=== PATIENT | female | born 1955 | race Caucasian/White ===

== ENCOUNTER → 2017-11-05 12:55 | Outpatient (CLI) | payer OTHER, SELFPAY ==
--- NOTE | 2017-11-05 | DI.MRI.S_ITS ---
PROCEDURE: MR LUMBAR SPINE WO CON INDICATIONS: LUMBAR SPINE PAIN TECHNIQUE: Noncontrast sagittal T1 spin echo and T2 fast echo, sagittal STIR, axial T1 and T2 fast spin echo through the lumbar spine. In cases with scoliosis, additional coronal T2 fast spin echo may be performed. COMPARISON: CT from 07/16/2014. FINDINGS: Image quality: Excellent. Alignment and Curvature: There is normal bony alignment. Bone Marrow: Marrow is of normal overall signal with foci of increased T1 signal in the partially visualized pelvis. No acute vertebral body compression fractures. Spinal Cord: Conus medullaris terminates at the T12 level. Visualized cord demonstrates normal signal and size. Paraspinous Soft Tissues: No paravertebral masses. L1-L2: Normal appearance. L2-L3: Normal appearance. L3-L4: Mild broad-based posterior disc bulge. Facet joint and ligamentum flavum hypertrophy. The central spinal canal and neural foramina are patent. . L4-L5: Mild broad-based posterior disc bulge. Facet joint and ligamentum flavum hypertrophy. Findings cause moderate left neural foraminal narrowing. The central spinal canal and right neural foramen are patent.. L5-S1: Normal appearance. IMPRESSION: Mild lower lumbar spine degenerative change causes moderate left L4-5 neural foraminal narrowing. Remaining neural foramina and the lumbar spinal canal are patent. Dictated by: Moe Thakkar M.D. on 11/05/2017 at 14:05 Approved by: Moe Thakkar M.D. on 11/05/2017 at 14:10
== END ==
PROVIDERS: PCP Internal Medicine; Visit Provider Orthopaedic Surgery Orthopaedic Surgery of the Spine
DX: M48.061 Spinal stenosis, lumbar region without neurogenic claudication (principal); M54.5 Low back pain
CPT/HCPCS: 72148

== ENCOUNTER → 2018-10-08 13:50 | Outpatient (CLI) | payer OTHER, SELFPAY ==
--- NOTE | 2018-10-08 | DI.MRI.S_ITS ---
PROCEDURE: MR LUMBAR SPINE WO CON INDICATIONS: Spinal stenosis, lumbar region TECHNIQUE: Noncontrast sagittal T1 spin echo and T2 fast echo, sagittal STIR, axial T1 and T2 fast spin echo through the lumbar spine. In cases with scoliosis, additional coronal T2 fast spin echo may be performed. COMPARISON: [facility], MR, MR LUMBAR SPINE WO CON, 11/05/2017, 14:00. FINDINGS: Image quality: Diagnostic, with note made of motion artifact. Alignment and Curvature: There is normal bony alignment. Bone Marrow: Marrow is of normal overall signal. No acute vertebral body compression fractures. Scattered foci are seen, which are hyperintense on T1-weighted and T2-weighted imaging, which are most consistent with benign vertebral body hemangiomas. Fatty metaplasia of the sacrum is noted. Spinal Cord: Conus medullaris terminates at the T12 level. Visualized cord demonstrates normal signal and size. Paraspinous Soft Tissues: No paravertebral masses. T12-L1: Normal appearance. L1-L2: Normal appearance. L2-L3: Normal appearance. L3-L4: The disc height is well-preserved. Loss of disc signal is seen at this level. Moderate generalized disc bulge is seen. Moderate facet joint hypertrophy is seen. Moderate bilateral neural foraminal narrowing is seen. The degree of neural foraminal narrowing appears mildly progressed compared to the prior MRI. L4-L5: The disc height is well-preserved. Loss of disc signal is seen at this level. Moderate generalized disc bulge is seen. At least moderate facet hypertrophy is seen. Moderate to severe bilateral neural foraminal narrowing is seen, left worse than right. Moderate central canal narrowing is seen. These degenerative changes appear slightly progressed compared to the prior MRI. L5-S1: The disc height and disk signal are well-preserved. Moderate generalized disc bulge is seen. Moderate facet joint hypertrophy is seen. No significant neural foraminal or central canal narrowing can be seen. Stable from the prior study. IMPRESSION: Lower lumbar spine degenerative changes are seen, which have mildly progressed compared to the prior MRI at L3-L4 and L4-L5. Dictated by: Dutch Sherman M.D. on 10/08/2018 at 14:59 Approved by: Dutch Sherman M.D. on 10/08/2018 at 15:04
== END ==
PROVIDERS: PCP Internal Medicine; Visit Provider Orthopaedic Surgery Orthopaedic Surgery of the Spine
DX: M47.816 Spondylosis without myelopathy or radiculopathy, lumbar region (principal); M48.061 Spinal stenosis, lumbar region without neurogenic claudication
CPT/HCPCS: 72148

== ENCOUNTER 2018-11-11 10:02 | Day surgery (SDC) | payer OTHER, SELFPAY ==
[2018-10-30 14:51] VITALS: BMI 47.2
[2018-11-11] VITALS (11 sets, daily range): BP systolic 115–166; BP diastolic 48–99; PULSE 51–88; RESP 12–19; TEMP 36.1–37; O2SAT 94–100; BMI 47.2
--- NOTE | 2018-11-11 | DI.RAD.S_ITS ---
PROCEDURE: XR LUMBAR SPINE 2-3V INDICATIONS: L3-4, L4-5 MICRODISCECTOMY TECHNIQUE: 3 views of the lumbar spine were acquired. COMPARISON: None. FINDINGS: Spot fluoroscopic intraoperative images demonstrate a surgical instrument with the tip projecting at the L4-L5 level in the posterior paraspinal soft tissues. Dictated by: Rush Centeno M.D. on 11/16/2018 at 11:28 Approved by: Rush Centeno M.D. on 11/16/2018 at 11:29
--- NOTE | 2018-11-11 11:39 | PM.PREOP ---
Pre-operative Note Interval Note History & Physical reviewed/Exam performed by Physician: Yes Changes to H&P: No
[2018-11-11] MEDS: LACTATED RINGERS 1,000 ML 42 ML IV (12:34)
[2018-11-11] MEDS: CEFAZOLIN 2 GM/100 ML FROZ.PIGGY IV (12:36)
--- NOTE | 2018-11-11 13:02 | SUR.OPER ---
Prone on spine table, head in foam head support, padded chest and pelvic supports, gel pad at knees, lower legs supported by pillows; nipples, genitalia and toes free of pressure, arms secured on foam padded arm boards at <90 degrees abduction. Tape over blanket at thigh secured to table.
[2018-11-11] MEDS: BUPIVACAINE 0.25% W/ EPI 30 ML VIAL INJ (13:13)
--- NOTE | 2018-11-11 13:38 | P.OP_ITS ---
Operative Date/Time/Diagnoses Date of procedure: 11/11/18 Time of procedure: 12:33 Pre-op diagnosis: 1. L3-4, L4-5 spinal stenosis 2. L3-4, L4-5 spondylosis with radculopathy Post-op diagnosis: same Procedure & Clinicians Procedure: 1. L4-5 laminectomy with partial facetecomies 2. L3-4 hemilaminectomy 3. Utilization of microsurgical technique and operating microscope Same procedure as scheduled: Yes Indications: Patient has been having chronic back pain and worsening lumbar radiculopathy. Patient failed multiple conservative management with worsening pain weakness and numbness in her lower extremity. Patient has been having difficulty performing activity of daily living. After discussing risks benefits of treatment options, patient elected proceed with surgery. Surgeon: Quoc Bautista [employer] Plant Operator: Ethel Flores Click Yes if Unassisted: No Anesthesia Type: General Operative Notes Closure Type: primary Specimen(s): none sent Estimated Blood Loss (mL): 5 Blood products transfused: none Procedure in detail: Patient was seen in the preoperative area. Risks and benefits of the surgery was discussed with the patient. Informed consent was obtained from the patient and placed in the chart. Surgical site was marked. Patient was taken to the operative room. General anesthesia was administered. Prophylactic antibiotic was given to the patient less than 30 min before the incision was made. Patient was placed into a prone position on the Juan Ramon table. Patient's back was then prepped and draped in the sterile fashion. Time- out was performed at this time. Using AP and lateral C-arm imaging the interval between L3-4 L4-5 was identified and marked on patient's back. A 1 inch incision 1 in from midline was made on the left side just lateral to the midline. The fascia was incised in line with skin incision. Globus MARS retractors was placed inside the incision and docked onto the L4 lamina. Using microsurgical technique and operating microscope, a L4 laminectomy was performed using a Kerrison rongeur. Liagamentum flavum was resected at the site of the laminotomy. Either side of the dura was exposed. Bilateral partial facetcomies was performed to further decompress the lateral recess. After the laminectomy was completed, the area medial lateral superior and inferior to the area of the laminectomy was inspected and explored using a micro curette. No other impinging structure was identified. The MARS retractor was redirected under C-arm guidance to over the L3 lamina and docked onto the L3 lamina. Again using microsurgical technique and operative microscope a L3 hemilaminectomy was performed by removing the left side of the L3 lamina along with ligamentum flavum for decompression purposes. The thecal sac and lateral recess was visualized and the lateral recess was further decompressed using a Kerrison rongeur. After decompression was completed, the epidural space was inspected. The L3-4 level was fully decompressed with a hemilaminectomy. The wound was then irrigated with sterile normal saline. 40 mg Depo-Medrol was placed into the epidural space. The deep fascia was closed with 1-0 Vicryl. The subcutaneous tissue was closed with 2-0 Vicryl. The skin was closed with 4-0 Monocryl. Patient tolerated the procedure well. There were no complications. Patient was transferred recovery room in stable condition. Complications: none Condition: stable Disposition: PACU Plan for aftercare: Discharge to home
--- NOTE | 2018-11-11 13:49 | SUR.OPER ---
Extra gel pads at left hip and breast, right hip
[2018-11-11] MEDS: HYDROMORPHONE 2 MG INJ 0.5 MG IV ×2 (14:01→14:17)
[2018-11-11] MEDS: hydrOXYzine 50 MG/ML INJ 25 MG IM ×2 (14:02→14:04)
[2018-11-11] MEDS: HYDROCODONE/ACET 5/325 TABLET 1 TAB PO (14:33)
--- NOTE | 2018-11-11 17:50 | SUR.PHASEII ---
1443 received pt from DISTRICT REPRESENTATIVE. Pt immediately c/o needing to go to the BR. Assisted to B[facility], voided large amount of urine. brought in, d/c instructions discussed, all voiced an understanding. Dressing to back C/D/I. No numbness or tingling and pt steady when up. Dressed when ready and left when ready and in stable condition.
--- NOTE | 2018-11-11 17:56 | SUR.PHASEII ---
addendum: Coumadin dose discussed with Dr Bautista, his instructions given to pt.
== END 2018-11-11 15:15 | disposition home or self-care (01) ==
PROVIDERS: PCP Internal Medicine; Visit Provider Orthopaedic Surgery Orthopaedic Surgery of the Spine
PROC: (CPT 63047; principal; 2018-11-11 12:15)
DX: M48.061 Spinal stenosis, lumbar region without neurogenic claudication (principal); M47.26 Other spondylosis with radiculopathy, lumbar region; E66.9 Obesity, unspecified; I10 Essential (primary) hypertension; M79.7 Fibromyalgia; Z86.718 Personal history of other venous thrombosis and embolism
CPT/HCPCS: 63047; 63030; 72100; 76000; J0330; J0690; J1100; J1170; J2250; J2405; J2704; J3010; J3410

== ENCOUNTER 2018-11-11 23:23 | Emergency (ER) | payer OTHER, SELFPAY ==
[2018-11-11 23:34] VITALS: BP 167/95; PULSE 68; RESP 18; TEMP 36.6; O2SAT 96; BMI 44.8
--- NOTE | 2018-11-11 23:44 | ED_ITS ---
HPI - Back Pain/Injury General Chief Complaint: Back Pain/Injury Stated Complaint: post surgery symptoms Time Seen by Provider: 11/11/18 23:34 Source: patient Mode of arrival: wheelchair Limitations: no limitations History of Present Illness HPI Narrative: Patient is a 63-year-old female who underwent a lumbar laminectomy and micro diskectomy today by Orthopedics. Was discharged home with instructions to continue the pain medication that she already had. She reported no prescription for nausea medication. She states that when she went home she had some coffee and tea. After that she tried to take some of her pain medication. She states that it felt like it got stuck in her throat and she vomited a couple times. She states she has not taken any pain medications she was discharged from the hospital because of the vomiting. No problems breathing. She does have lower back pain but she thinks that it is what would be expected after her surgery. Related Data Home Medications Medication Instructions Recorded Confirmed warfarin [Coumadin] 2 mg PO SEE INSTRUCTIONS #0 02/06/17 biotin 1 mg PO QDAY #0 07/28/17 11/11/18 cholecalciferol (vitamin D3) PO QDAY #0 07/28/17 [Vitamin D3] gabapentin [Neurontin] 300 mg PO TID #0 07/28/17 multivitamin [Multiple Vitamins] 1 tab PO QDAY #0 07/28/17 oxybutynin chloride 5 mg PO PRN PRN #0 07/28/17 trazodone 100 mg PO HS #0 07/28/17 Previous Rx's Medication Instructions Recorded warfarin [Jantoven] 5 mg PO QPM #30 01/28/16 hydrocodone-acetaminophen [Suring] 1 tab PO Q4HP PRN #15 tab 07/28/17 ondansetron HCl [Zofran] 4 mg PO Q6-8H PRN #10 tab 11/12/18 Allergies Allergy/AdvReac Type Severity Reaction Status Date / Time latex [LATEX] Allergy Intermediate RASH, Unverified 09/24/17 12:31 ITCHY, BLISTERS iodine [IODINE] Allergy Mild RASH Unverified 09/24/17 12:31 morphine [MORPHINE] Allergy Mild N&V Unverified 09/24/17 12:31 mussels [MUSSELS] Allergy Unknown N&V Unverified 09/24/17 12:31 TAPE Allergy Mild BLISTERS, Uncoded 09/24/17 12:31 SKIN PEELS Review of Systems Constitutional Denies fever(s) and Reports headache(s) ENT Ears, Nose, Mouth, and Throat: Reports headache(s) Cardiovascular Denies chest pain and Denies dyspnea Respiratory Denies dyspnea Gastrointestinal Gastrointestinal: Denies abdominal pain, Denies change in stool character, Reports nausea and Reports vomiting Musculoskeletal Reports back pain Neurologic Denies behavioral changes and Reports headache(s) Psychiatric Denies behavioral changes Hematologic/Lymphatic Denies easy bleeding and Denies easy bruising [facility] Medical History Anxiety (Acute) Chronic pain (Acute) Chronic sinus bradycardia (Acute) Depression (Acute) Former smoker (Acute) GERD (gastroesophageal reflux disease) (Acute) HTN (hypertension) (Acute) Hiatal hernia (Acute) History of ETOH abuse (Acute) Hypoglycemia (Acute) Hypothyroidism (Acute) Insomnia (Acute) Lactose intolerance (Acute) SHANEKA (obstructive sleep apnea) (Acute) PTSD (post-traumatic stress disorder) (Acute) Pulmonary embolism (Acute ~1993) Surgical History History of colonoscopy (Acute) History of gastric bypass (Acute) History of total left hip arthroplasty (Acute 11/08/15) Hx of appendectomy (Acute) Hx of cholecystectomy (Acute) Hx of hernia repair (Acute) Social History household members: spouse Smoking Status: Former smoker alcohol intake: former Social History household members: spouse Smoking Status: Former smoker alcohol intake: former Exam Initial Vital Signs Initial Vital Signs: Vital Signs Temperature 97.9 F 11/11/18 23:34 Pulse Rate 68 11/11/18 23:34 Respiratory Rate 18 11/11/18 23:34 Blood Pressure 167/95 H 11/11/18 23:34 Pulse Oximetry 96 11/11/18 23:34 Const General: cooperative, well developed, well groomed and No acute distress Orientation: alert and oriented x3 HENMT Head: normal to inspection and normocephalic Resp Effort & Inspection: normal respiratory effort Cardio Rate: regular rate Rhythm: regular rhythm Neuro General: alert, awake and oriented x3 Cognition: normal cognition Speech: speech normal Extrem General: normal to inspection and capillary refill normal Psych Appearance: grossly normal and well kempt Course Orders Ordered: Discontinued Medications Hydromorphone HCl (Dilaudid) 1 mg IV NOW ONE Stop: 11/11/18 23:54 Last Admin: 11/12/18 00:07 Dose: 1 mg Sodium Chloride (Normal Saline 0.9%) 1,000 mls @ 1,000 mls/hr IV BOLUS ONE Stop: 11/12/18 00:52 Last Infusion: 11/12/18 01:09 Dose: 1,000 mls/hr Admin: 11/12/18 00:07 Dose: 1,000 mls/hr Ondansetron HCl (Zofran) 4 mg IV NOW ONE Stop: 11/11/18 23:54 Last Admin: 11/12/18 00:07 Dose: 4 mg Vital Signs - 8 hr 11/11/18 23:34 Temperature 97.9 F Pulse Rate 68 Respiratory Rate 18 Blood Pressure 167/95 H Pulse Oximetry 96 MDM - Back Pain/Injury MDM Narrative Medical decision making narrative: Patient felt better after fluids and nausea and pain medication. She was able to tolerate oral intake afterwards. She does have back pain but it is what would be expected after surgery today. I suspect that her throat symptoms are the result of being intubated today. Hold on further workup for now. She has pain medication at home. Will send home with nausea medication. She was given return precautions. Instructed to continue all of her postoperative instructions given her by her surgeon. She expressed understanding and agreement plan. Discharge Plan Departure Patient Disposition: Home Clinical Impression: Postoperative nausea and vomiting Instructions: Nausea and Vomiting-Adult Activity Restrictions/Additional Instructions: Continue all of the instructions that were given to you your operative surgeon. Continue all of your medications as directed. Keep all of her scheduled medical appointments. Return to the emergency department for any new or worsening symptoms Prescriptions: New ondansetron HCl [Zofran] 4 mg tablet 4 mg PO Q6-8H PRN (Reason: nausea and vomiting) Qty: 10 RF: 0 No Action warfarin [Jantoven] 5 MG tablet 5 mg PO QPM Qty: 30 RF: 0 warfarin [Coumadin] 2 MG tablet 2 mg PO SEE INSTRUCTIONS Qty: 0 RF: 0 gabapentin [Neurontin] 300 MG capsule 300 mg PO TID Qty: 0 RF: 0 oxybutynin chloride 5 MG tablet 5 mg PO PRN PRN (Reason: Urinary Retention) Qty: 0 RF: 0 trazodone 100 MG tablet 100 mg PO HS Qty: 0 RF: 0 multivitamin [Multiple Vitamins] 1 EACH tablet 1 tab PO QDAY Qty: 0 RF: 0 cholecalciferol (vitamin D3) [Vitamin D3] 2,000 unit tablet PO QDAY Qty: 0 RF: 0 biotin 1 mg capsule 1 mg PO QDAY Qty: 0 RF: 0 hydrocodone-acetaminophen [Suring] 5 MG/325 MG tablet 1 tab PO Q4HP PRNQty: 15 RF: 0 Referrals: Chandler Covarrubias MD [Primary Care Provider] -
[2018-11-12] MEDS: SODIUM CHLORIDE 0.9% 1,000 ML 1000 ML IV (00:07)
[2018-11-12] MEDS: HYDROMORPHONE 1 MG INJ IV (00:07)
[2018-11-12] MEDS: ONDANSETRON 4 MG/2 ML INJ IV (00:07)
--- NOTE | 2018-11-12 00:17 | PC.NURSE ---
pt reports spine surg in low back to remove bone spur today, states this evening became nauseated, vomited, and has since had increasing headache and back pain at surgical site. Assmt of the surg site is deferred to MD castellanos to limited painful movement for pt. she is photophobic and tearful.
[2018-11-12] MEDS: ONDANSETRON 4 MG ODT PREPACK 1 BOTTLE MISC (01:14)
== END 2018-11-12 01:15 | disposition home or self-care (01) ==
PROVIDERS: Emergency Provider Emergency Medicine; PCP Internal Medicine
DX: R11.2 Nausea with vomiting, unspecified (principal); M54.5 Low back pain
CPT/HCPCS: 36591; 96361; 96374; 96375; 99283; 99284; J1170; J2405

== ENCOUNTER → 2019-05-25 11:05 | Outpatient (CLI) | payer OTHER, SELFPAY ==
--- NOTE | 2019-05-25 | DI.RAD.S_ITS ---
PROCEDURE: XR CHEST 2V INDICATIONS: CHEST PAIN TECHNIQUE: 2 views of the chest were acquired. COMPARISON: [facility], , CHEST 1 VIEW, 07/28/2017, 16:34. FINDINGS: Surgical changes and devices: None. Lungs and pleura: Lungs are clear. No pleural effusions or pneumothorax. Mediastinum: Mediastinal contours are normal. Heart size is normal. Bones and chest wall: No suspicious bony abnormalities. Soft tissues appear unremarkable. IMPRESSION: No acute cardiopulmonary disease. Dictated by: Daniel Nicholson M.D. on 05/25/2019 at 12:01 Approved by: Daniel Nicholson M.D. on 05/25/2019 at 12:01
== END ==
PROVIDERS: PCP Internal Medicine; Visit Provider Internal Medicine
DX: R07.89 Other chest pain (principal); K44.9 Diaphragmatic hernia without obstruction or gangrene
CPT/HCPCS: 71046

== ENCOUNTER 2019-07-25 21:23 | Emergency (ER) | payer OTHER, SELFPAY ==
[2019-07-25 21:31] VITALS: BP 189/99; PULSE 89; RESP 22; TEMP 36.8; O2SAT 100
--- NOTE | 2019-07-25 21:34 | DI.CT.S_ITS ---
PROCEDURE: CT CERVICAL SPINE WO CON INDICATIONS: fell/hit head/warfarin TECHNIQUE: Noncontrast 3 mm thick sections acquired from the skull base to the T4 level. Sagittal and coronal reformats were then constructed. For radiation dose reduction, the following was used: automated exposure control, adjustment of mA and/or kV according to patient size. COMPARISON: [facility], , C-SPINE WITHOUT CONTRAST, 09/08/2017, 10:23. FINDINGS: Image quality: Excellent. Bones: No fractures or dislocations. Visualized superior ribs are intact. Multilevel degenerative changes are present. Soft tissues: Prevertebral soft tissues are normal in thickness. No paravertebral hematomas. No apical pneumothoraces. IMPRESSION: No visualized fracture. Dictated by: Karen Hernandez M.D. on 07/25/2019 at 22:01 Approved by: Karen Hernandez M.D. on 07/25/2019 at 22:03
--- NOTE | 2019-07-25 21:34 | DI.CT.S_ITS ---
PROCEDURE: CT HEAD/BRAIN WO CON INDICATIONS: fell/hit head/warfarin TECHNIQUE: Noncontrast 4.5 mm thick angled axial sections acquired from the foramen magnum to the vertex, with coronal and sagittal reformats. For radiation dose reduction, the following was used: automated exposure control, adjustment of mA and/or kV according to patient size. COMPARISON: [facility], CT, HEAD WITHOUT CONTRAST, 07/28/2017, 16:49. FINDINGS: Image quality: Excellent. CSF spaces: Basal cisterns are patent. No extra-axial fluid collections. Ventricles are normal in size and shape. Brain: No midline shift. No intracranial masses or hemorrhage. Mistry-white matter interface is normal. Skull and face: Calvarium and visualized facial bones are intact, without suspicious lesions. Sinuses: Visualized sinuses and mastoids are clear. IMPRESSION: 1. No acute intracranial process. Dictated by: Karen Hernandez M.D. on 07/25/2019 at 22:00 Approved by: Karen Hernandez M.D. on 07/25/2019 at 22:01
--- NOTE | 2019-07-25 21:34 | DI.RAD.S_ITS ---
PROCEDURE: XR FOOT LT MIN 3V INDICATIONS: fell/hit head/warfarin TECHNIQUE: 3 views of the foot were acquired. COMPARISON: [facility], CR, XR ANKLE LT MIN 3V, 07/25/2019, 21:39. FINDINGS: Bones: Minimally displaced fracture of the distal fifth metacarpal. Soft tissues: No tibiotalar joint effusion. Achilles tendon appears normal. IMPRESSION: Distal fifth metacarpal fracture. Dictated by: Karen Hernandez M.D. on 07/25/2019 at 21:58 Approved by: Karen Hernandez M.D. on 07/25/2019 at 21:59
--- NOTE | 2019-07-25 21:34 | DI.RAD.S_ITS ---
PROCEDURE: XR ANKLE LT MIN 3V INDICATIONS: fell/hit head/warfarin TECHNIQUE: 3 views of the ankle were acquired. COMPARISON: X-ray foot 07/25/19. FINDINGS: Bones: There is a thin curvilinear calcification along the distal aspect of the fibula. In addition, there is an incompletely visualized lucency at the distal fifth metacarpal. Soft tissues: Bimalleolar edema is present, lateral greater than medial. Achilles tendon appears normal. IMPRESSION: Edema with curvilinear calcification along the distal fibula suggestive of avulsion injury. Incompletely visualized distal fifth metacarpal lucency. Please see x-ray foot for further details. Dictated by: Karen Hernandez M.D. on 07/25/2019 at 21:57 Approved by: Karen Hernandez M.D. on 07/25/2019 at 21:58
[2019-07-25 22:14] LABS: INR 2.1 (0.9-1.3); Prothrombin Time 24.1 SECONDS (10.1-12.7)
[2019-07-25 22:16] LABS: Add Manual Diff / Slide Review NO; Basophils Absolute Auto 0 /uL (0-100); Basophils Percent Auto 0.6 % (0-2); Eosinophils Absolute Auto 100 /uL (0-450); Eosinophils Percent Auto 1.4 % (2-4); Hematocrit 40.9 % (36-46); Hemoglobin 13.6 g/dL (12.0-16.0); Lymphocytes Absolute Auto 2400 /uL (1100-4500); Lymphocytes Percent Auto 33.7 % (25-40); Mean Corpuscular HGB Conc 33.3 % (30-36); Mean Corpuscular Hemoglobin 28.7 PG (26-34); Mean Corpuscular Volume 86.1 fL (80-100); Monocytes Absolute Auto 500 /uL (0-900); Neutrophils Absolute Auto 4100 /uL (1500-7000); Neutrophils Percent Auto 57.3 % (50-75); Platelet Count 228 X10^3/uL (150-400); Red Blood Cell Count 4.75 X10^6/uL (4.0-5.2); Red Cell Distribution Width 14.5 % (11.6-14.8); White Blood Cell Count 7.1 X10^3/uL (4.5-11.0)
[2019-07-25 22:18] LABS: Alanine Aminotransferase 15 IU/L (<35); Albumin Globulin Ratio 1.2 (1.0-2.8); Alkaline Phosphatase 75 U/L (38-126); Aspartate Aminotransferase 25 IU/L (14-36); BUN Creatinine Ratio 15.6 (6-22); Bilirubin Total 0.2 mg/dL (0.2-1.3); Blood Urea Nitrogen 14 mg/dL (7-17); Calcium 9.3 mg/dL (8.4-10.2); Carbon Dioxide 29 mmol/L (22-32); Chloride 105 mmol/L (98-107); Estimated Glomerular Filt Rate > 60.0 mL/min (>60); Globulin 3.3 g/dL (1.7-4.1); Glucose 112 mg/dL (80-110); HEMOLYSIS < 15 (0-50); Potassium 4.1 mmol/L (3.4-5.1); Sodium 139 mmol/L (137-145); Total Protein 7.3 g/dL (6.3-8.2)
[2019-07-25 23:18] VITALS: BP 178/88; PULSE 65; O2SAT 98
--- NOTE | 2019-07-25 23:39 | DI.RAD.S_ITS ---
PROCEDURE: XR KNEE LT 3V INDICATIONS: trip fall twisted and injured left knee TECHNIQUE: 3 views of the knee were acquired. COMPARISON: None. FINDINGS: Bones: No fractures or dislocations. No suspicious bony lesions. Tricompartmental osteoarthritis. Soft tissues: No joint effusion. No suspicious soft tissue calcifications. IMPRESSION: No fracture. No acute osseous lesion. If symptoms and/or clinical suspicion for pathology persists, further assessment with repeat radiographs (7-10 days) or advanced imaging (e.g. CT, MRI or bone scan) may be helpful. Dictated by: Lizbeth Jaime MD, PhD on 07/26/2019 at 9:04 Approved by: Lizbeth Jaime MD, PhD on 07/26/2019 at 9:05
[2019-07-25] MEDS: HYDROCODONE/ACET 5/325 TABLET 1 TAB PO (23:57)
[2019-07-26 00:24] VITALS: BP 175/77; PULSE 61; RESP 16; O2SAT 99
[2019-07-26 00:57] VITALS: BP 166/76; PULSE 88; RESP 14; O2SAT 99
--- NOTE | 2019-07-28 13:58 | ED.FALL ---
HPI - Fall General Chief Complaint: Trauma Stated Complaint: fall, neck pain, left leg pain Time Seen by Provider: 07/25/19 22:25 Source: patient Mode of arrival: Ambulatory History of Present Illness HPI Narrative: Chief complaint: Trip and fall with pain in her left knee and foot. History of present illness: The patient is a 64-year-old female who has a history of being on warfarin for pulmonary embolism that she had in 1994. 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 Today the patient was walking barefoot and caught her foot on a rug tripped and fell. She did not lose consciousness but struck her head. She denied any significant neck pain or low back pain. She primarily hurts in the muscles of her left shoulder left knee and left foot. She states that she is on able to put weight on her left foot. She states that her discomfort is 7/10 in nature. She has had a left hip replacement. She claims to be foggy in the head after she fell. She denies history of a stroke seizures but admits to a previous history of a myocardial infarction. She has had no loss of vision no diplopia but has had mild headaches and she fell. There has been no chest pain shortness of breath cough difficulty in breathing nausea vomiting diarrhea or any urinary symptoms. Related Data Home Medications Medication Instructions Recorded Confirmed warfarin [Coumadin] 2 mg PO SEE INSTRUCTIONS #0 02/06/17 biotin 1 mg PO QDAY #0 07/28/17 11/11/18 cholecalciferol (vitamin D3) PO QDAY #0 07/28/17 [Vitamin D3] gabapentin [Neurontin] 300 mg PO TID #0 07/28/17 multivitamin [Multiple Vitamins] 1 tab PO QDAY #0 07/28/17 oxybutynin chloride 5 mg PO PRN PRN #0 07/28/17 trazodone 100 mg PO HS #0 07/28/17 Previous Rx's Medication Instructions Recorded warfarin [Jantoven] 5 mg PO QPM #30 01/28/16 hydrocodone-acetaminophen [Belford] 1 tab PO Q4HP PRN #15 tab 07/28/17 ondansetron HCl [Zofran] 4 mg PO Q6-8H PRN #10 tab 11/12/18 cyclobenzaprine 10 mg PO TID PRN #14 tab 07/25/19 hydrocodone-acetaminophen [Belford] 1 tab PO Q6H PRN #10 tab 07/25/19 Allergies Allergy/AdvReac Type Severity Reaction Status Date / Time latex [LATEX] Allergy Intermediate RASH, Unverified 09/24/17 12:31 ITCHY, BLISTERS iodine [IODINE] Allergy Mild RASH Unverified 09/24/17 12:31 morphine [MORPHINE] Allergy Mild N&V Unverified 09/24/17 12:31 mussels [MUSSELS] Allergy Unknown N&V Unverified 09/24/17 12:31 TAPE Allergy Mild BLISTERS, Uncoded 09/24/17 12:31 SKIN PEELS Review of Systems Review of Systems Narrative: Her review of systems were all negative except for those mentioned in the history of present illness. Patient History Medical History Anxiety (Acute) Chronic pain (Acute) Chronic sinus bradycardia (Acute) Depression (Acute) Former smoker (Acute) GERD (gastroesophageal reflux disease) (Acute) Hiatal hernia (Acute) History of ETOH abuse (Acute) HTN (hypertension) (Acute) Hypoglycemia (Acute) Hypothyroidism (Acute) Insomnia (Acute) Lactose intolerance (Acute) SHANEKA (obstructive sleep apnea) (Acute) PTSD (post-traumatic stress disorder) (Acute) Pulmonary embolism (Acute ~1993) Surgical History History of colonoscopy (Acute) History of gastric bypass (Acute) History of total left hip arthroplasty (Acute 11/08/15) Hx of appendectomy (Acute) Hx of cholecystectomy (Acute) Hx of hernia repair (Acute) Social History household members: spouse Smoking Status: Former smoker alcohol intake: former Smoking Status: Former smoker Substance Use Type: does not use Exam Narrative Exam Narrative: PHYSICAL EXAM: CONSTITUTIONAL: Awake, Alert, Oriented, Coherent, Cooperative in mild distress HEAD: AT/NC EENT: PERRL, FROM of eyes, no discharge, Oral mucosa is moist and pink, posterior pharynx is without erythema or exudate. NECK: Supple, no obvious JVD, Trachea is midline without stridor, no palpable LN . SPINE: No gross deformity, no palpable tenderness of the cervical, thoracic, lumbar or sacral spine. No CVA tenderness. THORAX: No deformity, retractions, chest wall tenderness, subcutaneous air or crepitice. LUNGS: Clear with symmetrical breath sounds without respiratory distress HEART: Normal heart tones, regular rhythm and rate without murmur. ABDOMEN: Soft, non-tender, normal bowel sounds without guarding, rebound, rigidity or palpable mass EXTREMITIES: There is no edema cyanosis or bruising at this time. The patient's left lateral foot was tender to palpation over the metatarsals 5. 4. In 3. Patient had mild tenderness to palpation over the the lateral talofibular ligament of the left ankle. Dorsalis pedis pulse was 1+. Capillary refill was intact as well as sensation. She had mild tenderness to palpation over her posterior left trapezius and deltoid muscles without any bony deformity. She had full range of motion of her left shoulder passively. She was tender to palpation over her lateral left fibular head without deformity. She had full flexion and extension of her left knee without bruising swelling or the presence of an effusion. SKIN: No rash, bruising, petechiae or purpura. NEURO: Awake, alert, oriented, conversive, cranial nerves II-XII are symmetrical and normal, moves all 4 extremities and is ambulatory Initial Vital Signs Initial Vital Signs: Vital Signs Temperature 98.2 F 07/25/19 21:31 Pulse Rate 89 07/25/19 21:31 Respiratory Rate 22 07/25/19 21:31 Blood Pressure 189/99 H 07/25/19 21:31 Pulse Oximetry 100 07/25/19 21:31 Course Course Course Narrative: X-ray of the patient's left ankle suggest that there may be a possible avulsion fracture of the distal fibula secondary to a severe sprain. X-ray of her foot reveals that she has a nondisplaced fracture of the distal metatarsal of the little toe. X-ray of her left knee reveals no fracture or dislocation. CTs of her head and neck reveal no fractures or acute pathology. Orders Ordered: Discontinued Medications Hydrocodone Bitart/Acetaminophen (Belford 5/325) 1 tab PO NOW ONE Stop: 07/25/19 23:45 Last Admin: 07/25/19 23:57 Dose: 1 tab Documented by: HORACE MDM - Fall Medical Records Attestation: I reviewed the patient's medical records. Lab Data Attestation: I reviewed the patient's lab results. Result diagrams: 07/25/19 21:55 07/25/19 21:55 Labs: Lab Results 07/25/19 07/25/19 07/25/19 Range/Units 21:55 21:55 21:55 WBC 7.1 (4.5-11.0) X10^3/uL RBC 4.75 (4.0-5.2) X10^6/uL Hgb 13.6 (12.0-16.0) g/dL Hct 40.9 (36-46) % MCV 86.1 (80-100) fL MCH 28.7 (26-34) PG MCHC 33.3 (30-36) % RDW 14.5 (11.6-14.8) % Plt Count 228 (150-400) X10^3/uL Neut % (Auto) 57.3 (50-75) % Lymph % (Auto) 33.7 (25-40) % [place] % (Auto) 7.0 (3-14) % Eos % (Auto) 1.4 L (2-4) % Baso % (Auto) 0.6 (0-2) % Neut # (Auto) 4100 (7618-5059) /uL Lymph # (Auto) 2400 (4586-7990) /uL [place] # (Auto) 500 (0-900) /uL Eos # (Auto) 100 (0-450) /uL Baso # (Auto) 0 (0-100) /uL PT 24.1 H (10.1-12.7) SECONDS INR 2.1 H (0.9-1.3) Sodium 139 (137-145) mmol/L Potassium 4.1 (3.4-5.1) mmol/L Chloride 105 (98-107) mmol/L Carbon Dioxide 29 (22-32) mmol/L BUN 14 (7-17) mg/dL Creatinine 0.90 (0.52-1.04) mg/dL Estimated GFR > 60.0 (>60) mL/min BUN/Creatinine Ratio 15.6 (6-22) Glucose 112 H (80-110) mg/dL Calcium 9.3 (8.4-10.2) mg/dL Total Bilirubin 0.2 (0.2-1.3) mg/dL AST 25 (14-36) IU/L ALT 15 (<35) IU/L Alkaline Phosphatase 75 (38-126) U/L Total Protein 7.3 (6.3-8.2) g/dL Albumin 4.0 (3.5-5.0) g/dL Globulin 3.3 (1.7-4.1) g/dL Albumin/Globulin Ratio 1.2 (1.0-2.8) Discharge Plan Departure Patient Disposition: Home Clinical Impression: Metatarsal bone fracture Qualifiers: Encounter type: initial encounter Metatarsal bone: fifth Fracture type: closed Fracture alignment: nondisplaced Laterality: left Qualified Code(s): S92.355A - Nondisplaced fracture of fifth metatarsal bone, left foot, initial encounter for closed fracture Ankle sprain Qualifiers: Encounter type: initial encounter Involved ligament of ankle: unspecified ligament Laterality: left Qualified Code(s): S93.402A - Sprain of unspecified ligament of left ankle, initial encounter Knee sprain Qualifiers: Encounter type: initial encounter Involved ligament of knee: unspecified ligament Laterality: left Qualified Code(s): S83.92XA - Sprain of unspecified site of left knee, initial encounter Head, face & neck injury Qualifiers: Encounter type: initial encounter Qualified Code(s): S19.9XXA - Unspecified injury of neck, initial encounter Fall Qualifiers: Encounter type: initial encounter Qualified Code(s): W19.XXXA - Unspecified fall, initial encounter Discharge Date/Time: 07/26/19 00:58 Instructions: Whiplash, DI for Foot Fracture, DI for Knee Sprain, DI for Ankle Sprain, DI for Closed Head Injury Activity Restrictions/Additional Instructions: Over the next 48-72 hours you will developed increased areas of pain and discomfort and possible muscle spasm. 2. Wear the splints in braces as noted. 3. Follow-up with your primary care physician for re-evaluation. 4 for the fractured foot follow-up with orthopedic surgery. For pain and discomfort since you are on warfarin use Tylenol. You can use Belford the few tablets for severe pain. Use the Flexeril for muscle spasms pain and discomfort. 5 if you developed confusion worsening headache you need to return to the emergency department and be re-evaluated since being on warfarin. 6. Your laboratory chemistries are within normal limits including your INR. Prescriptions: New hydrocodone-acetaminophen [Belford] 5-325 mg tablet 1 tab PO Q6H PRN (Reason: pain) Qty: 10 RF: 0 cyclobenzaprine 10 mg tablet 10 mg PO TID PRN (Reason: muscle spasm) Qty: 14 RF: 0 No Action warfarin [Jantoven] 5 MG tablet 5 mg PO QPM Qty: 30 RF: 0 warfarin [Coumadin] 2 MG tablet 2 mg PO SEE INSTRUCTIONS Qty: 0 RF: 0 gabapentin [Neurontin] 300 MG capsule 300 mg PO TID Qty: 0 RF: 0 oxybutynin chloride 5 MG tablet 5 mg PO PRN PRN (Reason: Urinary Retention) Qty: 0 RF: 0 trazodone 100 MG tablet 100 mg PO HS Qty: 0 RF: 0 multivitamin [Multiple Vitamins] 1 EACH tablet 1 tab PO QDAY Qty: 0 RF: 0 cholecalciferol (vitamin D3) [Vitamin D3] 2,000 unit tablet PO QDAY Qty: 0 RF: 0 biotin 1 mg capsule 1 mg PO QDAY Qty: 0 RF: 0 hydrocodone-acetaminophen [Belford] 5 MG/325 MG tablet 1 tab PO Q4HP PRNQty: 15 RF: 0 ondansetron HCl [Zofran] 4 mg tablet 4 mg PO Q6-8H PRN (Reason: nausea and vomiting) Qty: 10 RF: 0 Referrals: Chandler Covarrubias MD [Primary Care Provider] - Elgin Landin MD [Emergency Provider] - Pradeep Murillo MD [Physician] -
== END 2019-07-26 00:58 | disposition home or self-care (01) ==
PROVIDERS: Emergency Provider Emergency Medicine; PCP Internal Medicine
DX: S92.355A Nondisplaced fracture of fifth metatarsal bone, left foot, initial encounter for closed fracture (principal); S93.402A Sprain of unspecified ligament of left ankle, initial encounter; S83.92XA Sprain of unspecified site of left knee, initial encounter; S19.9XXA Unspecified injury of neck, initial encounter; S09.8XXA Other specified injuries of head, initial encounter; W19.XXXA Unspecified fall, initial encounter
CPT/HCPCS: 29515; 36415; 70450; 72125; 73562; 73610; 73630; 80053; 85025; 85610; 99284

== ENCOUNTER 2019-08-11 13:02 | Emergency (ER) | payer OTHER, SELFPAY ==
[2019-08-11 13:06] VITALS: BP 165/74; PULSE 80; RESP 18; TEMP 36.2; O2SAT 97
--- NOTE | 2019-08-11 13:20 | DI.US.S_ITS ---
PROCEDURE: US PERIPH VENOUS LOW EXTREM LT INDICATIONS: concern for dvt, leg swelling. TECHNIQUE: Real-time imaging, as well as color and pulse Doppler interrogation, were performed of the lower extremity deep veins from the inguinal ligament to the popliteal fossa. COMPARISON: None. FINDINGS: The common femoral, femoral and popliteal veins are normally compressible, and free of intraluminal thrombus were visualized. The distal superficial femoral vein was not well-seen due to body habitus. Color and pulse Doppler demonstrate normal phasic intraluminal flow. There is normal augmentation response to distal compression maneuver. IMPRESSION: 1. No definite evidence of deep venous thrombosis in the left lower extremity. Dictated by: Raman Mendoza M.D. on 08/11/2019 at 14:01 Approved by: Raman Mendoza M.D. on 08/11/2019 at 14:03
--- NOTE | 2019-08-11 15:24 | ED.EXTPRO ---
HPI - Extremity Problem <AMY Ballard - Last Filed: 08/11/19 23:15> General Chief complaint: Extremity Problem,Nontraumatic Stated complaint: Swelling in L leg, hx of blood clots Time Seen by Provider: 08/11/19 14:51 Source: patient Mode of arrival: Wheelchair Limitations: no limitations History of Present Illness HPI Narrative: This is a 64-year-old female, former smoker, who presents to ED with left leg swelling and discomfort in posterior calf, knee, mid thigh. Patient reports she fell 2 weeks ago and had fractured mid food and has been using walking bruise and a walker for mobilization. She reports she accidentally fell on left hip again several days ago and has been using heat on affected site for comfort. Patient states she has been elevating her left leg as much as she can during rest. Patient has a history of DVT and pulmonary embolism and is currently taking Coumadin daily. Daily dose today. Last INR check was on 07/25/19 and it was 2.1 and she had increased her Coumadin dose to 7.5 mg from 5 mg. patient denies chest pain, breathing difficulty at this time. Patient has an appointment with Dr. Rivera on 08/24/[address] Cornejo (orthopedist) on 08/16/2019 for swelling to left leg. Related Data Home Medications Medication Instructions Recorded Confirmed warfarin [Coumadin] 2 mg PO SEE INSTRUCTIONS #0 02/06/17 biotin 1 mg PO QDAY #0 07/28/17 11/11/18 cholecalciferol (vitamin D3) PO QDAY #0 07/28/17 [Vitamin D3] gabapentin [Neurontin] 300 mg PO TID #0 07/28/17 multivitamin [Multiple Vitamins] 1 tab PO QDAY #0 07/28/17 oxybutynin chloride 5 mg PO PRN PRN #0 07/28/17 trazodone 100 mg PO HS #0 07/28/17 Previous Rx's Medication Instructions Recorded warfarin [Jantoven] 5 mg PO QPM #30 01/28/16 hydrocodone-acetaminophen [Happy] 1 tab PO Q4HP PRN #15 tab 07/28/17 ondansetron HCl [Zofran] 4 mg PO Q6-8H PRN #10 tab 11/12/18 cyclobenzaprine 10 mg PO TID PRN #14 tab 07/25/19 hydrocodone-acetaminophen [Happy] 1 tab PO Q6H PRN #10 tab 07/25/19 Allergies Allergy/AdvReac Type Severity Reaction Status Date / Time latex [LATEX] Allergy Intermediate RASH, Unverified 09/24/17 12:31 ITCHY, BLISTERS iodine [IODINE] Allergy Mild RASH Unverified 09/24/17 12:31 morphine [MORPHINE] Allergy Mild N&V Unverified 09/24/17 12:31 mussels [MUSSELS] Allergy Unknown N&V Unverified 09/24/17 12:31 TAPE Allergy Mild BLISTERS, Uncoded 09/24/17 12:31 SKIN PEELS Review of Systems <AMY Ballard - Last Filed: 08/11/19 23:15> Review of Systems Narrative: General: Denies fever, chills, fatigue, malaise, sweats. HEENT: Denies sinus pain, ear pain, sore throat, difficulty swallowing, dizziness. Respiratory: Denies dyspnea, cough, wheezing, hemoptysis, sputum. Cardiovascular: Denies chest pain, palpitations, orthopnea, edema. Gastrointestinal: Denies nausea, vomiting, abdominal pain, diarrhea, constipation, melena. : Denies dysuria, frequency, incontinence, hematuria, urinary retention. Musculoskeletal: See HPI Skin: Denies rash, skin lesions, or other. Neurologic: Denies weakness, headache, numbness, change in speech, confusion, seizures, incoordination. Psychiatric: No concerning psychosocial issues. 12-point review of systems is negative except for those stated above. Patient History <AMY Ballard - Last Filed: 08/11/19 23:15> Medical History Anxiety (Acute) Chronic pain (Acute) Chronic sinus bradycardia (Acute) Depression (Acute) Former smoker (Acute) GERD (gastroesophageal reflux disease) (Acute) Hiatal hernia (Acute) History of ETOH abuse (Acute) HTN (hypertension) (Acute) Hypoglycemia (Acute) Hypothyroidism (Acute) Insomnia (Acute) Lactose intolerance (Acute) SHANEKA (obstructive sleep apnea) (Acute) PTSD (post-traumatic stress disorder) (Acute) Pulmonary embolism (Acute ~1993) Surgical History History of colonoscopy (Acute) History of gastric bypass (Acute) History of total left hip arthroplasty (Acute 11/08/15) Hx of appendectomy (Acute) Hx of cholecystectomy (Acute) Hx of hernia repair (Acute) Social History household members: spouse Smoking Status: Former smoker alcohol intake: former Smoking Status: Former smoker Substance Use Type: does not use Exam <AMY Ballard - Last Filed: 08/11/19 23:15> Narrative Exam Narrative: General appearance: well developed, obese female, in no acute distress. Head: normocephalic, atraumatic, no scalp lesions, non-tender. ENT: Hearing grossly intact. Nose without bleeding, purulent discharge or deviation. Mucous membrane moist, no mucosal lesion. Throat without erythema, tonsillar hypertrophy or exudate. Uvula in midline, airway patent. Neck/Thyroid: neck supple, full range of motion, no visible masses or meningeal signs. No JVD, non-tender without lymphadenopathy. Skin: no suspicious rashes, lesions over visible areas. Warm and dry and appropriate color for ethnicity. Heart: no clubbing, no cyanosis, no edema. S1 and S2 normal. RRR w/o murmurs, clicks, or bruits. Lungs: Breathing even and unlabored. No stridor. No accessory muscles used. Able to speak in full sentences. Chest: normal shape and expansion. Abdomen: obese, non-distended. Neurologic: alert and oriented. Cognitive exam, [employer] and PNS grossly intact on informal exam. Psych: good eye contact, normal affect. Initial Vital Signs Initial Vital Signs: Vital Signs Temperature 97.1 F L 08/11/19 13:06 Pulse Rate 80 08/11/19 13:06 Respiratory Rate 18 08/11/19 13:06 Blood Pressure 165/74 H 08/11/19 13:06 Pulse Oximetry 97 08/11/19 13:06 Extrem Left lower extremity: hip/thigh Details: swelling Location: of the mid upper leg and normal ROM; no abrasions, no lacerations, no ecchymosis, no deformity and no unusual warmth, knee Details: normal ROM; no tenderness, lower leg Details: normal to inspection, localized swelling (Calf and compressible) and non-pitting edema; no erythema, no ecchymosis, no deformity and no unusual warmth and foot Details: normal capillary refill, normal to inspection, tenderness Location: of the mid foot, toes with normal ROM, vascular exam Details: dorsalis pedis pulse present and motor-sensory exam Details: light-touch normal; no unusual warmth, edema noted, no abrasions, no lacerations and no crepitus <Tracy Avery DO - Last Filed: 08/13/19 20:26> Initial Vital Signs Initial Vital Signs: Vital Signs Temperature 97.1 F L 08/11/19 13:06 Pulse Rate 80 08/11/19 13:06 Respiratory Rate 18 08/11/19 13:06 Blood Pressure 165/74 H 08/11/19 13:06 Pulse Oximetry 97 08/11/19 13:06 Scores <UGO BallardP - Last Filed: 08/11/19 23:15> GCS Nabeel coma scale eye opening: Spontaneous Nabeel coma scale verbal response: Orientated [place] coma scale motor response: Obey commands [place] coma scale total score: 15 Wells' Criteria for DVT Active Cancer (Treatment within 6 months): No Bedridden recently >3 days or major surgery within 4 weeks: No Calf Swelling >3cm compared to other leg: Yes Collateral (nonvericose) superficial veins present: Yes Entire leg swollen: Yes Localized tenderness along the deep vein system: Yes Pitting edema, confined to symtomatic leg: No Paralysis, paresis, or recent plaster immobilization of ext: Yes Previously documented DVT: Yes Alternative dx to DVT as likely or more likely: Yes Wells' criteria for DVT: 4 Course <UGO BallardP - Last Filed: 08/11/19 23:15> Orders Ordered: ED Orders 08/11/19 13:20 US periph venous low extrem lt Stat Vital Signs Vital signs: Vital Signs - 8 hr 08/11/19 15:54 Pulse Rate 60 Blood Pressure 188/86 H Pulse Oximetry 97 <Tracy Avery DO - Last Filed: 08/13/19 20:26> Orders Ordered: ED Orders 08/11/19 13:20 US periph venous low extrem lt Stat Vital Signs Vital signs: Vital Signs - 8 hr 08/11/19 15:54 Pulse Rate 60 Blood Pressure 188/[address] [facility] - Extremity (Nontraumatic) <AMY Ballard - Last Filed: 08/11/19 23:15> Differential Diagnosis Differential diagnosis: Likely cellulitis, lower extremity edema and deep vein thrombosis of lower extremity Medical Records Attestation: I reviewed the patient's medical records. Imaging Data US-Left Duplex: Radiologist's Impression: [address] [address] Ultrasound Report Signed Patient: Kelsi Chase [facility]#: [id number] : 6Acct:[id number] Age/Sex: 64 / FDate of Service: 08/11/19 Loc: ED Accession Number: [id number] Procedure: US periph venous low extrem lt Ordering Provider: Mukul Cosme PROCEDURE: US PERIPH VENOUS LOW EXTREM LT INDICATIONS: concern for dvt, leg swelling. TECHNIQUE: Real-time imaging, as well as color and pulse Doppler interrogation, were performed of the lower extremity deep veins from the inguinal ligament to the popliteal fossa. COMPARISON: None. FINDINGS: The common femoral, femoral and popliteal veins are normally compressible, and free of intraluminal thrombus were visualized. The distal superficial femoral vein was not well-seen due to body habitus. Color and pulse Doppler demonstrate normal phasic intraluminal flow. There is normal augmentation response to distal compression maneuver. IMPRESSION: 1. No definite evidence of deep venous thrombosis in the left lower extremity. Dictated by: Raman Mendoza M.D. on 08/11/2019 at 14:01 Approved by: Raman Mendoza M.D. on 08/11/2019 at 14:03 [facility] Narrative Medical decision making narrative: This is a 64-year-old female currently anticoagulated with Coumadin for history of DVT and PE presents to ED with left lower extremity swelling. Patient had fractured left midfoot 2 weeks ago and has been using walking boot with Carl wrap. Patient reports she has been elevating the affected leg as much as possible during rest however she has been using warm pack on left upper leg for comfort after she sustained another fall and landed on her hip. She has been using a walker for ambulation. Wells DVT score was 4. Last INR check was on 07/25/19 of 2.1 with PT of 24.1. Patient increased her Coumadin dose to 7.5 mg today once. Patient declined another INR check today in ER. Duplex ultrasound test on left lower extremity does not show definite evidence of DVT. Patient does not endorses chest pain, dyspnea or short of breath. Patient shows normal heart rate in 60s with mildly elevated BP. Patient had intact dorsal pedal pulse along popliteal pulses with sensation and is able to move her toes. Physical exam was not consistent with cellulitis without significant erythema or warmth to palpate and patient is afebrile. Patient has an appointment with Dr. Cornejo this coming Friday for an evaluation with left leg swelling. Patient advise with continue with leg elevation but not to use warm pack this could vasodilate and worsen the swelling. Discussed return precautions and verbalized understanding and in agreement with treatment plan. Discharge Plan Departure Patient Disposition: Home Clinical Impression: Left leg swelling, History of foot fracture Discharge Date/Time: 08/11/19 15:55 Activity Restrictions/Additional Instructions: You have been diagnosed with [left leg swelling. You have known fracture on left foot and has been using Carl wrap and walking boot with for this. Ultrasound test on left evidence of DVT at this time.]. What to do: *Take your medications as directed. Please continue with your medications as prescribed. Please follow-up with Dr. Rivera for INR check. Please follow-up with Dr. Cornejo on Friday for an evaluation of your fracture and leg swelling. *Follow up with your primary care provider in 2-3 days, call for an appointment. Let them know you were seen in the ED and that we asked you to be seen in follow up. *Return to ED if you have any new, worsening, or concerning symptoms, such as [chest pain, breathing difficulty, tingling/numbness/weakness to left week, pale on her foot, worsening pain on left leg or any acute concerns]. Prescriptions: No Action warfarin [Jantoven] 5 MG tablet 5 mg PO QPM Qty: 30 RF: 0 warfarin [Coumadin] 2 MG tablet 2 mg PO SEE INSTRUCTIONS Qty: 0 RF: 0 gabapentin [Neurontin] 300 MG capsule 300 mg PO TID Qty: 0 RF: 0 oxybutynin chloride 5 MG tablet 5 mg PO PRN PRN (Reason: Urinary Retention) Qty: 0 RF: 0 trazodone 100 MG tablet 100 mg PO HS Qty: 0 RF: 0 multivitamin [Multiple Vitamins] 1 EACH tablet 1 tab PO QDAY Qty: 0 RF: 0 cholecalciferol (vitamin D3) [Vitamin D3] 2,000 unit tablet PO QDAY Qty: 0 RF: 0 biotin 1 mg capsule 1 mg PO QDAY Qty: 0 RF: 0 hydrocodone-acetaminophen [Happy] 5 MG/325 MG tablet 1 tab PO Q4HP PRNQty: 15 RF: 0 hydrocodone-acetaminophen [Happy] 5-325 mg tablet 1 tab PO Q6H PRN (Reason: pain) Qty: 10 RF: 0 cyclobenzaprine 10 mg tablet 10 mg PO TID PRN (Reason: muscle spasm) Qty: 14 RF: 0 ondansetron HCl [Zofran] 4 mg tablet 4 mg PO Q6-8H PRN (Reason: nausea and vomiting) Qty: 10 RF: 0 Referrals: Chandler Covarrubias MD [Primary Care Provider] - Margo Cornejo MD [Physician] -
[2019-08-11 15:54] VITALS: BP 188/86; PULSE 60; O2SAT 97
== END 2019-08-11 15:55 | disposition home or self-care (01) ==
PROVIDERS: Emergency Provider Nurse Practitioner Family; PCP Internal Medicine
DX: R22.42 Localized swelling, mass and lump, left lower limb (principal)
CPT/HCPCS: 93971; 99281; 99284

== ENCOUNTER 2019-10-23 11:38 | Emergency (ER) | payer OTHER, MEDICARE, SELFPAY ==
[2019-10-23] VITALS (10 sets, daily range): BP systolic 123–217; BP diastolic 68–99; PULSE 52–97; RESP 15–20; TEMP 36.1; O2SAT 88–99
--- NOTE | 2019-10-23 12:08 | DI.RAD.S_ITS ---
PROCEDURE: XR CHEST 1V INDICATIONS: chest pain TECHNIQUE: One view of the chest was acquired. COMPARISON: [facility], , CHEST 1 VIEW, 07/28/2017, 16:34. [facility], , XR CHEST 2V, 05/25/2019, 11:10. FINDINGS: Surgical changes and devices: None. Lungs and pleura: Lungs are clear. No pleural effusions or pneumothorax. Mediastinum: The cardiac contours are within normal limits. The aorta demonstrates calcification and tortuosity. Bones and chest wall: Age-appropriate bony degenerative changes are seen. No suspicious bony lesions. Overlying soft tissues appear unremarkable. IMPRESSION: Unremarkable portable chest study for age. Dictated by: Dutch Sherman M.D. on 10/23/2019 at 11:24 Approved by: Dutch Sherman M.D. on 10/23/2019 at 11:25
--- NOTE | 2019-10-23 12:16 | DI.CT.S_ITS ---
PROCEDURE: CT HEAD/BRAIN WO CON INDICATIONS: HTN TECHNIQUE: Noncontrast 4.5 mm thick angled axial sections acquired from the foramen magnum to the vertex, with coronal and sagittal reformats. For radiation dose reduction, the following was used: automated exposure control, adjustment of mA and/or kV according to patient size. COMPARISON: [facility], CT, HEAD WITHOUT CONTRAST, 07/28/2017, 16:49. [facility], CT, CT HEAD/BRAIN WO CON, 07/25/2019, 21:35. FINDINGS: Image quality: Excellent. CSF spaces: Basal cisterns are patent. No extra-axial fluid collections. The ventricles are symmetric in size and shape. Brain: No intracranial bleeds or masses. There is cerebral volume loss for age, with resultant ventricular and sulcal prominence. There are periventricular and deep white matter chronic small vessel ischemic changes. There is intracranial internal carotid artery atherosclerosis. Stable left basal ganglia calcification can be seen, as on series 2 image 12. Skull and face: Calvarium and visualized facial bones appear intact, without suspicious lesions. Sinuses: Visualized sinuses and mastoids are clear. IMPRESSION: Unremarkable intracranial study for age, without findings of acute intracranial hemorrhage. Dictated by: Dutch Sherman M.D. on 10/23/2019 at 11:30 Approved by: Dutch Sherman M.D. on 10/23/2019 at 11:32
[2019-10-23 12:53] LABS: INR 1.9 (0.9-1.3); Prothrombin Time 21.8 SECONDS (10.1-12.7)
[2019-10-23 12:54] LABS: Add Manual Diff / Slide Review NO; Basophils Absolute Auto 100 /uL (0-100); Basophils Percent Auto 0.7 % (0-2); Eosinophils Absolute Auto 100 /uL (0-450); Eosinophils Percent Auto 1.7 % (2-4); Hemoglobin 13.7 g/dL (12.0-16.0); Lymphocytes Absolute Auto 2100 /uL (1100-4500); Lymphocytes Percent Auto 27.5 % (25-40); Mean Corpuscular HGB Conc 33.5 % (30-36); Mean Corpuscular Hemoglobin 28.9 PG (26-34); Mean Corpuscular Volume 86.3 fL (80-100); Monocytes Absolute Auto 600 /uL (0-900); Monocytes Percent Auto 7.9 % (3-14); Neutrophils Absolute Auto 4700 /uL (1500-7000); Neutrophils Percent Auto 62.2 % (50-75); Platelet Count 282 X10^3/uL (150-400); Red Blood Cell Count 4.75 X10^6/uL (4.0-5.2); Red Cell Distribution Width 13.9 % (11.6-14.8); White Blood Cell Count 7.6 X10^3/uL (4.5-11.0)
[2019-10-23 12:56] LABS: PTT Partial Thromboplastin Tim 49 SECONDS (26.4-36.2)
[2019-10-23 12:58] LABS: Alanine Aminotransferase 18 IU/L (<35); Albumin 4.5 g/dL (3.5-5.0); Albumin Globulin Ratio 1.3 (1.0-2.8); Alkaline Phosphatase 80 U/L (38-126); Aspartate Aminotransferase 36 IU/L (14-36); BUN Creatinine Ratio 18.3 (6-22); Bilirubin Total 0.4 mg/dL (0.2-1.3); Blood Urea Nitrogen 17 mg/dL (7-17); Calcium 9.9 mg/dL (8.4-10.2); Carbon Dioxide 31 mmol/L (22-32); Chloride 101 mmol/L (98-107); Creatine Kinase 79 U/L (30-135); Estimated Glomerular Filt Rate > 60.0 mL/min (>60); Globulin 3.4 g/dL (1.7-4.1); Glucose 94 mg/dL (80-110); HEMOLYSIS 30 (0-50); Lipase 84 U/L (23-300); Potassium 4.8 mmol/L (3.4-5.1); Sodium 139 mmol/L (137-145); Total Protein 7.9 g/dL (6.3-8.2)
--- NOTE | 2019-10-23 13:01 | PC.NURSE ---
Pt states shes been chronically having headaches. HTN. takes losartan and has been compliant. BP in triage was 230's/systolic. states intense headache in the occipital part of her head. denies nausea. HR 50-54 which is why pt is reluctant to take another BP pill at home. on warfarin for PE/DVT history. currently 209/98, HR 52, RR 20, 10% RA. appears well. EKG head CT CXR IV and labs all obtained. awaiting MD assessment. pt declined offer for tylenol for pain.
[2019-10-23 13:09] LABS: Troponin I < 0.012 ng/mL (0.01-0.034)
[2019-10-23] MEDS: HYDRALAZINE 20 MG/ML VIAL IV (13:30)
--- NOTE | 2019-10-23 13:44 | ED.GENADULT ---
HPI - General Adult General Chief complaint: Hypertension Stated complaint: high blood pressure issues x7 days Time Seen by Provider: 10/23/19 13:22 Source: patient Mode of arrival: Ambulatory Limitations: no limitations History of Present Illness HPI narrative: CC: Headache HPI: The patient is a 64-year-old female who presents to the emergency department with a headache and chronic back ache. The patient states that she has a bifrontal headache and a for headache along the left side of her head. The the patient has a remote past history of migraines in the past. The patient states that her headache is 10/10 in intensity and is a dull achy throbbing discomfort. 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 The patient states that she is scared and anxious because she had a sister who from a blood clot. Patient is also upset because her grandson had a prolonged seizure yesterday and was reported to be on a ventilator and that they have classified him as being possibly brain and taking him off the ventilator. The patient has had some mild chest discomfort but denies any neck pain jaw pain shoulder or arm pain. The patient denies a history of diabetes mellitus but admits a history of hypertension, previous myocardial infarction and COPD. The patient has had an appendectomy and cholecystectomy. She is a former smoker and quit drinking alcohol 15 years ago. She does not use any drugs. The patient has chronic neck pain and back pain for which she has taken hydrocodone. Related Data Home Medications Medication Instructions Recorded Confirmed warfarin [Coumadin] 2 mg PO SEE INSTRUCTIONS #0 02/06/17 biotin 1 mg PO QDAY #0 07/28/17 11/11/18 cholecalciferol (vitamin D3) PO QDAY #0 07/28/17 [Vitamin D3] gabapentin [Neurontin] 300 mg PO TID #0 07/28/17 multivitamin [Multiple Vitamins] 1 tab PO QDAY #0 07/28/17 oxybutynin chloride 5 mg PO PRN PRN #0 07/28/17 trazodone 100 mg PO HS #0 07/28/17 losartan 50 mg PO DAILY 10/23/19 10/23/19 Previous Rx's Medication Instructions Recorded warfarin [Jantoven] 5 mg PO QPM #30 01/28/16 hydrocodone-acetaminophen [[place]] 1 tab PO Q4HP PRN #15 tab 07/28/17 ondansetron HCl [Zofran] 4 mg PO Q6-8H PRN #10 tab 11/12/18 cyclobenzaprine 10 mg PO TID PRN #14 tab 07/25/19 hydrocodone-acetaminophen [[place]] 1 tab PO Q6H PRN #10 tab 07/25/19 cephalexin [Keflex] 500 mg PO QID #28 cap 10/23/19 lorazepam [Ativan] 0.5 mg PO QID PRN #12 tab 10/23/19 Allergies Allergy/AdvReac Type Severity Reaction Status Date / Time latex [LATEX] Allergy Intermediate RASH, Verified 10/23/19 14:30 ITCHY, BLISTERS iodine [IODINE] Allergy Mild RASH Verified 10/23/19 14:30 morphine [MORPHINE] Allergy Mild N&V Verified 10/23/19 14:30 mussels [MUSSELS] Allergy Unknown N&V Verified 10/23/19 14:30 TAPE Allergy Mild BLISTERS, Uncoded 10/23/19 14:30 SKIN PEELS Review of Systems Review of Systems Narrative: REVIEW OF SYSTEMS: CONSTITUTIONAL: No fever chills sweats no fall or injury. NEUROLOGICAL: The patient has a headache by frontally radiating to her left side of her head and neck. Denies any numbness tingling paresthesias anesthesias or paresis. EENT: No change in vision sore throat but complains of nasal drainage and sinus congestion. CARDIO-PULMONARY: The patient has had some mild chest discomfort but no shortness of breath cough palpitations or dizziness. GASTROINTESTINAL: The patient has some mild epigastric discomfort but denies any indigestion or heartburn. She has had no nausea vomiting diarrhea change in bowel habits. GENITAL URINARY: No urinary symptoms MUSCULOSKELETAL/ RHEUMATOLOGICAL: No low back pain more than usual Patient History Medical History Anxiety (Acute) Chronic pain (Acute) Chronic sinus bradycardia (Acute) Depression (Acute) Former smoker (Acute) GERD (gastroesophageal reflux disease) (Acute) Hiatal hernia (Acute) History of ETOH abuse (Acute) HTN (hypertension) (Acute) Hypoglycemia (Acute) Hypothyroidism (Acute) Insomnia (Acute) Lactose intolerance (Acute) SHANEKA (obstructive sleep apnea) (Acute) PTSD (post-traumatic stress disorder) (Acute) Pulmonary embolism (Acute ~1993) Surgical History History of colonoscopy (Acute) History of gastric bypass (Acute) History of total left hip arthroplasty (Acute 11/08/15) Hx of appendectomy (Acute) Hx of cholecystectomy (Acute) Hx of hernia repair (Acute) Social History household members: spouse Smoking Status: Former smoker alcohol intake: former Smoking Status: Former smoker alcohol intake frequency: 0-2 drinks per day Substance Use Type: does not use Exam Narrative Exam Narrative: PHYSICAL EXAM: CONSTITUTIONAL: Awake, Alert, Oriented, agitated and extremely anxious. HEAD: AT/NC EENT: PERRL, FROM of eyes, no discharge, no nystagmus NOSE:No epistaxis or nasal drainage MOUTH:Oral mucosa is moist and pink, posterior pharynx is without erythema or exudate. NECK: Supple, no obvious JVD, Trachea is midline without stridor, no palpable LN. SPINE: Palpationof the cervical, Thoracic, Lumbar or Sacral spine reveals no gross deformity or tenderness. No CVA tenderness. THORAX: Mild tenderness over the left lower chest wall LUNGS: Clear, symmetrical breath sounds without respiratory distress. HEART: Normal heart tones, regular rhythm and rate without murmur. ABDOMEN: The abdomen is soft mild tenderness in the epigastrium without guarding rebound or rigidity no palpable organomegaly EXTREMITIES: No edema, deformity, tenderness or cyanosis. SKIN: No rash, bruising, petechiae or purpura. NEURO: Awake, alert, oriented, conversive, cranial nerves II-XII are symmetrical , moves all 4 extremities and is ambulatory. MENTAL HEALTH: The patient is acutely anxious and depressed. Initial Vital Signs Initial Vital Signs: Vital Signs Temperature 97 F L 10/23/19 12:00 Pulse Rate 97 H 10/23/19 12:00 Respiratory Rate 20 10/23/19 12:00 Blood Pressure 217/99 H 10/23/19 12:00 Pulse Oximetry 97 10/23/19 12:00 Course Course Course Narrative: The patient's EKG obtained at 12:4 3:53 a.m. reveals sinus bradycardia. Ventricular rate is 53 the patient has borderline first-degree AV block with a 206 millisecond NV interval QRS is 80 milliseconds duration QTC is normal at 372 milliseconds axis is left axis deviation. The patient's EKG has inverted T-waves in leads V1 and III. She has flattened T-waves in AVF. The patient has Q-waves in leads III and AVF suggesting an old inferior SD age indeterminate. There are no acute diagnostic ST segment changes at this time. 1800 the patient states that she is feeling much better she still has a little bit of a headache but it is much improved. The patient was informed that she will be discharged. The patient's 2nd troponin was unchanged and the patient was discharged home. Orders Ordered: ED Orders 10/23/19 12:08 CT head/brain w con Stat XR chest 1V Stat EKG-12 Lead Stat 10/23/19 12:16 CT head/brain wo con Stat 10/23/19 12:30 Urine Culture Stat Urine Microscopic Stat 10/23/19 12:36 Complete Blood Count AUTO DIFF Stat Comprehensive Metabolic Panel Stat Lipase Stat Magnesium Stat Partial Thromboplastin Time Stat Prothrombin Time INR Stat Troponin & CK Cardiac Panel Stat 10/23/19 15:51 D Dimer Stat Troponin & CK Cardiac Panel Stat Discontinued Medications Diphenhydramine HCl (Benadryl) 25 mg IV NOW ONE Stop: 10/23/19 15:20 Last Admin: 10/23/19 16:44 Dose: Not Given Documented by: ATILIO Hydralazine HCl (Apresoline) 20 mg IV NOW ONE Stop: 10/23/19 13:25 Last Admin: 10/23/19 13:30 Dose: 20 mg Documented by: SHOAIB Hydromorphone HCl (Dilaudid) 0.5 mg IV NOW ONE Stop: 10/23/19 14:26 Last Admin: 10/23/19 14:42 Dose: 0.5 mg Documented by: SHOAIB Sodium Chloride (Normal Saline 0.9%) 500 mls @ 1,000 mls/hr IV BOLUS ONE Stop: 10/23/19 17:38 Last Admin: 10/23/19 17:14 Dose: 1,000 mls/hr Documented by: SHOAIB Lorazepam (Ativan) 0.5 mg IV NOW ONE Stop: 10/23/19 14:46 Last Admin: 10/23/19 14:52 Dose: 0.5 mg Documented by: SHOAIB Lorazepam (Ativan) 0.5 mg IV NOW ONE Stop: 10/23/19 15:20 Last Admin: 10/23/19 16:44 Dose: Not Given Documented by: ATILIO Methylprednisolone (Solu-Medrol 125 Mg Vial) 125 mg IV NOW ONE Stop: 10/23/19 15:20 Last Admin: 10/23/19 17:13 Dose: 125 mg Documented by: SHOAIB Metoclopramide HCl (Reglan) 10 mg IV NOW ONE Stop: 10/23/19 15:20 Last Admin: 10/23/19 17:13 Dose: 10 mg Documented by: SHOAIB Ondansetron HCl (Zofran) 4 mg IV NOW ONE Stop: 10/23/19 14:38 Last Admin: 10/23/19 14:41 Dose: 4 mg Documented by: SHOAIB Vital Signs Vital signs: Vital Signs - 8 hr 10/23/19 12:00 10/23/19 12:58 10/23/19 13:30 Temperature 97 F L Pulse Rate 97 H 52 L 55 L Respiratory Rate 20 16 17 Blood Pressure 217/99 H 209/98 H Blood Pressure [Right Arm] 203/92 H 178/86 H Pulse Oximetry 97 97 98 10/23/19 13:35 10/23/19 13:40 10/23/19 13:45 Temperature Pulse Rate 59 L 56 L 62 Respiratory Rate 18 16 Blood Pressure Blood Pressure [Right Arm] 172/82 H 162/79 H 141/69 H Pulse Oximetry 98 99 10/23/19 14:52 10/23/19 15:53 10/23/19 15:56 Temperature Pulse Rate 70 78 Respiratory Rate 17 15 Blood Pressure 160/82 H Blood Pressure [Right Arm] 160/82 H 161/75 H Pulse Oximetry 99 88 L 99 10/23/19 17:00 Temperature Pulse Rate 64 Respiratory Rate 16 Blood Pressure Blood Pressure [Right Arm] 123/68 Pulse Oximetry 98 Medical Decision Making Medical Records Medical records reviewed: Yes I reviewed the patient's medical records. Lab Data Lab results reviewed: Yes I reviewed the patient's lab results. Result diagrams: 10/23/19 12:36 10/23/19 12:36 Labs: Lab Results 10/23/19 10/23/19 10/23/19 Range/Units 12:30 12:36 12:36 WBC 7.6 (4.5-11.0) X10^3/uL RBC 4.75 (4.0-5.2) X10^6/uL Hgb 13.7 (12.0-16.0) g/dL Hct 41.0 (36-46) % MCV 86.3 (80-100) fL MCH 28.9 (26-34) PG MCHC 33.5 (30-36) % RDW 13.9 (11.6-14.8) % Plt Count 282 (150-400) X10^3/uL Neut % (Auto) 62.2 (50-75) % Lymph % (Auto) 27.5 (25-40) % Rogers % (Auto) 7.9 (3-14) % Eos % (Auto) 1.7 L (2-4) % Baso % (Auto) 0.7 (0-2) % Neut # (Auto) 4700 (5996-1423) /uL Lymph # (Auto) 2100 (4850-1894) /uL Rogers # (Auto) 600 (0-900) /uL Eos # (Auto) 100 (0-450) /uL Baso # (Auto) 100 (0-100) /uL PT 21.8 H (10.1-12.7) SECONDS INR 1.9 H (0.9-1.3) APTT 49 H (26.4-36.2) SECONDS D-Dimer (<230) ng/mL Sodium (137-145) mmol/L Potassium (3.4-5.1) mmol/L Chloride (98-107) mmol/L Carbon Dioxide (22-32) mmol/L BUN (7-17) mg/dL Creatinine (0.52-1.04) mg/dL Estimated GFR (>60) mL/min BUN/Creatinine Ratio (6-22) Glucose (80-110) mg/dL Calcium (8.4-10.2) mg/dL Magnesium (1.6-2.3) mg/dL Total Bilirubin (0.2-1.3) mg/dL AST (14-36) IU/L ALT (<35) IU/L Alkaline Phosphatase (38-126) U/L Total Creatine Kinase (30-135) U/L CK-MB (CK-2) CK-MB (CK-2) Rel Index Troponin I (0.01-0.034) ng/mL Total Protein (6.3-8.2) g/dL Albumin (3.5-5.0) g/dL Globulin (1.7-4.1) g/dL Albumin/Globulin Ratio (1.0-2.8) Lipase (23-300) U/L Urine RBC 0-1/hpf (0-5/HPF) Urine WBC 5-10/hpf H (0-5/HPF) Ur Squamous Epith Cells 0-1 /hpf (0-5/HPF) Urine Bacteria Moderate (10-30) H (None) Ur Culture Indicated? Specimen cultured 10/23/19 10/23/19 10/23/19 Range/Units 12:36 15:51 15:51 WBC (4.5-11.0) X10^3/uL RBC (4.0-5.2) X10^6/uL Hgb (12.0-16.0) g/dL Hct (36-46) % MCV (80-100) fL MCH (26-34) PG MCHC (30-36) % RDW (11.6-14.8) % Plt Count (150-400) X10^3/uL Neut % (Auto) (50-75) % Lymph % (Auto) (25-40) % Rogers % (Auto) (3-14) % Eos % (Auto) (2-4) % Baso % (Auto) (0-2) % Neut # (Auto) (0027-8989) /uL Lymph # (Auto) (4801-3203) /uL Rogers # (Auto) (0-900) /uL Eos # (Auto) (0-450) /uL Baso # (Auto) (0-100) /uL PT (10.1-12.7) SECONDS INR (0.9-1.3) APTT (26.4-36.2) SECONDS D-Dimer < 200 (<230) ng/mL Sodium 139 (137-145) mmol/L Potassium 4.8 (3.4-5.1) mmol/L Chloride 101 (98-107) mmol/L Carbon Dioxide 31 (22-32) mmol/L BUN 17 (7-17) mg/dL Creatinine 0.93 (0.52-1.04) mg/dL Estimated GFR > 60.0 (>60) mL/min BUN/Creatinine Ratio 18.3 (6-22) Glucose 94 (80-110) mg/dL Calcium 9.9 (8.4-10.2) mg/dL Magnesium 2.0 (1.6-2.3) mg/dL Total Bilirubin 0.4 (0.2-1.3) mg/dL AST 36 (14-36) IU/L ALT 18 (<35) IU/L Alkaline Phosphatase 80 (38-126) U/L Total Creatine Kinase 79 71 (30-135) U/L CK-MB (CK-2) TNP TNP CK-MB (CK-2) Rel Index TNP TNP Troponin I < 0.012 0.013 (0.01-0.034) ng/mL Total Protein 7.9 (6.3-8.2) g/dL Albumin 4.5 (3.5-5.0) g/dL Globulin 3.4 (1.7-4.1) g/dL Albumin/Globulin Ratio 1.3 (1.0-2.8) Lipase 84 (23-300) U/L Urine RBC (0-5/HPF) Urine WBC (0-5/HPF) Ur Squamous Epith Cells (0-5/HPF) Urine Bacteria (None) Ur Culture Indicated? Urine Dip Bedside Urine Glucose Negative Bedside Urine Bilirubin - Negative Bedside Urine Ketone - Negative Urine Specific [place] 1.010 Bedside Urine Occult Blood +/- Bedside Urine pH 6.5 Bedside Urine Protein - Negative Bedside Urine Urobilinogen - Negative Bedside Urine Nitrite - Negative Bedside Urine Leukocytes +/- 15 Esterase Point of care testing: Urine Dip Bedside Urine Glucose Negative Bedside Urine Bilirubin - Negative Bedside Urine Ketone - Negative Urine Specific [place] 1.010 Bedside Urine Occult Blood +/- Bedside Urine pH 6.5 Bedside Urine Protein - Negative Bedside Urine Urobilinogen - Negative Bedside Urine Nitrite - Negative Bedside Urine Leukocytes +/- 15 Esterase ECG Data Attestation: I personally reviewed and interpreted this ECG as follows: Discharge Plan Departure Patient Disposition: Home Clinical Impression: Anxiety, Acute UTI, Migraine variant Hypertension Qualifiers: Hypertension type: essential hypertension Qualified Code(s): I10 - Essential (primary) hypertension Headache Qualifiers: Headache type: unspecified Headache chronicity pattern: unspecified pattern Intractability: not intractable Qualified Code(s): R51 - Headache Discharge Date/Time: 10/23/19 19:10 Instructions: DI for Migraine, DI for High Blood Pressure, DI for Urinary Tract Infection (UTI), DI for Headache Activity Restrictions/Additional Instructions: 1. Follow-up with your family doctor to reassess your blood pressure medications. Your blood pressure is variable and will go up and down depending on how anxious you are various situations in your life pain and discomfort. 2. You have a urinary tract infection in you need to take Keflex 500 mg 4 times a day for the next 7 days. 3. Ativan 0.5 mg 1 tablet every 6 hours as needed for acute anxiety number 12 4. Return to the emergency department if you have any other pain and discomfort severe headache numbness tingling paresthesias anesthesia is or paresis. Prescriptions: New cephalexin [Keflex] 500 mg capsule 500 mg PO QID Qty: 28 RF: 0 lorazepam [Ativan] 0.5 mg tablet 0.5 mg PO QID PRN (Reason: anxiety) Qty: 12 RF: 0 No Action warfarin [Jantoven] 5 MG tablet 5 mg PO QPM Qty: 30 RF: 0 warfarin [Coumadin] 2 MG tablet 2 mg PO SEE INSTRUCTIONS Qty: 0 RF: 0 gabapentin [Neurontin] 300 MG capsule 300 mg PO TID Qty: 0 RF: 0 oxybutynin chloride 5 MG tablet 5 mg PO PRN PRN (Reason: Urinary Retention) Qty: 0 RF: 0 trazodone 100 MG tablet 100 mg PO HS Qty: 0 RF: 0 multivitamin [Multiple Vitamins] 1 EACH tablet 1 tab PO QDAY Qty: 0 RF: 0 cholecalciferol (vitamin D3) [Vitamin D3] 2,000 unit tablet PO QDAY Qty: 0 RF: 0 biotin 1 mg capsule 1 mg PO QDAY Qty: 0 RF: 0 hydrocodone-acetaminophen [[place]] 5 MG/325 MG tablet 1 tab PO Q4HP PRNQty: 15 RF: 0 hydrocodone-acetaminophen [[place]] 5-325 mg tablet 1 tab PO Q6H PRN (Reason: pain) Qty: 10 RF: 0 cyclobenzaprine 10 mg tablet 10 mg PO TID PRN (Reason: muscle spasm) Qty: 14 RF: 0 ondansetron HCl [Zofran] 4 mg tablet 4 mg PO Q6-8H PRN (Reason: nausea and vomiting) Qty: 10 RF: 0 losartan 50 mg tablet 50 mg PO DAILY RF: 0 Referrals: Chandler Covarrubias MD [Primary Care Provider] -
[2019-10-23 14:02] LABS: RBC Urine 0-1/HPF (0-5/HPF); Squamous Epithelial Cell Urine 0-1 /HPF (0-5/HPF); WBC Urine 5-10/HPF (0-5/HPF)
[2019-10-23 14:03] LABS: Bacteria Urine Moderate (10-30); Culture Indicated Urine Specimen Cultured
[2019-10-23] MEDS: ONDANSETRON 4 MG/2 ML INJ IV (14:41)
[2019-10-23] MEDS: HYDROMORPHONE 0.5 MG INJ IV (14:42)
--- NOTE | 2019-10-23 14:46 | PC.NURSE ---
Patient reports family member is being taken off of life support today and that she is having severe anxiety surrounding this. She is tearful and states can you sit me up, I feel like I can't breathe. I sat her up, O2 saturation i 99% on room air. She reports some relief from head and neck ache after dilaudid. I spoke with Dr. rosenthal and received a verbal order for 0.5mg ativan IV at this time.
[2019-10-23] MEDS: LORazepam 2 MG/ML INJ 0.5 MG IV (14:52)
--- NOTE | 2019-10-23 15:54 | PC.NURSE ---
Patient falling asleep after medications (ativan/dilaudid) and O2 saturation is 85-88% on Room air. She awakens when I speak with ehr and her O2 saturation rises back again to 99% on RA. Patient placed on 2LNC O2 while sleeping.
--- NOTE | 2019-10-23 15:57 | PC.NURSE ---
Patient given an ice pack and water to help with neck pain.
[2019-10-23 16:21] LABS: Creatine Kinase 71 U/L (30-135)
[2019-10-23 16:22] LABS: D Dimer < 200 ng/mL (<230)
[2019-10-23 16:34] LABS: Troponin I 0.013 ng/mL (0.01-0.034)
[2019-10-23] MEDS: methylPREDNISolone 125 MG/2 ML VIAL IV (17:13)
[2019-10-23] MEDS: METOCLOPRAMIDE 10 MG/2 ML INJ IV (17:13)
[2019-10-23] MEDS: SODIUM CHLORIDE 0.9% 500 ML 1000 ML IV (17:14)
== END 2019-10-23 19:10 | disposition home or self-care (01) ==
PROVIDERS: Emergency Provider Emergency Medicine; PCP Internal Medicine
DX: F41.9 Anxiety disorder, unspecified (principal); N39.0 Urinary tract infection, site not specified; I10 Essential (primary) hypertension; G43.809 Other migraine, not intractable, without status migrainosus; Z79.01 Long term (current) use of anticoagulants; J44.9 Chronic obstructive pulmonary disease, unspecified
CPT/HCPCS: 36415; 70450; 70460; 71045; 80053; 81003; 81015; 82550; 83690; 83735; 84484; 85025; 85379; 85610; 85730; 87077; 87086; 87186; 93005; 96361; 96374; 96375; 99285; J0360; J1170; J2060; J2405; J2765; J2930

== ENCOUNTER 2019-12-14 18:16 | Inpatient (IN) | payer OTHER, MEDICARE, SELFPAY ==
[2019-12-14 18:18] VITALS: BP 195/105; PULSE 78; RESP 16; TEMP 36.7; O2SAT 98
--- NOTE | 2019-12-14 18:52 | ED.GIBLEED ---
HPI - GI Bleed General Chief complaint: GI Bleed Stated complaint: BLEEDING Time Seen by Provider: 12/14/19 18:37 Source: patient Mode of arrival: Ambulatory History of Present Illness HPI Narrative: Patient here for 2 episodes of dark blood and clots with 2 bowel movements today. First 1 at 2:00 p.m., denies any nausea vomiting abdominal pain. No chest pain no dyspnea no syncope no diaphoresis. Last colonoscopy more than 5 years ago. Denies a history of diverticulosis or polyps or colon cancer. Patient is on warfarin for history of pulmonary embolism diagnosed decades ago. No syncope Related Data Home Medications Medication Instructions Recorded Confirmed warfarin [Coumadin] 2 mg PO SEE INSTRUCTIONS #0 02/06/17 12/14/19 biotin 1 mg PO QDAY #0 07/28/17 12/14/19 cholecalciferol (vitamin D3) 2,000 unit PO QDAY #0 07/28/17 12/14/19 [Vitamin D3] gabapentin [Neurontin] 300 mg PO TID #0 07/28/17 12/14/19 multivitamin [Multiple Vitamins] 1 tab PO QDAY #0 07/28/17 12/14/19 oxybutynin chloride 5 mg PO PRN PRN #0 07/28/17 12/14/19 trazodone 100 mg PO HS #0 07/28/17 12/14/19 losartan 50 mg PO DAILY 10/23/19 12/14/19 Previous Rx's Medication Instructions Recorded warfarin [Jantoven] 5 mg PO QPM #30 01/28/16 ondansetron HCl [Zofran] 4 mg PO Q6-8H PRN #10 tab 11/12/18 cyclobenzaprine 10 mg PO TID PRN #14 tab 07/25/19 lorazepam [Ativan] 0.5 mg PO QID PRN #12 tab 10/23/19 Allergies Allergy/AdvReac Type Severity Reaction Status Date / Time latex [LATEX] Allergy Intermediate RASH, Verified 12/14/19 18:21 ITCHY, BLISTERS adhesive tape Allergy Mild Blister Verified 12/14/19 18:58 iodine [IODINE] Allergy Mild RASH Verified 12/14/19 18:21 morphine [MORPHINE] Allergy Mild N&V Verified 12/14/19 18:21 mussels [MUSSELS] Allergy Unknown N&V Verified 12/14/19 18:21 Review of Systems Review of Systems Narrative: GENERAL: Denies chills, fatigue, malaise, fever, sweats. HEENT: Denies sinus pain, ear pain, sore throat, difficulty swallowing, dizziness. RESPIRATORY: Denies dyspnea, cough, wheezing, hemoptysis, sputum. CARDIOVASCULAR: Denies chest pain, palpitations, orthopnea, edema, GASTROINTESTINAL: Denies abdominal pain nausea vomiting, complains of melena : Denies dysuria, frequency, incontinence, hematuria, urinary retention. MUSCULOSKELETAL: denies weakness, joint pain, or bony pain SKIN: Denies rash, skin lesions, or other NEUROLOGIC: Denies weakness, headache, numbness, change in speech, confusion, seizures, incoordination. PSYCHIATRIC: No concerning psychosocial issues. ROS Unobtainable: All systems reviewed & are unremarkable except as noted in HPI and below Patient History Medical History Anxiety (Acute) Chronic pain (Acute) Chronic sinus bradycardia (Acute) Depression (Acute) Former smoker (Acute) GERD (gastroesophageal reflux disease) (Acute) Hiatal hernia (Acute) History of ETOH abuse (Acute) HTN (hypertension) (Acute) Hypoglycemia (Acute) Hypothyroidism (Acute) Insomnia (Acute) Lactose intolerance (Acute) SHANEKA (obstructive sleep apnea) (Acute) PTSD (post-traumatic stress disorder) (Acute) Pulmonary embolism (Acute ~1993) Surgical History History of colonoscopy (Acute) History of gastric bypass (Acute) History of total left hip arthroplasty (Acute 11/08/15) Hx of appendectomy (Acute) Hx of cholecystectomy (Acute) Hx of hernia repair (Acute) Social History household members: spouse Smoking Status: Former smoker alcohol intake: former Smoking Status: Former smoker alcohol intake frequency: holidays/special occasions only Substance Use Type: does not use Exam Narrative Exam Narrative: GENERAL: patient appears stated age. Well-nourished, well-developed patient, in no distress, not toxic HEAD: Atraumatic. Normocephalic. EYES: Pupils equal round and reactive. Extraocular motions intact. No scleral icterus. No injection or drainage. ENT: Nose without bleeding, purulent drainage. Throat without erythema, tonsillar hypertrophy or exudate. Airway patent. NECK: Trachea midline. Non tender CARDIOVASCULAR: Regular rate and rhythm without murmurs, gallops, or rubs. RESPIRATORY: Clear to auscultation. Breath sounds equal bilaterally. No wheezes, rales, or rhonchi. GASTROINTESTINAL: Abdomen soft, non-tender, nondistended. 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 Black stool on glove. No hematochezia. Hemoccult-positive bedside test EXTREMITIES: No edema or joint tenderness. BACK: Nontender without deformity or crepitance. No flank tenderness. NEURO: AOx3. SKIN: No rash or erythema of visible areas Initial Vital Signs Initial Vital Signs: Vital Signs Temperature 98.0 F 12/14/19 18:18 Pulse Rate 78 12/14/19 18:18 Respiratory Rate 16 12/14/19 18:18 Blood Pressure 195/105 H 12/14/19 18:18 Pulse Oximetry 98 12/14/19 18:18 Course Course Course Narrative: No hematochezia or another episode bloody stools Decision to Admit Date: 12/14/19 Decision to Admit time: 21:03 Orders Ordered: ED Orders 12/14/19 18:50 EKG-12 Lead Stat 12/14/19 18:51 CT abdomen pelvis wo con Stat 12/14/19 19:50 Urine Microscopic Stat 12/14/19 19:57 Complete Blood Count AUTO DIFF Stat Comprehensive Metabolic Panel Stat Prothrombin Time INR Stat Troponin I Stat Type and Screen Stat Acetaminophen (Tylenol) 650 mg PO Q6HR PRN PRN Reason: Fever/Mild Pain (1-3) Sodium Chloride (Normal Saline 0.9%) 1,000 mls @ 1,000 mls/hr IV BOLUS PRN PRN Reason: Fluid replacement Last Infusion: 12/14/19 21:02 Dose: 0 mls/hr Documented by: Admin: 12/14/19 19:11 Dose: 1,000 mls/hr Documented by: RENATO Sodium Chloride (Normal Saline 0.9%) 1,000 mls @ 100 mls/hr IV CONT LYDIA Last Admin: 12/15/19 00:53 Dose: 100 mls/hr Documented by: NERIS Ondansetron HCl (Zofran) 4 mg IV Q6HR PRN PRN Reason: Nausea And Vomiting Pantoprazole Sodium (Protonix) 40 mg IV BID LYDIA Discontinued Medications Pantoprazole Sodium (Protonix) 40 mg IV NOW ONE Stop: 12/14/19 18:51 Last Admin: 12/14/19 19:11 Dose: 40 mg Documented by: RENATO Reevaluation(s) Reevaluation #1: No new complaints Time: 21:04 Consultations Consultation #1: Spoke with general surgeon dr mcfarlane.. Patient can be admitted hospitalist here. He will see patient in the morning. Evaluate for endoscopy Time: 21:04 Consultation #2: Spoke with hospitalist klever ramsey...will admit Time: 21:04 Vital Signs Vital signs: Vital Signs - 8 hr 12/14/19 18:18 Temperature 98.0 F Pulse Rate 78 Respiratory Rate 16 Blood Pressure 195/105 H Pulse Oximetry 98 MDM - GI Bleed Differential Diagnosis Differential diagnosis: Likely Upper gastrointestinal hemorrhage, Lower gastrointestinal hemorrhage, hematochezia and melena Lab Data Attestation: I reviewed the patient's lab results. Result diagrams: 12/14/19 19:57 12/14/19 19:57 Labs: Lab Results 12/14/19 12/14/19 12/14/19 Range/Units 19:50 19:57 19:57 WBC 7.9 (4.5-11.0) X10^3/uL RBC 4.22 (4.0-5.2) X10^6/uL Hgb 12.1 (12.0-16.0) g/dL Hct 36.1 (36-46) % MCV 85.5 (80-100) fL MCH 28.8 (26-34) PG MCHC 33.6 (30-36) % RDW 13.5 (11.6-14.8) % Plt Count 256 (150-400) X10^3/uL Neut % (Auto) 58.4 (50-75) % Lymph % (Auto) 33.2 (25-40) % [place] % (Auto) 6.6 (3-14) % Eos % (Auto) 1.4 L (2-4) % Baso % (Auto) 0.4 (0-2) % Neut # (Auto) 4600 (5545-2988) /uL Lymph # (Auto) 2600 (7997-8179) /uL [place] # (Auto) 500 (0-900) /uL Eos # (Auto) 100 (0-450) /uL Baso # (Auto) 0 (0-100) /uL PT 29.8 H (10.1-12.7) SECONDS INR 2.6 H (0.9-1.3) Sodium (137-145) mmol/L Potassium (3.4-5.1) mmol/L Chloride (98-107) mmol/L Carbon Dioxide (22-32) mmol/L BUN (7-17) mg/dL Creatinine (0.52-1.04) mg/dL Estimated GFR (>60) mL/min BUN/Creatinine Ratio (6-22) Glucose (80-110) mg/dL Calcium (8.4-10.2) mg/dL Total Bilirubin (0.2-1.3) mg/dL AST (14-36) IU/L ALT (<35) IU/L Alkaline Phosphatase (38-126) U/L Troponin I (0.01-0.034) ng/mL Total Protein (6.3-8.2) g/dL Albumin (3.5-5.0) g/dL Globulin (1.7-4.1) g/dL Albumin/Globulin Ratio (1.0-2.8) Urine RBC 0-1/hpf (0-5/HPF) Urine WBC 1-5/hpf (0-5/HPF) Ur Squamous Epith Cells 1-5 /hpf (0-5/HPF) Ur Transition Epith Cell 0-1/hpf (0-5/HPF) Urine Bacteria None seen (None) Ur Culture Indicated? Cult not indicated Blood Type Antibody Screen 12/14/19 12/14/19 12/14/19 Range/Units 19:57 19:57 19:57 WBC (4.5-11.0) X10^3/uL RBC (4.0-5.2) X10^6/uL Hgb (12.0-16.0) g/dL Hct (36-46) % MCV (80-100) fL MCH (26-34) PG MCHC (30-36) % RDW (11.6-14.8) % Plt Count (150-400) X10^3/uL Neut % (Auto) (50-75) % Lymph % (Auto) (25-40) % [place] % (Auto) (3-14) % Eos % (Auto) (2-4) % Baso % (Auto) (0-2) % Neut # (Auto) (3716-6227) /uL Lymph # (Auto) (9373-4781) /uL [place] # (Auto) (0-900) /uL Eos # (Auto) (0-450) /uL Baso # (Auto) (0-100) /uL PT (10.1-12.7) SECONDS INR (0.9-1.3) Sodium 137 (137-145) mmol/L Potassium 4.1 (3.4-5.1) mmol/L Chloride 104 (98-107) mmol/L Carbon Dioxide 29 (22-32) mmol/L BUN 26 H (7-17) mg/dL Creatinine 0.84 (0.52-1.04) mg/dL Estimated GFR > 60.0 (>60) mL/min BUN/Creatinine Ratio 31.0 H (6-22) Glucose 101 (80-110) mg/dL Calcium 8.9 (8.4-10.2) mg/dL Total Bilirubin 0.3 (0.2-1.3) mg/dL AST 23 (14-36) IU/L ALT 14 (<35) IU/L Alkaline Phosphatase 68 (38-126) U/L Troponin I < 0.012 (0.01-0.034) ng/mL Total Protein 6.4 (6.3-8.2) g/dL Albumin 3.6 (3.5-5.0) g/dL Globulin 2.8 (1.7-4.1) g/dL Albumin/Globulin Ratio 1.3 (1.0-2.8) Urine RBC (0-5/HPF) Urine WBC (0-5/HPF) Ur Squamous Epith Cells (0-5/HPF) Ur Transition Epith Cell (0-5/HPF) Urine Bacteria (None) Ur Culture Indicated? Blood Type O Positive Antibody Screen Negative Urine Dip Bedside Urine Glucose Negative Bedside Urine Bilirubin + 1 Bedside Urine Ketone - Negative Urine Specific [place] 1.015 Bedside Urine Occult Blood ++ Bedside Urine pH 5.5 Bedside Urine Protein - Negative Bedside Urine Urobilinogen - Negative Bedside Urine Nitrite - Negative Bedside Urine Leukocytes + [address] scan - abdomen/pelvis: Radiologist's Impression: [address] [address] [address] Scan Report Signed Patient: Kelsi Chase#: [id number] : 6Acct:[id number] Age/Sex: 64 / FDate of Service: 12/14/19 Loc: ED Accession Number: [id number] Procedure: CT abdomen pelvis wo con Ordering Provider: Ken Alonso MD PROCEDURE: CT ABDOMEN PELVIS WO CON INDICATIONS: IV contrast only/rectal bleeding TECHNIQUE: Noncontrast 5 mm thick sections acquired from the diaphragms to the symphysis. 5 mm thick coronal and sagittal reformats were then performed. For radiation dose reduction, the following was used: automated exposure control, adjustment of mA and/or kV according to patient size. No IV contrast administered. COMPARISON: [facility], CT, ABDOMEN/PELVIS WITH CONTRAST, 07/16/2014, 18:07. FINDINGS: Image quality: Excellent. Lung bases: Lung bases are clear. Heart size is normal. Small hiatal hernia, evidence of prior gastric bypass and possible fundoplication. Urinary system: Both kidneys are normal in size. No kidney stones. No hydronephrosis or perinephric fat stranding. Both ureters appear non-dilated throughout their expected courses. Bladder is not well evaluated due to be marking artifact. Other solid organs: Liver is normal in size. Gallbladder is absent. Pancreas is normal in contours. Spleen is normal in size. No adrenal nodules. Peritoneum and bowel: Post Jossie-en-Y gastric bypass. High density material within the small bowel anastomosis, (2/32). There is a postsurgical patulous appearance. No small bowel obstruction. The appendix is surgically absent. No free fluid or air. Nodes and vessels: No retroperitoneal or mesenteric adenopathy by size criteria. Aorta and inferior vena cava are normal in caliber. Abdominal wall: Ventral abdominal wall postsurgical change. Lumbar edema. Pelvis: No free pelvic fluid. No inguinal hernias or adenopathy. Bones: No suspicious bony lesions. No vertebral body compression fractures. Left hip total arthroplasty. IMPRESSION: 1. High density material within the jejuno-jejunostomy in the left upper abdomen. This most likely represents ingested food/medication residue. No bowel obstruction. No free fluid. 2. No kidney stones. No hydronephrosis. 3. Urinary bladder is not well evaluated due to beam hardening artifact. Dictated by: Young Laurent M.D. on 12/14/2019 at 20:29 Approved by: Young Laurent M.D. on 12/14/2019 at 20:39 ECG Data Attestation: I personally reviewed and interpreted this ECG as follows: Interpretation: Normal sinus rhythm ventricular rate [address] elevation or depression. EKG unchanged from October 23, 2019 at 12:43 p.m. [facility] Narrative Medical decision making narrative: Patient does not need to be transferred from here. Appropriate for admission here. Not hypotensive or tachycardic. No hematochezia. Hemoglobin stable. Protonix given. Possible upper GI bleed. BUN slightly elevated Discharge Plan Departure Patient Disposition: Admitted as Observation Clinical Impression: Acute GI bleeding Discharge Date/Time: 12/14/19 21:05 Referrals: Chandler Covarrubias MD [Primary Care Provider] - Admit Date/Time: 12/14/19 21:04 Admit Provider: Gayathri Ramsey
[2019-12-14] MEDS: SODIUM CHLORIDE 0.9% 1,000 ML 1000 ML IV (19:11)
[2019-12-14] MEDS: PANTOPRAZOLE 40 MG VIAL IV (19:11)
[2019-12-14 20:01] LABS: Bacteria Urine None Seen
[2019-12-14 20:07] LABS: RBC Urine 0-1/HPF (0-5/HPF)
[2019-12-14 20:08] LABS: Add Manual Diff / Slide Review NO; Basophils Absolute Auto 0 /uL (0-100); Basophils Percent Auto 0.4 % (0-2); Eosinophils Absolute Auto 100 /uL (0-450); Eosinophils Percent Auto 1.4 % (2-4); Hematocrit 36.1 % (36-46); Hemoglobin 12.1 g/dL (12.0-16.0); Lymphocytes Absolute Auto 2600 /uL (1100-4500); Lymphocytes Percent Auto 33.2 % (25-40); Mean Corpuscular HGB Conc 33.6 % (30-36); Mean Corpuscular Hemoglobin 28.8 PG (26-34); Mean Corpuscular Volume 85.5 fL (80-100); Monocytes Absolute Auto 500 /uL (0-900); Monocytes Percent Auto 6.6 % (3-14); Neutrophils Absolute Auto 4600 /uL (1500-7000); Neutrophils Percent Auto 58.4 % (50-75); Platelet Count 256 X10^3/uL (150-400); Red Blood Cell Count 4.22 X10^6/uL (4.0-5.2); Red Cell Distribution Width 13.5 % (11.6-14.8); White Blood Cell Count 7.9 X10^3/uL (4.5-11.0)
[2019-12-14 20:08] LABS: Culture Indicated Urine Cult Not Indicated; Squamous Epithelial Cell Urine 1-5 /HPF (0-5/HPF); Transitional Epi Cells Urine 0-1/HPF (0-5/HPF); WBC Urine 1-5/HPF (0-5/HPF)
[2019-12-14 20:15] LABS: INR 2.6 (0.9-1.3); Prothrombin Time 29.8 SECONDS (10.1-12.7)
[2019-12-14 20:18] LABS: Alanine Aminotransferase 14 IU/L (<35); Albumin 3.6 g/dL (3.5-5.0); Albumin Globulin Ratio 1.3 (1.0-2.8); Alkaline Phosphatase 68 U/L (38-126); Aspartate Aminotransferase 23 IU/L (14-36); Bilirubin Total 0.3 mg/dL (0.2-1.3); Blood Urea Nitrogen 26 mg/dL (7-17); Calcium 8.9 mg/dL (8.4-10.2); Carbon Dioxide 29 mmol/L (22-32); Chloride 104 mmol/L (98-107); Estimated Glomerular Filt Rate > 60.0 mL/min (>60); Globulin 2.8 g/dL (1.7-4.1); Glucose 101 mg/dL (80-110); HEMOLYSIS < 15 (0-50); Potassium 4.1 mmol/L (3.4-5.1); Sodium 137 mmol/L (137-145); Total Protein 6.4 g/dL (6.3-8.2)
[2019-12-14 20:30] LABS: Troponin I < 0.012 ng/mL (0.01-0.034)
[2019-12-14 21:31] VITALS: BP 133/89; PULSE 66; RESP 24; O2SAT 96
[2019-12-14 22:00] VITALS: BP 119/74; PULSE 65; RESP 17; O2SAT 96
[2019-12-14 22:32] VITALS: BP 153/67; PULSE 70; RESP 22; O2SAT 97
[2019-12-14 23:00] VITALS: PULSE 71; RESP 33; O2SAT 97
[2019-12-14 23:40] VITALS: BP 147/66; PULSE 61; RESP 23; O2SAT 98
[2019-12-15] VITALS (19 sets, daily range): BP systolic 87–154; BP diastolic 51–102; PULSE 48–72; RESP 12–20; TEMP 36.1–36.8; O2SAT 92–98; BMI 44.9
[2019-12-15] MEDS: SODIUM CHLORIDE 0.9% 1,000 ML 100 ML IV ×2 (00:53→13:04)
[2019-12-15] MEDS: TRAZODONE 100 MG TABLET PO ×2 (01:32→21:21)
--- NOTE | 2019-12-15 02:04 | PC.ADMIT ---
Addendum entered by Arti Cuadra R.N. 12/15/19 02:41: Complains of 5/10 right lower back pain; medicated with Tylenol Addendum entered by Arti Cuadra R.N. 12/15/19 02:37: Up to bathroom and passed what appears to be 2 large blood clots. Original Note: 0045 patient admitted to room 205 per stretcher from ER; ambulated into room/bathroom with SBA. Is alert and oriented. Breath sounds CTA with RA sat of 98%. HRR but bradycardic with rate in 50's; telemetry placed and tele reading was SB. Denies nausea. Did go to bathroom and had pudding consistence bright red stool. Reports she has urinary urgency with dribbling/incontinence if she doesn't get to bathroom in time. Is able to turn herself in bed. Does admit to 2/10 headache but declines offer of pain medication. Bilateral calf SCD's applied. Patient is NPO until surgery sees and determines plan of care. Denies weakness, dizziness or lightheadedness. Does report chronic tingling of toes in both feet. Fall risk score is moderate; bed alarm is activated. Instructed in use of call light and bed controls. Reports she is Jehovah Witness and will not accept blood transfusion if needed. [facility] Admission Note: The patient,Kelsi Chase,64 y/o, was given written information regarding hospital policies, unit procedures and contact persons. Patient's smoking status: Former smoker. Vital Signs - 8 hr 12/14/19 18:18 12/14/19 21:31 12/14/19 22:00 Temperature 98.0 F Pulse Rate 78 66 65 Respiratory Rate 16 24 17 Blood Pressure 195/105 H 133/89 119/74 Pulse Oximetry 98 96 96 12/14/19 22:32 12/14/19 23:00 12/14/19 23:40 Temperature Pulse Rate 70 71 61 Respiratory Rate 22 33 H 23 Blood Pressure 153/67 H 147/66 H Pulse Oximetry 97 97 98 12/15/19 00:43 Temperature 97.9 F Pulse Rate 58 L Respiratory Rate 20 Blood Pressure 134/102 H Pulse Oximetry 98
[2019-12-15] MEDS: ACETAMINOPHEN 325 MG TABLET 650 MG PO ×3 (02:39→21:40)
--- NOTE | 2019-12-15 05:40 | P.HP_ITS ---
History of Present Illness History of Present Illness Date Patient Seen: 12/15/19 Time Patient Seen: 00:15 Chief complaint: BLEEDING Narrative: Kelsi Chase is a 64-year-old female with a history of a gastric bypass, hypothyroidism, bladder incontinence, and history of osteomyelitis and dual PEs anticoagulated on warfarin presented today after having had a bowel movement and seeing very dark stool. She states that she is still passing clots. She feels like she has to go the bathroom constantly because she feels like she keeps producing blood per rectum. States the blood and clots are very dark. She eats very small quantities of mid food at a time with multiple meals due to the gastric bypass and finds meat and potatoes hard to swallow. She has chronic urinary incontinence, back and neck pain secondary to ?bone spurs?, she has anxiety and is on chronic warfarin therapy. She denies any cramping, fever sweats or chills, difficulty swallowing other than mentioned prior, shortness of breath, chest pain, abdominal pain, dysuria, diarrhea or constipation. She did have a approximately 400 lb weight loss since she underwent the gastric bypass. In the ED she underwent a CT of the abdomen which did not reveal any unusual process. Labs are unremarkable, u/a was negative. Dr. Gamino was requested to evaluate the patient and the CT and plans to perform an EGD today. Patient History Medical History Anxiety (Acute) Chronic pain (Acute) Chronic sinus bradycardia (Acute) Depression (Acute) Former smoker (Acute) GERD (gastroesophageal reflux disease) (Acute) Hiatal hernia (Acute) History of ETOH abuse (Acute) HTN (hypertension) (Acute) Hypoglycemia (Acute) Hypothyroidism (Acute) Insomnia (Acute) Lactose intolerance (Acute) SHANEKA (obstructive sleep apnea) (Acute) PTSD (post-traumatic stress disorder) (Acute) Pulmonary embolism (Acute ~1993) Surgical History History of colonoscopy (Acute) History of gastric bypass (Acute) History of total left hip arthroplasty (Acute 11/08/15) Hx of appendectomy (Acute) Hx of cholecystectomy (Acute) Hx of hernia repair (Acute) Family & Social History Social History: household members spouse Prior Living Arrangements House Safety & Behavioral: Feels Safe in Current Yes Environment Been Physically Hurt or No Threatened By a Person Suicidal Ideation Description None Suicide Plan Description No Plan Tobacco & Substance use: Tobacco type cigarettes Smoking Status Former smoker alcohol intake former alcohol intake frequency a few times a week Substance Use Type does not use Meds Home Medications and Allergies Home Medications Medication Instructions Recorded Confirmed Type warfarin [Jantoven] 5 mg PO QPM #30 01/27/12/14/19 Rx warfarin [Coumadin] 2 mg PO SEE INSTRUCTIONS #0 02/06/17 12/14/19 History biotin 1 mg PO QDAY #0 07/28/17 12/14/19 History cholecalciferol (vitamin D3) 2,000 unit PO QDAY #0 07/28/17 12/14/19 History [Vitamin D3] gabapentin [Neurontin] 300 mg PO TID #0 07/28/17 12/14/19 History multivitamin [Multiple Vitamins] 1 tab PO QDAY #0 07/28/17 12/14/19 History oxybutynin chloride 5 mg PO PRN PRN #0 07/28/17 12/14/19 History trazodone 100 mg PO HS #0 07/28/17 12/14/19 History ondansetron HCl [Zofran] 4 mg PO Q6-8H PRN #10 tab 11/12/18 12/14/19 Rx cyclobenzaprine 10 mg PO TID PRN #14 tab 07/25/19 12/14/19 Rx lorazepam [Ativan] 0.5 mg PO QID PRN #12 tab 10/23/19 12/14/19 Rx losartan 50 mg PO DAILY 10/23/19 12/14/19 History Allergies Allergy/AdvReac Type Severity Reaction Status Date / Time latex [LATEX] Allergy Intermediate RASH, Verified 12/14/19 18:21 ITCHY, BLISTERS adhesive tape Allergy Mild Blister Verified 12/14/19 18:58 iodine [IODINE] Allergy Mild RASH Verified 12/14/19 18:21 morphine [MORPHINE] Allergy Mild N&V Verified 12/14/19 18:21 mussels [MUSSELS] Allergy Unknown N&V Verified 12/14/19 18:21 Review of Systems Review of Systems ROS: Yes All systems reviewed with the patient and are negative except as otherwise documented Exam Vital Signs (past 8 hours): - 12/14/19 22:00 12/14/19 22:32 12/14/19 23:00 Temperature Pulse Rate 65 70 71 Respiratory Rate 17 22 33 H Blood Pressure 119/74 153/67 H Pulse Oximetry 96 97 97 12/14/19 23:40 12/15/19 00:43 12/15/19 04:33 Temperature 97.9 F 97.6 F Pulse Rate 61 58 L 56 L Respiratory Rate 23 20 18 Blood Pressure 147/66 H 134/102 H 115/69 Pulse Oximetry 98 98 97 Oxygen Delivery Method Room Air Oxygen Flow Rate 0 Narrative Exam Narrative: Vitals: Temp 97.6, blood pressure 115/69, heart rate 56, respiratory rate 18, oxygen saturation 97% on room air, weight 108.7 kilos, BMI 44.9. Gen: Alert, oriented, morbidly obese 64 y.o. female, NAD HEENT: normocephalic, atraumatic, conjunctiva clear, sclera non-icteric, oral mucosa pink and moist Neck: supple, full ROM, no JVD, trachea is midline Resp: Lungs CTA, non-labored breathing CV: RRR, no murmur or rubs Abd: obese, soft, non-tender, normoactive BTs Skin: no lesions or rashes, dry and intact Neuro: Alert and oriented X 4 w/no focal deficits. Speech clear and coherent. Extremities: moves all 4 extremities, is ambulatory, negative Tomasz?s sign Psyche: normal mood and affect. Objective Labs Result Diagrams: 12/14/19 19:57 12/14/19 19:57 Labs: Laboratory Results - last 24 hr 12/14/19 12/14/19 12/14/19 19:50 19:57 19:57 WBC 7.9 RBC 4.22 Hgb 12.1 Hct 36.1 MCV 85.5 MCH 28.8 MCHC 33.6 RDW 13.5 Plt Count 256 Neut % (Auto) 58.4 Lymph % (Auto) 33.2 [place] % (Auto) 6.6 Eos % (Auto) 1.4 L Baso % (Auto) 0.4 Neut # (Auto) 4600 Lymph # (Auto) 2600 [place] # (Auto) 500 Eos # (Auto) 100 Baso # (Auto) 0 PT 29.8 H INR 2.6 H Sodium Potassium Chloride Carbon Dioxide BUN Creatinine Estimated GFR BUN/Creatinine Ratio Glucose Calcium Total Bilirubin AST ALT Alkaline Phosphatase Troponin I Total Protein Albumin Globulin Albumin/Globulin Ratio Urine RBC 0-1/hpf Urine WBC 1-5/hpf Ur Squamous Epith Cells 1-5 /hpf Ur Transition Epith Cell 0-1/hpf Urine Bacteria None seen Ur Culture Indicated? Cult not indicated Blood Type Antibody Screen 12/14/19 12/14/19 12/14/19 19:57 19:57 19:57 WBC RBC Hgb Hct MCV MCH MCHC RDW Plt Count Neut % (Auto) Lymph % (Auto) [place] % (Auto) Eos % (Auto) Baso % (Auto) Neut # (Auto) Lymph # (Auto) [place] # (Auto) Eos # (Auto) Baso # (Auto) PT INR Sodium 137 Potassium 4.1 Chloride 104 Carbon Dioxide 29 BUN 26 H Creatinine 0.84 Estimated GFR > 60.0 BUN/Creatinine Ratio 31.0 H Glucose 101 Calcium 8.9 Total Bilirubin 0.3 AST 23 ALT 14 Alkaline Phosphatase 68 Troponin I < 0.012 Total Protein 6.4 Albumin 3.6 Globulin 2.8 Albumin/Globulin Ratio 1.3 Urine RBC Urine WBC Ur Squamous Epith Cells Ur Transition Epith Cell Urine Bacteria Ur Culture Indicated? Blood Type O Positive Antibody Screen Negative Assessment & Plan Assessment & Plan narrative: Kelsi Chase will be obvserved and undergo an EGD on 12/14 for a suspected upper GI bleed. Suspected upper GI bleed, acute, present on admission -NPO past midnight -Dr. Gamino to scope on 12/14 -NS at 100 ml/hour History of bilateral PEs, chronic and stable -INR was 2.6 -Warfarin to be held until after the scope Essential hypertension, active, stable -continue home dose of losartan 50 mg p.o. daily Hypothyroidism, active, stable -she does not appear to be taking levothyroxine will have to confirm her dose Urinary incontinence, active, stable -continue oxybutynin 5 mg p.o. as needed Consults: Dr. Gamino, General Surgery consult and involvement is appreciated. Patient is observation status as her stay is not likely to exceed 2 midnights. FEN: IV NS at 100 ml/hour, NPO, BMP in the am. VTE prophylaxis: Bilateral SCDs Dispo: unknown at this time. Code Status: Full Code as discussed with patient Quality VTE Deep Vein Thrombosis/Pulmonary Embolism Present on Admission: No
[2019-12-15 07:01] LABS: Add Manual Diff / Slide Review NO; Basophils Absolute Auto 0 /uL (0-100); Basophils Percent Auto 0.7 % (0-2); Eosinophils Absolute Auto 100 /uL (0-450); Hemoglobin 10.5 g/dL (12.0-16.0); Lymphocytes Absolute Auto 2100 /uL (1100-4500); Mean Corpuscular HGB Conc 33.9 % (30-36); Mean Corpuscular Hemoglobin 29.2 PG (26-34); Mean Corpuscular Volume 86.1 fL (80-100); Monocytes Absolute Auto 400 /uL (0-900); Monocytes Percent Auto 7.3 % (3-14); Neutrophils Absolute Auto 2900 /uL (1500-7000); Platelet Count 196 X10^3/uL (150-400); Red Cell Distribution Width 13.5 % (11.6-14.8); White Blood Cell Count 5.5 X10^3/uL (4.5-11.0)
[2019-12-15 07:13] LABS: BUN Creatinine Ratio 29.5 (6-22); Blood Urea Nitrogen 23 mg/dL (7-17); Calcium 8.3 mg/dL (8.4-10.2); Carbon Dioxide 28 mmol/L (22-32); Chloride 108 mmol/L (98-107); Estimated Glomerular Filt Rate > 60.0 mL/min (>60); Glucose 97 mg/dL (80-110); HEMOLYSIS < 15 (0-50); Potassium 3.9 mmol/L (3.4-5.1); Sodium 138 mmol/L (137-145)
--- NOTE | 2019-12-15 08:11 | PC.NURSE ---
Patient sleeping comfortably in bed at this time. Call from Dr. Gamino to confirm patient is NPO (she has been). Call light within reach, bed alarm active for safety. Continue to monitor.
[2019-12-15] MEDS: PANTOPRAZOLE 40 MG VIAL IV ×2 (09:20→21:21)
[2019-12-15 10:18] LABS: INR 2.2 (0.9-1.3); Prothrombin Time 25.3 SECONDS (10.1-12.7)
--- NOTE | 2019-12-15 10:28 | PM.CN ---
History of Present Illness Consult details Date Patient Seen: 12/15/19 Time Patient Seen: 08:29 Chief complaint: BLEEDING Reason for consult: bleeding Narrative: The patient is a woman who has had several days of black bowel movements. However when she wipes she said it looked bloody. She has never had this before. She has been having epigastric pain for a month or 2. She denies any pain at this time however. 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 She has been on it since and has the plan is for her to be on lifelong anticoagulation. ER physician reported black stool on glove finger. Last colonoscopy was about 13 years ago. She has had a vertical banded gastroplasty. Per her history no Jossie-en-Y was performed. She also used to drink heavily but stopped 5 years ago. She is unaware that she ever had a problem with her liver. Of note her black bowel movements have continued since hospitalization. Meds Home Medications and Allergies Home Medications Medication Instructions Recorded Confirmed Type warfarin [Jantoven] 5 mg PO QPM #30 01/28/16 12/14/19 Rx warfarin [Coumadin] 2 mg PO SEE INSTRUCTIONS #0 02/06/17 12/14/19 History biotin 1 mg PO QDAY #0 07/28/17 12/14/19 History cholecalciferol (vitamin D3) 2,000 unit PO QDAY #0 07/28/17 12/14/19 History [Vitamin D3] gabapentin [Neurontin] 300 mg PO TID #0 07/28/17 12/14/19 History multivitamin [Multiple Vitamins] 1 tab PO QDAY #0 07/28/17 12/14/19 History oxybutynin chloride 5 mg PO PRN PRN #0 07/28/17 12/14/19 History trazodone 100 mg PO HS #0 07/28/17 12/14/19 History ondansetron HCl [Zofran] 4 mg PO Q6-8H PRN #10 tab 11/12/18 12/14/19 Rx cyclobenzaprine 10 mg PO TID PRN #14 tab 07/25/19 12/14/19 Rx lorazepam [Ativan] 0.5 mg PO QID PRN #12 tab 10/23/19 12/14/19 Rx losartan 50 mg PO DAILY 10/23/19 12/14/19 History Allergies Allergy/AdvReac Type Severity Reaction Status Date / Time latex [LATEX] Allergy Intermediate RASH, Verified 12/14/19 18:21 ITCHY, BLISTERS adhesive tape Allergy Mild Blister Verified 12/14/19 18:58 iodine [IODINE] Allergy Mild RASH Verified 12/14/19 18:21 morphine [MORPHINE] Allergy Mild N&V Verified 12/14/19 18:21 mussels [MUSSELS] Allergy Unknown N&V Verified 12/14/19 18:21 Review of Systems Review of Systems Narrative: Patient has no chest pain. Never had a heart attack. Has hypertension. No breathing issues. No cough cold or asthma. No seizures or blackouts. Has some chronic back pain. Exam Vital Signs (past 8 hours): - 12/15/19 04:33 12/15/19 08:15 Temperature 97.6 F 97.7 F Pulse Rate 56 L 48 L Respiratory Rate 18 15 Blood Pressure 115/69 142/68 H Pulse Oximetry 97 95 Oxygen Delivery Method Room Air Oxygen Flow Rate 0 Narrative Exam Narrative: Cooperative patient in no apparent distress. Eyes are nonicteric. Conjunctivae are slightly pale. Pupils equal round reactive to light. Ears without lesion. Nasal septum midline. Oral mucosa is pink moist without open lesion. Neck is supple. There are no nodes in the neck or supraclavicular areas. Trachea is midline mobile. Thyroid is not enlarged. No masses in the neck or thyroid. Lungs are clear to auscultation without rales or rhonchi. Equal percussion. Heart regular rate and rhythm without murmur gallop. Distant heart tones. No bruit in the neck. Abdomen is morbidly protuberant soft. She has a vertical midline scar in the upper abdomen with a diastasis recti. No palpable masses. Patient is alert and oriented x3. Speech rate and content are appropriate. Objective Imaging CT scan - abdomen: My impression: Dilated small bowel in the area of anastomosis. Appears patient has had a Jossie-en-Y procedure despite her history to the contrary. Radiologist's impression: Same as above Labs Result Diagrams: 12/15/19 06:46 12/15/19 06:46 Labs: Laboratory Results - last 24 hr 12/14/19 12/14/19 12/14/19 19:50 19:57 19:57 WBC 7.9 RBC 4.22 Hgb 12.1 Hct 36.1 MCV 85.5 MCH 28.8 MCHC 33.6 RDW 13.5 Plt Count 256 Neut % (Auto) 58.4 Lymph % (Auto) 33.2 [place] % (Auto) 6.6 Eos % (Auto) 1.4 L Baso % (Auto) 0.4 Neut # (Auto) 4600 Lymph # (Auto) 2600 [place] # (Auto) 500 Eos # (Auto) 100 Baso # (Auto) 0 PT 29.8 H INR 2.6 H Sodium Potassium Chloride Carbon Dioxide BUN Creatinine Estimated GFR BUN/Creatinine Ratio Glucose Calcium Total Bilirubin AST ALT Alkaline Phosphatase Troponin I Total Protein Albumin Globulin Albumin/Globulin Ratio Urine RBC 0-1/hpf Urine WBC 1-5/hpf Ur Squamous Epith Cells 1-5 /hpf Ur Transition Epith Cell 0-1/hpf Urine Bacteria None seen Ur Culture Indicated? Cult not indicated Blood Type Antibody Screen 12/14/19 12/14/19 12/14/19 19:57 19:57 19:57 WBC RBC Hgb Hct MCV MCH MCHC RDW Plt Count Neut % (Auto) Lymph % (Auto) [place] % (Auto) Eos % (Auto) Baso % (Auto) Neut # (Auto) Lymph # (Auto) [place] # (Auto) Eos # (Auto) Baso # (Auto) PT INR Sodium 137 Potassium 4.1 Chloride 104 Carbon Dioxide 29 BUN 26 H Creatinine 0.84 Estimated GFR > 60.0 BUN/Creatinine Ratio 31.0 H Glucose 101 Calcium 8.9 Total Bilirubin 0.3 AST 23 ALT 14 Alkaline Phosphatase 68 Troponin I < 0.012 Total Protein 6.4 Albumin 3.6 Globulin 2.8 Albumin/Globulin Ratio 1.3 Urine RBC Urine WBC Ur Squamous Epith Cells Ur Transition Epith Cell Urine Bacteria Ur Culture Indicated? Blood Type O Positive Antibody Screen Negative 12/15/19 12/15/19 12/15/19 06:46 06:46 10:06 WBC 5.5 RBC 3.60 L Hgb 10.5 L Hct 31.0 L MCV 86.1 MCH 29.2 MCHC 33.9 RDW 13.5 Plt Count 196 Neut % (Auto) 52.0 Lymph % (Auto) 38.0 [place] % (Auto) 7.3 Eos % (Auto) 2.0 Baso % (Auto) 0.7 Neut # (Auto) 2900 Lymph # (Auto) 2100 [place] # (Auto) 400 Eos # (Auto) 100 Baso # (Auto) 0 PT 25.3 H INR 2.2 H Sodium 138 Potassium 3.9 Chloride 108 H Carbon Dioxide 28 BUN 23 H Creatinine 0.78 Estimated GFR > 60.0 BUN/Creatinine Ratio 29.5 H Glucose 97 Calcium 8.3 L Total Bilirubin AST ALT Alkaline Phosphatase Troponin I Total Protein Albumin Globulin Albumin/Globulin Ratio Urine RBC Urine WBC Ur Squamous Epith Cells Ur Transition Epith Cell Urine Bacteria Ur Culture Indicated? Blood Type Antibody Screen Assessment & Plan Assessment & Plan narrative: Patient with a GI bleed. It is not clear to me if this is an upper or lower bleed. Will evaluate today with a EGD. I should be able to define her anatomy accurately based on the EGD as to whether she had just a VBG or if it was combined with a Jossie-en-Y. If she had a Jossie-en-Y and her distal stomach is disconnected from the proximal she could still have ulcer disease in her gastric remnant or duodenum which I would not be able to evaluate it. Possible colonoscopy tomorrow after bowel prep. Will correct her coagulopathy from warfarin with fresh frozen plasma today. Co fit testing has been ordered as a preop evaluation.
--- NOTE | 2019-12-15 10:31 | PC.NURSE ---
Confirmed by phone with Bridgette in lab that COVID 19 is being processed (rapid process) for preop at this time.
[2019-12-15 10:49] LABS: COVID19 -Nasal RAPID Negative (Negative)
--- NOTE | 2019-12-15 11:12 | CM.DANOTE ---
D/C assessment: Reviewed chart. Patient is a 64yr old female admitted to [facility] with bleeding from rectum. PCP is Dr. abebe. Primary payor is 1)[employer] 2)[employer]. Met with patient this AM in rounds. Patient alert and oriented during visit. Patient reports that she underwent gastric bypass surgery in 1994. Patient resides with her spouse/Raman in [place] Patient does not anticipate any d/c planning needs. Patient reports that she is I with ADL's. Dr. Gamino consulted and EGD planned for today. Per notes, because of advent beliefs patient does not accept blood products. CM team following closely for any d/c planning needs that may arise. P: Anticipate home when stable. KEN Ellington Discharge Planning/Care Management Discharge Assessment Start: 12/15/19 11:07 Freq: Status: Active Protocol: Document 12/15/19 11:07 KJS (Rec: 12/15/19 11:12 S [id number]) Discharge Planning Assessment Assigned Flash Welder KEN Ellington Contact Information Raman Chase (spouse) [phone] Advance Directives? Yes History Provided By Patient,Medical Record Has Patient been admitted in last 30 No days? Prior Living Arrangements House Household Members spouse Type of transporation used prior to Drives own vehicle admit Independent with ADL's Yes Is patient alert and oriented? Yes Caregiver for Another No Barriers to Discharge No Discharge Plan Home Transportation Arrangement Family to provide transport. Whiteboard Updated in Patient Room with Yes name and ext. # of Flash Welder Review Status In Process Next Review Type Continued Stay Review
--- NOTE | 2019-12-15 11:41 | PC.NURSE ---
Patient declines FFP (Jehovah witness). DR. Gamino notified, and vitamin K ordered.
[2019-12-15] MEDS: PHYTONADIONE (VIT K1) 10 MG/ML AMP 5 MG SUBCUT (12:04)
[2019-12-15] MEDS: diphenhydrAMINE 50 MG/ML VIAL 25 MG IV ×2 (13:03→22:25)
--- NOTE | 2019-12-15 13:06 | PM.PREOP ---
Pre-operative Note COVID-19 COVID-19 status: Negative Result date/Date tested (Pos, Neg/Pending): 12/15/19 Interval Note History & Physical reviewed/Exam performed by Physician: Yes Changes to H&P: No ASA Class (for procedural sedation): III
--- NOTE | 2019-12-15 14:29 | PC.NURSE ---
Patient picked up by Jessi JOHNSON for her procedure. Consent to be signed with MD prior.
--- NOTE | 2019-12-15 15:38 | PM.OP.ENDO ---
Operative Date/Time/Diagnoses Date of procedure: 12/15/19 Time of procedure: 15:38 Pre-op diagnosis: Gastrointestinal bleeding Post-op diagnosis: same (No cause in the upper tract found) Procedure & Clinicians Study performed: EGD Same procedure as scheduled: Yes Indications: Diagnostic Surgeon: Orlando Gamino Procedure Notes SCOAP/Timeout: Performed Procedure in detail: Patient was placed supine on the stretcher and underwent general endotracheal anesthesia to protect her airway. The patient had ongoing gastrointestinal bleeding and there was concern that she could aspirate and thus needed airway protection. A bite block was inserted adjacent to the T-tube in scope was advanced through it into the esophagus the esophagus was normal. There was a turn at the distal end and I entered into the gastric remnant. It seemed rather large for gastric remnant after a vertical banded gastroplasty. I was able to see the Jossie loop easily. Was somewhat unusual in that it appeared to have 2 limbs that were both long and yet the CT suggested an actual Jossie limb in any event there was blood in knee there. I advanced through 1 for distance of 70 cm until I could go no further. The mucosa was all normal and there was no blood in the lumen I pulled the scope back and advanced through the other limb for distance of about 30 cm. Again I could see no blood and could not advanced further through that limb. There was some irritation at the anastomosis but I believe that was caused by the scope and not primary. I examined the gastric pouch and could not see any lesions within it. The scope was then slowly removed. The GE junction was noted at 34 cm from the incisors. No varices were present. No inflammation at the GE junction. The scope was removed and the patient tolerated the procedure well. Scope withdrawal time: Not applicable Sedation minutes: 0 (General anesthesia due to the risk of aspiration an actively bleeding patient) Findings: other findings (Postoperative changes of a gastrojejunostomy) Specimen(s): none sent Complications: none Post-procedure Recommendations: Other recommendation (Will prep for colonoscopy) Plan for aftercare: Back to the floor Disposition: PACU
--- NOTE | 2019-12-15 16:16 | SUR.PHASEI ---
Patient tolerating po. Denies pain.
[2019-12-15] MEDS: PEG3350/SOD SULF,BICARB,CL/KCL 4,000 ML SOLUTION 2000 ML PO (17:13)
[2019-12-15] MEDS: PHYTONADIONE (VIT K1) 10 MG/ML AMP SUBCUT (17:23)
[2019-12-15 19:40] LABS: Hematocrit 33.7 % (36-46)
[2019-12-15] MEDS: MAGNESIUM CITRATE 300 ML SOLUTION 150 ML PO (21:21)
--- NOTE | 2019-12-15 22:47 | PC.NURSE ---
Pt denied any abd pain today. pt drinking golyetly and Mag Citrate. pt had some dark red colored stool. pt mixing golyetly with bella dg. SBA to the BSC. bed alarm on. denied any dizziness or light headedness.
[2019-12-16] VITALS (17 sets, daily range): BP systolic 104–183; BP diastolic 42–79; PULSE 56–90; RESP 10–20; TEMP 36.1–36.8; O2SAT 93–99; BMI 44.8
--- NOTE | 2019-12-16 02:08 | PC.NURSE ---
Addendum entered by Arti Cuadra R.N. 12/16/19 03:02: Complains of feeling itchy; medicated with Benadryl. Original Note: Patient is alert and oriented. Breath sounds CTA; RA sat is 98%. HRR. Denies nausea. BT present and abdomen is soft. Continuing to drink mag citrate/go-lytely prep. Having liquid dark red stools; no clots. Denies dysuria or frequency but has chronic urgency; wearing pad. Able to turn self in bed and transferring to C with SBA. Bilateral calf SCD's applied. Denies pain. Fall risk score is moderate; bed alarm is activated.
[2019-12-16] MEDS: diphenhydrAMINE 50 MG/ML VIAL 25 MG IV ×4 (02:57→23:14)
[2019-12-16] MEDS: SODIUM CHLORIDE 0.9% FLUSH 10 ML IV ×4 (02:57→23:15)
[2019-12-16 07:07] LABS: Add Manual Diff / Slide Review NO; Basophils Absolute Auto 0 /uL (0-100); Basophils Percent Auto 0.7 % (0-2); Eosinophils Absolute Auto 200 /uL (0-450); Eosinophils Percent Auto 3.7 % (2-4); Hematocrit 32.6 % (36-46); Hemoglobin 10.9 g/dL (12.0-16.0); Lymphocytes Absolute Auto 2100 /uL (1100-4500); Lymphocytes Percent Auto 43.7 % (25-40); Mean Corpuscular HGB Conc 33.4 % (30-36); Mean Corpuscular Hemoglobin 28.7 PG (26-34); Mean Corpuscular Volume 85.9 fL (80-100); Monocytes Absolute Auto 300 /uL (0-900); Monocytes Percent Auto 6.3 % (3-14); Neutrophils Absolute Auto 2200 /uL (1500-7000); Neutrophils Percent Auto 45.6 % (50-75); Platelet Count 211 X10^3/uL (150-400); Red Cell Distribution Width 13.8 % (11.6-14.8); White Blood Cell Count 4.8 X10^3/uL (4.5-11.0)
[2019-12-16] MEDS: LACTATED RINGERS 1,000 ML 200 ML IV (07:35)
[2019-12-16] MEDS: ONDANSETRON 4 MG/2 ML INJ IV (08:01)
[2019-12-16] MEDS: MIDAZOLAM 5 MG/5 ML VIAL IV (08:33)
[2019-12-16] MEDS: fentaNYL 250 MCG/5 ML INJ IV (08:33)
--- NOTE | 2019-12-16 08:34 | PM.OP.ENDO ---
Operative Date/Time/Diagnoses Date of procedure: 12/16/19 Time of procedure: 08:34 Pre-op diagnosis: Intestinal bleeding Post-op diagnosis: same (Sigmoid diverticulosis) Procedure & Clinicians Study performed: Colonoscopy Same procedure as scheduled: Yes Indications: Patient with intestinal bleeding. Negative endoscopy. Brought for colonoscopy. Surgeon: Orlando Gamino Procedure Notes SCOAP/Timeout: Performed Procedure in detail: The patient was placed in the left lateral decubitus position and underwent IV sedation directed by the surgeon consisting of fentanyl and Versed. Digital exam was unremarkable. The scope was inserted and advanced through the rectum into the sigmoid, descending, transverse, and ascending colon. I noted extensive sigmoid diverticulosis. Otherwise there were no lesions seen on the way in.. The cecum was reached identified by the ileocecal valve and the appendiceal opening. The ileocecal valve was successfully cannulated. The terminal ileum was normal in appearance. The scope was gradually brought out. No Polyps were found. The scope ultimately was retroflexed in the rectum. The appearance was remarkable for scarring on all hemorrhoids no active disease.. The scope was removed and the patient tolerated the procedure well. Prep was adequate Scope withdrawal time: 6 minutes Sedation minutes: 27 Findings: diverticulosis Specimen(s): none sent Complications: none Post-procedure Recommendations: Colonscopy in 10 years Follow up: as needed Disposition: PACU
--- NOTE | 2019-12-16 08:47 | SUR.PHASEI ---
Pt awake, talking, denies dizzinezz, light-headedness. Juice given, tolerating well. Pt repositions self for comfort
--- NOTE | 2019-12-16 09:14 | SUR.PHASEI ---
0858 to room 204, pt stood to transfer to bed. MANAGER TELEMETRY present, pt put on her own PJs. Tolerated PO well, denied abdominal pain prior to transfer.
[2019-12-16] MEDS: LOSARTAN 50 MG TABLET PO (09:21)
[2019-12-16] MEDS: PANTOPRAZOLE 40 MG VIAL IV (09:21)
[2019-12-16] MEDS: LEVOTHYROXINE 100 MCG TABLET 200 MCG PO (11:05)
--- NOTE | 2019-12-16 12:02 | P.PN_ITS ---
Subjective Subjective Date Patient Seen: 12/16/19 Interval history: Patient is 64-year-old female with history of vertical banded gastroplasty, on chronic anticoagulation for remote DVT and PE in the , admitted for GI bleed consisting of several days black stools. She had EGD on 12/14 and colonoscopy 12/15 which did not reveal any source of active bleeding. She has diverticulosis and nonactive hemorrhoids. Patient was continuing to pass black stools with her colonoscopy prep but the last stool since her colonoscopy was clear. Exam Vital Signs (past 8 hours): - 12/16/19 05:20 12/16/19 07:26 12/16/19 08:37 Temperature 97.7 F 97.1 F L 98.2 F Pulse Rate 60 58 L 90 Respiratory Rate 20 16 14 Blood Pressure 117/68 183/73 H 111/57 L Pulse Oximetry 96 98 99 12/16/19 08:42 12/16/19 08:51 12/16/19 08:53 Temperature Pulse Rate 72 65 71 Respiratory Rate 10 L 14 14 Blood Pressure 104/49 L 122/42 L 119/65 Pulse Oximetry 96 97 99 12/16/19 09:05 12/16/19 09:21 12/16/19 09:35 Temperature 96.9 F L 97.0 F L Pulse Rate 70 71 58 L Respiratory Rate 18 18 Blood Pressure 125/75 125/75 128/60 Pulse Oximetry 97 96 12/16/19 10:05 Temperature 97.4 F L Pulse Rate 57 L Respiratory Rate 16 Blood Pressure 119/74 Pulse Oximetry 93 Oxygen Delivery Method Room Air Oxygen Flow Rate 0 Narrative Exam Narrative: General: Alert very pleasant and conversant female in no distress Objective Labs Result Diagrams: 12/16/19 06:58 12/15/19 06:46 Labs: Laboratory Results - last 24 hr 12/15/19 12/16/19 19:30 06:58 WBC 4.8 RBC 3.80 L Hgb 10.9 L Hct 33.7 L 32.6 L MCV 85.9 MCH 28.7 MCHC 33.4 RDW 13.8 Plt Count 211 Neut % (Auto) 45.6 L Lymph % (Auto) 43.7 H [place] % (Auto) 6.3 Eos % (Auto) 3.7 Baso % (Auto) 0.7 Neut # (Auto) 2200 Lymph # (Auto) 2100 [place] # (Auto) 300 Eos # (Auto) 200 Baso # (Auto) 0 Assessment & Plan Assessment & Plan narrative: Patient is 64-year-old female with history of vertical banded gastroplasty, on chronic anticoagulation for remote DVT and PE in the , admitted for GI bleed consisting of several days black stools. She had EGD on 12/14 and colonoscopy 12/15 which did not reveal any source of active bleeding. She has diverticulosis and nonactive hemorrhoids. Acute GI bleed, present on admission, active -hemoglobin 12.1 on admission, last hemoglobin 10.9 -EGD and colonoscopy have not identified source of bleed -clear liquid diet -await further recommendations by Dr. Gamino -recheck H/H tomorrow and likely discharge home if stable -patient has been on warfarin for remote single episode of PE and DVT and questionable whether she really needs to continue chronic anticoagulation History of bilateral PEs -as noted this was single episode in the 1989 -INR was 2.6 on admission -consider permanent discontinuation of warfarin Essential hypertension, active, stable -continue home dose of losartan 50 mg p.o. daily Hypothyroidism, active, stable -she does not appear to be taking levothyroxine will have to confirm her dose Urinary incontinence, active, stable -continue oxybutynin 5 mg p.o. as needed Consults: Dr. Gamino, General Surgery consult and involvement is appreciated. Patient is observation status. VTE prophylaxis: Bilateral SCDs Code Status: Full Code as discussed with patient Quality VTE Deep Vein Thrombosis/Pulmonary Embolism Present on Admission: No
[2019-12-16] MEDS: TRAZODONE 100 MG TABLET PO (20:17)
[2019-12-16] MEDS: hydrOXYzine pamoate 25 MG CAPSULE PO (20:17)
--- NOTE | 2019-12-16 21:21 | PC.NURSE ---
mild abdominal cramping. pt tolerating pain. no GI bleed since colonoscopy. pt tolerated general diet. no n/v. itching controlled by benadryl and vistaril. SBA. pt took a shower this afternoon. call light in reach.
--- NOTE | 2019-12-17 00:31 | PC.NURSE ---
Patient seen and assessed at 2326. Is alert and oriented. Breath sounds CTA with RA sat of 97%; denies SOB. HRR; denies dizziness or lightheadedness. Denies nausea. BT present and abdomen is soft although patient feels upper abdomen is distended; difficult to assess due to obesity. Has not had any recent bloody stools. Is voiding without dysuria, frequency or urgency. Able to move self in bed and provided SBA out of bed at night for safety. Complaining of itchiness and noted to have been scratching self with multiple areas of pink skin; medicated with Benadryl. Denies pain. Bilateral calf SCD's applied. Fall risk score is moderate and bed alarm is activated.
[2019-12-17 05:35] VITALS: BP 139/74; PULSE 52; RESP 16; TEMP 36.1; O2SAT 97
[2019-12-17] MEDS: LEVOTHYROXINE 100 MCG TABLET 200 MCG PO (05:38)
[2019-12-17 05:41] LABS: Add Manual Diff / Slide Review NO; Basophils Absolute Auto 0 /uL (0-100); Basophils Percent Auto 0.7 % (0-2); Eosinophils Absolute Auto 200 /uL (0-450); Eosinophils Percent Auto 3.4 % (2-4); Hematocrit 28.9 % (36-46); Hemoglobin 9.7 g/dL (12.0-16.0); Lymphocytes Absolute Auto 2100 /uL (1100-4500); Lymphocytes Percent Auto 35.7 % (25-40); Mean Corpuscular HGB Conc 33.5 % (30-36); Mean Corpuscular Hemoglobin 28.9 PG (26-34); Mean Corpuscular Volume 86.1 fL (80-100); Monocytes Absolute Auto 400 /uL (0-900); Monocytes Percent Auto 7.3 % (3-14); Neutrophils Absolute Auto 3100 /uL (1500-7000); Neutrophils Percent Auto 52.9 % (50-75); Platelet Count 198 X10^3/uL (150-400); Red Blood Cell Count 3.36 X10^6/uL (4.0-5.2); Red Cell Distribution Width 13.5 % (11.6-14.8); White Blood Cell Count 5.8 X10^3/uL (4.5-11.0)
[2019-12-17 07:00] VITALS: O2SAT 95
[2019-12-17] MEDS: diphenhydrAMINE 50 MG/ML VIAL 25 MG IV (08:57)
[2019-12-17 08:58] VITALS: BP 121/61; PULSE 75
[2019-12-17] MEDS: SODIUM CHLORIDE 0.9% FLUSH 10 ML IV (08:58)
[2019-12-17] MEDS: LOSARTAN 50 MG TABLET PO (08:58)
[2019-12-17 09:57] VITALS: BP 119/69; PULSE 66; RESP 18; TEMP 36.4; O2SAT 95
[2019-12-17 11:12] VITALS: BP 120/73; PULSE 62; RESP 18; TEMP 36.6; O2SAT 96
--- NOTE | 2019-12-17 11:34 | P.DS_ITS ---
History of Present Illness History of Present Illness Date Patient Seen: 12/17/19 Time Patient Seen: 11:34 Chief complaint: BLEEDING Narrative: Kelsi Chase is a 64-year-old female with a history of a gastric bypass, hypothyroidism, bladder incontinence, and history of osteomyelitis and dual PEs anticoagulated on warfarin presented today after having had a bowel movement and seeing very dark stool. She states that she is still passing clots. She feels like she has to go the bathroom constantly because she feels like she keeps producing blood per rectum. States the blood and clots are very dark. She eats very small quantities of mid food at a time with multiple meals due to the gastric bypass and finds meat and potatoes hard to swallow. She has chronic urinary incontinence, back and neck pain secondary to ?bone spurs?, she has anxiety and is on chronic warfarin therapy. She denies any cramping, fever sweats or chills, difficulty swallowing other than mentioned prior, shortness of breath, chest pain, abdominal pain, dysuria, diarrhea or constipation. She did have a approximately 400 lb weight loss since she underwent the gastric bypass. In the ED she underwent a CT of the abdomen which did not reveal any unusual process. Labs are unremarkable, u/a was negative. Dr. Gamino was requested to evaluate the patient and the CT and plans to perform an EGD today. Discharge Providers Provider Date of admission: 12/14/19 21:04 Discharge Date: 12/17/19 Primary care physician: Chandler Covarrubias MD Discharge provider: Aquilino Lopez MD Summary Hospital Course Discharge Diagnosis: Acute GI bleed, present on admission, active History of bilateral PEs Essential hypertension Hypothyroidism Urinary incontinence Hospital Course: Acute GI bleed, present on admission, active -hemoglobin 12.1 on admission, last hemoglobin yesterday 10.9, now down to 9.7 without any signs of ongoing bleeding. She says that her bowel movements have been yellow color. -EGD and colonoscopy have not identified source of bleed, except for extensive Diverticulosis, so that would appear to be the most likely type of GI bleed. -Will discharge home today and resume normal diet -Will need repeat CBC within a few days with Dr. Vu and will also need to return to the ED if she sees more bleeding when back on the Coumadin. 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 Understandably she is quite reluctant to abandon anticoagulation, but she understands the contrasting risk of exsanguination from recurrent GI bleeding. History of bilateral PEs -as noted this was single episode in the 1989 -INR was 2.6 on admission -considered permanent discontinuation of warfarin, but she assures me today that she has actually had several DVTs including recurring DVTs when she has run out of her warfarin. She is not willing to stop the Coumadin. She would seem to be an ideal hematology consult patient, possibly needing an IVC filter. She tells me that her daughter has been tested for one of the genetic causes of DVT and tested positive. -resume her home Coumadin dose, which appears to be 7 mg daily, with routine INR checks and return to the ED if bleeding returns. Essential hypertension, active, stable -continue home dose of losartan 50 mg p.o. daily Hypothyroidism, active, stable -Continue 200 mcg of Levothyroxine daily Urinary incontinence, active, stable -continue oxybutynin 5 mg p.o. as needed Consults: Dr. Gamino, General Surgery consult Code Status: Full Code as discussed with patient Exam Vital Signs (past 8 hours): - 12/17/19 05:35 12/17/19 07:00 12/17/19 08:58 Temperature 96.9 F L Pulse Rate 52 L 75 Respiratory Rate 16 Blood Pressure 139/74 121/61 Pulse Oximetry 97 95 12/17/19 09:57 Temperature 97.6 F Pulse Rate 66 Respiratory Rate 18 Blood Pressure 119/69 Pulse Oximetry 95 Oxygen Delivery Method Room Air Oxygen Flow Rate 0 Narrative Exam Narrative: She is alert and oriented, in no apparent distress, quite talkative and somewhat anxious today. Hemoglobin is dropped from 10.9-9.7 without any evidence of ongoing bleeding. Her bowel movement this morning was yellow. Heart is regular rate and rhythm without murmur Lungs are clear to auscultation bilaterally Abdomen is soft, obese, bowel sounds positive, nontender, no organomegaly. Extremities have no ankle edema Objective Labs Result Diagrams: 12/17/19 05:21 12/15/19 06:46 Labs: Laboratory Results - last 24 hr 12/17/19 05:21 WBC 5.8 RBC 3.36 L Hgb 9.7 L Hct 28.9 L MCV 86.1 MCH 28.9 MCHC 33.5 RDW 13.5 Plt Count 198 Neut % (Auto) 52.9 Lymph % (Auto) 35.7 Schuyler % (Auto) 7.3 Eos % (Auto) 3.4 Baso % (Auto) 0.7 Neut # (Auto) 3100 Lymph # (Auto) 2100 Schuyler # (Auto) 400 Eos # (Auto) 200 Baso # (Auto) 0 Discharge Plan Discharge Plan Patient Disposition: Home Discharge comment: Follow up with Dr. Chandler Covarrubias as soon as possible this week for repeat CBC and possible hematology referral. Discharge orders & Medications Prescriptions: Continued warfarin [Jantoven] 5 MG tablet 5 mg PO QPM Qty: 30 RF: 0 warfarin [Coumadin] 2 MG tablet 2 mg PO SEE INSTRUCTIONS Qty: 0 RF: 0 gabapentin [Neurontin] 300 MG capsule 300 mg PO TID Qty: 0 RF: 0 oxybutynin chloride 5 MG tablet 5 mg PO PRN PRN (Reason: Urinary Retention) Qty: 0 RF: 0 trazodone 100 MG tablet 100 mg PO HS Qty: 0 RF: 0 multivitamin [Multiple Vitamins] 1 EACH tablet 1 tab PO QDAY Qty: 0 RF: 0 cholecalciferol (vitamin D3) [Vitamin D3] 2,000 unit tablet 2,000 unit PO QDAY Qty: 0 RF: 0 biotin 1 mg capsule 1 mg PO QDAY Qty: 0 RF: 0 cyclobenzaprine 10 mg tablet 10 mg PO TID PRN (Reason: muscle spasm) Qty: 14 RF: 0 levothyroxine 200 mcg tablet 200 mcg DAILY RF: 0 ondansetron HCl [Zofran] 4 mg tablet 4 mg PO Q6-8H PRN (Reason: nausea and vomiting) Qty: 10 RF: 0 losartan 50 mg tablet 50 mg PO DAILY RF: 0 lorazepam [Ativan] 0.5 mg tablet 0.5 mg PO QID PRN (Reason: anxiety) Qty: 12 RF: 0 Follow up/Referrals: Chandler Covarrubias MD [Primary Care Provider] - Diet/Activity/Treatments Diet: Regular Visit Report/Discharge Packet Instructions: DI for Diverticulosis Visit Report Forms: Patient Portal/API, Stroke Signs & Symptoms Discharge Data Primary Care Provider: Chandler Covarrubias Quality VTE Deep Vein Thrombosis/Pulmonary Embolism Present on Admission: No
[2019-12-17] MEDS: WARFARIN 5 MG TABLET PO (12:39)
[2019-12-17] MEDS: WARFARIN 2 MG TABLET PO (12:39)
--- NOTE | 2019-12-17 14:21 | CM.DPNOTE ---
DC Note: Met w/patient this afternoon, she has been DC home and plans to drive herself home w/her car (currently parked at ). Had a lengthy conversation w/patient that started by discussing the referrals Dr Lopez was suggesting. Patient familiar w/the referral process from a prior job, and felt confident about calling her PCP office Friday as well as [facility] to make an appt w/ a finished hardware erector (as recommended by Dr Lopez). Patient expressed, many times, how worried she was about leaving the hospital in case she were to have recurrence of her GI bleed. She explained she is very in tune w/her body and felt not having a diagnosis/etiology for the bleed was bothering her. Patient inevitably identified her worry/concern as anxiety to this FELT HAT POUNCING OPERATOR HAND, stated she lives w/daily anxiety which has been exacerbated now by her medical condition and the unknown caused by the COVID-19 pandemic. This FELT HAT POUNCING OPERATOR HAND spent time reflecting back to patient and supported her ideas to discuss her h/o anxiety/depression and exacerbation of symptoms w/her PCP. Patient states my doctor recently took me off of sertraline because he thought I didn't need it. Again encouraged patient to discuss medication management w/ PCP for anxiety/depression. Discussed the benefit of 1:1 counseling to strengthen coping mechanisms and patient agreed. Suggested [facility] in [place] and patient appreciative. Patient in some obvious distress by the end of this conversation so encouraged patient to reconsider driving herself home this afternoon. Patient explained she was set to drive herself home and did not want to burden her spouse with this. Gently suggested, for patient's safety, that once she is wheeled to her car w/all her belongings, she stop and call her spouse, update that she was leaving the hospital parking lot, and request her stay near the phone in case she needed to get a hold of him. Patient agreed. then suggested that patient focus puller at any sign of dizziness or feeling light headed, or any uneasy feelings and call her spouse right away, patient agreeable to this and reiterated that she would be okay driving home. Relayed summary of above to ELIZABETH Kat. She agreed it seemed safer if patient were to be picked up but patient has the right to drive home, she is on no narcotics. RN will discuss once again w/patient as she is assisted to her vehicle. P: DC home via private auto today, w/ spouse and close outpt f/u KEN Watson
--- NOTE | 2019-12-17 14:22 | PC.NURSE ---
Day shift note: 1400: Patient awake, alert, and pleasant. Had x 2 BMs this shift, no gross blood, or black stool noted. Loose brown stool. No c/o pain, dizziness or SOB. Excellent PO intake, voiding. VSS and afebrile. Discharged home as ordered, discussed importance of F/U with PMD, referral for hematology, and s/sx of infections. Patient received dose of COumadin. Discharged home via private vehicle, patient drove self, refused to pickle cutter. Family out of state. No narcotics admin. Drive 10-15 mins from hospital, awaiting arrival.
== END 2019-12-17 14:20 | disposition home or self-care (01) | DRG 378 ==
LOC: ED 18:37 → AC 21:05
PROVIDERS: Internal Medicine; Specialist; Admitting Provider Nurse Practitioner Family; Emergency Provider Emergency Medicine; PCP Internal Medicine; Visit Provider Nurse Practitioner Family
PROC: 0DJ08ZZ Inspection of Upper Intestinal Tract, Via Natural or Artificial Opening Endoscopic (ICD-10-PCS; CPT 43235; principal; 2019-12-15 16:00)
PROC: 0DJD8ZZ Inspection of Lower Intestinal Tract, Via Natural or Artificial Opening Endoscopic (ICD-10-PCS; CPT 45378; principal; 2019-12-16 07:45)
DX: K57.31 Diverticulosis of large intestine without perforation or abscess with bleeding (principal); Z68.41 Body mass index [BMI] 40.0-44.9, adult; E03.9 Hypothyroidism, unspecified; F41.9 Anxiety disorder, unspecified; R32 Unspecified urinary incontinence; I10 Essential (primary) hypertension; Z87.891 Personal history of nicotine dependence; Z98.84 Bariatric surgery status; Z86.711 Personal history of pulmonary embolism; Z79.01 Long term (current) use of anticoagulants; E66.01 Morbid (severe) obesity due to excess calories
CPT/HCPCS: 36415; 74176; 80048; 80053; 81003; 81015; 82962; 84484; 85014; 85025; 85610; 86850; 86900; 86901; 87635; 93005; 96361; 96374; 99284; C9113; J0330; J1200; J2250; J2405; J2704; J3010; J3430

== ENCOUNTER 2020-03-08 17:30 | Emergency (ER) | payer OTHER, MEDICARE, SELFPAY ==
[2019-12-15 01:08] VITALS: BMI 44.9
[2020-03-08 17:47] VITALS: BP 171/79; PULSE 79; RESP 23; TEMP 36.6; O2SAT 96; BMI 44.1
[2020-03-08] MEDS: TET,DIPH,PERTUSS(ACELL),VAC/PF 0.5 ML SYRINGE IM (18:36)
[2020-03-08] MEDS: LIDO 1%/SOD BICARB 8.4% (10ML) 10 ML SYRINGE INJ (18:51)
[2020-03-08] MEDS: BACITRACIN OINT 0.9 GM PCKT 1 APPLIC TOP (18:52)
[2020-03-08 19:11] VITALS: BP 180/84; PULSE 48; RESP 16; O2SAT 98
--- NOTE | 2020-03-08 19:12 | PC.NURSE ---
Low HR is normal per pt
--- NOTE | 2020-03-08 19:21 | ED.WOUNDLAC ---
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 Patient reports difficulty with controlling the bleeding. Last tetanus immunization was updated about 8 years ago. Patient is able to flex and extend affected finger without difficulty. She reports intact sensation. Related Data Home Medications Medication Instructions Recorded Confirmed warfarin [Coumadin] 2 mg PO SEE INSTRUCTIONS #0 02/06/17 12/14/19 biotin 1 mg PO QDAY #0 07/28/17 12/14/19 cholecalciferol (vitamin D3) 2,000 unit PO QDAY #0 07/28/17 12/14/19 [Vitamin D3] gabapentin [Neurontin] 300 mg PO TID #0 07/28/17 12/14/19 multivitamin [Multiple Vitamins] 1 tab PO QDAY #0 07/28/17 12/14/19 oxybutynin chloride 5 mg PO PRN PRN #0 07/28/17 12/14/19 trazodone 100 mg PO HS #0 07/28/17 12/14/19 losartan 50 mg PO DAILY 10/23/19 12/14/19 levothyroxine 200 mcg DAILY 12/16/19 12/16/19 Previous Rx's Medication Instructions Recorded warfarin [Jantoven] 5 mg PO QPM #30 01/28/16 ondansetron HCl [Zofran] 4 mg PO Q6-8H PRN #10 tab 11/12/18 cyclobenzaprine 10 mg PO TID PRN #14 tab 07/25/19 lorazepam [Ativan] 0.5 mg PO QID PRN #12 tab 10/23/19 Allergies Allergy/AdvReac Type Severity Reaction Status Date / Time latex [LATEX] Allergy Intermediate RASH, Verified 03/08/20 17:43 ITCHY, BLISTERS adhesive tape Allergy Mild Blister Verified 03/08/20 17:43 iodine [IODINE] Allergy Mild RASH Verified 03/08/20 17:43 morphine [MORPHINE] Allergy Mild N&V Verified 03/08/20 17:43 mussels [MUSSELS] Allergy Unknown N&V Verified 03/08/20 17:43 Review of Systems <AMY Ballard - Last Filed: 03/08/20 22:59> Review of Systems Narrative: General: Denies fever, chills, fatigue, malaise, sweats. Respiratory: Denies dyspnea, cough, wheezing, hemoptysis, sputum. Cardiovascular: Denies chest pain, palpitations, orthopnea, edema. Gastrointestinal: Denies nausea, vomiting, abdominal pain, diarrhea, constipation, melena. Musculoskeletal: Denies weakness, joint pain or bony pain. Skin: See HPI Patient History <AMY Ballard - Last Filed: 03/08/20 22:59> Medical History Anxiety (Acute) Chronic pain (Acute) Chronic sinus bradycardia (Acute) Depression (Acute) Former smoker (Acute) GERD (gastroesophageal reflux disease) (Acute) Hiatal hernia (Acute) History of ETOH abuse (Acute) HTN (hypertension) (Acute) Hypoglycemia (Acute) Hypothyroidism (Acute) Insomnia (Acute) Lactose intolerance (Acute) SHANEKA (obstructive sleep apnea) (Acute) PTSD (post-traumatic stress disorder) (Acute) Pulmonary embolism (Acute ~1993) Surgical History History of colonoscopy (Acute) History of total left hip arthroplasty (Acute 11/08/15) Hx of appendectomy (Acute) Hx of cholecystectomy (Acute) Hx of hernia repair (Acute) S/P gastroplasty (Acute) Family History Father CAD (coronary artery disease) Mother CAD (coronary artery disease) Social History household members: spouse Smoking Status: Former smoker alcohol intake: former Smoking Status: Former smoker alcohol intake frequency: holidays/special occasions only Substance Use Type: does not use Exam <AMY Ballard - Last Filed: 03/08/20 22:59> Narrative Exam Narrative: General appearance: well developed, well nourished, in no acute distress. Head: normocephalic, atraumatic, no scalp lesions, non-tender. ENT: Bilateral auditory canals and tympanic membranes clear. Hearing grossly intact. Nose without bleeding, purulent discharge, septal hematoma or deviation. Turbinate without erythema or swelling. Facial sinuses nontender to palpate. Mucous membrane moist, no mucosal lesion. Throat without erythema, tonsillar hypertrophy or exudate. Uvula in midline, airway patent. Neck/Thyroid: neck supple, full range of motion, no visible masses or meningeal signs. No JVD, non-tender without lymphadenopathy. Skin: About 1.5 cm transverse lack on right long finger pad with slow bleeding. No suspicious rashes, lesions over visible areas. Warm and dry and appropriate color for ethnicity. Heart: no clubbing, no cyanosis, no edema. Lungs: Breathing even and unlabored. No stridor. No accessory muscles used. Able to speak in full sentences. Chest: normal shape and expansion. Abdomen: non-obese, non-distended. Neurologic: alert and oriented. Cognitive exam, PROGRESSIVE ASSEMBLER AND FITTER and PNS grossly intact on informal exam. Psych: good eye contact, normal affect. Initial Vital Signs Initial Vital Signs: Vital Signs Temperature 97.9 F 03/08/20 17:47 Pulse Rate 79 03/08/20 17:47 Respiratory Rate 23 03/08/20 17:47 Blood Pressure 171/79 H 03/08/20 17:47 Pulse Oximetry 96 03/08/20 17:47 Extrem Right upper extremity: hand Details: abnormal to inspection, normal capillary refill, neuromotor exam normal, neurosensory exam normal, tendon exam normal, normal ROM of fingers, no swelling and laceration (1 cm transverse laceration to long finger pad); no foreign bodies <Ken Alonso MD - Last Filed: 03/09/20 00:42> Initial Vital Signs Initial Vital Signs: Vital Signs Temperature 97.9 F 03/08/20 17:47 Pulse Rate 79 03/08/20 17:47 Respiratory Rate 23 03/08/20 17:47 Blood Pressure 171/79 H 03/08/20 17:47 Pulse Oximetry 96 03/08/20 17:47 Procedures <AMY Ballard - Last Filed: 03/08/20 22:59> Laceration Repair Laceration 1: Site: hand (Third finger pad) Side (If applicable): right Size (cm): 1.5 Description: linear Depth: simple, single layer Local Anesthetic: lidocaine 1% and with bicarb Amount of anesthesia used (mL): 1.5 Pre-repair: wound explored and irrigated extensively Skin layer closed with: nylon Size (cm): 5-0 Number of sutures: 2 Technique: simple, interrupted Scores <Mukul AMY Cosme - Last Filed: 03/08/20 22:59> GCS Nabeel coma scale eye opening: Spontaneous [place] coma scale verbal response: Orientated [place] coma scale motor response: Obey commands Nabeel coma scale total score: 15 Course <Mukul AMY Cosme - Last Filed: 03/08/20 22:59> Orders Ordered: Discontinued Medications Bacitracin (Bacitracin) 1 applic TOP NOW ONE Stop: 03/08/20 18:26 Last Admin: 03/08/20 18:52 Dose: 1 applic Documented by: IRLANDAR Diphtheria/Tetanus/Acell Pertussis (Adacel) 0.5 ml IM .ONCE ONE Stop: 03/08/20 18:26 Last Admin: 03/08/20 18:36 Dose: 0.5 ml Documented by: DAMON Lidocaine/Sodium Bicarbonate (Buffered Lidocaine 10 Ml Syr) 10 ml INJ NOW ONE Stop: 03/08/20 18:26 Last Admin: 03/08/20 18:51 Dose: 10 ml Documented by: MMJENNIFER Vital Signs Vital signs: Vital Signs - 8 hr 03/08/20 17:47 03/08/20 19:11 Temperature 97.9 F Pulse Rate 79 48 L Respiratory Rate 23 16 Blood Pressure 171/79 H 180/84 H Pulse Oximetry 96 98 <Ken Alonso MD - Last Filed: 03/09/20 00:42> Orders Ordered: Discontinued Medications Bacitracin (Bacitracin) 1 applic TOP NOW ONE Stop: 03/08/20 18:26 Last Admin: 03/08/20 18:52 Dose: 1 applic Documented by: IRLANDAR Diphtheria/Tetanus/Acell Pertussis (Adacel) 0.5 ml IM .ONCE ONE Stop: 03/08/20 18:26 Last Admin: 03/08/20 18:36 Dose: 0.5 ml Documented by: DAMON Lidocaine/Sodium Bicarbonate (Buffered Lidocaine 10 Ml Syr) 10 ml INJ NOW ONE Stop: 03/08/20 18:26 Last Admin: 03/08/20 18:51 Dose: 10 ml Documented by: DAMON Vital Signs Vital signs: Vital Signs - 8 hr 03/08/20 17:47 03/08/20 19:11 Temperature 97.9 F Pulse Rate 79 48 L Respiratory Rate 23 16 Blood Pressure 171/79 H 180/84 H Pulse Oximetry 96 98 MDM - Wound/Laceration <Mukul AMY Cosme - Last Filed: 03/08/20 22:59> Differential Diagnosis Differential diagnosis: Likely laceration Medical Records Attestation: I reviewed the patient's medical records. MDM Narrative Medical decision making narrative: Sensation intact distally. Cap refill and radial pulse intact in right hand. Patient is able to flex and extend affected finger without difficulty. Laceration has been repaired with 2 sutures. Please see procedure note. Bleeding controlled after the suture in placed. Return precautions discussed including wound care at home, wound recheck, suture removal, monitoring signs and symptoms for infection and patient verbalized understanding and agreement with the treatment plan. Tdap was updated today. Discharge Plan Departure Patient Disposition: Home Clinical Impression: Finger laceration Qualifiers: Encounter type: initial encounter Finger: ring finger Damage to nail status: without damage Foreign body presence: without foreign body Laterality: right Qualified Code(s): S61.214A - Laceration without foreign body of right ring finger without damage to nail, initial encounter Discharge Date/Time: 03/08/20 19:27 Instructions: DI for Laceration Repair Activity Restrictions/Additional Instructions: You have been diagnosed with [dominant hand right long finger laceration approximately 1.5 cm in finger pad that was repaired by 2 sutures.]. What to do: *Take your medications as directed. You can take [id number] Tylenol as needed for discomfort. Tdap immunization was updated today. This is good for 5-10 years before next up-to-date requirement. Please do not get your wound soaked in the water until suture removal. Keep your dressing intact for next 24 hrs. After then, you could remove your dressing, wash with soap and water. Pat dry with clean paper towel and dress it with antibiotic ointment. You can change dressing as needed and daily. Please monitor for signs and symptoms for infection such as increasing redness, swelling, warmth, pain, fever, purulent discharge. If this occurs, please return to ED or follow up with your primary care physician since your wound may be gotten infected. Please follow up with your primary care provider in 2-3 days for recheck wound. Your suture should be removed [ 7-10 ] days. This can be done by your primary provider, walk-in clinic or here in ED. Please keep your wound clean, dry and intact all times. *Return to ED if you have any new, worsening, or concerning symptoms, such as [chest pain, breathing difficulty, unable to tolerate fluids, fever, signs and symptoms for infection as above]. Prescriptions: No Action warfarin [Jantoven] 5 MG tablet 5 mg PO QPM Qty: 30 RF: 0 warfarin [Coumadin] 2 MG tablet 2 mg PO SEE INSTRUCTIONS Qty: 0 RF: 0 gabapentin [Neurontin] 300 MG capsule 300 mg PO TID Qty: 0 RF: 0 oxybutynin chloride 5 MG tablet 5 mg PO PRN PRN (Reason: Urinary Retention) Qty: 0 RF: 0 trazodone 100 MG tablet 100 mg PO HS Qty: 0 RF: 0 multivitamin [Multiple Vitamins] 1 EACH tablet 1 tab PO QDAY Qty: 0 RF: 0 cholecalciferol (vitamin D3) [Vitamin D3] 2,000 unit tablet 2,000 unit PO QDAY Qty: 0 RF: 0 biotin 1 mg capsule 1 mg PO QDAY Qty: 0 RF: 0 cyclobenzaprine 10 mg tablet 10 mg PO TID PRN (Reason: muscle spasm) Qty: 14 RF: 0 levothyroxine 200 mcg tablet 200 mcg DAILY RF: 0 ondansetron HCl [Zofran] 4 mg tablet 4 mg PO Q6-8H PRN (Reason: nausea and vomiting) Qty: 10 RF: 0 losartan 50 mg tablet 50 mg PO DAILY RF: 0 lorazepam [Ativan] 0.5 mg tablet 0.5 mg PO QID PRN (Reason: anxiety) Qty: 12 RF: 0 Referrals: Chandler Covarrubias MD [Primary Care Provider] - <Ken Alonso MD - Last Filed: 03/09/20 00:42> Cosign ED Attending Cosignature Attestation: I was immediately available in the department for consultation. This documentation has been reviewed and I agree with assessment and plan. Supervised by Ken Alonso MD
== END 2020-03-08 19:27 | disposition home or self-care (01) ==
PROVIDERS: Emergency Provider Nurse Practitioner Family; PCP Internal Medicine
DX: S61.214A Laceration without foreign body of right ring finger without damage to nail, initial encounter (principal); W26.8XXA Contact with other sharp object(s), not elsewhere classified, initial encounter; Z23 Encounter for immunization
CPT/HCPCS: 12001; 90471; 99283; 90715

== ENCOUNTER → 2020-03-17 09:53 | Outpatient (CLI) | payer OTHER, MEDICARE, SELFPAY ==
[2019-12-15 01:08] VITALS: BMI 44.9
[2020-03-19 09:27] LABS: COVID19 Sendout Not Detected (Not Detect)
== END ==
PROVIDERS: PCP Internal Medicine; Visit Provider Physician Assistant
DX: Z11.59 Encounter for screening for other viral diseases (principal)
CPT/HCPCS: 87635

== ENCOUNTER 2020-03-20 08:06 | Inpatient (IN) | payer OTHER, MEDICARE, SELFPAY ==
[2019-12-15 01:08] VITALS: BMI 44.9
[2020-03-13 09:46] VITALS: BMI 44.4
[2020-03-20] VITALS (15 sets, daily range): BP systolic 96–153; BP diastolic 47–78; PULSE 58–80; RESP 14–19; TEMP 35.9–37.4; O2SAT 94–99; BMI 43.7
--- NOTE | 2020-03-20 06:00 | DI.RAD.S_ITS ---
PROCEDURE: XR KNEE LT 1TO2V INDICATIONS: post op total knee TECHNIQUE: 2 view(s) of the knee acquired. COMPARISON: [facility], CR, XR KNEE LT 3V, 07/25/2019, 23:56. FINDINGS: Bones: Patient is status post knee joint arthroplasty. Hardware components are in expected positions. Visualized bony structures are intact. Soft tissues: Overlying postoperative changes are noted. IMPRESSION: Post left total knee arthroplasty changes with anatomic left knee alignment. Dictated by: Nitish Baig M.D. on 03/20/2020 at 14:01 Approved by: Nitish Baig M.D. on 03/20/2020 at 14:02
[2020-03-20] MEDS: CELECOXIB 200 MG CAPSULE PO (08:55)
[2020-03-20] MEDS: ACETAMINOPHEN 325 MG TABLET 975 MG PO (08:55)
[2020-03-20] MEDS: LACTATED RINGERS 1,000 ML 42 ML IV (08:55)
[2020-03-20] MEDS: PREGABALIN 75 MG CAPSULE PO (08:55)
--- NOTE | 2020-03-20 09:33 | P.OP_ITS ---
Operative Date/Time/Diagnoses Date of procedure: 03/20/20 Time of procedure: 11:49 Pre-op diagnosis: Left knee osteoarthritis Post-op diagnosis: same Procedure & Clinicians Procedure: Left total knee replacement Same procedure as scheduled: Yes Indications: The patient has had progressively worsening left knee pain with radiographic changes consistent with arthritis. Non-operative management has failed and the patient has requested total knee replacement. The risks, benefits and alternatives to surgery were discussed with the patient prior to proceeding. Risks discussed included, but were not limited to, failure to relieve pain, stiffness, infection, nerve damage, deep venous thrombosis, pulmonary embolism, stroke, coma, heart attack, permanent paralysis and , as well as the potential need for eventual revision of the prosthetic. Surgeon: Shamar De Souza Manager Semiconductor: Leon Shaver Click Yes if Unassisted: No Anesthesia Type: General and Local Operative Notes Findings: Moderately severe tricompartmental osteoarthritis Closure Type: primary Specimen(s): none sent Prosthetic devices, grafts, tissues, transplants, or devices: Implants used in this procedure were manufactured by the [employer] and included the BCS II Journey total knee replacement with a size 5 left cobalt chromium femur, 4 left non porous tibial tray with a 10 mm cross-linked polyethylene insert and a 32 mm oval Kanwal II patellar component. Applied: implant(s) Estimated Blood Loss (mL): 300 Blood products transfused: none Tourniquet time (min): 45 Procedure in detail: The patient was seen in the pre-operative area, where the left knee was identified as the operative site and this was marked with my initials. The patient received pre-operative antibiotics, and was taken to the operating room and placed on the operative table in the supine position. After satisfactory anesthesia, a time recorder out? was performed. The left leg was encircled with a tourniquet about the proximal thigh, and the leg was prepared from the toes to the tourniquet with ChloroPrep in the usual fashion and draped through sterile drapes. The leg was elevated and exsanguinated with Eschmark bandage and the tourniquet inflated to 250 mmHg pressure. The knee was approached through an approximately 18 cm incision centered over the patella and carried into the knee through a medial parapatellar arthrotomy. It quickly became evident that due to the patient's obesity, the tourniquet was acting as a venous tourniquet so it was deflated. Despite the administration of tranexamic acid, the patient's bleeding was moderately significant and therefore the tourniquet was reinflated to a a pressure of 300 mm of mercury. The anterior osteophytes and soft tissues were removed. The rotational landmarks of [place]'s line and the transepicondylar axis were marked on the femur with electrocautery, and intramedullary guide holes for the femur and tibia were created. The distal femoral cut was made in 6 degrees of valgus using the intramedullary guide at the primary cut setting. The proximal tibial cut was then made using the intramedullary guide, taking 9 mm of bone off the less involved side. The extension gap was checked and the rotation of the femoral component confirmed with the gap balancing blocks. The anterior, posterior and chamfer cuts were then made. The posterior osteophytes and soft tissues were then removed. The posterior capsule was injected with part of a mixture of 60 ml 0.25% Marcaine mixed with 20 ml Exparel for post-operative pain control. The remainder of this mixture was injected into the capsule and subcutaneous tissues during cement curing. The tibia was prepared with the rotation set by an extra medullary guide. Trial tibial and femoral components were then placed and the intercondylar notch cut through the femoral trial. Range of motion was 0-135 degrees, with good stability throughout the range. The patella was then cut to accommodate the patellar prosthetic. There was no need for a lateral release. The trials were then removed, and the femoral hole plugged with a bone plug. The bone was prepared with pulsatile lavage, and dried with a sponge. Cement was applied and the final prosthetics placed. Excess cement was removed during and after cement curing. After confirming there was no extruded cement posteriorly, the final tibial insert was placed. The knee was copiously irrigated and the tourniquet deflated. Hemostasis was obtained. The capsule was closed with interrupted # 2 polyester sutures. The subcutaneous layer was closed with 3-0 Vicryl, and the skin with a running 3-0 V-Lock suture and Dermabond. An [place] dressing was applied and the patient was taken to recovery having tolerated the procedure well. Complications: none Post-operative Condition: stable Disposition: PACU Plan for aftercare: The patient will be maintained on a standard total knee replacement protocol with weight bearing as tolerated. The patient will receive her standard dose of Coumadin and will be bridged with Lovenox until it is therapeutic along with sequential compression devices for DVT prophylaxis. The patient will be discharged home when safe for the home environment.
--- NOTE | 2020-03-20 09:33 | PM.PREOP ---
Pre-operative Note COVID-19 COVID-19 status: Negative Result date/Date tested (Pos, Neg/Pending): 03/17/20 Interval Note History & Physical reviewed/Exam performed by Physician: Yes Changes to H&P: No
[2020-03-20] MEDS: MIDAZOLAM 2 MG/2 ML VIAL IV (09:59)
[2020-03-20] MEDS: CEFAZOLIN 2 GM/100 ML FROZ.PIGGY IV (10:03)
--- NOTE | 2020-03-20 10:36 | SUR.OPER ---
Supine on padded OR bed. Pillow under head, arms secured on padded armboards <90 degree abduction. Safety belt across torso. Non-operative leg secured with tape over blanket over lower leg. Operative leg secured in [place] positioner. Foam padded brace at thigh of operative leg.
[2020-03-20] MEDS: BUPIVACAINE 0.25% W/ EPI 30 ML VIAL 60 ML INJ (10:41)
[2020-03-20] MEDS: BUPIVACAINE LIPOSOME 266 MG/20 ML VIAL INJ (10:41)
[2020-03-20] MEDS: TRANEXAMIC ACID 1,000 MG VIAL 1000 MG INJ ×2 (10:41→11:24)
[2020-03-20] MEDS: HYDROMORPHONE 2 MG INJ IV ×4 (11:56→12:26)
[2020-03-20] MEDS: OXYCODONE IR 5 MG TABLET PO ×2 (12:00→12:29)
--- NOTE | 2020-03-20 12:56 | PC.NURSE ---
Day shift: Pt on unit from PACU at aprox 1250. VS WNL. Pt is A&Ox3. RA 97%. Reports pain in knee 8/10. Oriented to room and call light. PPP and CMS is ok. MEL wrap over knee is CDI. Call light in reach.
[2020-03-20] MEDS: LACTATED RINGERS 1,000 ML 100 ML IV ×2 (13:09→22:32)
[2020-03-20] MEDS: hydrOXYzine pamoate 25 MG CAPSULE PO ×2 (13:15→23:34)
[2020-03-20] MEDS: ACETAMINOPHEN 325 MG TABLET 650 MG PO ×2 (13:15→20:44)
[2020-03-20] MEDS: GABAPENTIN 300 MG CAPSULE PO (13:15)
[2020-03-20] MEDS: OXYCODONE IR 10 MG TABLET PO ×4 (13:15→23:33)
[2020-03-20] MEDS: HYDROMORPHONE 0.5 MG INJ 0.2 MG IV ×5 (14:20→23:11)
--- NOTE | 2020-03-20 14:32 | PC.NURSE ---
Day shift: Talked with DR De Souza about Pt's post-op pain. He said she can hace 3 doses only of 0.2mg IV Dilaudid every 30 minutes for pain control at this time. Will give Pt another 0.2mg IV D.ilaudid at this time
[2020-03-20 15:29] LABS: INR 1.1 (0.9-1.3); Prothrombin Time 12.7 SECONDS (10.1-12.7)
--- NOTE | 2020-03-20 16:50 | PT.IIE ---
Current Diagnoses Unilateral primary osteoarthritis, left knee (03/20/20) Surgery Performed Operation Date: 03/20/20 10:15 Actual Procedures p Total Knee Arthroplasty(Left) - Shamar De Souza MD Surgical History (Last Updated 03/13/20 @ 10:21 by Marcella Harris RN) History of arthroscopy of left shoulder (Acute) History of arthroscopy of right shoulder (Acute) History of carpal tunnel release of both wrists (Acute) History of colonoscopy (Acute) History of lumpectomy of left breast (Acute) History of lumpectomy of right breast (Acute) History of total left hip arthroplasty (Acute 11/08/15) Hx of appendectomy (Acute) Hx of cholecystectomy (Acute) Hx of hernia repair (Acute) Hx of laminectomy (Acute 11/11/18) Hx of tubal ligation (Acute) S/P gastroplasty (Acute) Medical History (Last Updated 03/13/20 @ 09:56 by Marcella Harris RN) Anxiety (Acute) Chronic pain (Acute) Chronic sinus bradycardia (Acute) Depression (Acute) DVT (deep venous thrombosis) (Acute) Former smoker (Acute) GERD (gastroesophageal reflux disease) (Acute) Hiatal hernia (Acute) History of ETOH abuse (Acute) Hospitalization or health care facility admission within last 6 months (Acute 12/14/19) HTN (hypertension) (Acute) Hypoglycemia (Acute) Hypothyroidism (Acute) Insomnia (Acute) Lactose intolerance (Acute) SHANEKA (obstructive sleep apnea) (Acute) Osteomyelitis (Acute) PTSD (post-traumatic stress disorder) (Acute) Pulmonary embolism (Acute ~1993) Physical Therapy Inpatient Evaluation/Re-Eval M1 PT/OT-IP Prior Functional Status Start: 03/20/20 13:50 Freq: NEEDED Status: Active Protocol: Document 03/20/20 16:20 AW (Rec: 03/20/20 16:50 AW [id number]) Medical Review Prior Functional Status Medical History Reviewed Yes Communication WNL. No known deficits. Mobility and Gait Pt is modified independent with use of FWW for household mobility and 4WW for community mobility. She has history of L LESLI ~3 years ago. Activities of Daily Living and IADL's Pt is independent with I/ADL's Prior Functional Level (Other details) H&P refers to chronic [place] [employer] use and history of PE. Social History Household Members spouse Living Arrangements House Number of Floors (Floors) One Floor Number of Stairs To Enter/Railing? 3 JAY without railing. Pt states she usually has assist from her to manage stairs. Home Environment High Toilet,Tub/Shower Home Equipment Front Wheel Walker,Four Wheel Walker,Raised Toilet Seat Without Armrests,Shower Seat with Backrest,Leg Semiconductor Equipment Technician, Laboratory Equipment Installer,Grab Bars In Shower Additional Social History Comment Pt states she sleeps sitting up on a firm couch with legs elevated. She lives with her , Raman, who works long hours Friday through and has not been able to take time off to assist pt at discharge. Pt identifies no other social support network on which to call for help. M2 PT-IP Current Condition Start: 03/20/20 13:50 Freq: NEEDED Status: Active Protocol: Document 03/20/20 16:20 AW (Rec: 03/20/20 16:50 AW [id number]) Physical Therapy Current Condition Current Condition Evaluation Date 03/20/20 Treatment Diagnosis L TKA, difficulty in walking Weight Bearing Status Weight Bearing Status Weight Bear as Tolerated M3 PT-IP Subjective Start: 03/20/20 13:50 Freq: NEEDED Status: Active Protocol: Document 03/20/20 16:20 AW (Rec: 03/20/20 16:50 AW [id number]) Subjective Physical Therapy Visit Type Type Initial Evaluation Visit Start Time 14:30 Visit Stop Time 15:10 Total Visit Minutes 40 Physical Therapy Visit Comments Patient Comments Pt is willing to participate with PT Therapy Pain Assessment Pain When Pain Assessed At Rest Pain Present Pain Present Pain Reported Location Left Knee Intensity 8 Pain Management Techniques Apply Cold,Modification of Treatment,Timing of Activity with Medications M4 PT-IP Mobility and Gait Start: 03/20/20 13:50 Freq: NEEDED Status: Active Protocol: Document 03/20/20 16:20 AW (Rec: 03/20/20 16:50 AW [id number]) PT-Bed Mobility Assessment Supine to Sit Supine to Sit Moderate Assistance,1 Person Assistance,Head of Bed Elevated,Bedrails Scooting Scooting to Edge of Bed Minimal Assistance PT-Transfer Assessment Sit to and From Stand Sit to and from Stand Moderate Assistance,1 Person Assistance,Use of Upper Extremities Equipment Transfer Assistive Device Gait Belt,Front Wheeled Walker Transfers Transfer Destination Chair Transfer Technique pt ambulated with FWW Transfer Ability Level of Assist Minimal Assistance,1 Person Assistance,Use of Upper Extremities Comments Mobility Comments Pt was sitting up in the bed as PT and SPT arrived. RN arrived to administer IV dilaudid which pt found effective and so she agreed to mobilize. She required mod A x 1 to complete supine to sit with HOB elevated. She sat EOB without complaint of lightheadedness. BP was 125/72 HR 71 SpO2 98% in sitting. She stood from the bed in lowest position using wide FWW mod A x 1. She was able to shift weight and take small marching steps in place using FWW before advancing the walker and ambulating ~10 feet in the room. She agreed to sit on the chair, transferring min A x 1 with cues for sequencing. She was positioned on the chair with call light and all needs in reach. Gait Assessment Gait Gait Assistance Required: Minimum Assistance,1 Person Assist Distance (Feet) 10 Able to Maintain Weight Bearing Status Yes During Gait Assistive Devices Assistive Device Gait Belt,Front Wheeled Walker Gait Deviations General Gait Pattern Antalgic,Decreased Stride Length,Decreased Feet Clearance,Flexed Trunk,Lateral Trunk Lean,Step-to Gait Factors Limiting Gait Function Factors Limiting Gait Function Decreased Activity Tolerance, Decreased Strength,Limited Range of Motion,Pain,Poor Balance,Poor Safety Awareness Comments Gait Comments See mobility comments for details. Stair Climbing Assessment Comments Stair Climbing Comments Not assessed due to low activity tolerance. PT-Balance Assessment Sitting Balance and Reactions Static Sitting Balance Ability Good Dynamic Sitting Balance Ability Good Standing Balance and Reactions Static Standing Balance Ability Fair Dynamic Standing Balance Ability Fair Device Used FWW M5 PT-IP Objective Assessments Start: 03/20/20 13:50 Freq: NEEDED Status: Active Protocol: Document 03/20/20 16:20 AW (Rec: 03/20/20 16:50 AW [id number]) Orientation Orientation/Cognition Level of Alertness Alert Orientation Name,Day of Week,Place, Situation Language Function Ability No Deficits Noted Safety Awareness Decreased Safety Awareness Memory Description No Deficits Noted Gross Range of Motion Lower Extremity ROM Assessment Left Impaired Strength Lower Extremity Strength Assessment Bilaterally Impaired Comments Strength Comments RLE grossly 4-/5 Sensation Assessment Sensation Gross Sensation Right LE Impaired,Left LE Impaired Comments Sensation Comments Pt reports slightly dull sensation in bilateral feet Muscle Tone Muscle Tone WNL Yes M6 PT-IP Treatment Start: 03/20/20 13:50 Freq: NEEDED Status: Active Protocol: Document 03/20/20 16:20 AW (Rec: 03/20/20 16:50 AW [id number]) Physical Therapy Treatment Exercises Exercises Ankle Pumps,Gluteal Sets,Heel Slides,Passive Knee Extension Hang Education Education Provided Precautions,Weight Bearing Status,Post-Op Packet,Safety Other Treatments Other Treatment Performed Provided education on role of PT, plan of care, weightbearing status, and safe use of FWW. M7 PT-IP Assessment and Plan Start: 03/20/20 13:50 Freq: NEEDED Status: Active Protocol: Document 03/20/20 16:20 AW (Rec: 03/20/20 16:50 AW [id number]) PT Summary Assessment and Plan Potential Rehabilitation Potential Good Status of Condition at Evaluation Evolving Summary Impairments Pain,ROM,Strength,Balance, Sensation,Bed Mobility, Transfers,Gait,Activity Tolerance Assessment Summary Kelsi is a 65 yo woman seen for PT evaluation on POD0 following L TKA. She is modified independent with FWW/ 4WW. On evaluation, she required mod assist for bed mobility, transfer, and short bout ambulation with FWW. She lives with her spouse who works long hours Friday - and is not taking time off following surgery. Pt denies social support to call on for help. Pt will be unable to leave her house for outpatient PT so will require PT when medically stable for discharge. Goals Bed Mobility Goal Standby Assistance Transfer Goal Standby Assistance,Front Wheeled Walker Gait Goal Standby Assistance,Front Wheel Walker Gait Distance 75 Other Goals - up/down 2 steps without railing min A Days to Meet Goals 5 Frequency of Treatment Frequency Of Treatment Twice a Day Treatment Plan Physical Therapy Treatment Plan Bed Mobility Training,Transfer Training,Gait Training, Therapeutic Exercise,Balance Retraining,Post Op Education, Discharge Planning,Hot or Cold Pack Other Recommendations and Next Treatment review ther ex; transfers; Focus gait with FWW; stairs when able Recommendations To Nursing Amount of Assist Needed 1 Person Assist Discharge Recommendations PT Discharge Recommendations Home with Assistance,Home Health Equipment Needed for Home Before BSC Discharge Transportation Needs at Discharge Private Vehicle
[2020-03-20] MEDS: WARFARIN 5 MG TABLET PO (17:06)
[2020-03-20] MEDS: DOCUSATE 100 MG CAPSULE PO (20:45)
[2020-03-20] MEDS: hydrOXYzine Syrup 10 MG/5 ML SOLUTION PO (20:45)
[2020-03-20] MEDS: OXYBUTYNIN 5 MG TABLET PO (20:46)
[2020-03-20] MEDS: PANTOPRAZOLE 20 MG TABLET PO (20:47)
--- NOTE | 2020-03-20 22:36 | PC.NURSE ---
Evening note: Kelsi has had a good evening. Remains Ox3 & situation. Reports increased pain to LLE after ambulating to BR, reported that she could not wait until oxycodone due again, IV Dilaudid 0.2 mg given for breakthru pain. Drsg CDI. CMS intact, strong pedal pulses. Has been up ambulating to room with fww/1 person SBA several times. Tolerated general diet, asking for additional salad with meal. Later c/o my GERD, Protonox given along with other scheduled 2100 meds. Just now said I threw them up-they got stuck and I knew they would come back up. VS stable. RA oxygen 98% Denies other needs/concerns. Fall precautions in place, alarm active for safety.
[2020-03-21] VITALS (8 sets, daily range): BP systolic 100–145; BP diastolic 48–89; PULSE 63–87; RESP 16–18; TEMP 36.4–37.6; O2SAT 92–97
[2020-03-21] MEDS: HYDROMORPHONE 0.5 MG INJ 0.2 MG IV ×8 (01:08→22:50)
[2020-03-21] MEDS: OXYCODONE IR 10 MG TABLET PO ×3 (02:32→23:36)
[2020-03-21] MEDS: TRAZODONE 100 MG TABLET PO ×2 (03:22→23:36)
--- NOTE | 2020-03-21 03:32 | PC.NURSE ---
Pt. reports at home if I can't sleep because of pain I take Trazodone. Did not sleep all night requested her Trazodone administered per order. Will continue POC & monitor.
[2020-03-21] MEDS: hydrOXYzine pamoate 25 MG CAPSULE PO ×2 (05:32→12:55)
[2020-03-21 05:51] LABS: Hematocrit 34.6 % (36-46); Hemoglobin 11.3 g/dL (12.0-16.0)
[2020-03-21] MEDS: LEVOTHYROXINE 100 MCG TABLET 200 MCG PO (06:19)
--- NOTE | 2020-03-21 07:32 | PM.DS.1 ---
History of Present Illness History of Present Illness Date Patient Seen: 03/21/20 Time Patient Seen: 07:32 Chief complaint: Left Total Knee Arthroplasty Narrative: The history and physical is contained in the chart previously completed note. Please refer to that note for this information. Discharge Providers Provider Date of admission: 03/20/20 08:06 Discharge Date: 03/22/20 Primary care physician: Chandler Covarrubias MD Consults: 03/13/20 10:40 Consult to Respiratory Therapy Evaluate & Treat Comment: INPT 03/20-SHANEKA, no CPAP Physician Instructions: Evaluate and treat 03/20/20 06:00 Consult to Anesthesiology Routine Comment: Consulting Provider: Anesthesiologist Reason for consultation: Regional block for post operative pain control 03/20/20 12:56 Consult to Discharge Planning Routine Comment: Consult to Physical Therapy Evaluate & Treat Comment: Physician Instructions: postop TKA protocol Discharge provider: Shamar De Souza MD Exam Vital Signs (past 8 hours): - 03/21/20 00:00 03/21/20 05:31 Temperature 98.7 F 98.9 F Pulse Rate 73 71 Respiratory Rate 18 18 Blood Pressure 119/53 L 124/58 L Pulse Oximetry 94 96 Oxygen Delivery Method Room Air Oxygen Flow Rate 0 Objective Labs Result Diagrams: 03/21/20 05:30 Labs: Laboratory Results - last 24 hr 03/20/20 03/21/20 14:15 05:30 Hgb 11.3 L Hct 34.6 L PT 12.7 INR 1.1 Discharge Assessment & Plan Assessment and Plan Assessment: The patient is stable postoperative day 1 status post left total knee replacement. She does have some ongoing pain control issues which seemed to be addressed with Dilaudid. She has a mild post hemorrhagic anemia. Plan of Treatment: Physical therapy today. She likely will go home after therapy. Prescriptions have been written for Dilaudid, Vistaril and a bridging supply of Lovenox. She will be restarting her Coumadin. Follow-up will be at my office in 10-14 days. Discharge Plan Discharge Plan Patient Disposition: Home Discharge orders & Medications Prescriptions: New acetaminophen 325 mg Tablet 650 mg PO TID 30 Days Qty: 180 RF: 0 hydromorphone 2 mg Tablet 2 mg PO Q4HR PRN (Reason: Pain, Severe (7-10)) Qty: 40 RF: 0 hydroxyzine pamoate 25 mg Capsule 25 mg PO Q6HR PRN (Reason: Nausea) Qty: 30 RF: 0 enoxaparin [Lovenox] 40 mg/0.4 mL Syringe 40 mg SUBCUT DAILY Qty: 3 RF: 0 Continued warfarin [Jantoven] 5 MG tablet 5 mg PO QPM Qty: 30 RF: 0 gabapentin [Neurontin] 300 MG capsule 300 mg PO QD-BID PRN (Reason: Nerve pain) Qty: 0 RF: 0 oxybutynin chloride 5 MG tablet 5 mg PO QD-BID Qty: 0 RF: 0 trazodone 100 MG tablet 100 mg PO HS PRN (Reason: Sleep) Qty: 0 RF: 0 biotin 1 mg capsule 1,000 mcg/kg PO QDAY Qty: 0 RF: 0 levothyroxine 200 mcg tablet 200 mcg PO DAILY RF: 0 losartan 50 mg tablet 50 mg PO DAILY RF: 0 sertraline 100 mg Tablet 100 mg PO DAILY RF: 0 ferrous sulfate 325 mg (65 mg iron) Tablet 325 mg PO Q OTHER DAY RF: 0 hydroxyzine HCl 10 mg Tablet 10 mg PO BEDTIME RF: 0 folic acid 800 mcg Tablet 0.8 mg PO DAILY RF: 0 omeprazole 20 mg Tablet,Delayed Release (Dr/Ec) 20 mg PO BID RF: 0 Discontinued hydrocodone-acetaminophen 5-325 mg Tablet 1 - 2 tab PO Q4-6H PRN (Reason: Pain) RF: 0 Follow up/Referrals: Chandler Covarrubias MD [Primary Care Provider] - Shamar De Souza MD [Physician] - 2 Weeks Discharge Health Status Multidrug resistant organism: No MDRO Diet/Activity/Treatments Diet: Diet as Tolerated and Regular Activity: You may bear weight as tolerated on your left leg. Cold/Heat Therapy: Apply ice for 15 minutes of every hour as needed for pain to the left knee. Skin/Wound/Dressing Care Report to your healthcare provider any signs of infection, such as:: chills, fever, night sweats, increased pain, unusual drainage and unusual redness Dressing: You may shower with the deeper dressing in place after removing the battery pack. Remove the Carl wrap in 3 days and shower normally. Visit Report/Discharge Packet Instructions: DI for Heart Failure, DI for Knee Replacement, DI for Prescription Opioid Use Stand Alone Forms: Surgery Discharge Visit Report Forms: Congestive Heart Failure, Patient Portal/API, Stroke Signs & Symptoms Discharge Data Primary Care Provider: Chandler Covarrubias
--- NOTE | 2020-03-21 07:33 | PM.DS.1 ---
History of Present Illness History of Present Illness Chief complaint: Left Total Knee Arthroplasty Narrative: The history and physical is contained in the chart previously completed note. Please refer to that note for this information. Discharge Providers Provider Date of admission: 03/20/20 08:06 Discharge Date: 03/21/20 Primary care physician: Chandler Covarrubias MD Consults: 03/13/20 10:40 Consult to Respiratory Therapy Evaluate & Treat Comment: INPT 03/20-SHANEKA, no CPAP Physician Instructions: Evaluate and treat 03/20/20 06:00 Consult to Anesthesiology Routine Comment: Consulting Provider: Anesthesiologist Reason for consultation: Regional block for post operative pain control 03/20/20 12:56 Consult to Discharge Planning Routine Comment: Consult to Physical Therapy Evaluate & Treat Comment: Physician Instructions: postop TKA protocol Discharge provider: Shamar De Souza MD Summary Hospital Course Discharge Diagnosis: 1. Left knee osteoarthritis 2. Post hemorrhagic anemia Hospital Course: The patient was admitted to the hospital and taken directly to the operating room on March 20, 2020. She underwent a left total knee replacement without difficulty. She did have pain control issues postoperatively eventually requiring oral Dilaudid. She had a mild anticipated post hemorrhagic anemia. At the time of this dictation it is felt it is likely she will be able to go home later today. Status at Discharge Cognitive/behavioral status at discharge: oriented Functional status at discharge: uses cane/walker Overall status at discharge: patient is progressing back to baseline Time Spent with Patient Time spent: Less than 30 minutes Exam Vital Signs (past 8 hours): - 03/21/20 00:00 03/21/20 05:31 Temperature 98.7 F 98.9 F Pulse Rate 73 71 Respiratory Rate 18 18 Blood Pressure 119/53 L 124/58 L Pulse Oximetry 94 96 Oxygen Delivery Method Room Air Oxygen Flow Rate 0 Narrative Exam Narrative: Left knee wound is dressed with no drainage on the bandage. Calf is soft. Light touch and motion are intact in the left lower extremity. Objective Labs Result Diagrams: 03/21/20 05:30 Labs: Laboratory Results - last 24 hr 03/20/20 03/21/20 14:15 05:30 Hgb 11.3 L Hct 34.6 L PT 12.7 INR 1.1 Discharge Assessment & Plan Assessment and Plan Assessment: The patient is stable postoperative day 1 status post left total knee replacement. She does have some ongoing pain control issues which seemed to be addressed with Dilaudid. She has a mild post hemorrhagic anemia. Plan of Treatment: Physical therapy today. She likely will go home after therapy. Prescriptions have been written for Dilaudid, Vistaril and a bridging supply of Lovenox. She will be restarting her Coumadin. Follow-up will be at my office in 10-14 days. Discharge Plan Discharge Plan Patient Disposition: Home Discharge orders & Medications Prescriptions: New acetaminophen 325 mg Tablet 650 mg PO TID 30 Days Qty: 180 RF: 0 hydromorphone 2 mg Tablet 2 mg PO Q4HR PRN (Reason: Pain, Severe (7-10)) Qty: 40 RF: 0 hydroxyzine pamoate 25 mg Capsule 25 mg PO Q6HR PRN (Reason: Nausea) Qty: 30 RF: 0 enoxaparin [Lovenox] 40 mg/0.4 mL Syringe 40 mg SUBCUT DAILY Qty: 3 RF: 0 Continued warfarin [Jantoven] 5 MG tablet 5 mg PO QPM Qty: 30 RF: 0 gabapentin [Neurontin] 300 MG capsule 300 mg PO QD-BID PRN (Reason: Nerve pain) Qty: 0 RF: 0 oxybutynin chloride 5 MG tablet 5 mg PO QD-BID Qty: 0 RF: 0 trazodone 100 MG tablet 100 mg PO HS PRN (Reason: Sleep) Qty: 0 RF: 0 biotin 1 mg capsule 1,000 mcg/kg PO QDAY Qty: 0 RF: 0 levothyroxine 200 mcg tablet 200 mcg PO DAILY RF: 0 losartan 50 mg tablet 50 mg PO DAILY RF: 0 sertraline 100 mg Tablet 100 mg PO DAILY RF: 0 ferrous sulfate 325 mg (65 mg iron) Tablet 325 mg PO Q OTHER DAY RF: 0 hydroxyzine HCl 10 mg Tablet 10 mg PO BEDTIME RF: 0 folic acid 800 mcg Tablet 0.8 mg PO DAILY RF: 0 omeprazole 20 mg Tablet,Delayed Release (Dr/Ec) 20 mg PO BID RF: 0 Discontinued hydrocodone-acetaminophen 5-325 mg Tablet 1 - 2 tab PO Q4-6H PRN (Reason: Pain) RF: 0 Follow up/Referrals: Chandler Covarrubias MD [Primary Care Provider] - Shamar De Souza MD [Physician] - 2 Weeks Discharge Health Status Multidrug resistant organism: No MDRO Diet/Activity/Treatments Diet: Diet as Tolerated and Regular Activity: You may bear weight as tolerated on your left leg. Cold/Heat Therapy: Apply ice for 15 minutes of every hour as needed for pain to the left knee. Skin/Wound/Dressing Care Report to your healthcare provider any signs of infection, such as:: chills, fever, night sweats, increased pain, unusual drainage and unusual redness Dressing: You may shower with the deeper dressing in place after removing the battery pack. Remove the Carl wrap in 3 days and shower normally. Visit Report/Discharge Packet Instructions: DI for Knee Replacement, DI for Prescription Opioid Use Stand Alone Forms: Surgery Discharge Discharge Data Primary Care Provider: Chandler Covarrubias
[2020-03-21] MEDS: HYDROMORPHONE 2 MG TABLET PO ×4 (08:18→20:31)
[2020-03-21] MEDS: DOCUSATE 100 MG CAPSULE PO ×2 (08:18→20:31)
[2020-03-21] MEDS: LOSARTAN 50 MG TABLET PO (08:18)
[2020-03-21] MEDS: GABAPENTIN 300 MG CAPSULE PO ×2 (08:18→16:03)
[2020-03-21] MEDS: SERTRALINE 50 MG TABLET 100 MG PO (08:19)
[2020-03-21] MEDS: ACETAMINOPHEN 325 MG TABLET 650 MG PO ×3 (08:19→20:32)
[2020-03-21] MEDS: OXYBUTYNIN 5 MG TABLET PO ×2 (08:19→20:31)
[2020-03-21] MEDS: ENOXAPARIN 40 MG/0.4 ML SYRINGE SUBCUT (08:19)
[2020-03-21] MEDS: FOLIC ACID 0.4 MG TABLET 0.8 MG PO (08:19)
[2020-03-21] MEDS: PANTOPRAZOLE 20 MG TABLET PO ×2 (08:19→20:31)
--- NOTE | 2020-03-21 11:05 | PT.IPTN ---
Current Diagnoses Unilateral primary osteoarthritis, left knee (03/20/20) Surgery Performed Operation Date: 03/20/20 10:15 Actual Procedures p Total Knee Arthroplasty(Left) - Shamar De Souza MD Physical Therapy Treatment Note M2 PT-IP Current Condition Start: 03/20/20 13:50 Freq: NEEDED Status: Active Protocol: Document 03/20/20 16:20 AW (Rec: 03/20/20 16:50 AW [id number]) Physical Therapy Current Condition Current Condition Evaluation Date 03/20/20 Treatment Diagnosis L TKA, difficulty in walking Weight Bearing Status Weight Bearing Status Weight Bear as Tolerated M3 PT-IP Subjective Start: 03/20/20 13:50 Freq: NEEDED Status: Active Protocol: Document 03/21/20 10:34 CLB (Rec: 03/21/20 11:30 CLB [email or web address]) Subjective Physical Therapy Visit Type Type Treatment Note Visit Start Time 10:34 Visit Stop Time 11:05 Total Visit Minutes 31 Number of SUPERVISOR ELECTRONIC TESTING Visits 1 Physical Therapy Visit Comments Patient Comments Pt is willing to participate with PT Therapy Pain Assessment Pain When Pain Assessed During Mobility Pain Present Pain Present Pain Reported Location Left Knee Intensity 8 Pain Management Techniques Apply Cold,Modification of Treatment,Timing of Activity with Medications M4 PT-IP Mobility and Gait Start: 03/20/20 13:50 Freq: NEEDED Status: Active Protocol: Document 03/21/20 10:34 CLB (Rec: 03/21/20 11:30 CLB [email or web address]) PT-Bed Mobility Assessment Supine to Sit Supine to Sit Standby Assistance,1 Person Assistance Scooting Scooting to Edge of Bed Standby Assistance PT-Transfer Assessment Sit to and From Stand Sit to and from Stand Standby Assistance,Contact Guard Assistance,Use of Upper Extremities Equipment Transfer Assistive Device Gait Belt,Front Wheeled Walker Transfers Transfer Destination Chair Transfer Technique pt ambulated with FWW Transfer Ability Level of Assist Standby Assistance Comments Mobility Comments Pt in bed upon arrival and performed exercies, pt required AA with SLR. Pt required SBA to get to EOB and then required Min A of LLE to floor. Pt then stood CGA from bed and ambulated ~125ft w/ FWW/SBA with cues for shorter steps. Pt sat in chair SBA to rest before stair training. Pt stood from chair SBA and ambulated ~6ft to platform step, after demonstration pt was able to climb platform step with FWW x2. Pt then returned to chair sitting in chair SBA. Pt left in reclined chair with call light and all needs within reach, RN present. Gait Assessment Gait Gait Assistance Required: Standby Assistance,1 Person Assist Distance (Feet) 125 Able to Maintain Weight Bearing Status Yes During Gait Assistive Devices Assistive Device Gait Belt,Front Wheeled Walker Gait Deviations General Gait Pattern Antalgic,Decreased Stride Length,Decreased Feet Clearance,Flexed Trunk,Lateral Trunk Lean,Step-to Gait Factors Limiting Gait Function Factors Limiting Gait Function Decreased Activity Tolerance, Decreased Strength,Limited Range of Motion,Pain,Poor Balance Comments Gait Comments See mobility comments for details. Stair Climbing Assessment Evaluation Level of Assist On Stairs Standby Assistance,1 Person Assistance Devices Stair Climbing Assistive Devices Front Wheel Walker Technique/Endurance Stair Climbing Direction Ascend and Descend Stair Climbing Technique Step to Step Number of Steps Climbed 1 Stair Climbing Set # Repetitions (reps) 2 Comments Stair Climbing Comments Pt able to climb platform step with FWW SBA. M5 PT-IP Objective Assessments Start: 03/20/20 13:50 Freq: NEEDED Status: Active Protocol: Document 03/20/20 16:20 AW (Rec: 03/20/20 16:50 AW [id number]) Orientation Orientation/Cognition Level of Alertness Alert Orientation Name,Day of Week,Place, Situation Language Function Ability No Deficits Noted Safety Awareness Decreased Safety Awareness Memory Description No Deficits Noted Gross Range of Motion Lower Extremity ROM Assessment Left Impaired Strength Lower Extremity Strength Assessment Bilaterally Impaired Comments Strength Comments RLE grossly 4-/5 Sensation Assessment Sensation Gross Sensation Right LE Impaired,Left LE Impaired Comments Sensation Comments Pt reports slightly dull sensation in bilateral feet Muscle Tone Muscle Tone WNL Yes M6 PT-IP Treatment Start: 03/20/20 13:50 Freq: NEEDED Status: Active Protocol: Document 03/21/20 10:34 CLB (Rec: 03/21/20 11:30 CLB [email or web address]) Physical Therapy Treatment Exercises Exercises Ankle Pumps,Quad Sets,Heel Slides,Straight Leg Raises, Short Arc Quads Education Education Provided Precautions,Weight Bearing Status,Post-Op Packet,Safety M7 PT-IP Assessment and Plan Start: 03/20/20 13:50 Freq: NEEDED Status: Active Protocol: Document 03/21/20 10:34 CLB (Rec: 03/21/20 11:30 CLB [email or web address]) PT Summary Assessment and Plan Summary Impairments Pain,ROM,Strength,Balance, Sensation,Bed Mobility, Transfers,Gait,Activity Tolerance Progress Towards Goals Safe For Discharge Assessment Summary Pt doing well today with all mobility. Pt requiring SBA for all mobility with Min A of LLE off bed. Pt able to ambulate in graves ~125ft with cues for shorter steps and staying inside walker. Pt able to climb platform step SBA. Pt able to d/c home with assist and HH when medically stable. Goals Bed Mobility Goal Standby Assistance Transfer Goal Standby Assistance,Front Wheeled Walker Gait Goal Standby Assistance,Front Wheel Walker Gait Distance 75 Other Goals - up/down 2 steps without railing min A Days to Meet Goals 5 Frequency of Treatment Frequency Of Treatment Twice a Day Treatment Plan Physical Therapy Treatment Plan Bed Mobility Training,Transfer Training,Gait Training, Therapeutic Exercise,Balance Retraining,Post Op Education, Discharge Planning,Hot or Cold Pack Recommendations To Nursing Amount of Assist Needed 1 Person Assist Discharge Recommendations PT Discharge Recommendations Home with Assistance,Home Health Transportation Needs at Discharge Private Vehicle
--- NOTE | 2020-03-21 11:22 | CM.DANOTE ---
Addendum entered by Tish Alcala R.N. 03/21/20 11:42: Did speak to patient about Medicare Choice List, letting her know that according to Medicare guidelines, she can review and make a choice on home health agencies. She stated, she had no preference, and she is ok with using [facility] She indicated, the only agency that I wouldn't use is [facility]. Original Note: DCP: Case received, EMR reviewed and met with patient. Introduced self and role. Was able to obtain information from patient regarding her baseline activity status prior to her surgery, as well as living situation and discharge plan. DCP assessment completed with information currently available. Patient is a 65 year old female who admitted yesterday morning to the care of the orthopedic team. PCP: Dr. Covarrubias. Payer: confirmed: [employer]/Medicare. Patient came to the hospital via private vehicle for a surgical procedure. She had a left total knee arthroplasty. Patient has history of osteoarthritis. It was noted that patient had some concerns, since works long hours and she is alone during the day. Met with patient in her room. She is pleasant, alert and oriented. She has FWW and 4WW for home use. She can drive for short periods of time at her baseline. She did mention that she also has a friend named Deep, who is a neighbor, that can also give her assistance. Discussed home health, for it was noted in plan from orthopedist note. She stated, she should already be set up with home health, for the physical therapist called and left a message for her. She did not remember the name of the agency that was ordered, and then, called the number from her phone and found out that it was [facility] Abril at [facility] answered and stated that physical therapist is to come to her home tomorrow, time is pending. Patient is also inquiring if she can have a bath aide as well. Went ahead and added to the order. Called Abril at [facility] and confirmed that P.T. is to be seeing her tomorrow. She indicated that face to face is not needed, for this was ordered through orthopedic office. Went ahead and faxed face sheet, order for home health P.T/bath aide, H&P, and discharge summary to [facility]. P: Patient is to be discharged home today with [facility] starting tomorrow. She will need to be cleared by P.T as well. Tish Alcala RN/Dry Kiln Worker
--- NOTE | 2020-03-21 11:27 | PC.NURSE ---
Day shift: Talked w/ Dr De Souza over telephone about Pt still having pain control issues and wanting to stay in the hospital until tomorrow. Pt wants to stay and Dr De Souza gave telephone order to cancel the d/c order. Will continue to monitor Pt and her pain. Sitting in chair. Call light in reach. Pt agrees to not get OOB w/o help from staff.
--- NOTE | 2020-03-21 12:34 | CM.DPC ---
DCP Cont: Patient was supposed to discharge home today, but she has had increased pain issues. Called Abril at [facility] and updated her. Spoke to patient to ensure that primary plan is still home, and asked her about an alternative plan, in case she needs any type of rehab. Patient indicated if I do need to go to skilled rehab, [facility] the [facility], for I have been there before. She did indicate her first priority is home. Called Abril at [facility] and gave her update that patient will be staying another day due to pain. Nurse, Valeria updated orthopedic doctor. Left Marie at [facility] a message with patient's information so she can review. In the message let Marie know that first plan is [facility], but back up plan is [facility]. P: Patient should discharge tomorrow with [facility]. Update [facility], has already received DC summary, and orders. They already have face to face. Other option is [facility]. Tish Alcala RN/Cnc Maintenance Technician
--- NOTE | 2020-03-21 15:16 | PT.IPTN ---
Current Diagnoses Unilateral primary osteoarthritis, left knee (03/20/20) Surgery Performed Operation Date: 03/20/20 10:15 Actual Procedures p Total Knee Arthroplasty(Left) - Shamar De Souza MD Physical Therapy Treatment Note M2 PT-IP Current Condition Start: 03/20/20 13:50 Freq: NEEDED Status: Active Protocol: Document 03/20/20 16:20 AW (Rec: 03/20/20 16:50 AW [id number]) Physical Therapy Current Condition Current Condition Evaluation Date 03/20/20 Treatment Diagnosis L TKA, difficulty in walking Weight Bearing Status Weight Bearing Status Weight Bear as Tolerated M3 PT-IP Subjective Start: 03/20/20 13:50 Freq: NEEDED Status: Active Protocol: Document 03/21/20 14:47 CLB (Rec: 03/21/20 15:30 CLB [email or web address]) Subjective Physical Therapy Visit Type Type Treatment Note Visit Start Time 14:47 Visit Stop Time 15:16 Total Visit Minutes 29 Number of COMMERCIAL REAL ESTATE ATTORNEY Visits 2 Physical Therapy Visit Comments Patient Comments Pt is willing to participate with PT and wanted IV dilaudid . Therapy Pain Assessment Pain When Pain Assessed During Mobility Pain Present Pain Present Pain Reported Location Left Knee Intensity 8 Pain Management Techniques Apply Cold,Modification of Treatment,Timing of Activity with Medications M4 PT-IP Mobility and Gait Start: 03/20/20 13:50 Freq: NEEDED Status: Active Protocol: Document 03/21/20 14:47 CLB (Rec: 03/21/20 15:30 CLB [email or web address]) PT-Bed Mobility Assessment Supine to Sit Supine to Sit Standby Assistance,1 Person Assistance Sit to Supine Sit to Supine Minimal Assistance Scooting Scooting to Edge of Bed Standby Assistance PT-Transfer Assessment Sit to and From Stand Sit to and from Stand Standby Assistance,1 Person Assistance,Use of Upper Extremities Equipment Transfer Assistive Device Gait Belt,Front Wheeled Walker Transfers Transfer Destination Bed,Toilet Transfer Technique pt ambulated with FWW Transfer Ability Level of Assist Standby Assistance Comments Mobility Comments Pt in bed upon arrival, pt required SBA to sit with Min A for lowering LLE to floor. Pt then stood SBA and ambulated with FWW/SBA to BR, pt sat on toilet using wall rail SBA and was able to manage donning/ doffing clothes and own pericare. Pt then walked to sink and washed hands SBA. Pt ambulate in graves ~125ft w/FWW/ SBA with step to gait pattern. Pt returned to room requiring Min A of LLE onto bed and was able to scoot to center of bed and up to head of bed SBA. Pt performed therapeutic exercises. Left pt in bed with SCD's and alarm on, RN present to give pain meds. Gait Assessment Gait Gait Assistance Required: Standby Assistance,1 Person Assist Distance (Feet) 125 Able to Maintain Weight Bearing Status Yes During Gait Assistive Devices Assistive Device Gait Belt,Front Wheeled Walker Gait Deviations General Gait Pattern Antalgic,Decreased Stride Length,Decreased Feet Clearance,Flexed Trunk,Lateral Trunk Lean,Step-to Gait Factors Limiting Gait Function Factors Limiting Gait Function Decreased Activity Tolerance, Decreased Strength,Limited Range of Motion,Pain,Poor Balance Comments Gait Comments See mobility comments for details. M5 PT-IP Objective Assessments Start: 03/20/20 13:50 Freq: NEEDED Status: Active Protocol: Document 03/20/20 16:20 AW (Rec: 03/20/20 16:50 AW [id number]) Orientation Orientation/Cognition Level of Alertness Alert Orientation Name,Day of Week,Place, Situation Language Function Ability No Deficits Noted Safety Awareness Decreased Safety Awareness Memory Description No Deficits Noted Gross Range of Motion Lower Extremity ROM Assessment Left Impaired Strength Lower Extremity Strength Assessment Bilaterally Impaired Comments Strength Comments RLE grossly 4-/5 Sensation Assessment Sensation Gross Sensation Right LE Impaired,Left LE Impaired Comments Sensation Comments Pt reports slightly dull sensation in bilateral feet Muscle Tone Muscle Tone WNL Yes M6 PT-IP Treatment Start: 03/20/20 13:50 Freq: NEEDED Status: Active Protocol: Document 03/21/20 14:47 CLB (Rec: 03/21/20 15:30 CLB [email or web address]) Physical Therapy Treatment Exercises Exercises Ankle Pumps,Gluteal Sets,Quad Sets,Heel Slides Education Education Provided Precautions,Weight Bearing Status,Post-Op Packet,Safety M7 PT-IP Assessment and Plan Start: 03/20/20 13:50 Freq: NEEDED Status: Active Protocol: Document 03/21/20 14:47 CLB (Rec: 03/21/20 15:30 CLB [email or web address]) PT Summary Assessment and Plan Summary Impairments Pain,ROM,Strength,Balance, Sensation,Bed Mobility, Transfers,Gait,Activity Tolerance Assessment Summary Pt continues to be SBA for all mobility with Min A of LLE into and out of bed. Pt reports high pain and was fixated on getting IV Dilaudid throughout tx. Goals Bed Mobility Goal Standby Assistance Transfer Goal Standby Assistance,Front Wheeled Walker Gait Goal Standby Assistance,Front Wheel Walker Gait Distance 75 Other Goals - up/down 2 steps without railing min A Days to Meet Goals 5 Frequency of Treatment Frequency Of Treatment Twice a Day Treatment Plan Physical Therapy Treatment Plan Bed Mobility Training,Transfer Training,Gait Training, Therapeutic Exercise,Balance Retraining,Post Op Education, Discharge Planning,Hot or Cold Pack Recommendations To Nursing Amount of Assist Needed 1 Person Assist Discharge Recommendations PT Discharge Recommendations Home with Assistance,Home Health Equipment Needed for Home Before BSC Discharge Transportation Needs at Discharge Private Vehicle
[2020-03-21] MEDS: WARFARIN 5 MG TABLET PO (16:04)
[2020-03-21] MEDS: hydrOXYzine Syrup 10 MG/5 ML SOLUTION PO (20:31)
[2020-03-21] MEDS: SODIUM CHLORIDE 0.9% FLUSH 10 ML IV (20:32)
[2020-03-21] MEDS: ONDANSETRON 4 MG/2 ML INJ IV (22:51)
--- NOTE | 2020-03-22 01:20 | PC.NURSE ---
Addendum entered by Jase Melgoza R.N. 03/22/20 02:59: Pt placed on 1 L O2 due to sats dropping into high 80's. Pt continued to dip into high 80's until O2 was increased to 4L. Pt resting comfortably in recliner chair. Addendum entered by Jase Melgoza R.N. 03/22/20 02:30: At approx. 0215, pt c/o of nausea. She explained that this was a common problem when she overeats due to her gastric bypass surgery. Pt was observed making herself vomit several times noting, I have to do this in order to feel better. Emesis was found to have remnants of pills previously given. After vomiting several times, pt noted she felt better. 0.2 mg IV dilaudid given. Addendum entered by Jase Melgoza R.N. 03/22/20 01:58: at approx. 0155, pt c/o of pain and was found to not have swallowed her pain medication from earlier in the shift. She was given the meds noted below along w/vistaril for nausea - an edit was completed on AUG to show correct time of dosages of Oxycodone and trazodone. Original Note: Pt found to be nauseous and in pain upon assuming care. Pt had just been medicated 30 minutes prior w/zofran and dilaudid but reported pain 9/10 and was actively vomiting. Pt was aided up to toilet by [employer] because she felt she could vomit more effectively sitting upright. Pt returned to bed feeling much better. She was given a bella dg to sip and a dose of 10mg Oxycodone along with Trazodone and is now sleeping peacefully.
[2020-03-22] MEDS: hydrOXYzine pamoate 25 MG CAPSULE PO (01:52)
[2020-03-22] MEDS: TRAZODONE 100 MG TABLET PO (01:57)
[2020-03-22] MEDS: HYDROMORPHONE 0.5 MG INJ 0.2 MG IV (02:40)
[2020-03-22 05:25] VITALS: BP 121/67; PULSE 66; RESP 18; TEMP 36.3; O2SAT 98
[2020-03-22] MEDS: LEVOTHYROXINE 100 MCG TABLET 200 MCG PO (05:38)
--- NOTE | 2020-03-22 06:44 | PM.DS.1 ---
History of Present Illness History of Present Illness Date Patient Seen: 03/22/20 Time Patient Seen: 06:45 Chief complaint: Left Total Knee Arthroplasty Narrative: The history and physical is contained in the chart previously completed note. Please refer to that note for this information. Discharge Providers Provider Date of admission: 03/20/20 08:06 Discharge Date: 03/22/20 Primary care physician: Chandler Covarrubias MD Consults: 03/13/20 10:40 Consult to Respiratory Therapy Evaluate & Treat Comment: INPT 03/20-SHANEKA, no CPAP Physician Instructions: Evaluate and treat 03/20/20 06:00 Consult to Anesthesiology Routine Comment: Consulting Provider: Anesthesiologist Reason for consultation: Regional block for post operative pain control 03/20/20 12:56 Consult to Discharge Planning Routine Comment: Consult to Physical Therapy Evaluate & Treat Comment: Physician Instructions: postop TKA protocol 03/21/20 11:02 Consult to Home Health Routine Comment: Reason For Exam: Home Health P.T, [employer] Aide. Discharge provider: Shamar De Souza MD Summary Hospital Course Discharge Diagnosis: 1. Left knee osteoarthritis 2. Post hemorrhagic anemia 3. Morbid obesity complicating mobilization after surgery Hospital Course: The patient was admitted to the hospital and taken directly to the operating room on March 20, 2020. She underwent a left total knee replacement. On postoperative day 1 initially she looked as if she was making good progress towards discharge but later in the day it became evident that additional time would be necessary. She appeared to be ready on postoperative day 2 after additional physical therapy. Status at Discharge Cognitive/behavioral status at discharge: oriented Functional status at discharge: uses cane/walker Overall status at discharge: patient is progressing back to baseline Time Spent with Patient Time spent: Less than 30 minutes Exam Vital Signs (past 8 hours): - 03/21/20 23:25 03/22/20 05:25 Temperature 99.6 F 97.4 F L Pulse Rate 87 66 Respiratory Rate 18 18 Blood Pressure 145/89 H 121/67 Pulse Oximetry 96 98 Oxygen Delivery Method Nasal Cannula Oxygen Flow Rate 4 Narrative Exam Narrative: Left knee wound is dressed with no drainage on the bandage. Calf is soft. Light touch and motion are intact in the left lower extremity. Objective Labs Result Diagrams: 03/21/20 05:30 Discharge Assessment & Plan Assessment and Plan Assessment: The patient is stable postoperative day 2 status post left total knee replacement. She has a mild post hemorrhagic anemia. Progress with physical therapy was slower than anticipated yesterday and she was maintained overnight for an additional day. She now appears to be ready for discharge. Plan of Treatment: Physical therapy today. She likely will go home after therapy. Prescriptions have been written for Dilaudid, Vistaril and a bridging supply of Lovenox. She will be restarting her Coumadin. Follow-up will be at my office in 10-14 days. Discharge Plan Discharge Plan Patient Disposition: Home Discharge orders & Medications Prescriptions: New acetaminophen 325 mg Tablet 650 mg PO TID 30 Days Qty: 180 RF: 0 hydromorphone 2 mg Tablet 2 mg PO Q4HR PRN (Reason: Pain, Severe (7-10)) Qty: 40 RF: 0 hydroxyzine pamoate 25 mg Capsule 25 mg PO Q6HR PRN (Reason: Nausea) Qty: 30 RF: 0 enoxaparin [Lovenox] 40 mg/0.4 mL Syringe 40 mg SUBCUT DAILY Qty: 3 RF: 0 Continued warfarin [Jantoven] 5 MG tablet 5 mg PO QPM Qty: 30 RF: 0 gabapentin [Neurontin] 300 MG capsule 300 mg PO QD-BID PRN (Reason: Nerve pain) Qty: 0 RF: 0 oxybutynin chloride 5 MG tablet 5 mg PO QD-BID Qty: 0 RF: 0 trazodone 100 MG tablet 100 mg PO HS PRN (Reason: Sleep) Qty: 0 RF: 0 biotin 1 mg capsule 1,000 mcg/kg PO QDAY Qty: 0 RF: 0 levothyroxine 200 mcg tablet 200 mcg PO DAILY RF: 0 losartan 50 mg tablet 50 mg PO DAILY RF: 0 sertraline 100 mg Tablet 100 mg PO DAILY RF: 0 ferrous sulfate 325 mg (65 mg iron) Tablet 325 mg PO Q OTHER DAY RF: 0 hydroxyzine HCl 10 mg Tablet 10 mg PO BEDTIME RF: 0 folic acid 800 mcg Tablet 0.8 mg PO DAILY RF: 0 omeprazole 20 mg Tablet,Delayed Release (Dr/Ec) 20 mg PO BID RF: 0 Discontinued hydrocodone-acetaminophen 5-325 mg Tablet 1 - 2 tab PO Q4-6H PRN (Reason: Pain) RF: 0 Follow up/Referrals: Chandler Covarrubias MD [Primary Care Provider] - Shamar De Souza MD [Physician] - 2 Weeks Discharge Health Status Multidrug resistant organism: No MDRO Diet/Activity/Treatments Diet: Diet as Tolerated and Regular Activity: You may bear weight as tolerated on your left leg. Cold/Heat Therapy: Apply ice for 15 minutes of every hour as needed for pain to the left knee. Skin/Wound/Dressing Care Report to your healthcare provider any signs of infection, such as:: chills, fever, night sweats, increased pain, unusual drainage and unusual redness Dressing: You may shower with the deeper dressing in place after removing the battery pack. Remove the Acrl wrap in 3 days and shower normally. Visit Report/Discharge Packet Instructions: DI for Heart Failure, DI for Knee Replacement, DI for Prescription Opioid Use Stand Alone Forms: Surgery Discharge Visit Report Forms: Congestive Heart Failure, Patient Portal/API, Stroke Signs & Symptoms Discharge Data Primary Care Provider: Chandler Covarrubias
[2020-03-22 07:50] VITALS: BP 120/68; PULSE 68; RESP 18; TEMP 36.3; O2SAT 90
[2020-03-22] MEDS: FERROUS SULFATE 325 MG TABLET PO (08:06)
[2020-03-22] MEDS: OXYCODONE IR 10 MG TABLET PO ×3 (08:06→16:48)
[2020-03-22] MEDS: LOSARTAN 50 MG TABLET PO (08:06)
[2020-03-22] MEDS: FOLIC ACID 0.4 MG TABLET 0.8 MG PO (08:06)
[2020-03-22] MEDS: ACETAMINOPHEN 325 MG TABLET 650 MG PO ×2 (08:06→14:38)
[2020-03-22] MEDS: SERTRALINE 50 MG TABLET 100 MG PO (08:06)
[2020-03-22] MEDS: PANTOPRAZOLE 20 MG TABLET PO (08:06)
[2020-03-22] MEDS: DOCUSATE 100 MG CAPSULE PO (08:06)
[2020-03-22] MEDS: SODIUM CHLORIDE 0.9% FLUSH 10 ML IV (08:07)
[2020-03-22] MEDS: OXYBUTYNIN 5 MG TABLET PO (08:07)
[2020-03-22] MEDS: ENOXAPARIN 40 MG/0.4 ML SYRINGE SUBCUT (08:07)
--- NOTE | 2020-03-22 10:43 | PT.IPTN ---
Current Diagnoses Unilateral primary osteoarthritis, left knee (03/20/20) Surgery Performed Operation Date: 03/20/20 10:15 Actual Procedures p Total Knee Arthroplasty(Left) - Shamar De Souza MD Physical Therapy Treatment Note M2 PT-IP Current Condition Start: 03/20/20 13:50 Freq: NEEDED Status: Active Protocol: Document 03/20/20 16:20 AW (Rec: 03/20/20 16:50 AW [id number]) Physical Therapy Current Condition Current Condition Evaluation Date 03/20/20 Treatment Diagnosis L TKA, difficulty in walking Weight Bearing Status Weight Bearing Status Weight Bear as Tolerated M3 PT-IP Subjective Start: 03/20/20 13:50 Freq: NEEDED Status: Active Protocol: Document 03/22/20 10:07 MA (Rec: 03/22/20 13:25 MA [id number]) Subjective Physical Therapy Visit Type Type Treatment Note Visit Start Time 10:07 Visit Stop Time 10:43 Total Visit Minutes 36 Number of ABSTRACT SEARCHER Visits 3 Physical Therapy Visit Comments Patient Comments Pt willing to participate with PT Therapy Pain Assessment Pain When Pain Assessed During Mobility Pain Present Pain Present Pain Reported Location Left Knee Intensity 8 Scale Used 8/10 reported but pt showed no signs of pain during treatment Pain Management Techniques Apply Cold,Modification of Treatment,Timing of Activity with Medications M4 PT-IP Mobility and Gait Start: 03/20/20 13:50 Freq: NEEDED Status: Active Protocol: Document 03/22/20 10:07 MA (Rec: 03/22/20 13:25 MA [id number]) PT-Bed Mobility Assessment Sit to Supine Sit to Supine Standby Assistance Scooting Scooting to Edge of Bed Standby Assistance Scooting Up and Down in Bed Independent PT-Transfer Assessment Sit to and From Stand Sit to and from Stand Standby Assistance Equipment Transfer Assistive Device Gait Belt,Front Wheeled Walker Transfers Transfer Destination Bed,Chair,Wheelchair Transfer Technique pt ambulated with FWW Transfer Ability Level of Assist Standby Assistance Comments Mobility Comments pt in chair upon arrival: pt required assistance pushing down foot rest but SBA for sit <>stand; pt used gait belt for self assisting LLE while getting ready to stand Gait Assessment Gait Gait Assistance Required: Standby Assistance Distance (Feet) 105 Able to Maintain Weight Bearing Status Yes During Gait Assistive Devices Assistive Device Gait Belt,Front Wheeled Walker ,4 Wheeled Walker Gait Deviations General Gait Pattern Antalgic,Decreased Stride Length,Decreased Feet Clearance,Flexed Trunk Factors Limiting Gait Function Factors Limiting Gait Function Decreased Activity Tolerance, Decreased Strength,Limited Range of Motion,Pain Comments Gait Comments pt able to ambultae 105 ft further distance into hallway w/c follow because full distance to stairs possible decrease tolerance to complete stairs; initially tried to ambulate with 4WW but upon inspection, brakes did not work and pt admitted she feels safer with FWW because she feels out of control with 4WW after surgery Stair Climbing Assessment Evaluation Level of Assist On Stairs Standby Assistance Devices Stair Climbing Assistive Devices Front Wheel Walker Technique/Endurance Stair Climbing Direction Ascend and Descend Stair Climbing Technique Step to Step Number of Steps Climbed 1 Stair Climbing Set # Repetitions (reps) 4 Comments Stair Climbing Comments pt able to climb platform step with FWW SBA PT-Balance Assessment Sitting Balance and Reactions Static Sitting Balance Ability Good Dynamic Sitting Balance Ability Good Standing Balance and Reactions Static Standing Balance Ability Good Dynamic Standing Balance Ability Fair Device Used FWW M5 PT-IP Objective Assessments Start: 03/20/20 13:50 Freq: NEEDED Status: Active Protocol: Document 03/20/20 16:20 AW (Rec: 03/20/20 16:50 AW [id number]) Orientation Orientation/Cognition Level of Alertness Alert Orientation Name,Day of Week,Place, Situation Language Function Ability No Deficits Noted Safety Awareness Decreased Safety Awareness Memory Description No Deficits Noted Gross Range of Motion Lower Extremity ROM Assessment Left Impaired Strength Lower Extremity Strength Assessment Bilaterally Impaired Comments Strength Comments RLE grossly 4-/5 Sensation Assessment Sensation Gross Sensation Right LE Impaired,Left LE Impaired Comments Sensation Comments Pt reports slightly dull sensation in bilateral feet Muscle Tone Muscle Tone WNL Yes M6 PT-IP Treatment Start: 03/20/20 13:50 Freq: NEEDED Status: Active Protocol: Document 03/22/20 10:07 MA (Rec: 03/22/20 13:25 MA [id number]) Physical Therapy Treatment Exercises Exercises Ankle Pumps,Gluteal Sets,Quad Sets,Heel Slides Education Education Provided Precautions,Weight Bearing Status,Post-Op Packet,Safety M7 PT-IP Assessment and Plan Start: 03/20/20 13:50 Freq: NEEDED Status: Active Protocol: Document 03/22/20 10:07 MA (Rec: 03/22/20 13:25 MA [id number]) PT Summary Assessment and Plan Potential Rehabilitation Potential Good Status of Condition at Evaluation Stable Summary Impairments Pain,ROM,Strength,Balance, Sensation,Bed Mobility, Transfers,Gait,Activity Tolerance Progress Towards Goals Safe For Discharge Assessment Summary pt is motivated to go back home, c/o 8/10 pain but shows no sign of pain when ambulating or completing stair training; pt able to control LLE using gait belt during bed mobility and sit<>stand. Pt is ok to return home with spouse to assist her when medically stable. Pt is set up with therapy services. Goals Bed Mobility Goal Standby Assistance Transfer Goal Standby Assistance,Front Wheeled Walker Gait Goal Standby Assistance,Front Wheel Walker Gait Distance 75 Other Goals - up/down 2 steps without railing min A Days to Meet Goals 5 Frequency of Treatment Frequency Of Treatment Twice a Day Treatment Plan Physical Therapy Treatment Plan Bed Mobility Training,Transfer Training,Gait Training, Therapeutic Exercise,Balance Retraining,Post Op Education, Discharge Planning,Hot or Cold Pack Other Recommendations and Next Treatment Ther ex & ROM, gait progress Focus LRAD. Recommendations To Nursing Amount of Assist Needed Standby Assistance Discharge Recommendations PT Discharge Recommendations Home with Assistance,Home Health,Outpatient PT Equipment Needed for Home Before BSC Discharge Transportation Needs at Discharge Private Vehicle
[2020-03-22] MEDS: GABAPENTIN 300 MG CAPSULE PO (10:45)
[2020-03-22 12:00] VITALS: BP 104/59; PULSE 69; RESP 16; TEMP 35.7; O2SAT 93
--- NOTE | 2020-03-22 13:14 | PC.NURSE ---
Assess- Patient just given another 10mg of po oxycodone. Patient is moving well with her walker and using the gaitbelt to help lift her leg and reposition it. She gave herself a shower and her siva dressing is working well. O drainage noted. Patient will be discharged at 1730 today, her will pick her up after work.
--- NOTE | 2020-03-22 13:49 | CM.DPC ---
DCP Discharge Home with HH Per Ortho MD, pt medically stable to d/c home today with planned HH. Per PT, recommending safe d/c home with spouse assist and HH. SW confirmed that [facility] had received the previously faxed clinicals, d/c summ, orders for discharge home. Per RN, pt ready for d/c home and spouse to provide transport around 1730 after spouse is off work for the day. No concerns at this time. Plan: Patient to d/c home via spouse POV after work today and [facility] to open pt to service after discharge. KEN Ashton
[2020-03-22 16:38] VITALS: BP 100/66; PULSE 62; RESP 20; TEMP 37.1; O2SAT 92
[2020-03-22] MEDS: WARFARIN 5 MG TABLET PO (16:47)
--- NOTE | 2020-03-22 18:25 | PC.NURSE ---
Discharge/Evening Shift Note- Patient discharged home. Discharge paperwork and instructions reviewed with patient and signed. IV line removed and bandaid applied. Patient sent to pharm acy with Rx's. Patient packed up all personal items. Patient taken via wheelchair to private car with all personal items at 1740.
== END 2020-03-22 17:40 | disposition home health service (06) | DRG 470 ==
PROVIDERS: Admitting Provider Orthopaedic Surgery; PCP Internal Medicine; Referring Provider Internal Medicine; Visit Provider Orthopaedic Surgery
PROC: 0SRD0JZ Replacement of Left Knee Joint with Synthetic Substitute, Open Approach (ICD-10-PCS; CPT 27447; principal; 2020-03-20 10:15)
DX: M17.12 Unilateral primary osteoarthritis, left knee (principal); Z68.41 Body mass index [BMI] 40.0-44.9, adult; Z86.711 Personal history of pulmonary embolism; Z79.01 Long term (current) use of anticoagulants; E66.9 Obesity, unspecified; I10 Essential (primary) hypertension; M79.7 Fibromyalgia; F32.9 Major depressive disorder, single episode, unspecified; Z87.891 Personal history of nicotine dependence; Z11.59 Encounter for screening for other viral diseases
CPT/HCPCS: 36415; 73560; 85014; 85018; 85610; 87635; 94760; 97110; 97116; 97161; 97530; C1776; C9290; J0360; J0690; J1100; J1170; J1650; J2250; J2405; J2704; J3010

== ENCOUNTER → 2020-07-25 12:58 | Outpatient (CLI) | payer OTHER, MEDICARE, SELFPAY ==
[2020-03-20 13:20] VITALS: BMI 43.7
== END ==
PROVIDERS: PCP Internal Medicine; Referring Provider Orthopaedic Surgery Orthopaedic Surgery of the Spine; Visit Provider Orthopaedic Surgery Orthopaedic Surgery of the Spine
DX: M48.061 Spinal stenosis, lumbar region without neurogenic claudication (principal); Z53.8 Procedure and treatment not carried out for other reasons

== ENCOUNTER → 2020-07-26 07:02 | Outpatient (CLI) | payer OTHER, MEDICARE, SELFPAY ==
[2020-03-20 13:20] VITALS: BMI 43.7
--- NOTE | 2020-07-26 | DI.MRI.S_ITS ---
PROCEDURE: MR LUMBAR SPINE WO CON INDICATIONS: pain TECHNIQUE: Noncontrast sagittal T1 spin echo and T2 fast echo, sagittal STIR, axial T1 and T2 fast spin echo through the lumbar spine. In cases with scoliosis, additional coronal T2 fast spin echo may be performed. COMPARISON: [facility] [place], CR, XR LUMBAR SPINE 2 OR 3 VIEWS, 07/08/2019, 9:13. [facility], , MR LUMBAR SPINE WO CON, 10/08/2018, 13:58. [facility] [place], CR, XR LUMBAR SPINE 2 OR 3 VIEWS, 07/18/2020, 9:53. FINDINGS: Image quality: Excellent. Alignment and Curvature: There is normal bony alignment. Bones: Postsurgical changes compatible with prior L4-L5 left laminotomy. Marrow is of normal overall signal. No acute vertebral body compression fractures. Spinal Cord: Conus medullaris terminates at the T12 level. Visualized cord demonstrates normal signal and size. Paraspinous Soft Tissues: No paravertebral masses. T12-L1: Normal appearance. L1-L2: Slight loss of disc signal. Minimal, diffuse disc bulge. Mild bilateral facet hypertrophy. No central stenosis. No neural foraminal narrowing. No neural compression. L2-L3: Loss of disc signal. Minimal, diffuse disc bulge. [id number]-[id number] bilateral facet hypertrophy. Mild narrowing of the central canal. Mild bilateral neural foraminal narrowing. No neural compression. L3-L4: Loss of disc signal. Mild, diffuse disc bulge. Moderate bilateral facet hypertrophy. Mild narrowing of the central canal. Mild bilateral neural foraminal narrowing. No neural compression. L4-L5: Loss of disc signal. Mild to moderate diffuse disc bulge. Moderate bilateral facet hypertrophy. Mild to moderate narrowing of the central canal. Moderate bilateral neural foraminal narrowing. No neural compression. L5-S1: Disc has a normal appearance. Moderate to severe bilateral facet hypertrophy. No central stenosis. No neural foraminal narrowing. No neural compression. IMPRESSION: 1. Multilevel degenerative disc disease. 2. Multilevel facet arthropathy. 3. No severe central canal narrowing. 4. No severe neural foraminal narrowing. 5. No neural compression. Dictated by: Lizbeth Jaime MD, PhD on 07/26/2020 at 9:28 Approved by: Lizbeth Jaime MD, PhD on 07/26/2020 at 9:34
== END ==
PROVIDERS: PCP Internal Medicine; Referring Provider Internal Medicine; Visit Provider Orthopaedic Surgery Orthopaedic Surgery of the Spine
DX: M48.061 Spinal stenosis, lumbar region without neurogenic claudication (principal); M51.36 Other intervertebral disc degeneration, lumbar region; M47.816 Spondylosis without myelopathy or radiculopathy, lumbar region
CPT/HCPCS: 72148

== ENCOUNTER 2020-11-19 11:17 | Emergency (ER) | payer OTHER, MEDICARE, SELFPAY ==
[2020-03-20 13:20] VITALS: BMI 43.7
[2020-11-19 11:37] VITALS: BP 142/84; PULSE 86; RESP 15; TEMP 36.4; O2SAT 96; BMI 36.9
--- NOTE | 2020-11-19 11:46 | PC.NURSE ---
complains of itching on arms and torso. states she has not idea what is causing it. reports hx of same usually remedied by prescription medications. attempted medications with no resolution
--- NOTE | 2020-11-19 12:11 | ED.SKABFB ---
HPI - Skin/Abscess/Foreign Bdy General Chief complaint: Skin/Abscess/Foreign Body Stated complaint: itching, meds not working Time Seen by Provider: 11/19/20 12:11 Source: patient Mode of arrival: Family Vehicle Limitations: no limitations History of Present Illness HPI narrative: Patient is a 65-year-old female with history of itching. She has history of hives in multiple allergies including to her dog. She says it occasionally flares and she needs prednisone. She feels like it has been in a flare for the last 5 days. Usually prednisone helps. No fever or chills no difficulty breathing she literally is just scratching all over. MD complaint: rash Onset (ago): day(s) (5) Location: generalized Severity: similar to previous episodes Quality: pruritic Related Data Home Medications Medication Instructions Recorded Confirmed biotin 1,000 mcg/kg PO QDAY #0 07/28/17 03/20/20 gabapentin [Neurontin] 300 mg PO QD-BID PRN #0 07/28/17 03/20/20 oxybutynin chloride 5 mg PO QD-BID #0 07/28/17 03/20/20 trazodone 100 mg PO HS PRN #0 07/28/17 03/20/20 losartan 50 mg PO DAILY 10/23/19 03/20/20 levothyroxine 200 mcg PO DAILY 12/16/19 03/20/20 ferrous sulfate 325 mg PO Q OTHER DAY 03/13/20 03/20/20 folic acid 0.8 mg PO DAILY 03/13/20 03/20/20 hydroxyzine HCl 10 mg PO BEDTIME 03/13/20 03/20/20 omeprazole 20 mg PO BID 03/13/20 03/20/20 sertraline 100 mg PO DAILY 03/13/20 03/20/20 Previous Rx's Medication Instructions Recorded warfarin [Jantoven] 5 mg PO QPM #30 01/28/16 enoxaparin [Lovenox] 40 mg SUBCUT DAILY #3 ml 03/21/20 hydromorphone 2 mg PO Q4HR PRN #40 tab 03/21/20 hydroxyzine pamoate 25 mg PO Q6HR PRN #30 cap 03/21/20 prednisone 40 mg PO DAILY #10 tab 11/19/20 Allergies Allergy/AdvReac Type Severity Reaction Status Date / Time morphine [MORPHINE] Allergy Severe Rash, N&V Verified 03/17/20 10:09 mussels [MUSSELS] Allergy Severe N&V Verified 03/17/20 10:09 latex [LATEX] Allergy Intermediate RASH, Verified 03/17/20 10:09 ITCHY, BLISTERS adhesive tape Allergy Mild Blister Verified 03/17/20 10:09 iodine [IODINE] Allergy Mild RASH Verified 03/17/20 10:09 Review of Systems Review of Systems Narrative: GENERAL: Denies chills, fatigue, malaise, fever, sweats, travel HEENT: Denies sinus pain, ear pain, sore throat, difficulty swallowing, neck pain RESPIRATORY: Denies dyspnea, cough, wheezing, hemoptysis, sputum. CARDIOVASCULAR: Denies chest pain, palpitations, orthopnea, edema GASTROINTESTINAL: Denies nausea, vomiting, abdominal pain, diarrhea, constipation, melena. : Denies dysuria, frequency, incontinence, hematuria, urinary retention, flank pain. MUSCULOSKELETAL: Denies weakness, joint pain, or bony pain SKIN: See HPI NEUROLOGIC: Denies weakness, dizziness, headache, numbness, change in speech, confusion PSYCHIATRIC: No concerning psychosocial issues. 12 point review of systems is negative except for those stated above and HPI Patient History Medical History Anxiety Chronic pain Chronic sinus bradycardia Depression DVT (deep venous thrombosis) Former smoker GERD (gastroesophageal reflux disease) Hiatal hernia History of ETOH abuse Hospitalization or health care facility admission within last 6 months (12/14/19) HTN (hypertension) Hypoglycemia Hypothyroidism Insomnia Lactose intolerance SHANEKA (obstructive sleep apnea) Osteomyelitis PTSD (post-traumatic stress disorder) Pulmonary embolism (~1993) Surgical History History of arthroscopy of left shoulder History of arthroscopy of right shoulder History of carpal tunnel release of both wrists History of colonoscopy History of lumpectomy of left breast History of lumpectomy of right breast History of total left hip arthroplasty (11/08/15) Hx of appendectomy Hx of cholecystectomy Hx of hernia repair Hx of laminectomy (11/11/18) Hx of tubal ligation S/P gastroplasty Family History Father CAD (coronary artery disease) Mother CAD (coronary artery disease) Social History household members: spouse Smoking Status: Former smoker alcohol intake: former Smoking Status: Former smoker alcohol intake frequency: holidays/special occasions only Substance Use Type: does not use Exam Initial Vital Signs Initial Vital Signs: Vital Signs Temperature 97.6 F 11/19/20 11:37 Pulse Rate 86 11/19/20 11:37 Respiratory Rate 15 11/19/20 11:37 Blood Pressure 142/84 H 11/19/20 11:37 Pulse Oximetry 96 11/19/20 11:37 GENERAL: Patient has a 65-year-old female who appears uncomfortable itching a while we speak HEENT: Head atraumatic,EOMI, pupils reactive, face symmetric, [moist] mucous membranes CARDIOVASCULAR: Regular rate and rhythm without murmurs, rubs or gallops. RESPIRATORY: Breath sounds equal bilaterally, no wheezes rales or rhonchi. : No CVA tenderness EXTREMITIES: Normal range of motion, no clubbing or edema. Neurovascularly intact NEUROLOGICAL: Alert and oriented x4. SKIN: Warm, dry, no laceration, no petechiae, no rashes or lesions. Course Vital Signs Vital signs: Vital Signs - 8 hr 11/19/20 11:37 11/19/20 12:23 Temperature 97.6 F Pulse Rate 86 86 Respiratory Rate 15 15 Blood Pressure 142/84 H 138/77 Pulse Oximetry 96 99 Discharge Plan Departure Patient Disposition: Home Clinical Impression: Urticaria Instructions: DI for Hives Activity Restrictions/Additional Instructions: *You have been diagnosed with urticaria, allergies *What to do: At this time recommend following up with your science center display builder. Be sure to have your INR checked while taking medications prednisone can cause changes. *Continue to take medications as directed Prednisone 40 mg once a day for 5 days--> SENT TO [facility] *Follow up with your primary care provider in 2-3 days *Return to ER if you should have fever chills worsening rash or any new, worsening or concerning symptoms Prescriptions: New prednisone 20 mg tablet 40 mg PO DAILY Qty: 10 RF: 0 No Action warfarin [Jantoven] 5 MG tablet 5 mg PO QPM Qty: 30 RF: 0 gabapentin [Neurontin] 300 MG capsule 300 mg PO QD-BID PRN (Reason: Nerve pain) Qty: 0 RF: 0 oxybutynin chloride 5 MG tablet 5 mg PO QD-BID Qty: 0 RF: 0 trazodone 100 MG tablet 100 mg PO HS PRN (Reason: Sleep) Qty: 0 RF: 0 biotin 1 mg capsule 1,000 mcg/kg PO QDAY Qty: 0 RF: 0 levothyroxine 200 mcg tablet 200 mcg PO DAILY RF: 0 losartan 50 mg tablet 50 mg PO DAILY RF: 0 sertraline 100 mg Tablet 100 mg PO DAILY RF: 0 ferrous sulfate 325 mg (65 mg iron) Tablet 325 mg PO Q OTHER DAY RF: 0 hydroxyzine HCl 10 mg Tablet 10 mg PO BEDTIME RF: 0 folic acid 800 mcg Tablet 0.8 mg PO DAILY RF: 0 omeprazole 20 mg Tablet,Delayed Release (Dr/Ec) 20 mg PO BID RF: 0 hydromorphone 2 mg Tablet 2 mg PO Q4HR PRN (Reason: Pain, Severe (7-10)) Qty: 40 RF: 0 hydroxyzine pamoate 25 mg Capsule 25 mg PO Q6HR PRN (Reason: Nausea) Qty: 30 RF: 0 enoxaparin [Lovenox] 40 mg/0.4 mL Syringe 40 mg SUBCUT DAILY Qty: 3 RF: 0 Referrals: Chandler Covarrubias MD [Primary Care Provider] -
[2020-11-19 12:23] VITALS: BP 138/77; PULSE 86; RESP 15; O2SAT 99
== END 2020-11-19 12:24 | disposition home or self-care (01) ==
PROVIDERS: Emergency Provider Emergency Medicine; PCP Internal Medicine
DX: L50.9 Urticaria, unspecified (principal)
CPT/HCPCS: 99281

== ENCOUNTER 2020-12-17 09:50 | Emergency (ER) | payer OTHER, MEDICARE, SELFPAY ==
[2020-03-20 13:20] VITALS: BMI 43.7
[2020-12-17 10:04] VITALS: BP 190/104; PULSE 74; RESP 14; TEMP 36.2; O2SAT 99
[2020-12-17] MEDS: HYDROCODONE/ACET 10/325 TABLET 2 TAB PO (10:22)
--- NOTE | 2020-12-17 12:38 | ED.RECABL ---
HPI - Recheck/Abnormal Lab/Rx General Chief Complaint: Recheck/Abnormal Lab/Rx Stated Complaint: out of meds, in pain Time Seen by Provider: 12/17/20 12:28 Source: patient Mode of arrival: Wheelchair History of Present Illness HPI narrative: Patient is a 65-year-old female with history of pulmonary embolisms and chronic back pain. She has a back stimulator that was recently placed. She has been seeing Dr. Rivera for number of years for her a back pain and issues. She called last week stating that she knew she would be out of her pain medications over the holiday weekend she left a message with his nurse. She called again the following day and still he did not have a refill of her pain medications. She presents today with increasing back pain. She was given 2 hydrocodones and pain has significantly improved. She denies any change in bowel or bladder habits. No fever or chills. Related Data Home Medications Medication Instructions Recorded Confirmed biotin 1 mg capsule 1,000 mcg/kg PO QDAY #0 07/28/17 03/20/20 gabapentin 300 mg capsule 300 mg PO QD-BID PRN #0 07/28/17 03/20/20 (Neurontin) oxybutynin chloride 5 mg tablet 5 mg PO QD-BID #0 07/28/17 03/20/20 trazodone 100 mg tablet 100 mg PO HS PRN #0 07/28/17 03/20/20 losartan 50 mg tablet 50 mg PO DAILY 10/23/19 03/20/20 levothyroxine 200 mcg tablet 200 mcg PO DAILY 12/16/19 03/20/20 ferrous sulfate 325 mg (65 mg 325 mg PO Q OTHER DAY 03/13/20 03/20/20 iron) tablet folic acid 800 mcg tablet 0.8 mg PO DAILY 03/13/20 03/20/20 hydroxyzine HCl 10 mg tablet 10 mg PO BEDTIME 03/13/20 03/20/20 omeprazole 20 mg tablet,delayed 20 mg PO BID 03/13/20 03/20/20 release sertraline 100 mg tablet 100 mg PO DAILY 03/13/20 03/20/20 Previous Rx's Medication Instructions Recorded warfarin 5 mg tablet (Jantoven) 5 mg PO QPM #30 01/28/16 enoxaparin 40 mg/0.4 mL 40 mg SUBCUT DAILY #3 ml 03/21/20 subcutaneous syringe (Lovenox) hydromorphone 2 mg tablet 2 mg PO Q4HR PRN #40 tab 03/21/20 hydroxyzine pamoate 25 mg capsule 25 mg PO Q6HR PRN #30 cap 03/21/20 prednisone 20 mg tablet 40 mg PO DAILY #10 tab 11/19/20 hydrocodone 5 mg-acetaminophen 325 1 tab PO Q6H PRN #10 tab 12/17/20 mg tablet Allergies Allergy/AdvReac Type Severity Reaction Status Date / Time morphine [MORPHINE] Allergy Severe Rash, N&V Verified 03/17/20 10:09 mussels [MUSSELS] Allergy Severe N&V Verified 03/17/20 10:09 latex [LATEX] Allergy Intermediate RASH, Verified 03/17/20 10:09 ITCHY, BLISTERS adhesive tape Allergy Mild Blister Verified 03/17/20 10:09 iodine [IODINE] Allergy Mild RASH Verified 03/17/20 10:09 Review of Systems Review of Systems Narrative: GENERAL: Denies chills,fever HEENT: Denies throat pain RESPIRATORY: Denies dyspnea, cough, wheezing CARDIOVASCULAR: Denies chest pain, palpitations GASTROINTESTINAL: Denies nausea, vomiting MUSCULOSKELETAL: Back pain SKIN: No rash, no laceration, no pruritus NEUROLOGIC: Denies weakness, dizziness, headache, numbness 8 point review of systems is negative except for those stated above and HPI Patient History Medical History Anxiety Chronic pain Chronic sinus bradycardia Depression DVT (deep venous thrombosis) Former smoker GERD (gastroesophageal reflux disease) Hiatal hernia History of ETOH abuse Hospitalization or health care facility admission within last 6 months (12/14/19) HTN (hypertension) Hypoglycemia Hypothyroidism Insomnia Lactose intolerance SHANEKA (obstructive sleep apnea) Osteomyelitis PTSD (post-traumatic stress disorder) Pulmonary embolism (~1993) Surgical History History of arthroscopy of left shoulder History of arthroscopy of right shoulder History of carpal tunnel release of both wrists History of colonoscopy History of lumpectomy of left breast History of lumpectomy of right breast History of total left hip arthroplasty (11/08/15) Hx of appendectomy Hx of cholecystectomy Hx of hernia repair Hx of laminectomy (05/29/19) Hx of tubal ligation S/P gastroplasty Family History Father CAD (coronary artery disease) Mother CAD (coronary artery disease) Social History household members: spouse Smoking Status: Former smoker alcohol intake: former Smoking Status: Former smoker alcohol intake frequency: holidays/special occasions only Substance Use Type: does not use Exam Initial Vital Signs Initial Vital Signs: Vital Signs Temperature 97.1 F L 12/17/20 10:04 Pulse Rate 74 12/17/20 10:04 Respiratory Rate 14 12/17/20 10:04 Blood Pressure 190/104 H 12/17/20 10:04 Pulse Oximetry 99 12/17/20 10:04 GENERAL: Alert 65-year-old female currently sitting in wheelchair and in no acute distress. HEENT: Head atraumatic,EOMI, pupils reactive, face symmetric, moist mucous membranes CARDIOVASCULAR: Regular rate and rhythm without murmurs, rubs or gallops. RESPIRATORY: Breath sounds equal bilaterally, no wheezes rales or rhonchi. ABDOMEN: Soft, nontender. Normoactive bowel sounds all 4 quadrants. No guarding or rebound. BACK: No vertebral tenderness no step-offs incision sites from stimulator are clean and dry no erythema EXTREMITIES: Normal range of motion, no clubbing or edema. Neurovascularly intact NEUROLOGICAL: Alert and oriented x4. Sensation in lower extremities intact SKIN: Warm, dry, no laceration, no petechiae, no rashes or lesions. Course Orders Ordered: Discontinued Medications Hydrocodone Bitart/Acetaminophen (Hydrocodone/Acet 10/325 Tablet) 2 tab PO NOW ONE Stop: 12/17/20 10:11 Last Admin: 12/17/20 10:22 Dose: 2 tab Documented by: ATILIO Vital Signs Vital signs: Vital Signs - 8 hr 12/17/20 10:04 Temperature 97.1 F L Pulse Rate 74 Respiratory Rate 14 Blood Pressure 190/104 H Pulse Oximetry 99 MDM - Recheck/Abnormal Lab/Rx MDM Narrative Medical decision making narrative: Patient has tried calling her primary care doctor multiple times to refill her pain medications. It does sound as though she knows pain contract is. She is given a small amount of narcotics to get her through the holiday weekend she understands and knows that she is to call her primary care provider for her chronic ongoing pain medications. She has no red flag symptoms. Her pain is controlled with [place]. Discharge Plan Departure Patient Disposition: Home Clinical Impression: Acute exacerbation of chronic low back pain Instructions: Managing Chronic Low Back Pain Activity Restrictions/Additional Instructions: *You have been diagnosed with acute on chronic low back pain *What to do: Unfortunately because you are under a pain contract with Dr. Rivera I cannot write you for a prescription for pain medication. Please contact his office tomorrow. *Continue to take medications as directed *Follow up with your primary care provider in 2-3 days *Return to ER if you should have worsening back pain, inability to walk, loss of urine, numbness tingling or weakness or any new, worsening or concerning symptoms Prescriptions: New hydrocodone-acetaminophen 5-325 mg tablet 1 tab PO Q6H PRN (Reason: pain) Qty: 10 RF: 0 No Action warfarin [Jantoven] 5 MG tablet 5 mg PO QPM Qty: 30 RF: 0 gabapentin [Neurontin] 300 MG capsule 300 mg PO QD-BID PRN (Reason: Nerve pain) Qty: 0 RF: 0 oxybutynin chloride 5 MG tablet 5 mg PO QD-BID Qty: 0 RF: 0 trazodone 100 MG tablet 100 mg PO HS PRN (Reason: Sleep) Qty: 0 RF: 0 biotin 1 mg capsule 1,000 mcg/kg PO QDAY Qty: 0 RF: 0 levothyroxine 200 mcg tablet 200 mcg PO DAILY RF: 0 prednisone 20 mg tablet 40 mg PO DAILY Qty: 10 RF: 0 losartan 50 mg tablet 50 mg PO DAILY RF: 0 sertraline 100 mg Tablet 100 mg PO DAILY RF: 0 ferrous sulfate 325 mg (65 mg iron) Tablet 325 mg PO Q OTHER DAY RF: 0 hydroxyzine HCl 10 mg Tablet 10 mg PO BEDTIME RF: 0 folic acid 800 mcg Tablet 0.8 mg PO DAILY RF: 0 omeprazole 20 mg Tablet,Delayed Release (Dr/Ec) 20 mg PO BID RF: 0 hydromorphone 2 mg Tablet 2 mg PO Q4HR PRN (Reason: Pain, Severe (7-10)) Qty: 40 RF: 0 hydroxyzine pamoate 25 mg Capsule 25 mg PO Q6HR PRN (Reason: Nausea) Qty: 30 RF: 0 enoxaparin [Lovenox] 40 mg/0.4 mL Syringe 40 mg SUBCUT DAILY Qty: 3 RF: 0 Referrals: Chandler Covarrubias MD [Primary Care Provider] -
== END 2020-12-17 12:48 | disposition home or self-care (01) ==
PROVIDERS: Emergency Provider Emergency Medicine; PCP Internal Medicine
DX: M54.5 Low back pain (principal)
CPT/HCPCS: 99283

== ENCOUNTER 2021-02-12 09:36 | Inpatient (IN) | payer OTHER, MEDICARE, SELFPAY ==
[2020-03-20 13:20] VITALS: BMI 43.7
[2021-02-12] VITALS (59 sets, daily range): BP systolic 66–199; BP diastolic 37–104; PULSE 51–92; RESP 13–36; TEMP 36.2–37.3; O2SAT 89–100; BMI 37.5
--- NOTE | 2021-02-12 09:53 | ED_ITS ---
HPI - GI Bleed General Chief complaint: GI Bleed Stated complaint: Puking blood Time Seen by Provider: 02/12/21 09:47 Source: patient Mode of arrival: Wheelchair Limitations: no limitations History of Present Illness HPI Narrative: Patient is a 65-year-old female with history of pulmonary embolisms on Coumadin, vertical banded gastroplasty, presenting today with vomiting bright red blood. Because she said she was feeling well last night this morning she had an [place] muffin then suddenly did not feel well and started vomiting bright red blood. She denies any violent vomiting. She is having some epigastric pain and discomfort. She has little dizzy and lightheaded. No bloody stools. She actually had GI bleeding last year where she had dark tarry stools she was admitted here where she had an EGD and a colonoscopy and no site of bleeding was found. Jehovah Witness she is hesitant about blood transfusion but does not want to . Related Data Home Medications Medication Instructions Recorded Confirmed biotin 1 mg capsule 1,000 mcg/kg PO QDAY #0 07/28/17 03/20/20 gabapentin 300 mg capsule 300 mg PO QD-BID PRN #0 07/28/17 03/20/20 (Neurontin) oxybutynin chloride 5 mg tablet 5 mg PO QD-BID #0 07/28/17 03/20/20 trazodone 100 mg tablet 100 mg PO HS PRN #0 07/28/17 03/20/20 losartan 50 mg tablet 50 mg PO DAILY 10/23/19 03/20/20 levothyroxine 200 mcg tablet 200 mcg PO DAILY 12/16/19 03/20/20 ferrous sulfate 325 mg (65 mg 325 mg PO Q OTHER DAY 03/13/20 03/20/20 iron) tablet folic acid 800 mcg tablet 0.8 mg PO DAILY 03/13/20 03/20/20 hydroxyzine HCl 10 mg tablet 10 mg PO BEDTIME 03/13/20 03/20/20 omeprazole 20 mg tablet,delayed 20 mg PO BID 03/13/20 03/20/20 release sertraline 100 mg tablet 100 mg PO DAILY 03/13/20 03/20/20 Previous Rx's Medication Instructions Recorded warfarin 5 mg tablet (Jantoven) 5 mg PO QPM #30 01/28/16 enoxaparin 40 mg/0.4 mL 40 mg SUBCUT DAILY #3 ml 03/21/20 subcutaneous syringe (Lovenox) hydroxyzine pamoate 25 mg capsule 25 mg PO Q6HR PRN #30 cap 03/21/20 prednisone 20 mg tablet 40 mg PO DAILY #10 tab 11/19/20 Allergies Allergy/AdvReac Type Severity Reaction Status Date / Time morphine [MORPHINE] Allergy Severe Rash, N&V Verified 02/12/21 09:51 mussels [MUSSELS] Allergy Severe N&V Verified 02/12/21 09:51 latex [LATEX] Allergy Intermediate RASH, Verified 02/12/21 09:51 ITCHY, BLISTERS adhesive tape Allergy Mild Blister Verified 02/12/21 09:51 iodine [IODINE] Allergy Mild RASH Verified 02/12/21 09:51 Review of Systems Review of Systems Narrative: GENERAL: Denies chills, fatigue, malaise, fever, sweats, travel HEENT: Denies sinus pain, ear pain, sore throat, difficulty swallowing, neck pain RESPIRATORY: Denies dyspnea, cough, wheezing, hemoptysis, sputum. CARDIOVASCULAR: Denies chest pain, palpitations, orthopnea, edema GASTROINTESTINAL: See HPI : Denies dysuria, frequency, incontinence, hematuria, urinary retention, flank pain. MUSCULOSKELETAL: Denies weakness, joint pain, or bony pain SKIN: No rash, no erythema, no pruritus NEUROLOGIC: Denies weakness, dizziness, headache, numbness, change in speech, confusion PSYCHIATRIC: No concerning psychosocial issues. 12 point review of systems is negative except for those stated above and HPI Patient History Medical History Anxiety Chronic pain Chronic sinus bradycardia Depression DVT (deep venous thrombosis) Former smoker GERD (gastroesophageal reflux disease) Hiatal hernia History of ETOH abuse Hospitalization or health care facility admission within last 6 months (0 12/14/19) HTN (hypertension) Hypoglycemia Hypothyroidism Insomnia Lactose intolerance SHANEKA (obstructive sleep apnea) Osteomyelitis PTSD (post-traumatic stress disorder) Pulmonary embolism (~1993) Surgical History History of arthroscopy of left shoulder History of arthroscopy of right shoulder History of carpal tunnel release of both wrists History of colonoscopy History of lumpectomy of left breast History of lumpectomy of right breast History of total left hip arthroplasty (11/08/15) Hx of appendectomy Hx of cholecystectomy Hx of hernia repair Hx of laminectomy (11/11/18) Hx of tubal ligation S/P gastroplasty Family History Father CAD (coronary artery disease) Mother CAD (coronary artery disease) Social History household members: spouse Smoking Status: Former smoker alcohol intake: former Smoking Status: Former smoker alcohol intake frequency: holidays/special occasions only Substance Use Type: does not use Exam Initial Vital Signs Initial Vital Signs: Vital Signs Pulse Rate 90 02/12/21 09:47 Respiratory Rate 19 02/12/21 09:47 Pulse Oximetry 99 02/12/21 09:47 GENERAL: Alert 65-year-old female actively vomiting bright red blood and in no acute distress. HEENT: Head atraumatic,EOMI, pupils reactive, face symmetric, moist mucous membr anes CARDIOVASCULAR: Regular rate and rhythm without murmurs, rubs or gallops. RESPIRATORY: Breath sounds equal bilaterally, no wheezes rales or rhonchi. ABDOMEN: Soft, nontender. Normoactive bowel sounds all 4 quadrants. No guarding or rebound. EXTREMITIES: Normal range of motion, no clubbing or edema. Neurovascularly intact NEUROLOGICAL: Alert and oriented x4.Normal gait and speech. SKIN: Warm, dry, no laceration, no petechiae, no rashes or lesions. 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 DEVELOPER swab/PCR) Stat Complete Blood Count AUTO DIFF Stat Comprehensive Metabolic Panel Stat Lactate (Lactic Acid) Stat Lipase Stat Packed Cells Stat Type and Screen Stat 02/12/21 10:29 Partial Thromboplastin Time Stat Prothrombin Time INR Stat 02/12/21 12:30 Hemoglobin and Hematocrit Stat Prothrombin Time INR Stat Octreotide Acetate 500 mcg/ (Sodium Chloride) 101 mls @ 5.05 mls/hr IV CONT LYDIA Last Admin: 02/12/21 11:09 Dose: Not Given Documented by: ATILIO Discontinued Medications Fentanyl (Fentanyl 100 Mcg/2 Ml Inj) 100 mcg IV NOW ONE Stop: 02/12/21 11:05 Last Admin: 02/12/21 11:14 Dose: 100 mcg Documented by: CTRHAYLEEER Fentanyl (Fentanyl 100 Mcg/2 Ml Inj) 100 mcg IV NOW ONE Stop: 02/12/21 13:02 Last Admin: 02/12/21 13:07 Dose: 100 mcg Documented by: CTRPATRICIA Hydromorphone HCl (Hydromorphone 0.5 Mg Inj) 0.5 mg IV NOW ONE Stop: 02/12/21 11:42 Last Admin: 02/12/21 11:48 Dose: 0.5 mg Documented by: CTRPATRICIA Prothrombin Complex Concent ( Human) 3,500 unit/Miscellaneous 140 mls @ 692.69 mls/hr IV NOW ONE; Protocol Stop: 02/12/21 10:55 Last Infusion: 02/12/21 11:44 Dose: 0 unit/kg/min, 0 mls/hr Documented by: Admin: 02/12/21 11:15 Dose: 3 unit/kg/min, 692.69 mls/hr Documented by: MICHAEL Lorazepam (Lorazepam 2 Mg/Ml Inj) 0.5 mg IV NOW ONE Stop: 02/12/21 11:24 Last Admin: 02/12/21 11:33 Dose: 0.5 mg Documented by: MICHAEL Octreotide Acetate (Octreotide 100 Mcg/Ml Vial) 50 mcg IV NOW ONE Stop: 02/12/21 09:48 Last Admin: 02/12/21 10:00 Dose: 50 mcg Documented by: MICHAEL Ondansetron HCl (Ondansetron 4 Mg/2 Ml Inj) 4 mg IV NOW ONE Stop: 02/12/21 09:48 Last Admin: 02/12/21 09:59 Dose: 4 mg Documented by: MICHAEL Pantoprazole Sodium (Pantoprazole 40 Mg Vial) 80 mg IV NOW ONE Stop: 02/12/21 09:48 Last Admin: 02/12/21 09:58 Dose: 80 mg Documented by: MICHAEL Vital Signs Vital signs: Vital Signs - 8 hr 02/12/21 09:47 02/12/21 09:48 02/12/21 10:00 Temperature 98.1 F Pulse Rate 90 92 H 88 Respiratory Rate 19 18 24 Blood Pressure 199/90 H Pulse Oximetry 99 99 97 02/12/21 10:15 02/12/21 10:30 02/12/21 10:45 Temperature Pulse Rate 86 80 84 Respiratory Rate 23 31 H 24 Blood Pressure 137/61 Pulse Oximetry 89 L 96 94 02/12/21 10:46 02/12/21 10:53 02/12/21 11:00 Temperature Pulse Rate 83 85 83 Respiratory Rate 22 36 H 18 Blood Pressure 95/55 L 144/72 H Pulse Oximetry 98 98 93 02/12/21 11:15 02/12/21 11:30 02/12/21 11:45 Temperature Pulse Rate 82 76 78 Respiratory Rate 22 22 24 Blood Pressure Pulse Oximetry 97 99 94 02/12/21 12:00 02/12/21 12:08 02/12/21 12:15 Temperature Pulse Rate 78 77 76 Respiratory Rate 21 18 20 Blood Pressure 137/79 145/81 H Pulse Oximetry 91 94 94 MDM - GI Bleed Lab Data Result diagrams: 02/12/21 12:30 02/12/21 09:50 Labs: Lab Results 02/12/21 02/12/21 02/12/21 Range/Units 09:50 09:50 09:50 WBC 13.5 H (4.5-11.0) X10^3/uL RBC 4.63 (4.0-5.2) X10^6/uL Hgb 13.1 (12.0-16.0) g/dL Hct 40.0 (36-46) % MCV 86.4 (80-100) fL MCH 28.2 (26-34) PG MCHC 32.6 (30-36) % RDW 13.3 (11.6-14.8) % Plt Count 283 (150-400) X10^3/uL Neut % (Auto) 83.0 H (50-75) % Lymph % (Auto) 11.4 L (25-40) % [place] % (Auto) 4.7 (3-14) % Eos % (Auto) 0.5 L (2-4) % Baso % (Auto) 0.4 (0-2) % Neut # (Auto) 86427 H (9537-4344) /uL Lymph # (Auto) 1500 (1313-1910) /uL [place] # (Auto) 600 (0-900) /uL Eos # (Auto) 100 (0-450) /uL Baso # (Auto) 100 (0-100) /uL PT (10.1-12.7) SECONDS INR (0.9-1.3) APTT (26.4-36.2) SECONDS Sodium 137 (137-145) mmol/L Potassium 4.1 (3.4-5.1) mmol/L Chloride 104 (98-107) mmol/L Carbon Dioxide 29 (22-32) mmol/L BUN 15 (7-17) mg/dL Creatinine 0.60 (0.52-1.04) mg/dL Estimated GFR > 60.0 (>60) mL/min BUN/Creatinine Ratio 25.0 H (6-22) Glucose 131 H (80-110) mg/dL Lactate (0.7-2.1) mmol/L Calcium 9.3 (8.4-10.2) mg/dL Total Bilirubin 0.7 (0.2-1.3) mg/dL AST 43 H (14-36) IU/L ALT 17 (<35) IU/L Alkaline Phosphatase 63 (38-126) U/L Total Protein 6.9 (6.3-8.2) g/dL Albumin 3.9 (3.5-5.0) g/dL Globulin 3.0 (1.7-4.1) g/dL Albumin/Globulin Ratio 1.3 (1.0-2.8) Lipase 83 (23-300) U/L SARS-CoV-2 (PCR) (Negative) Blood Type Antibody Screen Crossmatch 02/12/21 02/12/21 02/12/21 Range/Units 09:50 09:50 09:50 WBC (4.5-11.0) X10^3/uL RBC (4.0-5.2) X10^6/uL Hgb (12.0-16.0) g/dL Hct (36-46) % MCV (80-100) fL MCH (26-34) PG MCHC (30-36) % RDW (11.6-14.8) % Plt Count (150-400) X10^3/uL Neut % (Auto) (50-75) % Lymph % (Auto) (25-40) % [place] % (Auto) (3-14) % Eos % (Auto) (2-4) % Baso % (Auto) (0-2) % Neut # (Auto) (5097-0753) /uL Lymph # (Auto) (4877-4890) /uL [place] # (Auto) (0-900) /uL Eos # (Auto) (0-450) /uL Baso # (Auto) (0-100) /uL PT (10.1-12.7) SECONDS INR (0.9-1.3) APTT (26.4-36.2) SECONDS Sodium (137-145) mmol/L Potassium (3.4-5.1) mmol/L Chloride (98-107) mmol/L Carbon Dioxide (22-32) mmol/L BUN (7-17) mg/dL Creatinine (0.52-1.04) mg/dL Estimated GFR (>60) mL/min BUN/Creatinine Ratio (6-22) Glucose (80-110) mg/dL Lactate 1.6 (0.7-2.1) mmol/L Calcium (8.4-10.2) mg/dL Total Bilirubin (0.2-1.3) mg/dL AST (14-36) IU/L ALT (<35) IU/L Alkaline Phosphatase (38-126) U/L Total Protein (6.3-8.2) g/dL Albumin (3.5-5.0) g/dL Globulin (1.7-4.1) g/dL Albumin/Globulin Ratio (1.0-2.8) Lipase (23-300) U/L SARS-CoV-2 (PCR) Negative (Negative) Blood Type O Positive Antibody Screen Negative Crossmatch See Detail 02/12/21 Range/Units 10:29 WBC (4.5-11.0) X10^3/uL RBC (4.0-5.2) X10^6/uL Hgb (12.0-16.0) g/dL Hct (36-46) % MCV (80-100) fL MCH (26-34) PG MCHC (30-36) % RDW (11.6-14.8) % Plt Count (150-400) X10^3/uL Neut % (Auto) (50-75) % Lymph % (Auto) (25-40) % [place] % (Auto) (3-14) % Eos % (Auto) (2-4) % Baso % (Auto) (0-2) % Neut # (Auto) (5720-7499) /uL Lymph # (Auto) (2118-2500) /uL [place] # (Auto) (0-900) /uL Eos # (Auto) (0-450) /uL Baso # (Auto) (0-100) /uL PT 59.3 H (10.1-12.7) SECONDS INR 5.0 H* (0.9-1.3) APTT 74 H* D (26.4-36.2) SECONDS Sodium (137-145) mmol/L Potassium (3.4-5.1) mmol/L Chloride (98-107) mmol/L Carbon Dioxide (22-32) mmol/L BUN (7-17) mg/dL Creatinine (0.52-1.04) mg/dL Estimated GFR (>60) mL/min BUN/Creatinine Ratio (6-22) Glucose (80-110) mg/dL Lactate (0.7-2.1) mmol/L Calcium (8.4-10.2) mg/dL Total Bilirubin (0.2-1.3) mg/dL AST (14-36) IU/L ALT (<35) IU/L Alkaline Phosphatase (38-126) U/L Total Protein (6.3-8.2) g/dL Albumin (3.5-5.0) g/dL Globulin (1.7-4.1) g/dL Albumin/Globulin Ratio (1.0-2.8) Lipase (23-300) U/L SARS-CoV-2 (PCR) (Negative) Blood Type Antibody Screen Crossmatch [facility] Narrative Medical decision making narrative: Patient is actively vomiting bright red blood multiple times on Coumadin with an INR 5.0. Blood pressure remains stable although she has had a couple readings in the 90s however they immediately went back. She initially was given 1 bolus of octreotide foot after further chart review it does not appear that she has esophageal varices. Patient is emergently given Kcentra for concern for life-threatening bleed. She initially was against having a blood transfusion however after persistent hematemesis she is agreeable to a blood transfusion. She is having significant epigastric pain. Initially given fentanyl because of blood pressures however blood pressure is now seem a bit more stable and will give her something more. Blood pressures have stabilized. H&H did not have a significant drop. At this time can hold off transfusing blood. INR improved from 5.0-1.1 after Kcentra nausea vomiting also improved. Vomiting significantly improves. However patient was unable to lie flat due to vomiting central line was unable to be placed but patient was relatively stable,PICC person called for PICC line placement. 1049- Dr. Leary updated on patient's symptoms and test results agrees that patient can be admitted Dr. watkins updated patient's symptoms test results in surgery recommendations agrees with admission Patient is hemodynamically stable and will be going to the ICU for closer monitoring. Critical Care Time Critical Care Time Critical Care Time: Yes Total Critical Care Time: 60 Attestation: The high probability of a clinically significant, sudden or life threatening deterioration of the [cardiovascular] system(s) required my full and direct attention, intervention and personal management. The aggregate critical care time was 60 minutes. This time is in addition to time spent performing reported procedures but includes the following: [x] Data Review and interpretation [x] Patient assessment and monitoring of vital signs [x] Documentation [x] Medication orders and management Discharge Plan Departure Patient Disposition: Admitted As Inpatient Clinical Impression: Acute GI bleeding Admit Date/Time: 02/12/21 12:23 Admit Provider: Marcela Watkins
[2021-02-12] MEDS: PANTOPRAZOLE 40 MG VIAL 80 MG IV (09:58)
[2021-02-12] MEDS: ONDANSETRON 4 MG/2 ML INJ IV ×2 (09:59→20:09)
[2021-02-12] MEDS: OCTREOTIDE 100 MCG/ML VIAL 50 MCG IV (10:00)
[2021-02-12 10:02] LABS: Add Manual Diff / Slide Review NO; Basophils Absolute Auto 100 /uL (0-100); Basophils Percent Auto 0.4 % (0-2); Eosinophils Absolute Auto 100 /uL (0-450); Eosinophils Percent Auto 0.5 % (2-4); Hemoglobin 13.1 g/dL (12.0-16.0); Lymphocytes Absolute Auto 1500 /uL (1100-4500); Lymphocytes Percent Auto 11.4 % (25-40); Mean Corpuscular HGB Conc 32.6 % (30-36); Mean Corpuscular Hemoglobin 28.2 PG (26-34); Mean Corpuscular Volume 86.4 fL (80-100); Monocytes Absolute Auto 600 /uL (0-900); Monocytes Percent Auto 4.7 % (3-14); Neutrophils Absolute Auto 11200 /uL (1500-7000); Platelet Count 283 X10^3/uL (150-400); Red Blood Cell Count 4.63 X10^6/uL (4.0-5.2); Red Cell Distribution Width 13.3 % (11.6-14.8); White Blood Cell Count 13.5 X10^3/uL (4.5-11.0)
[2021-02-12 10:22] LABS: Alanine Aminotransferase 17 IU/L (<35); Albumin 3.9 g/dL (3.5-5.0); Albumin Globulin Ratio 1.3 (1.0-2.8); Alkaline Phosphatase 63 U/L (38-126); Aspartate Aminotransferase 43 IU/L (14-36); Bilirubin Total 0.7 mg/dL (0.2-1.3); Blood Urea Nitrogen 15 mg/dL (7-17); Calcium 9.3 mg/dL (8.4-10.2); Carbon Dioxide 29 mmol/L (22-32); Chloride 104 mmol/L (98-107); Estimated Glomerular Filt Rate > 60.0 mL/min (>60); Glucose 131 mg/dL (80-110); Potassium 4.1 mmol/L (3.4-5.1); Sodium 137 mmol/L (137-145); Total Protein 6.9 g/dL (6.3-8.2)
[2021-02-12 10:23] LABS: HEMOLYSIS 79 (0-50); Lactate (Lactic Acid) 1.6 mmol/L (0.7-2.1); Lipase 83 U/L (23-300)
[2021-02-12 10:38] LABS: Prothrombin Time 59.3 SECONDS (10.1-12.7)
[2021-02-12 10:42] LABS: PTT Partial Thromboplastin Tim 74 SECONDS (26.4-36.2)
[2021-02-12 10:55] LABS: COVID19 - ADMIT (NP swab/PCR) Negative (Negative)
[2021-02-12] MEDS: fentaNYL 100 MCG/2 ML INJ IV ×2 (11:14→13:07)
[2021-02-12] MEDS: PROTHROMBIN CPLX(PCC)4FACT 3,500 UNIT in ISOOSMOTIC VEHICLE 0 ML 692.69 ML IV (11:15)
[2021-02-12] MEDS: LORazepam 2 MG/ML INJ 0.5 MG IV (11:33)
--- NOTE | 2021-02-12 11:38 | PC.NURSE ---
Pt continues to have intermittent waves of nausea and hematemesis. She has lost approximately 600mls of dark red blood with clots.
[2021-02-12] MEDS: HYDROMORPHONE 0.5 MG INJ IV (11:48)
--- NOTE | 2021-02-12 12:16 | PC.NURSE ---
estimated loss till this time.
--- NOTE | 2021-02-12 12:48 | PC.NURSE ---
Rounded on this pt to assess her pain and emesis. She is deeply somnolent, sleeping peacefully and appears pain free. Wakes to verbal stimulus. She has not had emesis in some time. When asked, she does report pain, but states it is improved. PICC differential specialist at bedside to obtain further access. VS remain stable.
[2021-02-12 12:50] LABS: Hematocrit 37.4 % (36-46)
[2021-02-12 12:59] LABS: INR 1.1 (0.9-1.3); Prothrombin Time 12.5 SECONDS (10.1-12.7)
--- NOTE | 2021-02-12 13:36 | PC.NURSE ---
Report called to [facility], LIBRARY HELPER
--- NOTE | 2021-02-12 14:18 | PC.NURSE ---
Pt arrived to unit shortly before 1400, on gurney, a/o x4. C/o mid epigastric pain, 5/10 but increasing. Reports waves of nausea. Pt ambulated SBA with walker to restroom, voided. VSS on room air. Raman present at bedside. Discussed blood transfusions with patient who states she really does not want to receive one unless it is absolutely necessary. Pt has 18g IV to L AC, 20g to R AC, and double lumen PICC to right arm. Dr. Watkins notified of pt's arrival and is currently at bedside now.
--- NOTE | 2021-02-12 15:06 | PM.HP.1 ---
History of Present Illness History of Present Illness Chief complaint: Puking blood Narrative: The patient is a 65-year-old female with a history of gastric bypass, hypothyroidism, urinary incontinence, history of osteomyelitis, history of pulmonary emboli currently anticoagulated with Coumadin who was in her usual state of health until about a week ago. Patient reports she had ?the stomach flu. She described nausea vomiting diarrhea and abdominal pain. Her symptoms resolved. This morning she got up to and had breakfast with a half anguish month in in coffee. She developed immediate abdominal pain and began vomiting with significant vomiting of blood. The patient presented to the emergency room for evaluation. In the emergency room she was found to have an INR 5. Hemoglobin and Hematocrit was 13/40. The patient describes the pain as severe, middle of her abdomen, it radiates up to her chest and her back. The pain is severe. The patient denies any bright red blood per rectum. She has no dysuria hematuria or pyuria. She denies any shortness of breath or chest pain. She has no joint pains or rashes. The patient is a [employer]. She requested to be transfused only if necessary. She ultimately agreed at that she would take a blood transfusion if needed. Patient is admitted to the hospital at this time for inpatient treatment of upper GI bleed. Given the patient's elevated INR she will be given Kcentra in the emergency department and admitted to the hospital for further evaluation. She has been typed and crossed for [address] Leary from General surgery has been consulted. The patient was evaluated at [facility] in December 2019 for an upper GI bleed. Endoscopy at that time showed a no evidence of bleeding. She had no varices. And no identified source of bleeding was found. She underwent colonoscopy. The results of which showed diverticulosis but no source of bleeding. Patient History Medical History Anxiety Chronic pain Chronic sinus bradycardia Depression DVT (deep venous thrombosis) Former smoker GERD (gastroesophageal reflux disease) Hiatal hernia History of ETOH abuse Hospitalization or health care facility admission within last 6 months (12/14/19) HTN (hypertension) Hypoglycemia Hypothyroidism Insomnia Lactose intolerance SHANEKA (obstructive sleep apnea) Osteomyelitis PTSD (post-traumatic stress disorder) Pulmonary embolism (~1993) Surgical History History of arthroscopy of left shoulder History of arthroscopy of right shoulder History of carpal tunnel release of both wrists History of colonoscopy History of lumpectomy of left breast History of lumpectomy of right breast History of total left hip arthroplasty (11/08/15) Hx of appendectomy Hx of cholecystectomy Hx of hernia repair Hx of laminectomy (11/11/18) Hx of tubal ligation S/P gastroplasty Family & Social History Family History Father CAD (coronary artery disease) Mother CAD (coronary artery disease) Social History: household members spouse Prior Living Arrangements House Safety & Behavioral: Feels Safe in Current Yes Environment Been Physically Hurt or No Threatened By a Person Suicidal Ideation Description None Suicide Plan Description No Plan Tobacco & Substance use: Tobacco type cigarettes Smoking Status Former smoker alcohol intake former alcohol intake frequency holiday/special occasion Substance Use Type does not use Meds Home Medications and Allergies Home Medications Medication Instructions Recorded Confirmed Type warfarin 5 mg tablet (Jantoven) 5 mg PO QPM #30 01/28/16 02/12/21 Rx biotin 1 mg capsule 1,000 mcg/kg PO QDAY #0 07/28/17 02/12/21 History gabapentin 300 mg capsule 300 mg PO QD-BID PRN #0 07/28/17 02/12/21 History (Neurontin) oxybutynin chloride 5 mg tablet 5 mg PO QD-BID #0 07/28/17 02/12/21 History trazodone 100 mg tablet 100 mg PO HS PRN #0 07/28/17 02/12/21 History losartan 50 mg tablet 50 mg PO DAILY 10/23/19 02/12/21 History levothyroxine 200 mcg tablet 100 mcg PO DAILY 12/16/19 02/12/21 History ferrous sulfate 325 mg (65 mg 325 mg PO Q OTHER DAY 03/13/20 03/20/20 History iron) tablet folic acid 800 mcg tablet 0.8 mg PO DAILY 03/13/20 02/12/21 History hydroxyzine HCl 10 mg tablet 10 mg PO BEDTIME 03/13/20 02/12/21 History omeprazole 20 mg tablet,delayed 20 mg PO BID 03/13/20 02/12/21 History release sertraline 100 mg tablet 100 mg PO DAILY 03/13/20 02/12/21 History enoxaparin 40 mg/0.4 mL 40 mg SUBCUT DAILY #3 ml 03/21/20 Rx subcutaneous syringe (Lovenox) hydroxyzine pamoate 25 mg capsule 25 mg PO Q6HR PRN #30 cap 03/21/20 Rx prednisone 20 mg tablet 40 mg PO DAILY #10 tab 11/19/20 Rx Allergies Allergy/AdvReac Type Severity Reaction Status Date / Time morphine [MORPHINE] Allergy Severe Rash, N&V Verified 02/12/21 09:51 mussels [MUSSELS] Allergy Severe N&V Verified 02/12/21 09:51 latex [LATEX] Allergy Intermediate RASH, Verified 02/12/21 09:51 ITCHY, BLISTERS adhesive tape Allergy Mild Blister Verified 02/12/21 09:51 iodine [IODINE] Allergy Mild RASH Verified 02/12/21 09:51 Review of Systems Review of Systems Narrative: Ten point review of systems is negative Exam Vital Signs (past 8 hours): - 02/12/21 09:47 02/12/21 09:48 02/12/21 10:00 Temperature 98.1 F Pulse Rate 90 92 H 88 Respiratory Rate 19 18 24 Blood Pressure 199/90 H Pulse Oximetry 99 99 97 02/12/21 10:15 02/12/21 10:30 02/12/21 10:45 Temperature Pulse Rate 86 80 84 Respiratory Rate 23 31 H 24 Blood Pressure 137/61 Pulse Oximetry 89 L 96 94 02/12/21 10:46 02/12/21 10:53 02/12/21 11:00 Temperature Pulse Rate 83 85 83 Respiratory Rate 22 36 H 18 Blood Pressure 95/55 L 144/72 H Pulse Oximetry 98 98 93 02/12/21 11:15 02/12/21 11:30 02/12/21 11:45 Temperature Pulse Rate 82 76 78 Respiratory Rate 22 22 24 Blood Pressure Pulse Oximetry 97 99 94 02/12/21 12:00 02/12/21 12:08 02/12/21 12:15 Temperature Pulse Rate 78 77 76 Respiratory Rate 21 18 20 Blood Pressure 137/79 145/81 H Pulse Oximetry 91 94 94 02/12/21 12:30 02/12/21 12:45 02/12/21 12:46 Temperature Pulse Rate 69 75 81 Respiratory Rate 18 20 21 Blood Pressure 150/73 H 148/104 H Pulse Oximetry 95 98 98 02/12/21 13:00 02/12/21 13:15 02/12/21 13:30 Temperature Pulse Rate 78 84 67 Respiratory Rate 19 16 18 Blood Pressure 156/72 H 160/92 H 142/76 H Pulse Oximetry 98 95 96 02/12/21 13:42 02/12/21 13:45 02/12/21 14:00 Temperature 97.9 F Pulse Rate 77 75 Respiratory Rate 19 16 Blood Pressure 137/65 149/65 H Pulse Oximetry 93 100 Oxygen Delivery Method Room Air Narrative Exam Narrative: Ill-appearing female lying in bed complaining of abdominal pain HENMT Other: HEENT: Normocephalic atraumatic, extraocular muscles are intact, oropharynx is clear, neck is supple without adenopathy Resp Other: Lungs: Clear to auscultation Cardio Other: Cardiac exam: Regular rate and rhythm normal S1-S2 with a 2/6 systolic ejection murmur GI Other: Abdomen: Soft, tender in the midepigastric area, umbilical area is missing. The patient has a scab over the umbilicus. No exudates noted. She reports pain on palpation. There is no hepatosplenomegaly. No palpable masses. No board-like rigidity. Skin Other: Patient has chronic venous changes of the left lower extremity corresponding to prior history of osteomyelitis Neuro Other: Neuro exam is nonfocal Extrem Other: Extremities no edema Psych Other: No hallucinations noted Objective Labs Result Diagrams: 02/12/21 12:30 02/12/21 09:50 Labs: Laboratory Results - last 24 hr 02/12/21 02/12/21 02/12/21 09:50 09:50 09:50 WBC 13.5 H RBC 4.63 Hgb 13.1 Hct 40.0 MCV 86.4 MCH 28.2 MCHC 32.6 RDW 13.3 Plt Count 283 Neut % (Auto) 83.0 H Lymph % (Auto) 11.4 L [place] % (Auto) 4.7 Eos % (Auto) 0.5 L Baso % (Auto) 0.4 Neut # (Auto) 87387 H Lymph # (Auto) 1500 [place] # (Auto) 600 Eos # (Auto) 100 Baso # (Auto) 100 PT INR APTT Sodium 137 Potassium 4.1 Chloride 104 Carbon Dioxide 29 BUN 15 Creatinine 0.60 Estimated GFR > 60.0 BUN/Creatinine Ratio 25.0 H Glucose 131 H Lactate Calcium 9.3 Total Bilirubin 0.7 AST 43 H ALT 17 Alkaline Phosphatase 63 Total Protein 6.9 Albumin 3.9 Globulin 3.0 Albumin/Globulin Ratio 1.3 Lipase 83 SARS-CoV-2 (PCR) Blood Type Antibody Screen Crossmatch 02/12/21 02/12/21 02/12/21 09:50 09:50 09:50 WBC RBC Hgb Hct MCV MCH MCHC RDW Plt Count Neut % (Auto) Lymph % (Auto) [place] % (Auto) Eos % (Auto) Baso % (Auto) Neut # (Auto) Lymph # (Auto) [place] # (Auto) Eos # (Auto) Baso # (Auto) PT INR APTT Sodium Potassium Chloride Carbon Dioxide BUN Creatinine Estimated GFR BUN/Creatinine Ratio Glucose Lactate 1.6 Calcium Total Bilirubin AST ALT Alkaline Phosphatase Total Protein Albumin Globulin Albumin/Globulin Ratio Lipase SARS-CoV-2 (PCR) Negative Blood Type O Positive Antibody Screen Negative Crossmatch See Detail 02/12/21 02/12/21 02/12/21 10:29 12:30 12:30 WBC RBC Hgb 12.0 Hct 37.4 MCV MCH MCHC RDW Plt Count Neut % (Auto) Lymph % (Auto) [place] % (Auto) Eos % (Auto) Baso % (Auto) Neut # (Auto) Lymph # (Auto) [place] # (Auto) Eos # (Auto) Baso # (Auto) PT 59.3 H 12.5 D INR 5.0 H* 1.1 APTT 74 H* D Sodium Potassium Chloride Carbon Dioxide BUN Creatinine Estimated GFR BUN/Creatinine Ratio Glucose Lactate Calcium Total Bilirubin AST ALT Alkaline Phosphatase Total Protein Albumin Globulin Albumin/Globulin Ratio Lipase SARS-CoV-2 (PCR) Blood Type Antibody Screen Crossmatch Assessment & Plan Assessment & Plan narrative: 65-year-old female chronically and anticoagulated with Coumadin, for history of pulmonary emboli. INR markedly elevated at 5 earlier today, patient presented with hematemesis. The patient does have a prior history of upper GI bleeding although etiology is unclear. She also complains of significant abdominal pain. The patient has INR was reversed with Kcentra. Protime is 12.5 with an INR of 1.1. Her hemoglobin is 12 with a hematocrit of 37.4. -etiology of upper GI bleed unclear, question peptic ulcer disease, gastritis, AVMs -patient will be kept NPO, will start IV hydration -will check serial hemoglobin and hematocrit -will continue IV proton pump inhibitor -will transfuse for hemoglobin of less than 7 -Dr. Leary from General surgery consulted, anticipate upper endoscopy tomorrow History of Bilateral PE's -Coumadin on hold until after endoscopy, INR 1.1 Hypertension -Will hold antihypertensives for now -resume once bleeding controlled Hypothyroidsm -continue levothyroxine Weight Loss/concern for protein calorie malnutrition -dietary consult -patient has lost 50 pounds Code Status Patient wishes to be a full code, Her is her surrogate decision maker I have utilized all available methods to review, update, and confirm her current medications.
[2021-02-12] MEDS: METOCLOPRAMIDE 10 MG/2 ML INJ IV (15:31)
[2021-02-12 16:05] LABS: INR 1.3 (0.9-1.3)
[2021-02-12] MEDS: DEXTROSE 5%-0.9% NS 1,000 ML 100 ML IV ×2 (16:06→23:53)
[2021-02-12] MEDS: LACTATED RINGERS 1,000 ML 1000 ML IV (16:09)
[2021-02-12 16:26] LABS: Hematocrit 33.1 % (36-46); Hemoglobin 10.7 g/dL (12.0-16.0)
[2021-02-12 16:54] LABS: Mean Corpuscular HGB Conc 32.4 % (30-36); Mean Corpuscular Hemoglobin 28.2 PG (26-34); Platelet Count 264 X10^3/uL (150-400); Red Blood Cell Count 3.81 X10^6/uL (4.0-5.2); Red Cell Distribution Width 13.4 % (11.6-14.8)
[2021-02-12 17:07] LABS: BUN Creatinine Ratio 30.4 (6-22); Blood Urea Nitrogen 17 mg/dL (7-17); Calcium 8.8 mg/dL (8.4-10.2); Carbon Dioxide 29 mmol/L (22-32); Chloride 104 mmol/L (98-107); Estimated Glomerular Filt Rate > 60.0 mL/min (>60); Glucose 136 mg/dL (80-110); HEMOLYSIS < 15 (0-50); Potassium 4.5 mmol/L (3.4-5.1); Sodium 136 mmol/L (137-145)
--- NOTE | 2021-02-12 18:35 | PM.CN ---
History of Present Illness Consult details Date Patient Seen: 02/12/21 Time Patient Seen: 18:35 Chief complaint: Puking blood Narrative: 65-year-old female admitted to the hospital with acute GI bleed. Today she began throwing up bright red blood. No previous similar episodes. She has a history of a Jossie-en-Y gastric bypass and is anticoagulated with warfarin. Admission INR 5.0, HCT 31. She is a [employer] but agreed to receive Kcentra and 2 units of packed red blood cells. Repeat INR is 1.3. Blood pressure is been labile running systolic between 150 and high 80, no tachycardia. . Meds Home Medications and Allergies Home Medications Medication Instructions Recorded Confirmed Type warfarin 5 mg tablet (Jantoven) 5 mg PO QPM #30 01/28/16 02/12/21 Rx biotin 1 mg capsule 1,000 mcg/kg PO QDAY #0 07/28/17 02/12/21 History gabapentin 300 mg capsule 300 mg PO QD-BID PRN #0 07/28/17 02/12/21 History (Neurontin) oxybutynin chloride 5 mg tablet 5 mg PO QD-BID #0 07/28/17 02/12/21 History trazodone 100 mg tablet 100 mg PO HS PRN #0 07/28/17 02/12/21 History losartan 50 mg tablet 50 mg PO DAILY 10/23/19 02/12/21 History levothyroxine 200 mcg tablet 100 mcg PO DAILY 12/16/19 02/12/21 History ferrous sulfate 325 mg (65 mg 325 mg PO Q OTHER DAY 03/13/20 03/20/20 History iron) tablet folic acid 800 mcg tablet 0.8 mg PO DAILY 03/13/20 02/12/21 History hydroxyzine HCl 10 mg tablet 10 mg PO BEDTIME 03/13/20 02/12/21 History omeprazole 20 mg tablet,delayed 20 mg PO BID 03/13/20 02/12/21 History release sertraline 100 mg tablet 100 mg PO DAILY 03/13/20 02/12/21 History enoxaparin 40 mg/0.4 mL 40 mg SUBCUT DAILY #3 ml 03/21/20 Rx subcutaneous syringe (Lovenox) hydroxyzine pamoate 25 mg capsule 25 mg PO Q6HR PRN #30 cap 03/21/20 Rx prednisone 20 mg tablet 40 mg PO DAILY #10 tab 11/19/20 Rx Allergies Allergy/AdvReac Type Severity Reaction Status Date / Time morphine [MORPHINE] Allergy Severe Rash, N&V Verified 02/12/21 09:51 mussels [MUSSELS] Allergy Severe N&V Verified 02/12/21 09:51 latex [LATEX] Allergy Intermediate RASH, Verified 02/12/21 09:51 ITCHY, BLISTERS adhesive tape Allergy Mild Blister Verified 02/12/21 09:51 iodine [IODINE] Allergy Mild RASH Verified 02/12/21 09:51 Exam Vital Signs (past 8 hours): - 02/12/21 10:45 02/12/21 10:46 02/12/21 10:53 Temperature Pulse Rate 84 83 85 Respiratory Rate 24 22 36 H Blood Pressure 95/55 L 144/72 H Pulse Oximetry 94 98 98 02/12/21 11:00 02/12/21 11:15 02/12/21 11:30 Temperature Pulse Rate 83 82 76 Respiratory Rate 18 22 22 Blood Pressure Pulse Oximetry 93 97 99 02/12/21 11:45 02/12/21 12:00 02/12/21 12:08 Temperature Pulse Rate 78 78 77 Respiratory Rate 24 21 18 Blood Pressure 137/79 Pulse Oximetry 94 91 94 02/12/21 12:15 02/12/21 12:30 02/12/21 12:45 Temperature Pulse Rate 76 69 75 Respiratory Rate 20 18 20 Blood Pressure 145/81 H 150/73 H Pulse Oximetry 94 95 98 02/12/21 12:46 02/12/21 13:00 02/12/21 13:15 Temperature Pulse Rate 81 78 84 Respiratory Rate 21 19 16 Blood Pressure 148/104 H 156/72 H 160/92 H Pulse Oximetry 98 98 95 02/12/21 13:30 02/12/21 13:42 02/12/21 13:45 Temperature Pulse Rate 67 77 Respiratory Rate 18 19 Blood Pressure 142/76 H 137/65 Pulse Oximetry 96 93 02/12/21 14:00 02/12/21 14:07 02/12/21 14:15 Temperature 97.9 F Pulse Rate 75 68 75 Respiratory Rate 16 19 20 Blood Pressure 149/65 H Pulse Oximetry 100 98 97 02/12/21 14:30 02/12/21 14:45 02/12/21 15:00 Temperature Pulse Rate 78 69 72 Respiratory Rate 24 19 19 Blood Pressure Pulse Oximetry 96 94 95 02/12/21 15:15 02/12/21 15:18 02/12/21 15:21 Temperature Pulse Rate 73 81 73 Respiratory Rate 20 26 H 20 Blood Pressure 98/50 L 98/50 L Pulse Oximetry 93 98 93 02/12/21 15:30 02/12/21 15:45 02/12/21 16:00 Temperature Pulse Rate 90 72 64 Respiratory Rate 23 19 19 Blood Pressure 80/51 L Pulse Oximetry 97 97 98 02/12/21 16:04 02/12/21 16:15 02/12/21 16:30 Temperature Pulse Rate 75 84 65 Respiratory Rate 23 21 18 Blood Pressure 80/51 L Pulse Oximetry 96 98 97 02/12/21 16:45 02/12/21 17:00 02/12/21 17:15 Temperature Pulse Rate 62 61 87 Respiratory Rate 18 16 25 H Blood Pressure 84/48 L Pulse Oximetry 98 97 02/12/21 17:30 02/12/21 17:45 02/12/21 18:00 Temperature Pulse Rate 69 68 63 Respiratory Rate 20 17 16 Blood Pressure 87/54 L Pulse Oximetry 95 96 95 02/12/21 18:15 Temperature Pulse Rate 75 Respiratory Rate 17 Blood Pressure Pulse Oximetry 94 Oxygen Delivery Method Room Air Narrative Exam Narrative: Constitutional-She is oriented to person, place and time. No apparent distress Cardiovascular- regular rate, no peripheral edema Pulmonary-unlabored respiratory effort, no audible wheezing Abdominal-soft, non-tender, non-distended Musculoskeletal-no cyanosis or clubbing Neurological-nonfocal, normal strength throughout Skin-warm and dry Objective Labs Result Diagrams: 02/12/21 16:06 02/12/21 15:50 Labs: Laboratory Results - last 24 hr 02/12/21 02/12/21 02/12/21 09:50 09:50 09:50 WBC 13.5 H RBC 4.63 Hgb 13.1 Hct 40.0 MCV 86.4 MCH 28.2 MCHC 32.6 RDW 13.3 Plt Count 283 Neut % (Auto) 83.0 H Lymph % (Auto) 11.4 L [place] % (Auto) 4.7 Eos % (Auto) 0.5 L Baso % (Auto) 0.4 Neut # (Auto) 52974 H Lymph # (Auto) 1500 [place] # (Auto) 600 Eos # (Auto) 100 Baso # (Auto) 100 PT INR APTT Sodium 137 Potassium 4.1 Chloride 104 Carbon Dioxide 29 BUN 15 Creatinine 0.60 Estimated GFR > 60.0 BUN/Creatinine Ratio 25.0 H Glucose 131 H Lactate Calcium 9.3 Total Bilirubin 0.7 AST 43 H ALT 17 Alkaline Phosphatase 63 Total Protein 6.9 Albumin 3.9 Globulin 3.0 Albumin/Globulin Ratio 1.3 Lipase 83 Nasal Screen MRSA (PCR) SARS-CoV-2 (PCR) Blood Type Antibody Screen Crossmatch 02/12/21 02/12/21 02/12/21 09:50 09:50 09:50 WBC RBC Hgb Hct MCV MCH MCHC RDW Plt Count Neut % (Auto) Lymph % (Auto) [place] % (Auto) Eos % (Auto) Baso % (Auto) Neut # (Auto) Lymph # (Auto) [place] # (Auto) Eos # (Auto) Baso # (Auto) PT INR APTT Sodium Potassium Chloride Carbon Dioxide BUN Creatinine Estimated GFR BUN/Creatinine Ratio Glucose Lactate 1.6 Calcium Total Bilirubin AST ALT Alkaline Phosphatase Total Protein Albumin Globulin Albumin/Globulin Ratio Lipase Nasal Screen MRSA (PCR) SARS-CoV-2 (PCR) Negative Blood Type O Positive Antibody Screen Negative Crossmatch See Detail 02/12/21 02/12/21 02/12/21 10:29 12:30 12:30 WBC RBC Hgb 12.0 Hct 37.4 MCV MCH MCHC RDW Plt Count Neut % (Auto) Lymph % (Auto) [place] % (Auto) Eos % (Auto) Baso % (Auto) Neut # (Auto) Lymph # (Auto) [place] # (Auto) Eos # (Auto) Baso # (Auto) PT 59.3 H 12.5 D INR 5.0 H* 1.1 APTT 74 H* D Sodium Potassium Chloride Carbon Dioxide BUN Creatinine Estimated GFR BUN/Creatinine Ratio Glucose Lactate Calcium Total Bilirubin AST ALT Alkaline Phosphatase Total Protein Albumin Globulin Albumin/Globulin Ratio Lipase Nasal Screen MRSA (PCR) SARS-CoV-2 (PCR) Blood Type Antibody Screen Crossmatch 02/12/21 02/12/21 02/12/21 14:11 15:50 16:06 WBC RBC Hgb Hct MCV MCH MCHC RDW Plt Count Neut % (Auto) Lymph % (Auto) [place] % (Auto) Eos % (Auto) Baso % (Auto) Neut # (Auto) Lymph # (Auto) [place] # (Auto) Eos # (Auto) Baso # (Auto) PT 15.0 H INR 1.3 APTT Sodium 136 L Potassium 4.5 Chloride 104 Carbon Dioxide 29 BUN 17 Creatinine 0.56 Estimated GFR > 60.0 BUN/Creatinine Ratio 30.4 H Glucose 136 H Lactate Calcium 8.8 Total Bilirubin AST ALT Alkaline Phosphatase Total Protein Albumin Globulin Albumin/Globulin Ratio Lipase Nasal Screen MRSA (PCR) Negative for mrsa SARS-CoV-2 (PCR) Blood Type Antibody Screen Crossmatch 02/12/21 16:06 WBC 15.0 H RBC 3.81 L Hgb 10.7 L Hct 33.1 L MCV 87.0 MCH 28.2 MCHC 32.4 RDW 13.4 Plt Count 264 Neut % (Auto) Cancelled Lymph % (Auto) Cancelled [place] % (Auto) Cancelled Eos % (Auto) Cancelled Baso % (Auto) Cancelled Neut # (Auto) Cancelled Lymph # (Auto) Cancelled [place] # (Auto) Cancelled Eos # (Auto) Cancelled Baso # (Auto) Cancelled PT INR APTT Sodium Potassium Chloride Carbon Dioxide BUN Creatinine Estimated GFR BUN/Creatinine Ratio Glucose Lactate Calcium Total Bilirubin AST ALT Alkaline Phosphatase Total Protein Albumin Globulin Albumin/Globulin Ratio Lipase Nasal Screen MRSA (PCR) SARS-CoV-2 (PCR) Blood Type Antibody Screen Crossmatch Assessment & Plan Assessment & Plan narrative: 65-year-old female history of gastric bypass who is admitted to the hospital with an active upper GI bleed supratherapeutic INR now reversed. Recommended that we proceed with diagnostic and therapeutic esophagoduodenoscopy. Technical details of the procedure were discussed with the patient. Procedural risks including bleeding, infection, intestinal perforation perioperative complications were discussed. We will need to be performed with anesthesia for airway protection given her active hematemesis. Her questions have been answered and she is in agreement with this plan.
--- NOTE | 2021-02-12 19:51 | P.OP.ENDO_ITS ---
Operative Date/Time/Diagnoses Date of procedure: 02/12/21 Time of procedure: 19:51 Pre-op diagnosis: GI bleed Post-op diagnosis: same Procedure & Clinicians Study performed: Esophagoduodenoscopy Same procedure as scheduled: Yes Indications: Upper GI bleed Surgeon: King Leary Procedure Notes Procedure in detail: Patient is back to operating placed supine table. General anesthesia was induced she was with an endotracheal tube. Time-out was p erformed. The endoscope was inserted into the mouth and advanced down the esophagus. The stomach had a large blood clot within it. It is unclear to me what gastric surgery operation she had previously of did not look consistent with either vertical banded gastroplasty or Jossie en Y. At the gastro eneric anastamosis there was a marginal ulcer that was actively bleeding slowly, no visible vessel, it was controlled with a clip. The mucosa of the stomach and the small bowel was extremely friable but no further direct point of hemorrhage was identified. The upper intestinal tract was thourougly irrigated with several liters of saline carefully examining for any additional sources of hemorrhage. No significant hiatal hernia was identified. The GE junction was normal in appearance. No masses. The scope was withdrawn. Impression: upper gi bleed. Marginal ulcer Post-procedure Plan for aftercare: diet as tolerated. Continue Protonix. Wait at least 72 hrs before resuming anticoagulation Disposition: Acute Care
--- NOTE | 2021-02-12 20:16 | SUR.OPER ---
Report called to ICU nurse. Dr. Escobar in attendance for transport via stretcher with monitor to ICU. VSS during transport. Report given at bedside. Patient awake and alert. Able to transfer to bed.
--- NOTE | 2021-02-12 20:27 | PM.CN.EICU ---
History of Present Illness Consult details Chief complaint: Puking blood :: This patient was seen via real time interactive two-way audiovisual telecommunication. 65-year-old female with a history of gastric bypass, hypothyroidism, urinary incontinence, recurrent VTE/ pulmonary emboli, on Coumadin, admitted for abdominal pain and hematemesis in the sitting of coagulopathy with INR 5, received K centra, INR normalized, EGD done showed slowly bleeding marginal ulcer s/p clip. [facility] Medical History Anxiety Chronic pain Chronic sinus bradycardia Depression DVT (deep venous thrombosis) Former smoker GERD (gastroesophageal reflux disease) Hiatal hernia History of ETOH abuse Hospitalization or health care facility admission within last 6 months (12/14/19) HTN (hypertension) Hypoglycemia Hypothyroidism Insomnia Lactose intolerance SHANEKA (obstructive sleep apnea) Osteomyelitis PTSD (post-traumatic stress disorder) Pulmonary embolism (~1993) Surgical History History of arthroscopy of left shoulder History of arthroscopy of right shoulder History of carpal tunnel release of both wrists History of colonoscopy History of lumpectomy of left breast History of lumpectomy of right breast History of total left hip arthroplasty (11/08/15) Hx of appendectomy Hx of cholecystectomy Hx of hernia repair Hx of laminectomy (11/11/18) Hx of tubal ligation S/P gastroplasty Family History Father CAD (coronary artery disease) Mother CAD (coronary artery disease) Social History household members: spouse Smoking Status: Former smoker alcohol intake: former Current Medications Current Medications Medications: Home Medications warfarin 5 mg tablet (Jantoven) 5 mg PO QPM #30 01/28/16 [Rx Confirmed 02/12/21] biotin 1 mg capsule 1,000 mcg/kg PO QDAY #0 07/28/17 [History Confirmed 02/12/21] gabapentin 300 mg capsule (Neurontin) 300 mg PO QD-BID PRN #0 07/28/17 [History Confirmed 02/12/21] oxybutynin chloride 5 mg tablet 5 mg PO QD-BID #0 07/28/17 [History Confirmed 02/12/21] trazodone 100 mg tablet 100 mg PO HS PRN #0 07/28/17 [History Confirmed 02/12/21] losartan 50 mg tablet 50 mg PO DAILY 10/23/19 [History Confirmed 02/12/21] levothyroxine 200 mcg tablet 100 mcg PO DAILY 12/16/19 [History Confirmed 02/12/21] ferrous sulfate 325 mg (65 mg iron) tablet 325 mg PO Q OTHER DAY 03/13/20 [History Confirmed 03/20/20] folic acid 800 mcg tablet 0.8 mg PO DAILY 03/13/20 [History Confirmed 02/12/21] hydroxyzine HCl 10 mg tablet 10 mg PO BEDTIME 03/13/20 [History Confirmed 02/12/21] omeprazole 20 mg tablet,delayed release 20 mg PO BID 03/13/20 [History Confirmed 02/12/21] sertraline 100 mg tablet 100 mg PO DAILY 03/13/20 [History Confirmed 02/12/21] enoxaparin 40 mg/0.4 mL subcutaneous syringe (Lovenox) 40 mg SUBCUT DAILY #3 ml 03/21/20 [Rx] hydroxyzine pamoate 25 mg capsule 25 mg PO Q6HR PRN #30 cap 03/21/20 [Rx] prednisone 20 mg tablet 40 mg PO DAILY #10 tab 11/19/20 [Rx] Visit Medications (administered) Generic Name Dose Route Start Last Admin Trade Name Freq PRN Reason Stop Dose Admin Octreotide Acetate 500 mcg/ 101 mls @ 5.05 mls/hr 02/12/21 10:00 02/12/21 11:09 Sodium Chloride IV Not Given CONT LYDIA 25 MCG/HR Dextrose/Sodium Chloride 1,000 mls @ 100 mls/hr 02/12/21 15:00 02/12/21 16:06 Dextrose 5%-0.9% Ns IV 100 mls/hr CONT LYDIA Administration Metoclopramide HCl 10 mg 02/12/21 15:00 02/12/21 15:31 Metoclopramide 10 Mg/2 Ml Inj IV 10 mg Q6HR PRN Administration Nausea And Vomiting Ondansetron HCl 4 mg 02/12/21 19:15 02/12/21 20:09 Ondansetron 4 Mg/2 Ml Inj IV 4 mg NOW PRN Administration Nausea And Vomiting Exam Vital Signs (past 8 hours): - 02/12/21 12:30 02/12/21 12:45 02/12/21 12:46 Temperature Pulse Rate 69 75 81 Respiratory Rate 18 20 21 Blood Pressure 150/73 H 148/104 H Pulse Oximetry 95 98 98 02/12/21 13:00 02/12/21 13:15 02/12/21 13:30 Temperature Pulse Rate 78 84 67 Respiratory Rate 19 16 18 Blood Pressure 156/72 H 160/92 H 142/76 H Pulse Oximetry 98 95 96 02/12/21 13:42 02/12/21 13:45 02/12/21 14:00 Temperature 97.9 F Pulse Rate 77 75 Respiratory Rate 19 16 Blood Pressure 137/65 149/65 H Pulse Oximetry 93 100 02/12/21 14:07 02/12/21 14:15 02/12/21 14:30 Temperature Pulse Rate 68 75 78 Respiratory Rate 19 20 24 Blood Pressure Pulse Oximetry 98 97 96 02/12/21 14:45 02/12/21 15:00 02/12/21 15:15 Temperature Pulse Rate 69 72 73 Respiratory Rate 19 19 20 Blood Pressure Pulse Oximetry 94 95 93 02/12/21 15:18 02/12/21 15:21 02/12/21 15:30 Temperature Pulse Rate 81 73 90 Respiratory Rate 26 H 20 23 Blood Pressure 98/50 L 98/50 L Pulse Oximetry 98 93 97 02/12/21 15:45 02/12/21 16:00 02/12/21 16:04 Temperature Pulse Rate 72 64 75 Respiratory Rate 19 19 23 Blood Pressure 80/51 L 80/51 L Pulse Oximetry 97 98 96 02/12/21 16:15 02/12/21 16:30 02/12/21 16:45 Temperature Pulse Rate 84 65 62 Respiratory Rate 21 18 18 Blood Pressure Pulse Oximetry 98 97 98 02/12/21 17:00 02/12/21 17:15 02/12/21 17:30 Temperature Pulse Rate 61 87 69 Respiratory Rate 16 25 H 20 Blood Pressure 84/48 L Pulse Oximetry 97 95 02/12/21 17:45 02/12/21 18:00 02/12/21 18:15 Temperature Pulse Rate 68 63 75 Respiratory Rate 17 16 17 Blood Pressure 87/54 L Pulse Oximetry 96 95 94 02/12/21 18:30 02/12/21 18:37 02/12/21 18:45 Temperature Pulse Rate 68 69 67 Respiratory Rate 17 18 16 Blood Pressure 84/52 L Pulse Oximetry 94 93 93 02/12/21 20:06 02/12/21 20:08 Temperature Pulse Rate 51 L 78 Respiratory Rate 13 Blood Pressure 129/82 Pulse Oximetry 97 97 Oxygen Delivery Method Room Air Objective Labs Result Diagrams: 02/12/21 16:06 02/12/21 15:50 Labs: Laboratory Results - last 24 hr 02/12/21 02/12/21 02/12/21 09:50 09:50 09:50 WBC 13.5 H RBC 4.63 Hgb 13.1 Hct 40.0 MCV 86.4 MCH 28.2 MCHC 32.6 RDW 13.3 Plt Count 283 Neut % (Auto) 83.0 H Lymph % (Auto) 11.4 L [place] % (Auto) 4.7 Eos % (Auto) 0.5 L Baso % (Auto) 0.4 Neut # (Auto) 50071 H Lymph # (Auto) 1500 [place] # (Auto) 600 Eos # (Auto) 100 Baso # (Auto) 100 PT INR APTT Sodium 137 Potassium 4.1 Chloride 104 Carbon Dioxide 29 BUN 15 Creatinine 0.60 Estimated GFR > 60.0 BUN/Creatinine Ratio 25.0 H Glucose 131 H Lactate Calcium 9.3 Total Bilirubin 0.7 AST 43 H ALT 17 Alkaline Phosphatase 63 Total Protein 6.9 Albumin 3.9 Globulin 3.0 Albumin/Globulin Ratio 1.3 Lipase 83 Nasal Screen MRSA (PCR) SARS-CoV-2 (PCR) Blood Type Antibody Screen Crossmatch 02/12/21 02/12/21 02/12/21 09:50 09:50 09:50 WBC RBC Hgb Hct MCV MCH MCHC RDW Plt Count Neut % (Auto) Lymph % (Auto) [place] % (Auto) Eos % (Auto) Baso % (Auto) Neut # (Auto) Lymph # (Auto) [place] # (Auto) Eos # (Auto) Baso # (Auto) PT INR APTT Sodium Potassium Chloride Carbon Dioxide BUN Creatinine Estimated GFR BUN/Creatinine Ratio Glucose Lactate 1.6 Calcium Total Bilirubin AST ALT Alkaline Phosphatase Total Protein Albumin Globulin Albumin/Globulin Ratio Lipase Nasal Screen MRSA (PCR) SARS-CoV-2 (PCR) Negative Blood Type O Positive Antibody Screen Negative Crossmatch See Detail 02/12/21 02/12/21 02/12/21 10:29 12:30 12:30 WBC RBC Hgb 12.0 Hct 37.4 MCV MCH MCHC RDW Plt Count Neut % (Auto) Lymph % (Auto) [place] % (Auto) Eos % (Auto) Baso % (Auto) Neut # (Auto) Lymph # (Auto) [place] # (Auto) Eos # (Auto) Baso # (Auto) PT 59.3 H 12.5 D INR 5.0 H* 1.1 APTT 74 H* D Sodium Potassium Chloride Carbon Dioxide BUN Creatinine Estimated GFR BUN/Creatinine Ratio Glucose Lactate Calcium Total Bilirubin AST ALT Alkaline Phosphatase Total Protein Albumin Globulin Albumin/Globulin Ratio Lipase Nasal Screen MRSA (PCR) SARS-CoV-2 (PCR) Blood Type Antibody Screen Crossmatch 02/12/21 02/12/21 02/12/21 14:11 15:50 16:06 WBC RBC Hgb Hct MCV MCH MCHC RDW Plt Count Neut % (Auto) Lymph % (Auto) [place] % (Auto) Eos % (Auto) Baso % (Auto) Neut # (Auto) Lymph # (Auto) [place] # (Auto) Eos # (Auto) Baso # (Auto) PT 15.0 H INR 1.3 APTT Sodium 136 L Potassium 4.5 Chloride 104 Carbon Dioxide 29 BUN 17 Creatinine 0.56 Estimated GFR > 60.0 BUN/Creatinine Ratio 30.4 H Glucose 136 H Lactate Calcium 8.8 Total Bilirubin AST ALT Alkaline Phosphatase Total Protein Albumin Globulin Albumin/Globulin Ratio Lipase Nasal Screen MRSA (PCR) Negative for mrsa SARS-CoV-2 (PCR) Blood Type Antibody Screen Crossmatch 02/12/21 16:06 WBC 15.0 H RBC 3.81 L Hgb 10.7 L Hct 33.1 L MCV 87.0 MCH 28.2 MCHC 32.4 RDW 13.4 Plt Count 264 Neut % (Auto) Cancelled Lymph % (Auto) Cancelled [place] % (Auto) Cancelled Eos % (Auto) Cancelled Baso % (Auto) Cancelled Neut # (Auto) Cancelled Lymph # (Auto) Cancelled [place] # (Auto) Cancelled Eos # (Auto) Cancelled Baso # (Auto) Cancelled PT INR APTT Sodium Potassium Chloride Carbon Dioxide BUN Creatinine Estimated GFR BUN/Creatinine Ratio Glucose Lactate Calcium Total Bilirubin AST ALT Alkaline Phosphatase Total Protein Albumin Globulin Albumin/Globulin Ratio Lipase Nasal Screen MRSA (PCR) SARS-CoV-2 (PCR) Blood Type Antibody Screen Crossmatch Assessment & Plan Assessment & Plan narrative: 65-year-old female with a history of gastric bypass, hypothyroidism, urinary incontinence, recurrent VTE/ pulmonary emboli, on Coumadin, admitted for abdominal pain and hematemesis in the sitting of coagulopathy with INR 5, received K centra, INR normalized, EGD done showed slowly bleeding marginal ulcer Assessment: Acute UGI bleed/ marginal ulcer S/P clip Acute blood loss anemia Coagulopathy/ elevated INR H/o of recurrent VTE Rec: H&H repeat now IV PPI Consider IVC filter placement as she is at high risk of recurrent of VTE SCD Plan discussed with PACKAGING SUPERVISOR & RN Time Spent With Patient Critical Care time: I spent a total of [35] minutes of critical care time on this patient's care today; this time is exclusive of procedural time.
[2021-02-12] MEDS: SERTRALINE 50 MG TABLET 100 MG PO (21:08)
[2021-02-12] MEDS: PANTOPRAZOLE 40 MG VIAL IV (21:08)
[2021-02-12 21:28] LABS: Hemoglobin 10.1 g/dL (12.0-16.0)
--- NOTE | 2021-02-12 23:28 | PC.NURSE ---
At start of shift patients blood pressure soft, notified and ordered 1 L LR bolus to be given. Patient also complaining of nausea at this time, given PRN nausea medication. Patient taken for EGD at 1830, back up to unit around 1999, nauseous on arrival and given PRN nausea medication.
[2021-02-13] VITALS (10 sets, daily range): BP systolic 120–154; BP diastolic 57–71; PULSE 62–75; RESP 14–67; TEMP 36.5–36.8; O2SAT 92–98
[2021-02-13] MEDS: LEVOTHYROXINE 100 MCG TABLET PO (05:14)
[2021-02-13] MEDS: OXYBUTYNIN 5 MG TABLET PO (08:29)
[2021-02-13] MEDS: PANTOPRAZOLE 40 MG VIAL IV (08:30)
--- NOTE | 2021-02-13 11:30 | P.DS_ITS ---
History of Present Illness History of Present Illness Chief complaint: Puking blood Narrative: The patient is a 65-year-old female with a history of gastric bypass, hypothyroidism, urinary incontinence, history of osteomyelitis, history of pulmonary emboli currently anticoagulated with Coumadin who was in her usual state of health until about a week ago. Patient reports she had ?the stomach flu. She described nausea vomiting diarrhea and abdominal pain. Her symptoms resolved. This morning she got up to and had breakfast with a half anguish month in in coffee. She developed immediate abdominal pain and began vomiting with significant vomiting of blood. The patient presented to the emergency room for evaluation. In the emergency room she was found to have an INR 5. Hemoglobin and Hematocrit was 13/40. The patient describes the pain as severe, middle of her abdomen, it radiates up to her chest and her back. The pain is severe. The patient denies any bright red blood per rectum. She has no dysuria hematuria or pyuria. She denies any shortness of breath or chest pain. She has no joint pains or rashes. The patient is a [employer]. She requested to be transfused only if necessary. She ultimately agreed at that she would take a blood transfusion if needed. Patient is admitted to the hospital at this time for inpatient treatment of upper GI bleed. Given the patient's elevated INR she will be given Kcentra in the emergency department and admitted to the hospital for further evaluation. She has been typed and crossed for [address] Leary from General surgery has been consulted. The patient was evaluated at [facility] in December 2019 for an upper GI bleed. Endoscopy at that time showed a no evidence of bleeding. She had no varices. And no identified source of bleeding was found. She underwent colonoscopy. The results of which showed diverticulosis but no source of bleeding. Discharge Providers Provider Date of admission: 02/12/21 12:23 Discharge Date: 02/13/21 Primary care physician: Chandler Covarrubias MD Discharge provider: Marcela Watkins MD Summary Hospital Course Discharge Diagnosis: 1. Upper GI Bleed secondary to Marginal Ulcer/Over anticoagulation with coumadin 2. Obesity 3. History of PE previously on coumadin 4. hypertension 5. depression 6. hypothyroidism Hospital Course: Patient was admitted following an episode of hemetemsis. She was found to have an elevated INR of 5.0 and given Kcentra. Her Inr normalized to 1.1. Patient underwent upper endoscopy which revealed a marginal ulcer and had a surgical clip placed. She had her diet advanced and had no further abdominal pain or bleeding. Her H/H dropped to 10/31 but she did not require transfusion. She was markedly improved and deemed appropriate for discharge home. Patient was instructed not to resume coumadin for 3 days. She indicated she would not be resuming coumadin at all. She will follow up with her PCP, Dr. Chandler Covarrubias to discuss further this week. Patient was discharged in satisfactory condition. Status at Discharge Cognitive/behavioral status at discharge: oriented Functional status at discharge: independent ambulation Overall status at discharge: patient is back to baseline Exam Vital Signs (past 8 hours): - 02/13/21 07:57 02/13/21 08:00 Temperature 98.3 F Pulse Rate 67 Respiratory Rate 67 H Blood Pressure 135/62 Pulse Oximetry 98 95 Oxygen Delivery Method Room Air Oxygen Flow Rate 2 Narrative Exam Narrative: Pleasant female in no acute distress Resp Other: Lungs: decreased breath sounds with occassional scattered crackles Cardio Other: RRR nl Sl S2 2/6 TICO GI Other: Abd: soft/ non tender/ non distended Extrem Other: no edema Objective Labs Result Diagrams: 02/12/21 21:20 02/12/21 15:50 Labs: Laboratory Results - last 24 hr 02/12/21 02/12/21 02/12/21 12:30 12:30 14:11 WBC RBC Hgb 12.0 Hct 37.4 MCV MCH MCHC RDW Plt Count Neut % (Auto) Lymph % (Auto) [place] % (Auto) Eos % (Auto) Baso % (Auto) Neut # (Auto) Lymph # (Auto) [place] # (Auto) Eos # (Auto) Baso # (Auto) PT 12.5 D INR 1.1 Sodium Potassium Chloride Carbon Dioxide BUN Creatinine Estimated GFR BUN/Creatinine Ratio Glucose Calcium Nasal Screen MRSA (PCR) Negative for mrsa 02/12/21 02/12/21 02/12/21 15:50 16:06 16:06 WBC 15.0 H RBC 3.81 L Hgb 10.7 L Hct 33.1 L MCV 87.0 MCH 28.2 MCHC 32.4 RDW 13.4 Plt Count 264 Neut % (Auto) Cancelled Lymph % (Auto) Cancelled [place] % (Auto) Cancelled Eos % (Auto) Cancelled Baso % (Auto) Cancelled Neut # (Auto) Cancelled Lymph # (Auto) Cancelled [place] # (Auto) Cancelled Eos # (Auto) Cancelled Baso # (Auto) Cancelled PT 15.0 H INR 1.3 Sodium 136 L Potassium 4.5 Chloride 104 Carbon Dioxide 29 BUN 17 Creatinine 0.56 Estimated GFR > 60.0 BUN/Creatinine Ratio 30.4 H Glucose 136 H Calcium 8.8 Nasal Screen MRSA (PCR) 02/12/21 21:20 WBC RBC Hgb 10.1 L Hct 31.0 L MCV MCH MCHC RDW Plt Count Neut % (Auto) Lymph % (Auto) [place] % (Auto) Eos % (Auto) Baso % (Auto) Neut # (Auto) Lymph # (Auto) [place] # (Auto) Eos # (Auto) Baso # (Auto) PT INR Sodium Potassium Chloride Carbon Dioxide BUN Creatinine Estimated GFR BUN/Creatinine Ratio Glucose Calcium Nasal Screen MRSA (PCR) PFSH Medical History Anxiety Chronic pain Chronic sinus bradycardia Depression DVT (deep venous thrombosis) Former smoker GERD (gastroesophageal reflux disease) Hiatal hernia History of ETOH abuse Hospitalization or health care facility admission within last 6 months (12/14/19) HTN (hypertension) Hypoglycemia Hypothyroidism Insomnia Lactose intolerance SHANEKA (obstructive sleep apnea) Osteomyelitis PTSD (post-traumatic stress disorder) Pulmonary embolism (~1993) Surgical History History of arthroscopy of left shoulder History of arthroscopy of right shoulder History of carpal tunnel release of both wrists History of colonoscopy History of lumpectomy of left breast History of lumpectomy of right breast History of total left hip arthroplasty (11/08/15) Hx of appendectomy Hx of cholecystectomy Hx of hernia repair Hx of laminectomy (11/11/18) Hx of tubal ligation S/P gastroplasty Family History Father CAD (coronary artery disease) Mother CAD (coronary artery disease) Social History household members: spouse Smoking Status: Former smoker alcohol intake: former Discharge Assessment & Plan Assessment and Plan Assessment: 1. Upper GI Bleed secondary to marginal ulcer 2. Coumadin Toxicity, INR 5.0 on admission, reversed with KayCentra 3. Hypertension 4. Hypothryoidism 5. SHANEKA 6. History of PE/DVT previously on coumadin Plan of Treatment: Medications as prescribed F/U with Dr. Chandler Covarrubias one week do not resume anticoagulation for 3 days Discharge Plan Discharge Plan Patient Disposition: Home Discharge orders & Medications Prescriptions: New pantoprazole [Protonix] 40 mg tablet,delayed release (DR/EC) 40 mg PO BID 30 Days Qty: 60 RF: 0 Continued gabapentin [Neurontin] 300 MG capsule 300 mg PO QD-BID PRN (Reason: Nerve pain) Qty: 0 RF: 0 oxybutynin chloride 5 MG tablet 5 mg PO QD-BID Qty: 0 RF: 0 trazodone 100 MG tablet 100 mg PO HS PRN (Reason: Sleep) Qty: 0 RF: 0 biotin 1 mg capsule 1,000 mcg/kg PO QDAY Qty: 0 RF: 0 levothyroxine 200 mcg tablet 100 mcg PO DAILY RF: 0 losartan 50 mg tablet 50 mg PO DAILY RF: 0 sertraline 100 mg Tablet 100 mg PO DAILY RF: 0 hydroxyzine HCl 10 mg Tablet 10 mg PO BEDTIME RF: 0 folic acid 800 mcg Tablet 0.8 mg PO DAILY RF: 0 Discontinued warfarin [Jantoven] 5 MG tablet 5 mg PO QPM Qty: 30 RF: 0 omeprazole 20 mg Tablet,Delayed Release (Dr/Ec) 20 mg PO BID RF: 0 Follow up/Referrals: Chandler Covarrubias MD [Primary Care Provider] - Discharge Health Status Multidrug resistant organism: No MDRO Diet/Activity/Treatments Diet: Diet as Tolerated Visit Report/Discharge Packet Instructions: DI for Gastric Ulcer Discharge Data Primary Care Provider: Chandlre Covarrubias
--- NOTE | 2021-02-13 12:12 | CM.DANOTE ---
Discharge Planning/Care Management DCP: assessment: Case received, EMR reviewed, discussed in Team Rounds and met now with pt. A d/c order to home is in place. Pt is a 65 year old female who admitted yesterday to care of hospitalist team. Consulting: [facility]: Dr. Leary and ICU telehealth. Pt says she is relieved that she is doing well enough to go home today. Her is on his way to pick her up. Payer: [employer], Medicare A and B and for Life. PCP: Dr. Chandler Covarrubias Home today. CM Discharge Assessment Start: 02/13/21 12:10 Freq: Status: Active Protocol: Document 02/13/21 12:10 ITV (Rec: 02/13/21 12:12 ITV [id number]) Discharge Planning Assessment Advance Directives? No Advance Directives on File No History Provided By Patient,Medical Record Prior Living Arrangements House Household Members spouse Independent with ADL's Yes Is patient alert and oriented? Yes Discharge Plan Home Transportation Arrangement Family to provide transport. Whiteboard Updated in Patient Room with Yes name and ext. 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
== END 2021-02-13 12:56 | disposition home or self-care (01) | DRG 378 ==
LOC: ED 11:14 → ICU 12:25
PROVIDERS: Nurse Practitioner Family; Surgery; Admitting Provider Internal Medicine; Emergency Provider Emergency Medicine; PCP Internal Medicine; Referring Provider Emergency Medicine; Visit Provider Internal Medicine
PROC: 0DJ08ZZ Inspection of Upper Intestinal Tract, Via Natural or Artificial Opening Endoscopic (ICD-10-PCS; CPT 43235; principal; 2021-02-12 18:15)
DX: K28.4 Chronic or unspecified gastrojejunal ulcer with hemorrhage (principal); D62 Acute posthemorrhagic anemia; D68.32 Hemorrhagic disorder due to extrinsic circulating anticoagulants; T45.515A Adverse effect of anticoagulants, initial encounter; E03.9 Hypothyroidism, unspecified; I10 Essential (primary) hypertension; F32.9 Major depressive disorder, single episode, unspecified; Z87.891 Personal history of nicotine dependence; K21.9 Gastro-esophageal reflux disease without esophagitis; G89.29 Other chronic pain; R32 Unspecified urinary incontinence; Z20.822 Contact with and (suspected) exposure to COVID-19; Z98.84 Bariatric surgery status; Z86.711 Personal history of pulmonary embolism
CPT/HCPCS: 36415; 36569; 80048; 80053; 83605; 83690; 85014; 85018; 85025; 85027; 85610; 85730; 86850; 86900; 86901; 87635; 87797; 94762; 96365; 96375; 96376; 99284; 99291; C9803; C9113; J1170; J2060; J2354; J2405; J2765; J3010; J7168

== ENCOUNTER 2021-03-26 11:06 | Emergency (ER) | payer OTHER, MEDICARE, SELFPAY ==
[2021-02-12 14:07] VITALS: BMI 37.5
[2021-03-26] VITALS (8 sets, daily range): BP systolic 180–202; BP diastolic 86–97; PULSE 56–64; RESP 15–24; TEMP 36.6; O2SAT 94–100; BMI 37.2
--- NOTE | 2021-03-26 11:56 | DI.RAD.S_ITS ---
PROCEDURE: XR CHEST 2V INDICATIONS: Chest pain TECHNIQUE: 2 views of the chest were acquired. COMPARISON: [facility], , XR CHEST 2V, 05/25/2019, 11:10. FINDINGS: Surgical changes and devices: Partially visualized spinal stimulator leads. Lungs and pleura: Lungs are clear. No pleural effusions or pneumothorax. Mediastinum: Mediastinal contours are normal. Heart size is normal. Bones and chest wall: No suspicious bony abnormalities. Soft tissues appear unremarkable. IMPRESSION: No acute cardiopulmonary process demonstrated radiographically. Dictated by: Sam Pacheco M.D. on 03/26/2021 at 12:25 Approved by: Sam Pacheco M.D. on 03/26/2021 at 12:25
[2021-03-26 12:26] LABS: COVID19 -Nasal RAPID Negative (Negative)
[2021-03-26 12:35] LABS: Add Manual Diff / Slide Review NO; Basophils Absolute Auto 0 /uL (0-100); Basophils Percent Auto 0.7 % (0-2); Eosinophils Absolute Auto 100 /uL (0-450); Eosinophils Percent Auto 1.4 % (2-4); Hematocrit 35.9 % (36-46); Hemoglobin 11.7 g/dL (12.0-16.0); Lymphocytes Absolute Auto 2000 /uL (1100-4500); Lymphocytes Percent Auto 30.3 % (25-40); Mean Corpuscular HGB Conc 32.4 % (30-36); Mean Corpuscular Hemoglobin 26.9 PG (26-34); Monocytes Absolute Auto 500 /uL (0-900); Monocytes Percent Auto 7.1 % (3-14); Neutrophils Absolute Auto 4000 /uL (1500-7000); Neutrophils Percent Auto 60.5 % (50-75); Platelet Count 349 X10^3/uL (150-400); Red Blood Cell Count 4.33 X10^6/uL (4.0-5.2); Red Cell Distribution Width 13.9 % (11.6-14.8); White Blood Cell Count 6.7 X10^3/uL (4.5-11.0)
[2021-03-26 12:42] LABS: INR 1.2 (0.9-1.3); Prothrombin Time 13.4 SECONDS (10.1-12.7)
[2021-03-26 12:45] LABS: D Dimer 238 ng/mL (<230); PTT Partial Thromboplastin Tim 45 SECONDS (26.4-36.2)
[2021-03-26 12:47] LABS: Alanine Aminotransferase 16 IU/L (<35); Albumin 4.1 g/dL (3.5-5.0); Albumin Globulin Ratio 1.5 (1.0-2.8); Alkaline Phosphatase 91 U/L (38-126); Aspartate Aminotransferase 30 IU/L (14-36); BUN Creatinine Ratio 15.3 (6-22); Bilirubin Total 0.4 mg/dL (0.2-1.3); Blood Urea Nitrogen 11 mg/dL (7-17); Calcium 9.4 mg/dL (8.4-10.2); Carbon Dioxide 28 mmol/L (22-32); Chloride 106 mmol/L (98-107); Creatine Kinase 44 U/L (30-135); Estimated Glomerular Filt Rate > 60.0 mL/min (>60); Globulin 2.8 g/dL (1.7-4.1); Glucose 99 mg/dL (80-110); HEMOLYSIS < 15 (0-50); Lipase 106 U/L (23-300); Magnesium 1.9 mg/dL (1.6-2.3); Sodium 140 mmol/L (137-145); Total Protein 6.9 g/dL (6.3-8.2)
[2021-03-26 12:58] LABS: Troponin I < 0.012 ng/mL (0.01-0.034)
--- NOTE | 2021-03-26 13:08 | ED_ITS ---
HPI - Chest Pain <Marlin Monroy PA-C - Last Filed: 03/26/21 16:44> General Chief Complaint: Chest Pain Stated Complaint: pain from Upper left back to left arm Time Seen by Provider: 03/26/21 12:03 Source: patient Mode of arrival: Ambulatory Limitations: no limitations History of Present Illness HPI narrative: 66-year-old female with past medical history PE, hypertension, GI bleed presents to the ED with 5 days of left upper back pain that laterally wraps around to the left chest. Patient describes the pain as being sharp, exacerbated by breathing. Patient also endorses dyspnea on exertion, increased fatigue over the past couple days. Patient denies fever, chills, cough, nausea, vomiting, abdominal pain, dysuria, lightheadedness, dizziness, syncope. Patient currently takes Eliquis since the PE. Related Data Home Medications Medication Instructions Recorded Confirmed biotin 1 mg capsule 1,000 mcg/kg PO QDAY #0 07/28/17 02/12/21 gabapentin 300 mg capsule 300 mg PO QD-BID PRN #0 07/28/17 02/12/21 (Neurontin) oxybutynin chloride 5 mg tablet 5 mg PO QD-BID #0 07/28/17 02/12/21 trazodone 100 mg tablet 100 mg PO HS PRN #0 07/28/17 02/12/21 losartan 50 mg tablet 50 mg PO DAILY 10/23/19 02/12/21 levothyroxine 200 mcg tablet 100 mcg PO DAILY 12/16/19 02/12/21 folic acid 800 mcg tablet 0.8 mg PO DAILY 03/13/20 02/12/21 hydroxyzine HCl 10 mg tablet 10 mg PO BEDTIME 03/13/20 02/12/21 sertraline 100 mg tablet 100 mg PO DAILY 03/13/20 02/12/21 Allergies Allergy/AdvReac Type Severity Reaction Status Date / Time morphine [MORPHINE] Allergy Severe Rash, N&V Verified 03/26/21 11:50 mussels [MUSSELS] Allergy Severe N&V Verified 03/26/21 11:50 latex [LATEX] Allergy Intermediate RASH, Verified 03/26/21 11:50 ITCHY, BLISTERS adhesive tape Allergy Mild Blister Verified 03/26/21 11:50 iodine [IODINE] Allergy Mild RASH Verified 03/26/21 11:50 Review of Systems <Marlin Monroy PA-C - Last Filed: 03/26/21 16:44> Constitutional Constitutional: Denies chills, Denies fatigue, Denies fever(s), Denies frequent falls, Denies lethargy and Denies weakness Eyes Eyes: Denies change in vision, Denies eye discharge, Denies irritation and Denies loss of vision ENT Ears, Nose, Mouth, and Throat: Denies change in voice, Denies dizziness, Denies neck pain, Denies sore throat and Denies throat swelling Cardiovascular Cardiovascular: Denies chest pain, Denies irregular heart rhythm, Denies lightheadedness, Denies palpitations, Denies dyspnea, Denies dyspnea on exertion and Denies orthopnea Respiratory Respiratory: Denies cough, Denies dyspnea, Denies dyspnea on exertion and Denies wheezing Gastrointestinal Gastrointestinal: Denies abdominal pain, Denies change in bowel habits, Denies diarrhea, Denies nausea and Denies vomiting Musculoskeletal Musculoskeletal: Denies neck pain and Denies numbness Integumentary/Breasts Skin/Breast: Denies pruritus, Denies erythema, Denies rash and Denies wounds Neurologic Neurologic: Denies behavioral changes, Denies confusion, Denies dizziness, Denies frequent falls, Denies loss of vision, Denies numbness and Denies weakness Psychiatric Psychiatric: Denies anxiety, Denies behavioral changes, Denies confusion, Denies depression, Denies homicidal ideation and Denies suicidal ideation Endocrine Endocrine: Denies fatigue, Denies flushing and Denies palpitations Hematologic/Lymphatic Hematologic/Lymphatic: Denies easy bruising Allergic/Immunologic Allergic/Immunologic: Denies urticaria, Denies throat swelling and Denies wheezing Patient History <Marlin Monroy PA-C - Last Filed: 03/26/21 16:44> Medical History Anxiety Chronic pain Chronic sinus bradycardia Depression DVT (deep venous thrombosis) Former smoker GERD (gastroesophageal reflux disease) Hiatal hernia History of ETOH abuse Hospitalization or health care facility admission within last 6 months (12/14/19) HTN (hypertension) Hypoglycemia Hypothyroidism Insomnia Lactose intolerance SHANEKA (obstructive sleep apnea) Osteomyelitis PTSD (post-traumatic stress disorder) Pulmonary embolism (~1993) Surgical History History of arthroscopy of left shoulder History of arthroscopy of right shoulder History of carpal tunnel release of both wrists History of colonoscopy History of lumpectomy of left breast History of lumpectomy of right breast History of total left hip arthroplasty (11/08/15) Hx of appendectomy Hx of cholecystectomy Hx of hernia repair Hx of laminectomy (11/11/18) Hx of tubal ligation S/P gastroplasty Family History Father CAD (coronary artery disease) Mother CAD (coronary artery disease) Social History household members: spouse Smoking Status: Former smoker alcohol intake: former Smoking Status: Former smoker alcohol intake frequency: holidays/special occasions only Substance Use Type: does not use Exam <Marlin Monroy PA-C - Last Filed: 03/26/21 16:44> Initial Vital Signs Initial Vital Signs: Vital Signs Temperature 97.8 F 03/26/21 11:51 Pulse Rate 64 03/26/21 11:51 Respiratory Rate 18 03/26/21 11:51 Blood Pressure 202/91 H 03/26/21 11:51 Pulse Oximetry 98 03/26/21 11:51 Const General: cooperative HENMT Head: normocephalic and atraumatic Ears: external ears normal and TM's normal bilaterally Nose: external nose normal and No nasal discharge Face and sinus: sinuses nontender, face symmetric, no sinus tenderness and No dry mucous membranes Mouth: oral mucosae normal and moist mucous membranes Teeth and gingiva: dentition normal Throat: tonsils normal and uvula midline Eyes General: appearance normal, both eyes and all related structures Eyelids: eyelids normal Conjunctivae: conjunctivae normal Sclera: sclerae normal Pupils: PERRL EOM: EOM intact bilaterally Neck Neck: normal visual inspection, trachea midline, No lymphadenopathy, No midline deformity and No JVD Lymphatic: No lymphedema Chest Chest: normal inspection of the chest Resp Effort & Inspection: normal respiratory effort, able to speak in complete sen tences, no respiratory distress and no use of accessory muscles Auscultation: clear to auscultation bilaterally, no rales, no rhonchi and no wheezes Cardio Rate: regular rate Rhythm: regular rhythm Heart Sounds: no click, no gallops, no murmurs and no rubs Pulses: normal peripheral pulses GI Inspection: non-distended Palpation: soft, no hepatosplenomegaly, No guarding, No pulsatile mass and No tender Auscultation: normal bowel sounds Back/Spine/Pelvis Back: No CVA tenderness Cervical Spine: cervical ROM normal and No pain with cervical ROM Thoracic/Lumbar Spine: thoracic and lumbar spine normal to inspection Skin General: no rashes or lesions noted, No jaundice and No petechiae Neuro General: patient alert, patient oriented x3, gait normal and no focal motor deficits Speech: speech normal Extrem General: full ROM, no clubbing, cyanosis or edema, no pedal edema and no calf tenderness Psych Appearance: well kempt Mental Status: mental status grossly normal Attitude: cooperative Thought Content: normal and suicidality Judgment: judgment good <Robin Ramires DO - Last Filed: 03/26/21 16:59> Initial Vital Signs Initial Vital Signs: Vital Signs Temperature 97.8 F 03/26/21 11:51 Pulse Rate 64 03/26/21 11:51 Respiratory Rate 18 03/26/21 11:51 Blood Pressure 202/91 H 03/26/21 11:51 Pulse Oximetry 98 03/26/21 11:51 Course <Marlin Monroy PA-C - Last Filed: 03/26/21 16:44> Course Course Narrative: Labs within normal limits. Chest x-ray, EKG, CTA negative for acute findings. Patient's symptoms improved with Flexeril, Tylenol. Will discharge home with PCP follow-up and ED return precautions. Orders Ordered: ED Orders 03/26/21 11:55 EKG-12 Lead Stat 03/26/21 11:56 XR chest 2V Stat 03/26/21 12:00 COVID19 -Nasal swab/Pre-Proc Stat 03/26/21 12:28 Complete Blood Count AUTO DIFF Stat Comprehensive Metabolic Panel Stat D Dimer Stat Lipase Stat Magnesium Stat Partial Thromboplastin Time Stat Prothrombin Time INR Stat Troponin & CK Cardiac Panel Stat 03/26/21 12:37 EKG-12 Lead Routine 03/26/21 13:48 CT angio chest abdomen pelvis Stat Discontinued Medications Acetaminophen (Acetaminophen 325 Mg Tablet) 975 mg PO NOW ONE Stop: 03/26/21 13:10 Last Admin: 03/26/21 13:40 Dose: 975 mg Documented by: THEE Cyclobenzaprine HCl (Cyclobenzaprine 10 Mg Tablet) 10 mg PO NOW ONE Stop: 03/26/21 13:11 Last Admin: 03/26/21 13:40 Dose: 10 mg Documented by: THEE Diphenhydramine HCl (Diphenhydramine 50 Mg/Ml Vial) 50 mg IV NOW ONE Stop: 03/26/21 17:16 Diphenhydramine HCl (Diphenhydramine 50 Mg/Ml Vial) 50 mg IV NOW ONE Stop: 03/26/21 14:31 Last Admin: 03/26/21 14:46 Dose: 50 mg Documented by: THEE Hydrocortisone (Hydrocortisone 100 Mg/2 Ml Vial) 200 mg IV NOW ONE Stop: 03/26/21 14:13 Last Admin: 03/26/21 14:45 Dose: 200 mg Documented by: THEE Hydrocortisone (Hydrocortisone 100 Mg/2 Ml Vial) 200 mg IV NOW ONE Stop: 03/26/21 17:16 Vital Signs Vital signs: Vital Signs - 8 hr 03/26/21 11:51 03/26/21 12:20 03/26/21 12:30 Temperature 97.8 F Pulse Rate 64 59 L 59 L Respiratory Rate 18 15 24 Blood Pressure 202/91 H 195/96 H 196/95 H Pulse Oximetry 98 99 100 03/26/21 13:00 03/26/21 13:01 03/26/21 14:00 Temperature Pulse Rate 56 L 56 L 62 Respiratory Rate 22 24 20 Blood Pressure 180/86 H Pulse Oximetry 97 98 99 03/26/21 14:48 03/26/21 16:49 Temperature Pulse Rate 62 58 L Respiratory Rate 21 Blood Pressure 199/97 H 180/97 H Pulse Oximetry 99 94 <Robin Ramires DO - Last Filed: 03/26/21 16:59> Orders Ordered: ED Orders 03/26/21 11:55 EKG-12 Lead Stat 03/26/21 11:56 XR chest 2V Stat 03/26/21 12:00 COVID19 -Nasal swab/Pre-Proc Stat 03/26/21 12:28 Complete Blood Count AUTO DIFF Stat Comprehensive Metabolic Panel Stat D Dimer Stat Lipase Stat Magnesium Stat Partial Thromboplastin Time Stat Prothrombin Time INR Stat Troponin & CK Cardiac Panel Stat 03/26/21 12:37 EKG-12 Lead Routine 03/26/21 13:48 CT angio chest abdomen pelvis Stat Discontinued Medications Acetaminophen (Acetaminophen 325 Mg Tablet) 975 mg PO NOW ONE Stop: 03/26/21 13:10 Last Admin: 03/26/21 13:40 Dose: 975 mg Documented by: THEE Cyclobenzaprine HCl (Cyclobenzaprine 10 Mg Tablet) 10 mg PO NOW ONE Stop: 03/26/21 13:11 Last Admin: 03/26/21 13:40 Dose: 10 mg Documented by: THEE Diphenhydramine HCl (Diphenhydramine 50 Mg/Ml Vial) 50 mg IV NOW ONE Stop: 03/26/21 17:16 Diphenhydramine HCl (Diphenhydramine 50 Mg/Ml Vial) 50 mg IV NOW ONE Stop: 03/26/21 14:31 Last Admin: 03/26/21 14:46 Dose: 50 mg Documented by: THEE Hydrocortisone (Hydrocortisone 100 Mg/2 Ml Vial) 200 mg IV NOW ONE Stop: 03/26/21 14:13 Last Admin: 03/26/21 14:45 Dose: 200 mg Documented by: THEE Hydrocortisone (Hydrocortisone 100 Mg/2 Ml Vial) 200 mg IV NOW ONE Stop: 03/26/21 17:16 Vital Signs Vital signs: Vital Signs - 8 hr 03/26/21 11:51 03/26/21 12:20 03/26/21 12:30 Temperature 97.8 F Pulse Rate 64 59 L 59 L Respiratory Rate 18 15 24 Blood Pressure 202/91 H 195/96 H 196/95 H Pulse Oximetry 98 99 100 03/26/21 13:00 03/26/21 13:01 03/26/21 14:00 Temperature Pulse Rate 56 L 56 L 62 Respiratory Rate 22 24 20 Blood Pressure 180/86 H Pulse Oximetry 97 98 99 03/26/21 14:48 03/26/21 16:49 Temperature Pulse Rate 62 58 L Respiratory Rate 21 Blood Pressure 199/97 H 180/97 H Pulse Oximetry 99 94 MDM - Chest Pain <Marlin Monroy PA-C - Last Filed: 03/26/21 16:44> Lab Data Lab results narrative: Labs within normal limit Result diagrams: 03/26/21 12:28 03/26/21 12:28 Labs: Lab Results 03/26/21 03/26/21 03/26/21 Range/Units 12:00 12:28 12:28 WBC 6.7 (4.5-11.0) X10^3/uL RBC 4.33 (4.0-5.2) X10^6/uL Hgb 11.7 L (12.0-16.0) g/dL Hct 35.9 L (36-46) % MCV 83.0 (80-100) fL MCH 26.9 (26-34) PG MCHC 32.4 (30-36) % RDW 13.9 (11.6-14.8) % Plt Count 349 (150-400) X10^3/uL Neut % (Auto) 60.5 (50-75) % Lymph % (Auto) 30.3 (25-40) % [place] % (Auto) 7.1 (3-14) % Eos % (Auto) 1.4 L (2-4) % Baso % (Auto) 0.7 (0-2) % Neut # (Auto) 4000 (7245-7000) /uL Lymph # (Auto) 2000 (8555-5363) /uL [place] # (Auto) 500 (0-900) /uL Eos # (Auto) 100 (0-450) /uL Baso # (Auto) 0 (0-100) /uL PT (10.1-12.7) SECONDS INR (0.9-1.3) APTT (26.4-36.2) SECONDS D-Dimer (<230) ng/mL Sodium 140 (137-145) mmol/L Potassium 4.0 (3.4-5.1) mmol/L Chloride 106 (98-107) mmol/L Carbon Dioxide 28 (22-32) mmol/L BUN 11 (7-17) mg/dL Creatinine 0.72 (0.52-1.04) mg/dL Estimated GFR > 60.0 (>60) mL/min BUN/Creatinine Ratio 15.3 (6-22) Glucose 99 (80-110) mg/dL Calcium 9.4 (8.4-10.2) mg/dL Magnesium 1.9 (1.6-2.3) mg/dL Total Bilirubin 0.4 (0.2-1.3) mg/dL AST 30 (14-36) IU/L ALT 16 (<35) IU/L Alkaline Phosphatase 91 (38-126) U/L Total Creatine Kinase 44 (30-135) U/L CK-MB (CK-2) TNP CK-MB (CK-2) Rel Index TNP Troponin I < 0.012 (0.01-0.034) ng/mL Total Protein 6.9 (6.3-8.2) g/dL Albumin 4.1 (3.5-5.0) g/dL Globulin 2.8 (1.7-4.1) g/dL Albumin/Globulin Ratio 1.5 (1.0-2.8) Lipase 106 (23-300) U/L SARS-CoV-2 (PCR) Negative (Negative) 03/26/21 03/26/21 03/26/21 Range/Units 12:28 12:28 12:28 WBC (4.5-11.0) X10^3/uL RBC (4.0-5.2) X10^6/uL Hgb (12.0-16.0) g/dL Hct (36-46) % MCV (80-100) fL MCH (26-34) PG MCHC (30-36) % RDW (11.6-14.8) % Plt Count (150-400) X10^3/uL Neut % (Auto) (50-75) % Lymph % (Auto) (25-40) % [place] % (Auto) (3-14) % Eos % (Auto) (2-4) % Baso % (Auto) (0-2) % Neut # (Auto) (5569-3943) /uL Lymph # (Auto) (6106-5401) /uL [place] # (Auto) (0-900) /uL Eos # (Auto) (0-450) /uL Baso # (Auto) (0-100) /uL PT 13.4 H (10.1-12.7) SECONDS INR 1.2 (0.9-1.3) APTT 45 H D (26.4-36.2) SECONDS D-Dimer 238 H Cancelled (<230) ng/mL Sodium (137-145) mmol/L Potassium (3.4-5.1) mmol/L Chloride (98-107) mmol/L Carbon Dioxide (22-32) mmol/L BUN (7-17) mg/dL Creatinine (0.52-1.04) mg/dL Estimated GFR (>60) mL/min BUN/Creatinine Ratio (6-22) Glucose (80-110) mg/dL Calcium (8.4-10.2) mg/dL Magnesium Cancelled (1.6-2.3) mg/dL Total Bilirubin (0.2-1.3) mg/dL AST (14-36) IU/L ALT (<35) IU/L Alkaline Phosphatase (38-126) U/L Total Creatine Kinase (30-135) U/L CK-MB (CK-2) CK-MB (CK-2) Rel Index Troponin I (0.01-0.034) ng/mL Total Protein (6.3-8.2) g/dL Albumin (3.5-5.0) g/dL Globulin (1.7-4.1) g/dL Albumin/Globulin Ratio (1.0-2.8) Lipase (23-300) U/L SARS-CoV-2 (PCR) (Negative) Imaging Data Chest x-ray: Radiologist's Impression: PROCEDURE:? XR CHEST 2V ? INDICATIONS:? Chest pain ? TECHNIQUE:? 2 views of the chest were acquired.? ? COMPARISON:? Merged With [facility], , XR CHEST 2V, 05/25/2019, 11:10. ? FINDINGS:? ? Surgical changes and devices:? Partially visualized spinal stimulator leads. ? Lungs and pleura:? Lungs are clear.? No pleural effusions or pneumothorax.? ? Mediastinum:? Mediastinal contours are normal.? Heart size is normal.? ? Bones and chest wall:? No suspicious bony abnormalities.? Soft tissues appear unremarkable.? ? IMPRESSION:? No acute cardiopulmonary process demonstrated radiographically. ? ? Dictated by: Sam Pacheco M.D. on 03/26/2021 at 12:25 ? ? Approved by: Sam Pacheco M.D. on 03/26/2021 at 12:25 ? CTA: Radiologist's Impression: PROCEDURE:? CT ANGIO CHEST ABDOMEN PELVIS ? INDICATIONS:? L upper back pain, chest pain ? TECHNIQUE:? Precontrast 5 mm thick sections acquired from the lung apices to the iliac crests.? After the administration of intravenous contrast, 2.5 mm thick sections again acquired from the lung apices to the iliac crests.? Maximum intensity projection (MIP) oblique sagittal and coronal reformats were then acquired.? For radiation dose reduction, the following was used:? automated exposure control.? ? COMPARISON:? Merged With [facility], CR, XR CHEST 2V, 03/26/2021, 11:55. ? FINDINGS:? Image quality:? There is metallic streak artifact from patient's left hip prosthesis and left gluteal implanted neurostimulator device. ? AORTA:? Noncontrast images demonstrate no evidence of and intramural hematoma.? Postcontrast images demonstrate no intimal flaps to suggest aortic dissection.? The aorta is normal in caliber and contour.? There is conventional branching of the aortic arch.? The visualized great vessels are normal in caliber and appear widely patent.? There is mild scattered atherosclerotic plaque along the aorta. ? CHEST:? Lungs and pleura:? There is mild dependent atelectasis bilaterally.? No acute consolidation.? No pleural effusions or pneumothorax.? Central and peripheral airways are patent and normal in caliber.? ? Mediastinum:? Heart size is normal.? No pericardial effusion.? No mediastinal or hilar adenopathy by size criteria.? Central pulmonary arteries are mildly enlarged, with the main pulmonary artery measuring up to 3.1 cm suggestive of pulmonary arterial hypertension.? No filling defects are identified to suggest central pulmonary embolism to the level of the segmental pulmonary arteries.? Esophagus is normal in caliber.? There is a small to moderate-sized hiatal hernia.? ? Bones and chest wall:? No axillary adenopathy by size criteria.? No suspicious bony lesions.? No vertebral body compression fractures.? ? ? ABDOMEN:? Vasculature:? The celiac, superior mesenteric, and inferior mesenteric arteries appear patent.? There is a small accessory right renal artery supplying the inferior pole of the right kidney.? There is a single left renal artery.? Prominent calcified plaque is demonstrated in the proximal left renal artery at its origin with associated moderate focal narrowing.? The common, external, and internal iliac arteries appear widely patent bilaterally.? The common femoral and visualized superficial femoral arteries also appear patent bilaterally. ? Solid organs:? There is hypoattenuation of the liver suggestive of fatty infiltration.? The gallbladder is surgically absent.? Biliary system is non-dilated.? Pancreas enhances normally.? No peripancreatic fat stranding or fluid collections.? No pancreatic duct dilatation.? The spleen is normal in size.? No adrenal nodules.? Kidneys demonstrate no hydronephrosis. ? Peritoneum and bowel:? No free fluid or air.? There are postsurgical changes consistent with prior gastric bypass.? Bowel loops are normal in caliber and wall thickness.? Surgical clips are demonstrated adjacent to the cecum compatible with prior appendectomy. ?There are few colonic diverticula without acute diverticulitis.? ? Nodes and vessels:? No retroperitoneal or mesenteric adenopathy by size criteria.? Inferior vena cava is normal in morphology.? ? Miscellaneous:? No ventral hernias.? ? ? PELVIS:? Genitourinary:? Bladder wall thickness is normal.? ? Miscellaneous:? There is a left gluteal implanted neurostimulator device with in the epidural lead extending superiorly in the lumbar spinal canal up to the level of T11.? No inguinal hernias or adenopathy.? No ventral hernias.? ? Bones:? No suspicious bony lesions.? No vertebral body compression fractures.? ? ? IMPRESSION:? ? 1. No evidence of aortic dissection. ? 2. No central pulmonary embolism to the level of the segmental pulmonary arteries. ? 3. No acute consolidation in the lungs. ? 4. Moderate narrowing at the origin of the left renal artery.? ? ? Dictated by: Raman Mendoza M.D. on 03/26/2021 at 15:48 ? ? Approved by: Raman Mendoza M.D. on 03/26/2021 at 16:10 ? ECG Data Interpretation: Sinus bradycardia with sinus arrhythmia. No ST-T changes. MDM Narrative Medical decision making narrative: 66-year-old female with past medical history PE, hypertension, GI bleed presents to the ED with 5 days of left upper back pain that laterally wraps around to the left chest. Concern for PE versus ACS versus aortic dissection versus pneumonia versus musculoskeletal pain Will order labs, troponin, chest x-ray, EKG, CTA. Will give Tylenol, Flexeril for symptoms. Will reassess. <Robin Ramires, - Last Filed: 03/26/21 16:59> Lab Data Labs: Lab Results 03/26/21 03/26/21 03/26/21 Range/Units 12:00 12:28 12:28 WBC 6.7 (4.5-11.0) X10^3/uL RBC 4.33 (4.0-5.2) X10^6/uL Hgb 11.7 L (12.0-16.0) g/dL Hct 35.9 L (36-46) % MCV 83.0 (80-100) fL MCH 26.9 (26-34) PG MCHC 32.4 (30-36) % RDW 13.9 (11.6-14.8) % Plt Count 349 (150-400) X10^3/uL Neut % (Auto) 60.5 (50-75) % Lymph % (Auto) 30.3 (25-40) % [place] % (Auto) 7.1 (3-14) % Eos % (Auto) 1.4 L (2-4) % Baso % (Auto) 0.7 (0-2) % Neut # (Auto) 4000 (5605-6009) /uL Lymph # (Auto) 2000 (3941-1094) /uL [place] # (Auto) 500 (0-900) /uL Eos # (Auto) 100 (0-450) /uL Baso # (Auto) 0 (0-100) /uL PT (10.1-12.7) SECONDS INR (0.9-1.3) APTT (26.4-36.2) SECONDS D-Dimer (<230) ng/mL Sodium 140 (137-145) mmol/L Potassium 4.0 (3.4-5.1) mmol/L Chloride 106 (98-107) mmol/L Carbon Dioxide 28 (22-32) mmol/L BUN 11 (7-17) mg/dL Creatinine 0.72 (0.52-1.04) mg/dL Estimated GFR > 60.0 (>60) mL/min BUN/Creatinine Ratio 15.3 (6-22) Glucose 99 (80-110) mg/dL Calcium 9.4 (8.4-10.2) mg/dL Magnesium 1.9 (1.6-2.3) mg/dL Total Bilirubin 0.4 (0.2-1.3) mg/dL AST 30 (14-36) IU/L ALT 16 (<35) IU/L Alkaline Phosphatase 91 (38-126) U/L Total Creatine Kinase 44 (30-135) U/L CK-MB (CK-2) TNP CK-MB (CK-2) Rel Index TNP Troponin I < 0.012 (0.01-0.034) ng/mL Total Protein 6.9 (6.3-8.2) g/dL Albumin 4.1 (3.5-5.0) g/dL Globulin 2.8 (1.7-4.1) g/dL Albumin/Globulin Ratio 1.5 (1.0-2.8) Lipase 106 (23-300) U/L SARS-CoV-2 (PCR) Negative (Negative) 03/26/21 03/26/21 03/26/21 Range/Units 12:28 12:28 12:28 WBC (4.5-11.0) X10^3/uL RBC (4.0-5.2) X10^6/uL Hgb (12.0-16.0) g/dL Hct (36-46) % MCV (80-100) fL MCH (26-34) PG MCHC (30-36) % RDW (11.6-14.8) % Plt Count (150-400) X10^3/uL Neut % (Auto) (50-75) % Lymph % (Auto) (25-40) % [place] % (Auto) (3-14) % Eos % (Auto) (2-4) % Baso % (Auto) (0-2) % Neut # (Auto) (0639-8381) /uL Lymph # (Auto) (8055-9251) /uL [place] # (Auto) (0-900) /uL Eos # (Auto) (0-450) /uL Baso # (Auto) (0-100) /uL PT 13.4 H (10.1-12.7) SECONDS INR 1.2 (0.9-1.3) APTT 45 H D (26.4-36.2) SECONDS D-Dimer 238 H Cancelled (<230) ng/mL Sodium (137-145) mmol/L Potassium (3.4-5.1) mmol/L Chloride (98-107) mmol/L Carbon Dioxide (22-32) mmol/L BUN (7-17) mg/dL Creatinine (0.52-1.04) mg/dL Estimated GFR (>60) mL/min BUN/Creatinine Ratio (6-22) Glucose (80-110) mg/dL Calcium (8.4-10.2) mg/dL Magnesium Cancelled (1.6-2.3) mg/dL Total Bilirubin (0.2-1.3) mg/dL AST (14-36) IU/L ALT (<35) IU/L Alkaline Phosphatase (38-126) U/L Total Creatine Kinase (30-135) U/L CK-MB (CK-2) CK-MB (CK-2) Rel Index Troponin I (0.01-0.034) ng/mL Total Protein (6.3-8.2) g/dL Albumin (3.5-5.0) g/dL Globulin (1.7-4.1) g/dL Albumin/Globulin Ratio (1.0-2.8) Lipase (23-300) U/L SARS-CoV-2 (PCR) (Negative) Discharge Plan Departure Patient Disposition: Home Clinical Impression: Back pain Qualifiers: Back pain location: thoracic back pain Chronicity: acute Back pain laterality: left Qualified Code(s): M54.6 - Pain in thoracic spine Instructions: Thoracic Back Pain Activity Restrictions/Additional Instructions: You were evaluated in the ED today for left-sided upper back pain. Your labs, chest x-ray, EKG, CT angiogram were normal. Your symptoms are likely of musculoskeletal origin, due to a musculoskeletal sprain or strain. You can take Tylenol or ibuprofen for your symptoms. Return to the ED if you have worsening symptoms, shortness of breath, chest pain. Prescriptions: No Action gabapentin [Neurontin] 300 MG capsule 300 mg PO QD-BID PRN (Reason: Nerve pain) Qty: 0 RF: 0 oxybutynin chloride 5 MG tablet 5 mg PO QD-BID Qty: 0 RF: 0 trazodone 100 MG tablet 100 mg PO HS PRN (Reason: Sleep) Qty: 0 RF: 0 biotin 1 mg capsule 1,000 mcg/kg PO QDAY Qty: 0 RF: 0 levothyroxine 200 mcg tablet 100 mcg PO DAILY RF: 0 losartan 50 mg tablet 50 mg PO DAILY RF: 0 sertraline 100 mg Tablet 100 mg PO DAILY RF: 0 hydroxyzine HCl 10 mg Tablet 10 mg PO BEDTIME RF: 0 folic acid 800 mcg Tablet 0.8 mg PO DAILY RF: 0 Referrals: Chandler Covarrubias MD [Primary Care Provider] - <Robin Ramires DO - Last Filed: 03/26/21 16:59> Cosign ED Attending Cosignature Attestation: Dr Ramires Co-Sign Statement: I was available for consultation during this patient's emergency department visit. This chart is signed by myself for administrative purposes only. I did not have direct contact with this patient during this visit. They were seen independently by the APC.
[2021-03-26] MEDS: CYCLOBENZAPRINE 10 MG TABLET PO (13:40)
[2021-03-26] MEDS: ACETAMINOPHEN 325 MG TABLET 975 MG PO (13:40)
--- NOTE | 2021-03-26 13:48 | DI.CT.S_ITS ---
PROCEDURE: CT ANGIO CHEST ABDOMEN PELVIS INDICATIONS: L upper back pain, chest pain TECHNIQUE: Precontrast 5 mm thick sections acquired from the lung apices to the iliac crests. After the administration of intravenous contrast, 2.5 mm thick sections again acquired from the lung apices to the iliac crests. Maximum intensity projection (MIP) oblique sagittal and coronal reformats were then acquired. For radiation dose reduction, the following was used: automated exposure control. COMPARISON: [facility], CR, XR CHEST 2V, 03/26/2021, 11:55. FINDINGS: Image quality: There is metallic streak artifact from patient's left hip prosthesis and left gluteal implanted neurostimulator device. AORTA: Noncontrast images demonstrate no evidence of and intramural hematoma. Postcontrast images demonstrate no intimal flaps to suggest aortic dissection. The aorta is normal in caliber and contour. There is conventional branching of the aortic arch. The visualized great vessels are normal in caliber and appear widely patent. There is mild scattered atherosclerotic plaque along the aorta. CHEST: Lungs and pleura: There is mild dependent atelectasis bilaterally. No acute consolidation. No pleural effusions or pneumothorax. Central and peripheral airways are patent and normal in caliber. Mediastinum: Heart size is normal. No pericardial effusion. No mediastinal or hilar adenopathy by size criteria. Central pulmonary arteries are mildly enlarged, with the main pulmonary artery measuring up to 3.1 cm suggestive of pulmonary arterial hypertension. No filling defects are identified to suggest central pulmonary embolism to the level of the segmental pulmonary arteries. Esophagus is normal in caliber. There is a small to moderate-sized hiatal hernia. Bones and chest wall: No axillary adenopathy by size criteria. No suspicious bony lesions. No vertebral body compression fractures. ABDOMEN: Vasculature: The celiac, superior mesenteric, and inferior mesenteric arteries appear patent. There is a small accessory right renal artery supplying the inferior pole of the right kidney. There is a single left renal artery. Prominent calcified plaque is demonstrated in the proximal left renal artery at its origin with associated moderate focal narrowing. The common, external, and internal iliac arteries appear widely patent bilaterally. The common femoral and visualized superficial femoral arteries also appear patent bilaterally. Solid organs: There is hypoattenuation of the liver suggestive of fatty infiltration. The gallbladder is surgically absent. Biliary system is non-dilated. Pancreas enhances normally. No peripancreatic fat stranding or fluid collections. No pancreatic duct dilatation. The spleen is normal in size. No adrenal nodules. Kidneys demonstrate no hydronephrosis. Peritoneum and bowel: No free fluid or air. There are postsurgical changes consistent with prior gastric bypass. Bowel loops are normal in caliber and wall thickness. Surgical clips are demonstrated adjacent to the cecum compatible with prior appendectomy. There are few colonic diverticula without acute diverticulitis. Nodes and vessels: No retroperitoneal or mesenteric adenopathy by size criteria. Inferior vena cava is normal in morphology. Miscellaneous: No ventral hernias. PELVIS: Genitourinary: Bladder wall thickness is normal. Miscellaneous: There is a left gluteal implanted neurostimulator device with in the epidural lead extending superiorly in the lumbar spinal canal up to the level of T11. No inguinal hernias or adenopathy. No ventral hernias. Bones: No suspicious bony lesions. No vertebral body compression fractures. IMPRESSION: 1. No evidence of aortic dissection. 2. No central pulmonary embolism to the level of the segmental pulmonary arteries. 3. No acute consolidation in the lungs. 4. Moderate narrowing at the origin of the left renal artery. Dictated by: Raman Mendoza M.D. on 03/26/2021 at 15:48 Approved by: Raman Mendoza M.D. on 03/26/2021 at 16:10
[2021-03-26] MEDS: HYDROCORTISONE 100 MG/2 ML VIAL 200 MG IV (14:45)
[2021-03-26] MEDS: diphenhydrAMINE 50 MG/ML VIAL IV (14:46)
== END 2021-03-26 17:01 | disposition home or self-care (01) ==
PROVIDERS: Emergency Medicine; Emergency Provider Student in an Organized Health Care Education/Training Program; PCP Internal Medicine
DX: M54.6 Pain in thoracic spine (principal); R07.9 Chest pain, unspecified; Z20.822 Contact with and (suspected) exposure to COVID-19
CPT/HCPCS: 36415; 71046; 71275; 74174; 80053; 81003; 82550; 83690; 83735; 84484; 85025; 85379; 85610; 85730; 87635; 93005; 93010; 96374; 96375; 99284; 99285; C9803; J1200; J1720; Q9967

== ENCOUNTER 2021-09-08 13:36 | Emergency (ER) | payer OTHER, MEDICARE, SELFPAY ==
[2021-02-12 14:07] VITALS: BMI 37.5
[2021-09-08] VITALS (20 sets, daily range): BP systolic 156–187; BP diastolic 71–91; PULSE 43–63; RESP 7–56; TEMP 36.9; O2SAT 93–98; BMI 36.1
--- NOTE | 2021-09-08 14:01 | DI.RAD.S_ITS ---
PROCEDURE: XR CHEST 1V INDICATIONS: aspiration/GERD TECHNIQUE: One view of the chest was acquired. COMPARISON: [facility], CR, XR CHEST 2V, 03/26/2021, 11:55. [facility], CR, XR CHEST 1V, 10/23/2019, 12:13. FINDINGS: Surgical changes and devices: Note is made of a nerve stimulator in the upper lumbar spine. Lungs and pleura: Lungs are clear. No pleural effusions or pneumothorax. Mediastinum: Mediastinal contours appear normal. Heart size is normal. Bones and chest wall: No suspicious bony lesions. Overlying soft tissues appear unremarkable. IMPRESSION: No acute cardiopulmonary disease. Dictated by: Daniel Nicholson M.D. on 09/08/2021 at 14:23 Approved by: Daniel Nicholson M.D. on 09/08/2021 at 14:24
[2021-09-08 14:44] LABS: INR 1.2 (0.9-1.3); Prothrombin Time 13.1 SECONDS (10.1-12.7)
[2021-09-08 14:46] LABS: PTT Partial Thromboplastin Tim 49 SECONDS (26.4-36.2)
[2021-09-08 14:47] LABS: Alanine Aminotransferase 12 IU/L (<35); Albumin 4.1 g/dL (3.5-5.0); Albumin Globulin Ratio 1.5 (1.0-2.8); Alkaline Phosphatase 76 U/L (38-126); Aspartate Aminotransferase 29 IU/L (14-36); Bilirubin Total 0.4 mg/dL (0.2-1.3); Blood Urea Nitrogen 12 mg/dL (7-17); Carbon Dioxide 27 mmol/L (22-32); Chloride 106 mmol/L (98-107); Estimated Glomerular Filt Rate > 60.0 mL/min (>60); Globulin 2.8 g/dL (1.7-4.1); Glucose 94 mg/dL (80-110); HEMOLYSIS 20 (0-50); Lipase 58 U/L (23-300); Potassium 4.1 mmol/L (3.4-5.1); Sodium 139 mmol/L (137-145); Total Protein 6.9 g/dL (6.3-8.2)
[2021-09-08 15:07] LABS: Add Manual Diff / Slide Review NO; Basophils Absolute Auto 0 /uL (0-100); Basophils Percent Auto 0.5 % (0-2); Eosinophils Absolute Auto 100 /uL (0-450); Eosinophils Percent Auto 1.2 % (2-4); Hematocrit 36.4 % (36-46); Lymphocytes Absolute Auto 1800 /uL (1100-4500); Mean Corpuscular HGB Conc 33.1 % (30-36); Mean Corpuscular Hemoglobin 28.1 PG (26-34); Mean Corpuscular Volume 84.9 fL (80-100); Monocytes Absolute Auto 300 /uL (0-900); Monocytes Percent Auto 5.6 % (3-14); Neutrophils Absolute Auto 3700 /uL (1500-7000); Neutrophils Percent Auto 62.7 % (50-75); Platelet Count 252 X10^3/uL (150-400); Red Blood Cell Count 4.29 X10^6/uL (4.0-5.2); Red Cell Distribution Width 17.2 % (11.6-14.8); White Blood Cell Count 5.8 X10^3/uL (4.5-11.0)
--- NOTE | 2021-09-08 16:25 | ED_ITS ---
HPI - Abdominal Pain General Chief Complaint: Abdominal Pain Stated Complaint: Burning/nausea with food x3 days Time Seen by Provider: 09/08/21 15:14 History of Present Illness HPI narrative: The patient presents with epigastric abdominal pain, radiating up to her throat. She was seen here February 03 with upper GI bleeding. She is taking Prilosec b.i.d. She did not reveal that she has a history of Jossie-en-Y gastric bypass. She was anticoagulated due to AP prior PE. She was super anticoagulated the time the GI bleed. INR was 5.0. Endoscopy at that time showed no evidence of active GI bleeding, no source of bleeding. No varices were present. Colonoscopy showed diverticulosis with no source of bleeding. She is not currently anticoagulated. She has pain, nausea but no vomiting. She has normal bowel movements. She has left mid abdominal pain. She has no dysuria hematur ia. She has no fever or chills. Related Data Home Medications Medication Instructions Recorded Confirmed biotin 1 mg capsule 1,000 mcg/kg PO QDAY #0 07/28/17 02/12/21 gabapentin 300 mg capsule 300 mg PO QD-BID PRN #0 07/28/17 02/12/21 (Neurontin) oxybutynin chloride 5 mg tablet 5 mg PO QD-BID #0 07/28/17 02/12/21 trazodone 100 mg tablet 100 mg PO HS PRN #0 07/28/17 02/12/21 losartan 50 mg tablet 50 mg PO DAILY 10/23/19 02/12/21 levothyroxine 200 mcg tablet 100 mcg PO DAILY 12/16/19 02/12/21 folic acid 800 mcg tablet 0.8 mg PO DAILY 03/13/20 02/12/21 hydroxyzine HCl 10 mg tablet 10 mg PO BEDTIME 03/13/20 02/12/21 sertraline 100 mg tablet 100 mg PO DAILY 03/13/20 02/12/21 Previous Rx's Medication Instructions Recorded metoclopramide HCl 10 mg tablet 10 mg PO QACHS #90 tab 09/08/21 (Reglan) Allergies Allergy/AdvReac Type Severity Reaction Status Date / Time morphine [MORPHINE] Allergy Severe Rash, N&V Verified 03/26/21 11:50 mussels [MUSSELS] Allergy Severe N&V Verified 03/26/21 11:50 latex [LATEX] Allergy Intermediate RASH, Verified 03/26/21 11:50 ITCHY, BLISTERS adhesive tape Allergy Mild Blister Verified 03/26/21 11:50 iodine [IODINE] Allergy Mild RASH Verified 03/26/21 11:50 Review of Systems Constitutional Constitutional: Denies body ache(s), Denies chills, Denies fatigue and Denies fever(s) Eyes Eyes: Denies blind spots and Denies change in vision ENT Ears, Nose, Mouth, and Throat: Denies vertigo, Denies dizziness, Denies mouth pain and Denies sinus pain Cardiovascular Cardiovascular: Reports chest pain, Denies syncope, Denies rapid heart rate and Denies dyspnea on exertion Respiratory Respiratory: Denies chest congestion, Denies dyspnea on exertion and Denies wheezing Gastrointestinal Gastrointestinal: Reports as per HPI and Reports abdominal pain Genitourinary Genitourinary: Denies dysuria, Denies dysuria and Denies flank pain Musculoskeletal Musculoskeletal: Denies arthralgias and Denies numbness Integumentary/Breasts Skin/Breast: Denies rash Neurologic Neurologic: Denies confusion, Denies vertigo, Denies dizziness, Denies syncope and Denies numbness Psychiatric Psychiatric: Denies anxiety, Denies confusion and Denies depression Endocrine Endocrine: Denies fatigue Hematologic/Lymphatic On Anticoagulants: No Allergic/Immunologic Allergic/Immunologic: Denies wheezing Patient History Medical History Anxiety Chronic pain Chronic sinus bradycardia Depression DVT (deep venous thrombosis) Former smoker GERD (gastroesophageal reflux disease) Hiatal hernia History of ETOH abuse Hospitalization or health care facility admission within last 6 months (12/14/19) HTN (hypertension) Hypoglycemia Hypothyroidism Insomnia Lactose intolerance SHANEKA (obstructive sleep apnea) Osteomyelitis PTSD (post-traumatic stress disorder) Pulmonary embolism (~1993) Surgical History History of arthroscopy of left shoulder History of arthroscopy of right shoulder History of carpal tunnel release of both wrists History of colonoscopy History of lumpectomy of left breast History of lumpectomy of right breast History of total left hip arthroplasty (11/08/15) Hx of appendectomy Hx of cholecystectomy Hx of hernia repair Hx of laminectomy (11/11/18) Hx of tubal ligation S/P gastroplasty Family History Father CAD (coronary artery disease) Mother CAD (coronary artery disease) Social History household members: spouse Smoking Status: Former smoker alcohol intake: former Smoking Status: Former smoker alcohol intake frequency: holidays/special occasions only Substance Use Type: does not use Exam Initial Vital Signs Initial Vital Signs: Vital Signs Temperature 98.5 F 09/08/21 13:53 Pulse Rate 63 09/08/21 13:53 Respiratory Rate 16 09/08/21 13:53 Blood Pressure 186/80 H 09/08/21 13:53 Pulse Oximetry 97 09/08/21 13:53 Const General: cooperative and healthy appearing HENMT Head: normocephalic and atraumatic Face and sinus: normal facial exam Mouth: oral mucosae normal Throat: posterior oropharynx normal Eyes Conjunctivae: conjunctivae normal Sclera: sclerae normal Pupils: PERRL EOM: EOM intact bilaterally Neck Neck: normal visual inspection Chest Chest: normal inspection of the chest Resp Effort & Inspection: normal respiratory effort Auscultation: clear to auscultation bilaterally Cardio Rate: regular rate Rhythm: regular rhythm Heart Sounds: S1 normal, S2 normal, no gallops and no murmurs GI Inspection: normal to inspection Palpation: soft, No guarding, tender (Moderate epigastric tenderness.) and No ascites Percussion: no dullness to percussion Auscultation: normal bowel sounds Back/Spine/Pelvis Back: normal to inspection and No CVA tenderness Skin General: no rashes or lesions noted Neuro General: patient alert, patient awake, patient oriented x3 and no focal motor deficits Extrem General: normal to inspection, full ROM, no pedal edema and no calf tenderness Psych Mental Status: mental status grossly normal Course Orders Ordered: ED Orders 09/08/21 14:01 XR chest 1V Stat EKG-12 Lead Stat 09/08/21 14:15 Complete Blood Count AUTO DIFF Stat Comprehensive Metabolic Panel Stat Lipase Stat Partial Thromboplastin Time Stat Prothrombin Time INR Stat 09/08/21 16:38 Prothrombin Time INR Stat 09/08/21 16:41 CT abdomen pelvis w con Stat Sodium Chloride (Normal Saline 0.9%) 1,000 mls @ 150 mls/hr IV CONT LYDIA Last Admin: 09/08/21 17:41 Dose: 150 mls/hr Documented by: SHAWN Discontinued Medications Diphenhydramine HCl (Diphenhydramine 50 Mg/Ml Vial) 25 mg IV NOW ONE Stop: 09/08/21 17:28 Last Admin: 09/08/21 17:40 Dose: 25 mg Documented by: SHAWN Hydromorphone HCl (Hydromorphone 1 Mg Inj) 1 mg IV NOW ONE Stop: 09/08/21 16:29 Last Admin: 09/08/21 16:46 Dose: 1 mg Documented by: SHAWN Methylprednisolone (Methylprednisolone 125 Mg/2 Ml Vial) 125 mg IV NOW ONE Stop: 09/08/21 17:29 Last Admin: 09/08/21 17:40 Dose: 125 mg Documented by: SHAWN Pantoprazole Sodium (Pantoprazole 40 Mg Vial) 40 mg IV NOW ONE Stop: 09/08/21 16:28 Last Admin: 09/08/21 16:39 Dose: 40 mg Documented by: SHAWN Sucralfate (Sucralfate 1 Gm Tablet) 1 gm PO NOW ONE Stop: 09/08/21 16:28 Last Admin: 09/08/21 17:39 Dose: 1 gm Documented by: SHAWN Vital Signs Vital signs: Vital Signs - 8 hr 09/08/21 13:53 09/08/21 14:31 09/08/21 14:33 Temperature 98.5 F Pulse Rate 63 56 L 55 L Respiratory Rate 16 19 Blood Pressure 186/80 H 187/87 H Pulse Oximetry 97 98 98 09/08/21 15:00 09/08/21 15:01 09/08/21 15:29 Temperature Pulse Rate 57 L 55 L 61 Respiratory Rate 23 54 H 55 H Blood Pressure 175/81 H 170/74 H Pulse Oximetry 94 95 96 09/08/21 15:30 09/08/21 15:31 Temperature Pulse Rate 53 L 54 L Respiratory Rate 56 H 28 H Blood Pressure 173/79 H Pulse Oximetry 97 96 MDM - Abdominal Pain Lab Data Result diagrams: 09/08/21 14:15 09/08/21 14:15 Labs: Lab Results 09/08/21 09/08/21 09/08/21 Range/Units 14:15 14:15 14:15 WBC 5.8 (4.5-11.0) X10^3/uL RBC 4.29 (4.0-5.2) X10^6/uL Hgb 12.0 (12.0-16.0) g/dL Hct 36.4 (36-46) % MCV 84.9 (80-100) fL MCH 28.1 (26-34) PG MCHC 33.1 (30-36) % RDW 17.2 H (11.6-14.8) % Plt Count 252 (150-400) X10^3/uL Neut % (Auto) 62.7 (50-75) % Lymph % (Auto) 30.0 (25-40) % [place] % (Auto) 5.6 (3-14) % Eos % (Auto) 1.2 L (2-4) % Baso % (Auto) 0.5 (0-2) % Neut # (Auto) 3700 (8960-2078) /uL Lymph # (Auto) 1800 (3265-7502) /uL [place] # (Auto) 300 (0-900) /uL Eos # (Auto) 100 (0-450) /uL Baso # (Auto) 0 (0-100) /uL PT 13.1 H (10.1-12.7) SECONDS INR 1.2 (0.9-1.3) APTT 49 H (26.4-36.2) SECONDS Sodium 139 (137-145) mmol/L Potassium 4.1 (3.4-5.1) mmol/L Chloride 106 (98-107) mmol/L Carbon Dioxide 27 (22-32) mmol/L BUN 12 (7-17) mg/dL Creatinine 0.86 (0.52-1.04) mg/dL Estimated GFR > 60.0 (>60) mL/min BUN/Creatinine Ratio 14.0 (6-22) Glucose 94 (80-110) mg/dL Calcium 9.0 (8.4-10.2) mg/dL Total Bilirubin 0.4 (0.2-1.3) mg/dL AST 29 (14-36) IU/L ALT 12 (<35) IU/L Alkaline Phosphatase 76 (38-126) U/L Total Protein 6.9 (6.3-8.2) g/dL Albumin 4.1 (3.5-5.0) g/dL Globulin 2.8 (1.7-4.1) g/dL Albumin/Globulin Ratio 1.5 (1.0-2.8) Lipase 58 (23-300) U/L Point of care testing: Urine Dip Bedside Urine Glucose Negative Bedside Urine Bilirubin - Negative Bedside Urine Ketone - Negative Urine Specific [place] 1.010 Bedside Urine Occult Blood - Negative Bedside Urine pH 7.0 Bedside Urine Protein - Negative Bedside Urine Urobilinogen - Negative Bedside Urine Nitrite - Negative Bedside Urine Leukocytes - Negative Esterase Imaging Data CT scan - abdomen/pelvis: Radiologist's Impression: [address] [address] [address] Scan Report Signed Patient: Kelsi Chase MR#: [id number] : 1955 Acct:[id number] Age/Sex: 66 / F Date of Service: 09/08/21 Loc: ED Accession Number: [id number] ?? Procedure: CT abdomen pelvis w con Ordering Provider: Santos Hogan MD PROCEDURE:? CT ABDOMEN PELVIS W CON ? INDICATIONS:? Abdominal pain. History of gastric bypass. ? TECHNIQUE:? After the administration of oral and IV contrast, axial sections were acquired from the lung bases to the pubic symphysis.? Coronal and sagittal reformats were performed.? For radiation dose reduction, the following was used:? automated exposure control, adjustment of mA and/or kV according to patient size. ? COMPARISON:? [facility], CT, CT ABDOMEN PELVIS WO CON, 12/14/2019, 19:56.? [facility], CT, CT ANGIO CHEST ABDOMEN PELVIS, 03/26/2021, 15:27. ? FINDINGS:? Image quality:? Excellent.? ? Lung bases:? Unremarkable.? Moderate-sized hiatal hernia. Heart:? No significant findings. ? ? ABDOMEN: Liver:? Normal size.? Moderate hepatic steatosis.? ? Gallbladder:? Surgically resected.? ? Biliary ducts:? Unremarkable.? ? Pancreas:? Unremarkable.? ? Spleen:? Unremarkable.? ? Adrenal Glands:? Unremarkable.? ? Kidneys and Ureters:? Unremarkable.? ? ? Stomach and Bowel:? Postsurgical changes related to gastric bypass.? Surgical clips adjacent to the cecum is presumably related to appendectomy.? Small bowel loops and colon are unremarkable.? ? Peritoneum:? No abnormal intraperitoneal fluid.? No free air.? ? Ventral Wall: ? No hernia.? Abdominal Nodes:? No retroperitoneal or mesenteric adenopathy by size criteria.? Vessels:? Aorta and inferior vena cava are normal in size.? ? PELVIS: Pelvic Organs:? Uterus is normal.? Ovaries are unremarkable.? No pathological free-fluid in the cul-de-sac..? ? Bladder:? Unremarkable.? ? Pelvic Nodes: No enlarged lymph nodes.? Miscellaneous: No inguinal hernias are seen. ? There is a epidural infusion pump or nerve stimulator in the lower back.? ? Bones:? Unremarkable.? IMPRESSION:? ? 1. No acute abnormalities in abdomen or pelvis. 2. Moderate-sized hiatal hernia. 3. Gastric bypass. 4. Hepatic steatosis.? ? ECG Data Attestation: I personally reviewed and interpreted this ECG as follows: (Sinus bradycardia rate 53 beats per minute. Normal intervals. No ectopy. Poor R- wave progression in anterior leads. No significant ST changes.) Discharge Plan Departure Patient Disposition: Home Clinical Impression: Hernia, hiatal Instructions: Hiatal Hernia Activity Restrictions/Additional Instructions: You have a hiatal hernia, the source of your pain radiating to her chest. To the omeprazole, I have added Reglan. Take this 3 times a day. Your symptoms are severe enough that your doctor may consider a surgical consultation. Arrange follow-up with your doctor. Return here as necessary. Prescriptions: New metoclopramide HCl [Reglan] 10 mg tablet 10 mg PO QACHS Qty: 90 3RF No Action gabapentin [Neurontin] 300 MG capsule 300 mg PO QD-BID PRN (Reason: Nerve pain) Qty: 0 0RF oxybutynin chloride 5 MG tablet 5 mg PO QD-BID Qty: 0 0RF trazodone 100 MG tablet 100 mg PO HS PRN (Reason: Sleep) Qty: 0 0RF biotin 1 mg capsule 1,000 mcg/kg PO QDAY Qty: 0 0RF levothyroxine 200 mcg tablet 100 mcg PO DAILY 0RF losartan 50 mg tablet 50 mg PO DAILY 0RF Label Comments: has been taking bid sertraline 100 mg Tablet 100 mg PO DAILY 0RF hydroxyzine HCl 10 mg Tablet 10 mg PO BEDTIME 0RF folic acid 800 mcg Tablet 0.8 mg PO DAILY 0RF Referrals: Chandler Covarrubias MD [Primary Care Provider] -
[2021-09-08] MEDS: PANTOPRAZOLE 40 MG VIAL IV (16:39)
--- NOTE | 2021-09-08 16:41 | DI.CT.S_ITS ---
PROCEDURE: CT ABDOMEN PELVIS W CON INDICATIONS: Abdominal pain. History of gastric bypass. TECHNIQUE: After the administration of oral and IV contrast, axial sections were acquired from the lung bases to the pubic symphysis. Coronal and sagittal reformats were performed. For radiation dose reduction, the following was used: automated exposure control, adjustment of mA and/or kV according to patient size. COMPARISON: [facility], CT, CT ABDOMEN PELVIS WO CON, 12/14/2019, 19:56. [facility], CT, CT ANGIO CHEST ABDOMEN PELVIS, 03/26/2021, 15:27. FINDINGS: Image quality: Excellent. Lung bases: Unremarkable. Moderate-sized hiatal hernia. Heart: No significant findings. ABDOMEN: Liver: Normal size. Moderate hepatic steatosis. Gallbladder: Surgically resected. Biliary ducts: Unremarkable. Pancreas: Unremarkable. Spleen: Unremarkable. Adrenal Glands: Unremarkable. Kidneys and Ureters: Unremarkable. Stomach and Bowel: Postsurgical changes related to gastric bypass. Surgical clips adjacent to the cecum is presumably related to appendectomy. Small bowel loops and colon are unremarkable. Peritoneum: No abnormal intraperitoneal fluid. No free air. Ventral Wall: No hernia. Abdominal Nodes: No retroperitoneal or mesenteric adenopathy by size criteria. Vessels: Aorta and inferior vena cava are normal in size. PELVIS: Pelvic Organs: Uterus is normal. Ovaries are unremarkable. No pathological free-fluid in the cul-de-sac.. Bladder: Unremarkable. Pelvic Nodes: No enlarged lymph nodes. Miscellaneous: No inguinal hernias are seen. There is a epidural infusion pump or nerve stimulator in the lower back. Bones: Unremarkable. IMPRESSION: 1. No acute abnormalities in abdomen or pelvis. 2. Moderate-sized hiatal hernia. 3. Gastric bypass. 4. Hepatic steatosis. Dictated by: Daniel Nicholson M.D. on 09/08/2021 at 18:31 Approved by: Daniel Nicholson M.D. on 09/08/2021 at 18:38
[2021-09-08] MEDS: HYDROMORPHONE 1 MG INJ IV (16:46)
[2021-09-08] MEDS: SUCRALFATE 1 GM TABLET PO (17:39)
[2021-09-08] MEDS: diphenhydrAMINE 50 MG/ML VIAL 25 MG IV (17:40)
[2021-09-08] MEDS: methylPREDNISolone 125 MG/2 ML VIAL IV (17:40)
[2021-09-08] MEDS: SODIUM CHLORIDE 0.9% 1,000 ML 150 ML IV (17:41)
[2021-09-08] MEDS: METOCLOPRAMIDE HCL 10 MG TABLET PO (19:05)
== END 2021-09-08 19:13 | disposition home or self-care (01) ==
PROVIDERS: Emergency Provider Emergency Medicine; PCP Internal Medicine
DX: K44.9 Diaphragmatic hernia without obstruction or gangrene (principal); Z79.01 Long term (current) use of anticoagulants; Z87.891 Personal history of nicotine dependence; Z88.5 Allergy status to narcotic agent
CPT/HCPCS: 36415; 71045; 74177; 80053; 81003; 83690; 85025; 85610; 85730; 93005; 96361; 96374; 96375; 99284; 99285; C9113; J1170; J1200; J2930; Q9967

== ENCOUNTER → 2021-11-07 09:55 | Outpatient (CLI) | payer OTHER, MEDICARE, SELFPAY ==
[2021-02-12 14:07] VITALS: BMI 37.5
[2021-11-07 13:39] LABS: COVID19 -Nasal RAPID Negative (Negative)
== END ==
PROVIDERS: PCP Internal Medicine; Visit Provider Family Medicine Sleep Medicine
DX: Z20.822 Contact with and (suspected) exposure to COVID-19 (principal)
CPT/HCPCS: 87635; C9803

== ENCOUNTER 2021-11-10 09:00 | Observation (INO) | payer OTHER, MEDICARE, SELFPAY ==
[2021-02-12 14:07] VITALS: BMI 37.5
[2021-11-01 08:35] VITALS: BMI 35.9
[2021-11-08] VITALS (11 sets, daily range): BP systolic 125–177; BP diastolic 63–94; PULSE 55–109; RESP 14–18; TEMP 36.3–36.8; O2SAT 94–98; BMI 35.9
[2021-11-08] MEDS: ACETAMINOPHEN 325 MG TABLET 975 MG PO (06:51)
[2021-11-08] MEDS: PREGABALIN 75 MG CAPSULE PO (06:51)
[2021-11-08] MEDS: CELECOXIB 200 MG CAPSULE PO (06:52)
[2021-11-08] MEDS: VANCOMYCIN 1,000 MG/200 ML PIGGYBACK 200 MG IV (06:55)
[2021-11-08] MEDS: LACTATED RINGERS 1,000 ML 42 ML IV ×2 (07:15→08:25)
--- NOTE | 2021-11-08 07:39 | PM.PREOP ---
Pre-operative Note COVID-19 COVID-19 status: Negative Interval Note History & Physical reviewed/Exam performed by Physician: Yes Changes to H&P: No
--- NOTE | 2021-11-08 07:40 | PM.OP.1 ---
Operative Date/Time/Diagnoses Date of procedure: 11/08/21 Time of procedure: 07:55 Pre-op diagnosis: right hip OA Post-op diagnosis: same Procedure & Clinicians Procedure: Right total hip arthroplasty posterior approach Same procedure as scheduled: Yes Indications: The patient has had progressively worsening right hip pain with radiographic changes consistent with arthritis. Non-operative management has failed and the patient has requested total hip replacement. The risks, benefits and alternatives to surgery were discussed with the patient prior to proceeding. Risks discussed included, but were not limited to, failure to relieve pain, leg length discrepancy, dislocation, stiffness, infection, nerve damage, deep venous thrombosis, pulmonary embolism, stroke, coma, heart attack, permanent paralysis and , as well as the potential need for eventual revision of the prosthetic. Surgeon: Margo Cornejo Continuous Pillowcase Cutter: Joan Batemna Anesthesia Type: General and Spinal Operative Notes Findings: Severe right hip osteoarthritis, good stability adequate bone Closure Type: primary Specimen(s): none sent Prosthetic devices, grafts, tissues, transplants, or devices: Cornejo and nephew anthology standard offset size 8, R3 52 mm, neutral poly liner, +0 Oxinium head Estimated Blood Loss (mL): 250 Blood products transfused: none Procedure in detail: The patient was seen in the pre-operative area, where the patient identified the right hip as the operative site and this was marked with my initials. The patient received pre-operative antibiotics and was taken to the operating room and placed on the operative table in the left lateral decubitus position after satisfactory anesthesia. A time study observer out was performed. The right leg was prepared from the ankle to the iliac crest with ChloroPrep in the usual fashion and draped through sterile drapes. The hip was approached through an approximately 20 cm incision centered over the greater trochanter and curving gently posteriorly as it went proximally. This was carried sharply to the fascia april, which was divided and retracted with a self retaining retractor. The trochanteric bursa was excised with care being taken to avoid the sciatic nerve, which was identified and protected throughout the case. The short external rotators were incised and the capsulomuscular flap was raised and tagged for later repair. The hip was dislocated, and a femoral neck osteotomy performed approximately 15 mm above the lesser trochanter. Retractors were placed around the femur. The canal was opened with a box cutting osteotome, followed by a T handled reamer and a lateralizing reamer. The chili pepper broach was then used, followed by sequential broaching until there was good stability of the broach in the femur. Retractors were placed to expose the acetabulum. The labrum and central soft tissues were removed. Reaming was performed initially going up in 2 mm increments, then 1 mm increments until good bite was obtained with an odd sized reamer. The cup 1 mm larger than the last reamer was then inserted using the appropriate anteversion guides. A trial neutral liner was placed. The broach was placed in the canal. A trial head and neck were then placed and the hip relocated and checked for leg length and stability. An intraoperative film confirmed the component position and no evidence of fracture. The patient was stable in the position of sleep, of squatting, and could be put through a range of motion with 45 degrees internal rotation without dislocation. At 90 degrees flexion, internal rotation to 80? was possible before dislocation. This was felt to be satisfactory and the appropriate components were opened, and the trials were removed. The acetabular liner was impacted into position. The final stem was then impacted into the prepared femoral canal. The hip was meticulously irrigated with normal saline. Finally the femoral head was impacted onto the stem. The acetabulum was cleared of all material and the hip relocated one final time. The capsulomuscular flap was then repaired to the greater trochanter though an awl hole using the tag sutures. The short external rotators were repaired with a nonabsorbable suture. A deep drain was placed and brought out anteriorly. The fascia april was closed with Vicryl. The subcutaneous layer was closed with barbed sutures and darrell. A siva dressing was applied and the patient was taken to recovery having tolerated the procedure well. Complications: none Post-operative Condition: stable Disposition: Acute Care Plan for aftercare: The patient will be maintained on a standard total hip replacement protocol with weight bearing as tolerated and posterior hip precautions. The patient will receive Eliquis and sequential compression devices for DVT prophylaxis. The patient will be discharged home when safe for the home environment.
[2021-11-08] MEDS: SCOPOLAMINE 1 PATCH TOP (07:45)
--- NOTE | 2021-11-08 08:00 | DI.RAD.S_ITS ---
PROCEDURE: XR PELVIS 1-2V INDICATIONS: prosthesis placement INNER OP TECHNIQUE: Intra-operative view of the pelvis and hip acquired. COMPARISON: None. FINDINGS: Bones: Intraoperative devices prior to placement of arthroplasty prostheses are in expected positions. No fractures or suspicious bony lesions. Soft tissues: Overlying surgical retractors are present, along with other intraoperative changes. IMPRESSION: Intraoperative images show right total hip arthroplasty in progress. Dictated by: Nitish Baig M.D. on 11/08/2021 at 12:29 Approved by: Nitish Baig M.D. on 11/08/2021 at 12:29
[2021-11-08] MEDS: CEFAZOLIN 2 GM/20 ML SYRINGE IV ×2 (08:20→16:46)
--- NOTE | 2021-11-08 08:55 | SUR.OPER ---
Lateral on padded OR bed. Gel axillary roll. Arms secured on padded armboard with pillow supporting top arm, taped with washcloth between skin and tape. Padded hip positioner braces x4 - anterior and posterior chest and pelvis. Additional gel pad used anterior pelvis. Gel pad under bottom leg from knee to foot. Operative leg supported with gel pad on sterile gottlieb stand.
--- NOTE | 2021-11-08 09:03 | SUR.OPER ---
Skin above surgical site intact. Patient has an open dime-sized lesion on her midline lower abdomen. Surgeon and anesthesia aware.
[2021-11-08] MEDS: SODIUM CHLORIDE IRRIG SOLUTION 250 ML, EPINEPHrine 1 MG IRR (09:25)
[2021-11-08] MEDS: BUPIVACAINE 0.25% (PF) 60 ML, EPINEPHrine 0.3 MG INJ (09:32)
[2021-11-08] MEDS: BUPIVACAINE LIPOSOME 266 MG/20 ML VIAL INJ (10:10)
--- NOTE | 2021-11-08 11:00 | DI.RAD.S_ITS ---
PROCEDURE: XR HIP W PEL IF DONE RT 2V INDICATIONS: RIGHT HIP POST OP TECHNIQUE: AP pelvis and lateral view of the right hip acquired. COMPARISON: [facility], CR, [id number] W PEL IF PERFORMED, 04/26/2017, 18:27. FINDINGS: Bones: Patient is status post bilateral hip arthroplasty, with hardware components in expected positions, the right of which was recently placed. The hip joint appears congruent. The visualized bony structures appear intact. Soft tissues: Overlying postoperative changes are noted. No suspicious soft tissue densities. IMPRESSION: 1. Interval placement of right hip arthroplasty with prosthetic components in expected positions. 2. Stable appearance of left hip arthroplasty. Dictated by: Jimmy Ramey [facility] Interpreted: Nitish Baig MD on 11/08/2021 at 12:16 Transcribed by: STEPHANIE on 11/08/2021 at 12:17 Approved by: Nitish Baig M.D. on 11/08/2021 at 16:51
[2021-11-08] MEDS: HYDROMORPHONE 2 MG INJ IV ×2 (11:03→11:29)
[2021-11-08] MEDS: LACTATED RINGERS 1,000 ML 125 ML IV ×2 (13:01→23:03)
[2021-11-08] MEDS: HYDROCODONE/ACET 10/325 TABLET 2 TAB PO ×2 (13:18→16:46)
--- NOTE | 2021-11-08 14:02 | PT.IIE ---
Current Diagnoses Unilateral primary osteoarthritis, right hip (11/08/21) Pain in right hip (11/08/21) Surgery Performed Operation Date: 11/08/21 07:45 Actual Procedures p Total Hip Arthroplasty(Right) - Margo Cornejo MD Medical History (Last Updated 11/01/21 @ 09:27 by Marcella Harris RN) Anxiety Chronic pain Chronic sinus bradycardia Depression DVT (deep venous thrombosis) Former smoker GERD (gastroesophageal reflux disease) GI bleed (2020) Hiatal hernia History of ETOH abuse Hospitalization or health care facility admission within last 6 months (12/14/19) HTN (hypertension) Hypoglycemia Hypothyroidism Insomnia Lactose intolerance No blood products SHANEKA (obstructive sleep apnea) Osteomyelitis Presence of neurostimulator PTSD (post-traumatic stress disorder) Pulmonary embolism (~1993) Physical Therapy Inpatient Evaluation/Re-Eval M1 PT/OT-IP Prior Functional Status Start: 11/08/21 14:56 Freq: NEEDED Status: Active Protocol: Document 11/08/21 14:02 AB (Rec: 11/08/21 15:09 [email or web address]) Medical Review Prior Functional Status Medical History Reviewed Yes Communication able to make needs known Mobility and Gait pt stated that she is modified independent with all mobilities and ambulation without AD indoors but holds on to furniture for support; uses a 4WW for outdoor mobility Social History Household Members spouse Living Arrangements House Number of Floors (Floors) One Floor Number of Stairs To Enter/Railing? 3 steps without rails to enter Home Environment High Toilet,Tub/Shower Home Equipment Front Wheel Walker,Four Wheel Walker,Straight Cane,Raised Toilet Seat Without Armrests, Shower Seat with Backrest,Hand Held Shower,Grab Bars In Shower Additional Social History Comment spouse works for ~ 12 hours a day and will not be able to assist pt M2 PT-IP Current Condition Start: 11/08/21 14:56 Freq: NEEDED Status: Active Protocol: Document 11/08/21 14:02 AB (Rec: 11/08/21 15:09 [email or web address]) Physical Therapy Current Condition Current Condition Evaluation Date 11/08/21 Treatment Diagnosis s/p R LESLI posterior approach; difficulty in walking Onset Date 11/08/21 M3 PT-IP Subjective Start: 11/08/21 14:56 Freq: NEEDED Status: Active Protocol: Document 11/08/21 14:02 AB (Rec: 11/08/21 15:09 [email or web address]) Subjective Physical Therapy Visit Type Type Initial Evaluation Visit Start Time 14:02 Visit Stop Time 14:45 Total Visit Minutes 43 Number of ASPHALT SCREED OPERATOR Visits 0 Physical Therapy Visit Comments Patient Comments agreeable to do PT Therapy Pain Assessment Pain When Pain Assessed At Rest Pain Present Pain Present Denied Pain M4 PT-IP Mobility and Gait Start: 11/08/21 14:56 Freq: NEEDED Status: Active Protocol: Document 11/08/21 14:02 AB (Rec: 11/08/21 15:09 [email or web address]) PT-Bed Mobility Assessment Supine to Sit Supine to Sit Standby Assistance,Head of Bed Elevated,Bedrails Sit to Supine Sit to Supine Standby Assistance PT-Transfer Assessment Sit to and From Stand Sit to and from Stand Minimal Assistance,1 Person Assistance,Use of Upper Extremities Equipment Transfer Assistive Device Gait Belt,Front Wheeled Walker Orthotic/Prosthetic Devices or Brace: No Comments Mobility Comments educated pt on posterior hip precautions. BP in supine: 106 /63. completed supine to sit SBA with HOB elevated and use of bed rail. able to sit on EOB SBA. BP: 125/70. completed sit to stand min A and ambulated in room ~ 60 ft CGA to min A using FWW. pt requested to go back to bed. completed supine to sit SBA. positioned pt in bed call light and table placed within reach. Gait Assessment Gait Gait Assistance Required: Contact Guard Assist,Minimum Assistance,1 Person Assist Distance (Feet) 60 Able to Maintain Weight Bearing Status Yes During Gait Assistive Devices Assistive Device Gait Belt,Front Wheeled Walker Orthotic/Prosthetic Devices or Brace: No Gait Deviations General Gait Pattern Decreased Stride Length, Decreased Feet Clearance Factors Limiting Gait Function Factors Limiting Gait Function Decreased Activity Tolerance, Decreased Strength,Limited Range of Motion,Poor Balance, Poor Safety Awareness PT-Balance Assessment Sitting Balance and Reactions Static Sitting Balance Ability Good Dynamic Sitting Balance Ability Good Standing Balance and Reactions Static Standing Balance Ability Fair Dynamic Standing Balance Ability Fair Device Used FWW M5 PT-IP Objective Assessments Start: 11/08/21 14:56 Freq: NEEDED Status: Active Protocol: Document 11/08/21 14:02 AB (Rec: 11/08/21 15:09 [email or web address]) Orientation Orientation/Cognition Level of Alertness Alert Orientation Name,Age,Place,Situation Language Function Ability Hard of Hearing Safety Awareness Decreased Safety Awareness Memory Description Short Term Impaired Gross Range of Motion Lower Extremity ROM Assessment Within Functional Limits Strength Lower Extremity Strength Assessment Right Impaired Hip 3+/5 Knee 3+/5 Sensation Assessment Sensation Gross Sensation WNL Muscle Tone Muscle Tone WNL Yes M6 PT-IP Treatment Start: 11/08/21 14:56 Freq: NEEDED Status: Active Protocol: Document 11/08/21 14:02 AB (Rec: 11/08/21 15:09 [email or web address]) Physical Therapy Treatment Education Education Provided Precautions,Weight Bearing Status,Post-Op Packet,Safety M7 PT-IP Assessment and Plan Start: 11/08/21 14:56 Freq: NEEDED Status: Active Protocol: Document 11/08/21 14:02 AB (Rec: 11/08/21 15:09 [email or web address]) PT Summary Assessment and Plan Potential Rehabilitation Potential Good Status of Condition at Evaluation Stable Summary Impairments Pain,ROM,Strength,Balance, Coordination,Sensation,Tone, Cognition,Bed Mobility, Transfers,Gait,Activity Tolerance Assessment Summary pt requiring CGA to min A with mobility using FWW. pt will mostly be by herself at home as spouse works ~ 12 hours a day. pt will require HHPT. Goals Bed Mobility Goal Independent Transfer Goal Independent,Front Wheeled Walker Gait Goal Independent,Front Wheel Walker Gait Distance 300 Other Goals up/down 3 steps without rails: use SPC/COMPOSITOR APPRENTICE Days to Meet Goals 5 Frequency of Treatment Frequency Of Treatment Twice a Day Treatment Plan Physical Therapy Treatment Plan Bed Mobility Training,Transfer Training,Gait Training, Therapeutic Exercise,Balance Retraining,Post Op Education, Discharge Planning,Hot or Cold Pack,Neuromuscular Re-ed, Coordination Retraining,Manual Therapy Precautions Posterior Hip Precautions No Hip Flexion > 90 degrees,No Hip Internal Rotation,No Hip Adduction Weight Bearing Status Weight Bearing Status Weight Bear as Tolerated Allowed Weight Bearing Amount (enter % RLE WBAT or #) (%) Recommendations To Nursing Amount of Assist Needed 1 Person Assist Discharge Recommendations PT Discharge Recommendations Home with Assistance,Home Health Transportation Needs at Discharge Private Vehicle
--- NOTE | 2021-11-08 17:32 | PC.NURSE ---
Pt post op Right hip surgery, to room at 1215 A/O, IVF LR infusing into the LFA via pump w/o incidence. JONATHAN Dsg CDI Hemavac intact & patent Bedoya cath patent clear urine. Call light w/in reach, bed alarm on for pt safety. Continue w/plan of care
[2021-11-08] MEDS: ONDANSETRON 4 MG/2 ML INJ IV ×2 (19:33→23:04)
[2021-11-08] MEDS: METOCLOPRAMIDE HCL 10 MG TABLET PO (22:02)
[2021-11-08] MEDS: PANTOPRAZOLE DR 40 MG TABLET PO (22:07)
[2021-11-08] MEDS: HYDROMORPHONE 0.5 MG INJ IV (22:56)
[2021-11-09] VITALS (7 sets, daily range): BP systolic 107–168; BP diastolic 55–87; PULSE 68–82; RESP 14–18; TEMP 36.6–37.2; O2SAT 93–97
[2021-11-09] MEDS: CEFAZOLIN 2 GM/20 ML SYRINGE IV (00:01)
[2021-11-09] MEDS: HYDROMORPHONE 0.5 MG INJ IV ×6 (01:25→14:20)
[2021-11-09] MEDS: ONDANSETRON 4 MG/2 ML INJ IV (04:11)
[2021-11-09] MEDS: PANTOPRAZOLE DR 20 MG TABLET PO (05:35)
[2021-11-09] MEDS: LEVOTHYROXINE 100 MCG TABLET PO (05:35)
[2021-11-09 06:46] LABS: Hematocrit 33.8 % (36-46); Hemoglobin 11.4 g/dL (12.0-16.0)
[2021-11-09] MEDS: LACTATED RINGERS 1,000 ML 125 ML IV (07:37)
[2021-11-09] MEDS: METOCLOPRAMIDE HCL 10 MG TABLET PO ×4 (07:46→20:38)
--- NOTE | 2021-11-09 08:15 | P.PN_ITS ---
Subjective Subjective Date Patient Seen: 11/09/21 Time Patient Seen: 08:15 Interval history: Patient is complaining of moderate right hip pain. She is not on her normal regimen for her irritable bowel syndrome. Her is bringing her medications today. She will be resuming her Eliquis today. Patient does note new numbness in the left lateral aspect of her tongue, otherwise no new numbness or tingling. Exam Vital Signs (past 8 hours): - 11/09/21 01:20 11/09/21 05:00 Temperature 98.1 F Pulse Rate 72 72 Respiratory Rate 14 18 Blood Pressure 168/87 H 129/65 Pulse Oximetry 97 96 Oxygen Delivery Method Room Air Oxygen Flow Rate 0 Narrative Exam Narrative: Pleasant 66-year-old female, resting comfortably in bed, no acute distress. Symmetrical smile and strength. Dressing is clean, dry, intact. Bilateral l ower extremity: Motor functions are grossly intact, sensation is grossly intact to light touch, calves are soft and nontender to palpation. Objective Labs Result Diagrams: 11/09/21 06:23 Labs: Laboratory Results - last 24 hr 11/09/21 06:23 Hgb 11.4 L Hct 33.8 L PFSH Medical History Anxiety Chronic pain Chronic sinus bradycardia Depression DVT (deep venous thrombosis) Former smoker GERD (gastroesophageal reflux disease) GI bleed (2020) Hiatal hernia History of ETOH abuse Hospitalization or health care facility admission within last 6 months (12/14/19) HTN (hypertension) Hypoglycemia Hypothyroidism Insomnia Lactose intolerance No blood products SHANEKA (obstructive sleep apnea) Osteomyelitis Presence of neurostimulator PTSD (post-traumatic stress disorder) Pulmonary embolism (~1993) Surgical History History of arthroplasty of left knee (03/20/20) History of arthroscopy of left shoulder History of arthroscopy of right shoulder History of carpal tunnel release of both wrists History of colonoscopy History of esophagogastroduodenoscopy (EGD) History of lumpectomy of left breast History of lumpectomy of right breast History of total left hip arthroplasty (11/08/15) Hx of appendectomy Hx of cholecystectomy Hx of hernia repair Hx of laminectomy (11/11/18) Hx of tubal ligation S/P gastroplasty Family History Father CAD (coronary artery disease) Mother CAD (coronary artery disease) Social History household members: spouse Smoking Status: Former smoker alcohol intake: former Assessment & Plan Post-op Postoperative Procedures: Procedures Operation Date: 11/08/21 07:45 Actual Procedure Side Surgeon p Total Hip Arthroplasty Right Margo Cornejo MD Postoperative day: 1 Postoperative status narrative: Stable status post right total hip arthroplasty, posterior approach Postoperative plan narrative: -mobilize with PT. Weightbearing as tolerated with front wheel walker. Maintain posterior hip precautions x6 weeks -resume Eliquis this morning, which should be sufficient for DVT prophylaxis -continue with multimodal pain management. The patient is unable to take NSAIDs due to her Eliquis use -resume GI medications from home -plan is disposition home tomorrow, once cleared by Physical therapy. Quality VTE Deep Vein Thrombosis/Pulmonary Embolism Present on Admission: No
--- NOTE | 2021-11-09 09:05 | CM.DANOTE ---
Patient is a 66 yo female who was admitted on 11/08/21 for RTHA. Pt has MCR, PRE DIM Secondary, and LIFE for insurance and her PCP is Chandler Covarrubias. EMR was reviewed. Per Ortho, pt with hx of gastric bypass and used to be around 600lbs but since gastric bypass has significant weight loss and tolerated hip surgery well and initially anticipated pt may need SNF. Per Ortho PA, pt likely stable to d/c tomorrow. Ortho team already made HH referral prior to surgery in anticipation of eventual need of HH. Per PT, pt was able to participate in eval yesterday and ambulated CGA with walker 60 ft and recommending safe d/c home with spouse and HH. SW met bedside with pt and explained role and she confirms that she lives in [place], but closer to [place] with her spouse and their large dog. Pt is quite independent with ADL's at baseline and drives. Pt confirms initially she felt SNF would be needed as her works 12 hour shifts but confirms that since working with PT yesterday she feels she can safely d/c home with spouse who has next 3 days off work and HH. Pt also looking into a welding equipment sales representative/caregiver to hire for a little while to keep up on state comptroller. Pt states [facility] initially told her she would have out of pocket expense for HH but unclear if they were possibly talking about addition of a caregiver as well. SW called [facility] and left msg to confirm they received initial referral from [facility] and already have F2F and orders and also to clarify pt's statement of out of pocket expense. Pt states she would be agreeable with referral to [facility] if [facility] still states out of pocket expense to see if [facility] shows better coverage? Plan: SW to follow for plan of home via spouse POV and HH and to confirm if [facility] has full referral and orders needed and if they show pt will have out of pocket expenses. KEN Ashton Discharge Planning/Care Management CM Discharge Assessment Start: 11/09/21 09:00 Freq: Status: Active Protocol: Document 11/09/21 09:02 (Rec: 11/09/21 09:04 [id number]) Discharge Planning Assessment Assigned Contact Center Agent KEN Elizondo DPOA/Assigned Designee Name spouse Advance Directives? No Advance Directives on File No History Provided By Patient,Medical Record Has Patient been admitted in last 30 No days? Prior Living Arrangements House Household Members spouse Type of transporation used prior to Drives own vehicle admit Independent with ADL's Yes Is patient alert and oriented? Yes Caregiver for Another No Community Services used prior to Physical Therapy admission: Patient/Family Preference Home with Home Health Barriers to Discharge No Discharge Plan Home with Home Health Transportation Arrangement Family to provide transport. Referrals Initiated Home Health Additional Comment Ortho made referral to [facility] pre-surg If patient plan is home with home health Yes: Was completed at ortho : Has signed face to face form been office completed? Medicare Choice List Provided Yes Whiteboard Updated in Patient Room with Yes name and ext. # of Contact Center Agent Review Status In Process Please Provide Date Initial DC 11/09/21 Assessment Was Performed Next Review Type Continued Stay Review Pre-Anesthesia Assessment Start: 11/01/21 08:35 Freq: Status: Complete Protocol: Document 11/01/21 08:35 CAB (Rec: 11/01/21 09:28 CAB [id number]) Pre-Anesthesia Assessment PAC Comment Jehovah Witness - No blood products. Neurostimulator located left posterior back Preferred Name Laura Patient Information Reviewed Via Phone Assessment Assessment Completed With Patient H&P Completed Within 30 Days No: Not identified at time of assessment Diagnostic Results BMP/CMP,CBC,EKG,Urinalysis Comment Outside labs/ECG scanned, UA-E .Coli - COVID screen @ 11/07 Primary Care Provider [facility] Covarrubias Medical Clearance Received Yes Seen Specialist in Last 12 Months Yes Specialist Seen Orthopedist Comment PCP pre-op 09/11/21 w/clearance scanned Primary Language Niuean Preferred Language Niuean Night Baker Required No Height 160.02 cm Weight 92.079 kg Body Mass Index (BMI) 35.9 Hearing Ability Normal Visual Assist Glasses Dentition Type Teeth, Natural Present,Full- Upper Barriers to Learning None Other Aids Yes: Neurostim in back Hx Anesthesia Reactions Yes: PONV-delayed- SHANEKA, no CPAP Hx Family Anesthesia Reaction No Hx Malignant Hyperthermia No Hx Blood Transfusions Yes: s/p Appendectomy Hx Blood Transfusion Reaction No Anesthesia Review Requested No 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, 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 easily Additional comment Pt states will not be helpful at DC, wants to go to SNF alcohol intake former alcohol intake frequency holidays/special occasions only Alcohol Intake Frequency Other: Sober 01/2015 Smoking Status Former smoker Tobacco type cigarettes how long ago did patient quit smoking Quit 2012 Substance Use Type does not use Pain Present Pain Reported Musculoskeletal Symptoms Abnormal Gait,Back Pain, Difficulty Walking,Joint Pain, Neck Pain History of Falling (Recent or History of Yes ) Patient is completely paralyzed or No completely immobile Prosthesis or Orthotic Device Cane,Front Wheel Walker Mental Status Oriented to own ability Is patient on oxygen? No Does patient have VARGAS/SOB No Hx Sleep Apnea Yes: Pt denies having CPAP/BIPAP use prescribed not used Currently Taking a Beta Sean No Can You Climb a Flight of Stairs Without Yes SOB Hx Chest Pain No Hx SOB No Hx Syncope or Dizziness Yes: Syncopal episode x 1 2014 Anti-Coagulant Therapy Yes: Eliquis-pt advised to hold [address] Covarrubias Has a Dive Superintendent No Cardiac Testing No Hx Pacemaker/ICD No Pacemaker Rep Required? 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 Received a COVID vaccine? Yes Received all doses? Yes Marital Status Lives With spouse Prior Living Arrangements House Number of Floors (Floors) One Floor Does the Patient Have Assistance After No: works all day, Surgery 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 easily Patient Discharge Plan Description Return Home Feels Safe in Current Environment Yes Been Physically Hurt or Threatened By a No Person in Current Environment Do you have thoughts of harming yourself None or others? Are you currently considering suicide? No Do you have a plan to hurt yourself or No Plan others? Do You Have Any Spiritual Beliefs That Yes: Jehovah Witness - No May Affect Your HC Choices? blood products Do You Have Any Cultural Practices That No May Affect Your HC Choices? Comment Jehovah Witness Who Can We Speak to About Patient's Care Family, friends Identifying Code for Release of Patient Declines to issue Information Health Care Proxy/Next of Kin Raman Chase () Cindy (daughter) Health Care Proxy Phone Number Raman: [phone] Cindy: [phone] Emergency Contact Name Raman Chase () Cindy (daughter) Emergency Contact Phone Number Raman: [phone] Cindy: [phone] Advance Directives? No Advance Directives on File No Power of Thread Machine Operator No PAC Instructions Do not shave/clip surgical site,Durable medical equipment ,Medications to take/avoid, Nasal antibiotic,No ETOH/ petroleum product on skin DOS, NPO,Post-op transportation,Pre -surgical wash,Sensory aids, Sturdy shoes/comfortable clothes,Do not bring valuables and remove jewelry
[2021-11-09] MEDS: FOLIC ACID 0.4 MG TABLET 0.8 MG PO (09:10)
[2021-11-09] MEDS: DOCUSATE 100 MG CAPSULE PO ×2 (09:10→20:31)
[2021-11-09] MEDS: SERTRALINE 50 MG TABLET 100 MG PO (09:10)
[2021-11-09] MEDS: LOSARTAN 50 MG TABLET PO ×2 (09:11→20:31)
[2021-11-09] MEDS: OXYBUTYNIN 5 MG TABLET PO (09:11)
[2021-11-09] MEDS: LORATADINE 10 MG TABLET PO (09:11)
[2021-11-09] MEDS: OXYCODONE IR 10 MG TABLET PO ×4 (09:11→20:30)
--- NOTE | 2021-11-09 09:43 | PT.IPTN ---
Current Diagnoses Unilateral primary osteoarthritis, right hip (11/08/21) Pain in right hip (11/08/21) Surgery Performed Operation Date: 11/08/21 07:45 Actual Procedures p Total Hip Arthroplasty(Right) - Margo Cornejo MD Physical Therapy Treatment Note M2 PT-IP Current Condition Start: 11/08/21 14:56 Freq: NEEDED Status: Active Protocol: Document 11/08/21 14:02 AB (Rec: 11/08/21 15:09 AB [id number]) Physical Therapy Current Condition Current Condition Evaluation Date 11/08/21 Treatment Diagnosis s/p R LESLI posterior approach; difficulty in walking Onset Date 11/08/21 M3 PT-IP Subjective Start: 11/08/21 14:56 Freq: NEEDED Status: Active Protocol: Document 11/09/21 09:19 KS (Rec: 11/09/21 10:51 KS [id number]) Subjective Physical Therapy Visit Type Type Treatment Note Visit Start Time 09:19 Visit Stop Time 09:43 Total Visit Minutes 24 Number of FLEXOGRAPHIC PRESS HELPER Visits 1 Physical Therapy Visit Comments Patient Comments agreeable to do PT Therapy Pain Assessment Pain When Pain Assessed After Treatment Pain Present Pain Present Pain Reported Location Generalized Intensity 8 Scale Used Numeric (0 - 10) Description Aching Pain Behaviors Holding Area,Restlessness Pain Management Techniques Elevation,Re-positioning M4 PT-IP Mobility and Gait Start: 11/08/21 14:56 Freq: NEEDED Status: Active Protocol: Document 11/09/21 09:19 KS (Rec: 11/09/21 10:51 KS [id number]) PT-Bed Mobility Assessment Supine to Sit Supine to Sit Standby Assistance,Head of Bed Elevated,Bedrails Sit to Supine Sit to Supine Standby Assistance Scooting Scooting to Edge of Bed Standby Assistance PT-Transfer Assessment Sit to and From Stand Sit to and from Stand Minimal Assistance,1 Person Assistance,Use of Upper Extremities Equipment Transfer Assistive Device Gait Belt,Front Wheeled Walker Orthotic/Prosthetic Devices or Brace: No Transfers Transfer Destination Bed Transfer Technique Pt ambulated w/ FWW Transfer Ability Level of Assist Minimal Assistance,1 Person Assistance,Use of Upper Extremities Comments Mobility Comments Pt in bed upon arrival and agreeable to ambulate. SBA for sup<>sit and scooting EOB w/ HOB raised. Min A and cues to avoid hip flexion >90 for sit< >stand w/ FWW. Pt then ambulated ~60 ft w/ FWW CGA w/ step to gait and decreased stride and foot clearance. She then reported fatigue and requested to get back in bed. Pt able to use gaitbelt to self assist RLE into bed SBA. Pt left in bed w/ all needs in reach and alarm on. RN notfied pt requesting pain meds. Gait Assessment Gait Gait Assistance Required: Contact Guard Assist,1 Person Assist Distance (Feet) 60 Able to Maintain Weight Bearing Status Yes During Gait Assistive Devices Assistive Device Gait Belt,Front Wheeled Walker Orthotic/Prosthetic Devices or Brace: No Gait Deviations General Gait Pattern Decreased Stride Length, Decreased Feet Clearance Factors Limiting Gait Function Factors Limiting Gait Function Decreased Activity Tolerance, Decreased Strength,Limited Range of Motion,Poor Balance, Poor Safety Awareness Comments Gait Comments Please refer to mobility section for details. Stair Climbing Assessment Comments Stair Climbing Comments Will complete prior to d/c. PT-Balance Assessment Sitting Balance and Reactions Static Sitting Balance Ability Good Dynamic Sitting Balance Ability Good Standing Balance and Reactions Static Standing Balance Ability Good Dynamic Standing Balance Ability Fair Device Used FWW M5 PT-IP Objective Assessments Start: 11/08/21 14:56 Freq: NEEDED Status: Active Protocol: Document 11/08/21 14:02 AB (Rec: 11/08/21 15:09 AB [id number]) Orientation Orientation/Cognition Level of Alertness Alert Orientation Name,Age,Place,Situation Language Function Ability Hard of Hearing Safety Awareness Decreased Safety Awareness Memory Description Short Term Impaired Gross Range of Motion Lower Extremity ROM Assessment Within Functional Limits Strength Lower Extremity Strength Assessment Right Impaired Hip 3+/5 Knee 3+/5 Sensation Assessment Sensation Gross Sensation WNL Muscle Tone Muscle Tone WNL Yes M6 PT-IP Treatment Start: 11/08/21 14:56 Freq: NEEDED Status: Active Protocol: Document 11/09/21 09:19 KS (Rec: 11/09/21 10:51 KS [id number]) Physical Therapy Treatment Exercises Exercises Ankle Pumps Education Education Provided Precautions,Weight Bearing Status,Post-Op Packet,Safety M7 PT-IP Assessment and Plan Start: 11/08/21 14:56 Freq: NEEDED Status: Active Protocol: Document 11/09/21 09:19 KS (Rec: 11/09/21 10:51 KS [id number]) PT Summary Assessment and Plan Potential Rehabilitation Potential Good Status of Condition at Evaluation Stable Summary Impairments Pain,ROM,Strength,Balance, Coordination,Sensation,Tone, Cognition,Bed Mobility, Transfers,Gait,Activity Tolerance Progress Towards Goals Progressing Toward Goals Assessment Summary Pt showing improvements w/ mobility this AM. SBA for bed mobility, Min A for sit<>stand , and CGA for 60 ft ambulation w/ FWW. Sh remains limited by high levels of pain and weakness. She will need to complete stair training prior to d/c and will benefit from HHPT to improve strength and functional mobility independence. Goals Bed Mobility Goal Independent Transfer Goal Independent,Front Wheeled Walker Gait Goal Independent,Front Wheel Walker Gait Distance 300 Other Goals up/down 3 steps without rails: use SPC/FIELD CONTROL INSPECTOR Days to Meet Goals 5 Frequency of Treatment Frequency Of Treatment Twice a Day Treatment Plan Physical Therapy Treatment Plan Bed Mobility Training,Transfer Training,Gait Training, Therapeutic Exercise,Balance Retraining,Post Op Education, Discharge Planning,Hot or Cold Pack,Neuromuscular Re-ed, Coordination Retraining,Manual Therapy Precautions Posterior Hip Precautions No Hip Flexion > 90 degrees,No Hip Internal Rotation,No Hip Adduction Weight Bearing Status Weight Bearing Status Weight Bear as Tolerated Allowed Weight Bearing Amount (enter % RLE WBAT or #) (%) Recommendations To Nursing Amount of Assist Needed 1 Person Assist Discharge Recommendations PT Discharge Recommendations Home with Assistance,Home Health Transportation Needs at Discharge Private Vehicle
[2021-11-09] MEDS: ACETAMINOPHEN 325 MG TABLET 650 MG PO ×2 (11:52→17:38)
--- NOTE | 2021-11-09 13:33 | PT.IPTN ---
Current Diagnoses Unilateral primary osteoarthritis, right hip (11/08/21) Pain in right hip (11/08/21) Surgery Performed Operation Date: 11/08/21 07:45 Actual Procedures p Total Hip Arthroplasty(Right) - Margo Cornejo MD Physical Therapy Treatment Note M2 PT-IP Current Condition Start: 11/08/21 14:56 Freq: NEEDED Status: Active Protocol: Document 11/08/21 14:02 AB (Rec: 11/08/21 15:09 AB [id number]) Physical Therapy Current Condition Current Condition Evaluation Date 11/08/21 Treatment Diagnosis s/p R LESLI posterior approach; difficulty in walking Onset Date 11/08/21 M3 PT-IP Subjective Start: 11/08/21 14:56 Freq: NEEDED Status: Active Protocol: Document 11/09/21 13:33 AB (Rec: 11/09/21 15:00 AB [id number]) Subjective Physical Therapy Visit Type Type Treatment Note Visit Start Time 13:33 Visit Stop Time 14:15 Total Visit Minutes 42 Number of TYPER Visits 0 Physical Therapy Visit Comments Patient Comments agreeable to do PT Therapy Pain Assessment Pain When Pain Assessed At Rest Pain Present Pain Present Pain Reported Location Right Hip Intensity 8 Scale Used Numeric (0 - 10) Pain Management Techniques Apply Cold,Distraction, Modification of Treatment,Re- positioning,Timing of Activity with Medications M4 PT-IP Mobility and Gait Start: 11/08/21 14:56 Freq: NEEDED Status: Active Protocol: Document 11/09/21 13:33 AB (Rec: 11/09/21 15:00 AB [id number]) PT-Bed Mobility Assessment Supine to Sit Supine to Sit Standby Assistance Sit to Supine Sit to Supine Minimal Assistance,Moderate Assistance,1 Person Assistance ,Head of Bed Elevated PT-Transfer Assessment Sit to and From Stand Sit to and from Stand Standby Assistance,Contact Guard Assistance,1 Person Assistance,Use of Upper Extremities Equipment Transfer Assistive Device Gait Belt,Front Wheeled Walker Orthotic/Prosthetic Devices or Brace: No Transfers Transfer Destination Bed Transfer Technique ambulated Transfer Ability Level of Assist Standby Assistance,Use of Upper Extremities Comments Mobility Comments spouse in room. caregiver training conducted. pt completed supine to sit SBA. with HOB elevated. pt stated that she plans to sleep on her couch and had 5 blankets to make her head elevated at home . educated spouse on how to use safety belt and how to assist pt. spouse was able to put belt on and assist pt with sit to stand and ambulation. pt ambulated using FWW ~ 125 ft SBA. educated on stair climbing using SPC and CLUB CAR ATTENDANT. pt completed up/down platform step mod to max A and max cues using SPC and CLUB CAR ATTENDANT. spouse was able to assist pt safely. pt refused to do more stair climbing and c/o increase hip pain. assisted pt back to her room. ambulated from w/c to bed using FWW SBA. completed sit to supine min to mod A with LE elevation and spouse was able to assist pt. positioned pt in bed. call light and table placed within reach. educated spouse on pt's posterior hip precautions. Gait Assessment Gait Gait Assistance Required: Standby Assistance Distance (Feet) 125 Able to Maintain Weight Bearing Status Yes During Gait Assistive Devices Assistive Device Gait Belt,Front Wheeled Walker Orthotic/Prosthetic Devices or Brace: No Gait Deviations General Gait Pattern Antalgic,Decreased Stride Length,Decreased Feet Clearance Factors Limiting Gait Function Factors Limiting Gait Function Decreased Activity Tolerance, Decreased Strength,Limited Range of Motion,Pain,Poor Balance,Poor Safety Awareness Stair Climbing Assessment Evaluation Level of Assist On Stairs Moderate Assistance,Maximal Assistance,1 Person Assistance Devices Stair Climbing Assistive Devices Straight Cane Technique/Endurance Stair Climbing Direction Ascend and Descend Stair Climbing Technique Step to Step Number of Steps Climbed 1 Stair Climbing Set # Repetitions (reps) 2 M5 PT-IP Objective Assessments Start: 11/08/21 14:56 Freq: NEEDED Status: Active Protocol: Document 11/08/21 14:02 AB (Rec: 11/08/21 15:09 [email or web address]) Orientation Orientation/Cognition Level of Alertness Alert Orientation Name,Age,Place,Situation Language Function Ability Hard of Hearing Safety Awareness Decreased Safety Awareness Memory Description Short Term Impaired Gross Range of Motion Lower Extremity ROM Assessment Within Functional Limits Strength Lower Extremity Strength Assessment Right Impaired Hip 3+/5 Knee 3+/5 Sensation Assessment Sensation Gross Sensation WNL Muscle Tone Muscle Tone WNL Yes M6 PT-IP Treatment Start: 11/08/21 14:56 Freq: NEEDED Status: Active Protocol: Document 11/09/21 13:33 AB (Rec: 11/09/21 15:00 [email or web address]) Physical Therapy Treatment Education Education Provided Safety M7 PT-IP Assessment and Plan Start: 11/08/21 14:56 Freq: NEEDED Status: Active Protocol: Document 11/09/21 13:33 AB (Rec: 11/09/21 15:00 AB [id number]) PT Summary Assessment and Plan Potential Rehabilitation Potential Good Summary Impairments Pain,ROM,Strength,Balance, Coordination,Sensation,Tone, Cognition,Bed Mobility, Transfers,Gait,Activity Tolerance Progress Towards Goals Slow Progress due to Pain Assessment Summary caregiver training conducted and spouse was able to assist pt with mobility. pt's spouse works and can only be off work to assist pt for a few days and afterwards, pt will mostly by herself. pt plans to have HHPT. pt may go home when medically stable. Goals Bed Mobility Goal Independent Transfer Goal Independent,Front Wheeled Walker Gait Goal Independent,Front Wheel Walker Gait Distance 300 Other Goals up/down 3 steps without rails: use SPC/CLUB CAR ATTENDANT Days to Meet Goals 5 Frequency of Treatment Frequency Of Treatment Twice a Day Treatment Plan Physical Therapy Treatment Plan Bed Mobility Training,Transfer Training,Gait Training, Therapeutic Exercise,Balance Retraining,Post Op Education, Discharge Planning,Hot or Cold Pack,Neuromuscular Re-ed, Coordination Retraining,Manual Therapy Precautions Posterior Hip Precautions No Hip Flexion > 90 degrees,No Hip Internal Rotation,No Hip Adduction Weight Bearing Status Weight Bearing Status Weight Bear as Tolerated Allowed Weight Bearing Amount (enter % RLE WBAT or #) (%) Recommendations To Nursing Amount of Assist Needed 1 Person Assist Discharge Recommendations PT Discharge Recommendations Home with Assistance,Home Health Transportation Needs at Discharge Private Vehicle
[2021-11-09] MEDS: GABAPENTIN 300 MG CAPSULE PO (20:30)
[2021-11-09] MEDS: PANTOPRAZOLE DR 40 MG TABLET PO (20:31)
[2021-11-09] MEDS: APIXABAN 5 MG TABLET 2.5 MG PO (20:32)
[2021-11-10] MEDS: HYDROMORPHONE 0.5 MG INJ IV ×2 (00:26→04:54)
[2021-11-10] MEDS: ACETAMINOPHEN 325 MG TABLET 650 MG PO ×3 (00:26→12:19)
[2021-11-10] MEDS: METOCLOPRAMIDE 10 MG/2 ML INJ IV (00:26)
[2021-11-10 00:32] VITALS: BP 165/85; PULSE 82; RESP 18; TEMP 37; O2SAT 97
[2021-11-10] MEDS: SODIUM CHLORIDE 0.9% FLUSH 10 ML IV ×2 (00:34→08:11)
[2021-11-10] MEDS: PANTOPRAZOLE DR 20 MG TABLET PO (04:54)
[2021-11-10 05:26] VITALS: BP 141/85; PULSE 71; RESP 18; TEMP 37; O2SAT 93
[2021-11-10] MEDS: LEVOTHYROXINE 100 MCG TABLET PO (06:14)
[2021-11-10] MEDS: OXYCODONE IR 10 MG TABLET PO (07:37)
[2021-11-10] MEDS: METOCLOPRAMIDE HCL 10 MG TABLET PO ×2 (07:37→12:20)
[2021-11-10 07:59] VITALS: BP 127/91; PULSE 73
[2021-11-10] MEDS: OXYBUTYNIN 5 MG TABLET PO (07:59)
[2021-11-10] MEDS: LOSARTAN 50 MG TABLET PO (07:59)
[2021-11-10] MEDS: SERTRALINE 50 MG TABLET 100 MG PO (08:02)
[2021-11-10] MEDS: LORATADINE 10 MG TABLET PO (08:03)
[2021-11-10] MEDS: APIXABAN 5 MG TABLET 2.5 MG PO (08:03)
[2021-11-10] MEDS: FOLIC ACID 0.4 MG TABLET 0.8 MG PO (08:10)
[2021-11-10 08:29] VITALS: BP 127/91; PULSE 73; RESP 18; TEMP 36.6; O2SAT 95
--- NOTE | 2021-11-10 08:48 | PT-IP ANOTE ---
Checked on pt at 8:48 AM, pt states she feels physically ready to return home and would like HHPT. Caregiver training was completed w/ pts yesterday and he was able to assist her.
--- NOTE | 2021-11-10 10:35 | CM.DPC ---
DCP Note RETAIL MANAGEMENT TRAINEE receives VM from [facility] who reports that HH referral from [facility] was not received. RETAIL MANAGEMENT TRAINEE faxes F2F from Dr. Cornejo, orders and clinicals for referral for patient upon d/c. Plan: patient to d/c upon medical clearance to home with and [facility] referral. KEN Arechiga
--- NOTE | 2021-11-10 11:04 | PM.DS.1 ---
History of Present Illness History of Present Illness Date Patient Seen: 11/10/21 Time Patient Seen: 11:04 Chief complaint: Right hip pain s/p right LESLI Narrative: Patient is complaining of moderate to severe right hip pain. Prior to surgery, she was taking Stryker 10, 2 tablets every 6 hours as needed. The patient states she was taking 6-8 tablets daily, provided by her primary care which she is in a pain contract with. She denies any new numbness or tingling. She is complaining of itching near the siva dressing site. She is sensitive to adhesives. She denies any new numbness or tingling. The oxycodone 10 mg is not working well for her. Her IBS is better controlled and she would like to be discharged home today. Discharge Providers Provider Discharge Date: 11/10/21 Primary care physician: Chandler Covarrubias MD Consults: 11/01/21 09:28 Consult to Hardware Engineering Manager Routine Comment: Pt wants to go to a SNF @ [place] 11/08/21 06:34 Consult to Anesthesiology Routine Comment: Consulting Provider: Anesthesiologist Reason for consultation: Regional block for post operative pain control 11/08/21 11:05 Consult to Home Health Routine Comment: PT, OT, HH aide and RN Reason For Exam: HH consult 11/08/21 12:41 Consult to Discharge Planning Routine Comment: Consult to Physical Therapy Evaluate & Treat Comment: Physician Instructions: post op LESLI protocol Consult to Respiratory Therapy Evaluate & Treat Comment: Physician Instructions: Evaluate and treat Discharge provider: Joan Bateman PA-C Summary Hospital Course Discharge Diagnosis: -right hip OA -chronic pain management patient is -History of irritable bowel syndrome Hospital Course: Operative Date/Time/Diagnoses Date of procedure: 11/08/21 Time of procedure: 07:55 Procedure & Clinicians Procedure: Right total hip arthroplasty posterior approach Same procedure as scheduled: Yes Indications: The patient has had progressively worsening right hip pain with radiographic changes consistent with arthritis. Non-operative management has failed and the patient has requested total hip replacement. The risks, benefits and alternatives to surgery were discussed with the patient prior to proceeding. Risks discussed included, but were not limited to, failure to relieve pain, leg length discrepancy, dislocation, stiffness, infection, nerve damage, deep venous thrombosis, pulmonary embolism, stroke, coma, heart attack, permanent paralysis and , as well as the potential need for eventual revision of the prosthetic. Surgeon: Margo Cornejo Seam Sewer: Joan Bateman Anesthesia Type: General and Spinal Operative Notes Findings: Severe right hip osteoarthritis, good stability adequate bone Closure Type: primary Specimen(s): none sent Prosthetic devices, grafts, tissues, transplants, or devices: Cornejo and nephew anthology standard offset size 8, R3 52 mm, neutral poly liner, +0 Oxinium head Estimated Blood Loss (mL): 250 Blood products transfused: none Status at Discharge Cognitive/behavioral status at discharge: oriented Functional status at discharge: uses cane/walker Overall status at discharge: patient is progressing back to baseline Exam Vital Signs (past 8 hours): - 11/10/21 05:26 11/10/21 07:59 11/10/21 08:29 Temperature 98.6 F 97.9 F Pulse Rate 71 73 73 Respiratory Rate 18 18 Blood Pressure 141/85 H 127/91 H 127/91 H Pulse Oximetry 93 95 Oxygen Delivery Method Room Air Oxygen Flow Rate 0 Narrative Exam Narrative: Pleasant 66-year-old female, resting comfortably in bed, mild distress. Dressing is clean, dry, intact. There are excoriations and redness noted at the most proximal posterior aspect of the bandage. Bilateral lower extremity: Motor functions are grossly intact, sensation is grossly intact to light touch, calves are soft and nontender to palpation. Objective Labs Result Diagrams: 11/09/21 06:23 [facility] Medical History Anxiety Chronic pain Chronic sinus bradycardia Depression DVT (deep venous thrombosis) Former smoker GERD (gastroesophageal reflux disease) GI bleed (2020) Hiatal hernia History of ETOH abuse Hospitalization or health care facility admission within last 6 months (12/14/19) HTN (hypertension) Hypoglycemia Hypothyroidism Insomnia Lactose intolerance No blood products SHANEKA (obstructive sleep apnea) Osteomyelitis Presence of neurostimulator PTSD (post-traumatic stress disorder) Pulmonary embolism (~1993) Surgical History History of arthroplasty of left knee (03/20/20) History of arthroscopy of left shoulder History of arthroscopy of right shoulder History of carpal tunnel release of both wrists History of colonoscopy History of esophagogastroduodenoscopy (EGD) History of lumpectomy of left breast History of lumpectomy of right breast History of total left hip arthroplasty (11/08/15) Hx of appendectomy Hx of cholecystectomy Hx of hernia repair Hx of laminectomy (11/11/18) Hx of tubal ligation S/P gastroplasty Family History Father CAD (coronary artery disease) Mother CAD (coronary artery disease) Social History household members: spouse Smoking Status: Former smoker alcohol intake: former Discharge Assessment & Plan Assessment and Plan Assessment: -stable status post right total hip arthroplasty, posterior approach -chronic pain management patient -history of IBS/GI upset -contact dermatitis/adhesive reaction -history of pulmonary emboli Plan of Treatment: -mobilize with PT. Maintain posterior hip precautions x6 weeks. Weightbearing as tolerated with front wheel walker -continue with multimodal pain management. We will discontinue her oxy 10 and change her to Dilaudid 2 mg. I will add Vistaril 25 mg. I explained her postop pain will be more difficult to control because of her long-term pain medication use. -continue with home regimen for IBS/GI upset -continue with Eliquis for DVT prophylaxis and her history of pulmonary emboli -I will change her bandage from a siva to an Aquacel and hopefully this will help with her contact dermatitis -DC home today once cleared by PT Discharge Plan Discharge Plan Patient Disposition: Home Discharge orders & Medications Discharge Orders: Discharge (Order); Ordered 11/10/21 Ordered By: Joan Bateman Prescriptions: New acetaminophen 500 mg capsule 500 mg PO Q4H MDD Max 3000 mg per day PRN (Reason: fever or pain) Qty: 90 0RF docusate sodium 100 mg Capsule 100 mg PO BID PRN (Reason: Constipation from narcotic pain meds) Qty: 20 0RF hydromorphone 2 mg Tablet 2 mg PO Q3H PRN (Reason: Pain, Severe (7-10)) Qty: 42 0RF hydroxyzine pamoate 25 mg Capsule 25 mg PO Q4HR PRN (Reason: Muscle spasm/pain/nausea) Qty: 60 0RF Continued gabapentin [Neurontin] 300 MG capsule 300 mg PO QD-BID PRN (Reason: Nerve pain) Qty: 0 0RF oxybutynin chloride 5 MG tablet 5 mg PO DAILY Qty: 0 0RF trazodone 100 MG tablet 100 mg PO HS PRN (Reason: Sleep) Qty: 0 0RF biotin 1 mg capsule 2,500 mg PO QDAY Qty: 0 0RF levothyroxine 200 mcg tablet 100 mcg PO DAILY 0RF metoclopramide HCl [Reglan] 10 mg tablet 10 mg PO QACHS Qty: 90 3RF losartan 50 mg tablet 50 mg PO BID 0RF Label Comments: has been taking bid sertraline 100 mg Tablet 100 mg PO DAILY 0RF hydroxyzine HCl 10 mg Tablet 10 mg PO BEDTIME 0RF folic acid 800 mcg Tablet 1 mg PO DAILY 0RF cetirizine 10 mg Tablet 10 mg PO BID 0RF pantoprazole 40 mg Tablet,Delayed Release (Dr/Ec) 40 mg PO BEDTIME 0RF omeprazole 20 mg Tablet,Delayed Release (Dr/Ec) 20 mg PO DAILY 0RF Eliquis 2.5 mg Tablet 2.5 mg PO BID 0RF Discontinued hydrocodone-acetaminophen 10-325 mg Tablet 1 - 2 tab PO QID PRN (Reason: Pain) 0RF Follow up/Referrals: Chandler Covarrubias MD [Primary Care Provider] - Margo Cornejo MD [Physician] - (10-14 days for postoperative visit) Diet/Activity/Treatments Diet: Diet as Tolerated Other treatments: Medications: -Eliquis to prevent blood clots. -OTC Tylenol 500 mg 1 tablet every 4 hours as needed for pain/fever. Max 3000 mg per day. -Dilaudid 2 mg take 1 tablet every 3 hours as needed for moderate-severe pain (narcotic pain medication). -Vistaril (hydroxyine) 25mg 1 tab every 4 hours as needed for spasms/pain/nausea. -As needed medications: -Ducolax and /or MiraLax as needed for constipation from narcotic pain medications. -Pepcid AC as needed for stomach upset (usually from aspirin or ibuprofen). Dressing/Wound care: -Keep Aquacell dressing in place until postoperative follow-up office visit. -Okay to shower. Keep wound out of direct water stream. No soaking or submerging until all the scabs fall off (approximately 6 weeks). -Please call the office if dressing becomes wet, soiled, or saturated. Activities: -Maintain posterior hip precautions x6 weeks. -Weight-bearing as tolerated. Use front wheeled walker, and progress to cane when safe. -Continue with home exercises as directed by your physical therapist. -Elevate ?toes above the nose if you have significant swelling in your lower leg. (A wedge pillow is easiest.) -Ice your incision as needed for pain/inflammation/swelling. Protect your skin with a folded pillowcase. Follow-up: -Follow-up with your surgeon or PA in the office in 10-14 days after surgery. -Follow-up with your surgeon 6 weeks postoperatively. Call the office if you have chest pain, shortness of breath, significant swelling that will not resolve with elevating, fever over 101?, significantly worsening pain. [facility]: [phone] Skin/Wound/Dressing Care Report to your healthcare provider any signs of infection, such as:: chills, fever, night sweats, unusual drainage and unusual redness Visit Report/Discharge Packet Instructions: DI for Hip Replacement Stand Alone Forms: Surgery Discharge Discharge Data Primary Care Provider: Chandler Covarrubias Attending Provider: Margo Cornejo Quality VTE Deep Vein Thrombosis/Pulmonary Embolism Present on Admission: No
[2021-11-10] MEDS: diphenhydrAMINE 25 MG TABLET PO (11:07)
[2021-11-10] MEDS: HYDROMORPHONE 2 MG TABLET PO (11:07)
[2021-11-10] MEDS: hydrOXYzine pamoate 25 MG CAPSULE PO (11:08)
[2021-11-10 12:00] VITALS: BP 124/81; PULSE 75; RESP 22; TEMP 36.8; O2SAT 96
--- NOTE | 2021-11-10 13:31 | PC.NURSE ---
dc instructions reviewed with pt and her . [place] drsg changed to Vineet manjarrezg. darrell intact, incision dry and intact. reviewed hip precautions, s/s infection, constipation due to narcotics. pt dc'd via wheelchair.
== END 2021-11-10 13:33 | disposition home or self-care (01) ==
LOC: OR 11-11 00:38 → AC 11-11 00:38
PROVIDERS: Admitting Provider Orthopaedic Surgery; PCP Internal Medicine; Referring Provider Orthopaedic Surgery; Visit Provider Orthopaedic Surgery
PROC: 0SR90JZ Replacement of Right Hip Joint with Synthetic Substitute, Open Approach (ICD-10-PCS; CPT 27130; principal; 2021-11-08 07:45)
DX: M16.11 Unilateral primary osteoarthritis, right hip (principal); Z86.711 Personal history of pulmonary embolism; Z79.01 Long term (current) use of anticoagulants; K58.9 Irritable bowel syndrome, unspecified; E03.9 Hypothyroidism, unspecified
CPT/HCPCS: 27130; 36415; 36592; 72170; 73502; 85014; 85018; 97116; 97161; 97530; C1776; G0378; C9290; J0171; J0360; J0690; J1100; J1170; J2250; J2405; J2704; J2765; J3010

== ENCOUNTER 2021-11-19 08:53 | Emergency (ER) | payer OTHER, MEDICARE, SELFPAY ==
[2021-11-08 12:43] VITALS: BMI 35.9
[2021-11-19 09:37] VITALS: BP 149/87; PULSE 52; RESP 17; TEMP 36.6; O2SAT 95; BMI 34.7
--- NOTE | 2021-11-19 09:41 | DI.RAD.S_ITS ---
PROCEDURE: XR KNEE RT 3V INDICATIONS: fall TECHNIQUE: 3 views of the knee were acquired. COMPARISON: [facility] [place], CR, XR KNEE ARTHRITIC SERIES LT, 05/02/2020, 11:19. [facility] [place], CR, XR KNEE ARTHRITIC SERIES LT, 05/03/2020, 11:36. [facility] [place], CR, XR KNEE ARTHRITIC SERIES BI, 02/15/2020, 13:30. [facility], CR, XR HIP W PEL IF DONE RT 2V, 11/19/2021, 9:43. [facility], CR, XR KNEE LT 1TO2V, 03/20/2020, 12:14. FINDINGS: Bones: No fractures or dislocations. No suspicious bony lesions. There is moderate medial femorotibial joint space narrowing seen, with associated remodeling changes including subchondral sclerosis and osteophyte formation along the jointline. Soft tissues: There is a small joint effusion. No suspicious soft tissue calcifications. IMPRESSION: No acute fracture is seen. Degenerative changes are seen, which are worst medially. Small right knee joint effusion. If it would be helpful for clinical management decision making, please consider a dedicated, scheduled knee MRI for further evaluation (assuming that there is no contraindication). Dictated by: Dutch Sherman M.D. on 11/19/2021 at 9:14 Approved by: Dutch Sherman M.D. on 11/19/2021 at 9:15
--- NOTE | 2021-11-19 09:41 | DI.RAD.S_ITS ---
PROCEDURE: XR HIP W PEL IF DONE RT 2V INDICATIONS: fall TECHNIQUE: AP pelvis with lateral view(s) of the right hip(s). COMPARISON: [facility], CR, XR KNEE RT 3V, 11/19/2021, 9:43. [facility], CR, XR PELVIS 1-2V, 11/08/2021, 9:18. [facility], CR, XR HIP W PEL IF DONE RT 2V, 11/08/2021, 11:35. FINDINGS: Bones: No fractures or dislocations. Pelvic ring appears intact. No suspicious bony lesions. Bilateral hip arthroplasty hardware is seen. No findings of hardware failure or hardware loosening are seen. Age-appropriate lower lumbar spine degenerative changes are noted. Soft tissues: The visualized bowel gas pattern is normal. No suspicious soft tissue calcifications. Right lower quadrant postoperative clips are seen. IMPRESSION: No acute fracture can be seen. Unremarkable bilateral hip arthroplasty hardware. Dictated by: Dutch Sherman M.D. on 11/19/2021 at 9:13 Approved by: Dutch Sherman M.D. on 11/19/2021 at 9:13
--- NOTE | 2021-11-19 11:51 | ED.LOWEXIN ---
HPI - Extremity Injury (Lower) General Chief Complaint: Extremity Injury, Lower Stated Complaint: Hip replaced last week, just had a bad fall Time Seen by Provider: 11/19/21 11:51 Related Data Home Medications Medication Instructions Recorded Confirmed biotin 1 mg capsule 2,500 mg PO QDAY #0 07/28/17 11/08/21 gabapentin 300 mg capsule 300 mg PO QD-BID PRN #0 07/28/17 11/08/21 (Neurontin) oxybutynin chloride 5 mg tablet 5 mg PO DAILY #0 07/28/17 11/08/21 trazodone 100 mg tablet 100 mg PO HS PRN #0 07/28/17 11/01/21 losartan 50 mg tablet 50 mg PO BID 10/23/19 11/08/21 levothyroxine 200 mcg tablet 100 mcg PO DAILY 12/16/19 11/08/21 folic acid 800 mcg tablet 1 mg PO DAILY 03/13/20 11/08/21 hydroxyzine HCl 10 mg tablet 10 mg PO BEDTIME 03/13/20 11/08/21 sertraline 100 mg tablet 100 mg PO DAILY 03/13/20 11/08/21 apixaban 2.5 mg tablet (Eliquis) 2.5 mg PO BID 11/01/21 11/08/21 cetirizine 10 mg tablet 10 mg PO BID 11/01/21 11/08/21 omeprazole 20 mg tablet,delayed 20 mg PO DAILY 11/01/21 11/08/21 release pantoprazole 40 mg tablet,delayed 40 mg PO BEDTIME 11/01/21 11/01/21 release Previous Rx's Medication Instructions Recorded metoclopramide HCl 10 mg tablet 10 mg PO QACHS #90 tab 09/08/21 (Reglan) acetaminophen 500 mg capsule 500 mg PO Q4H PRN #90 cap MDD Max 11/10/21 3000 mg per day docusate sodium 100 mg capsule 100 mg PO BID PRN #20 cap 11/10/21 hydromorphone 2 mg tablet 2 mg PO Q3H PRN #42 tab 11/10/21 hydroxyzine pamoate 25 mg capsule 25 mg PO Q4HR PRN #60 cap 11/10/21 Allergies Allergy/AdvReac Type Severity Reaction Status Date / Time morphine [MORPHINE] Allergy Severe Rash, N&V Verified 11/19/21 09:40 - IV med only mussels [MUSSELS] Allergy Severe N&V Verified 11/19/21 09:40 latex [LATEX] Allergy Intermediate RASH, Verified 11/19/21 09:40 ITCHY, BLISTERS adhesive tape Allergy Mild Blister Verified 11/19/21 09:40 iodine [IODINE] Allergy Mild RASH Verified 11/19/21 09:40 Patient History Medical History Anxiety Chronic pain Chronic sinus bradycardia Depression DVT (deep venous thrombosis) Former smoker GERD (gastroesophageal reflux disease) GI bleed (2020) Hiatal hernia History of ETOH abuse Hospitalization or health care facility admission within last 6 months (12/14/19) HTN (hypertension) Hypoglycemia Hypothyroidism Insomnia Lactose intolerance No blood products SHANEKA (obstructive sleep apnea) Osteomyelitis Presence of neurostimulator PTSD (post-traumatic stress disorder) Pulmonary embolism (~1993) Surgical History History of arthroplasty of left knee (03/20/20) History of arthroscopy of left shoulder History of arthroscopy of right shoulder History of carpal tunnel release of both wrists History of colonoscopy History of esophagogastroduodenoscopy (EGD) History of lumpectomy of left breast History of lumpectomy of right breast History of total left hip arthroplasty (11/08/15) Hx of appendectomy Hx of cholecystectomy Hx of hernia repair Hx of laminectomy (11/11/18) Hx of tubal ligation S/P gastroplasty Family History Father CAD (coronary artery disease) Mother CAD (coronary artery disease) Social History household members: spouse Smoking Status: Former smoker alcohol intake: former Smoking Status: Former smoker alcohol intake frequency: holidays/special occasions only Substance Use Type: does not use Exam Initial Vital Signs Initial Vital Signs: Vital Signs Temperature 98 F 11/19/21 09:37 Pulse Rate 52 L 11/19/21 09:37 Respiratory Rate 17 11/19/21 09:37 Blood Pressure 149/87 H 11/19/21 09:37 Pulse Oximetry 95 11/19/21 09:37 Course Orders Ordered: ED Orders 11/19/21 09:41 XR hip w pel if done RT 2V Stat XR knee RT 3V Stat Vital Signs Vital signs: Vital Signs - 8 hr 11/19/21 09:37 Temperature 98 F Pulse Rate 52 L Respiratory Rate 17 Blood Pressure 149/87 H Pulse Oximetry 95 MDM - Extremity Injury (Lower) Imaging Data Extremity x-ray #1: Radiologist's Impression: Hezacht,Kelsi A??66??F??1955 ? Allergy/Adv: morphine, mussels, latex, adhesive tape, iodine (More??) Close Knee X-Ray (Signed) Dutch Sherman - 11/19/21 Hip X-Ray (Signed) Dutch Sherman - 11/19/21 Hip X-Ray (Signed) Nitish Baig - 11/08/21 Pelvis X-Ray (Signed) Nitish Baig - 11/08/21 Outside EKG 10/10/21 Abdomen/Pelvis CT (Signed) Alexandria Nicholson - 09/08/21 Chest X-Ray (Signed) Alexandria Nicholson - 09/08/21 Chest/Abdomen/Pelvis CTA (Signed) Raman Mendoza - 03/26/21 Chest X-Ray (Signed) Sam Pacheco - 03/26/21 Telemetry Strips 03/26/21 Telemetry Strips 02/12/21 Lumbar Spine MRI (Signed) Lizbeth Jaime - 07/26/20 Knee X-Ray (Signed) Nitish Baig - 03/20/20 Outside EKG 03/03/20 Telemetry Strips 12/14/19 Abdomen/Pelvis CT (Signed) Young Laurent - 12/14/[address] (Signed) Dutch Sherman - 10/23/19 Chest X-Ray (Signed) Dutch Sherman - 10/23/19 Vascular Ultrasound (Signed) Raman Mendoza - 08/11/19 Knee X-Ray (Signed) Lizbeth Jaime - 07/25/[address] (Signed) Karen Hernandez - 07/25/19 Foot X-Ray (Signed) Karen Hernandez - 07/25/[address] (Signed) Karen Hernandez - 07/25/19 Ankle X-Ray (Signed) Karen Hernandez - 07/25/19 Chest X-Ray (Signed) LynAlexandria - 05/25/19 Lumbar Spine X-Ray (Signed) Rush Centeno - 11/11/18 Lumbar Spine MRI (Signed) Dutch Sherman - 10/08/18 Outside EKG 06/03/18 Lumbar Spine MRI (Signed) Ez Thakkar - 11/05/17 Radiology - Historical 07/28/17 Launch?Image [address] [address] XRay Report Signed Patient: Kelsi Chase MR#: [id number] : 1955 Acct:[id number] Age/Sex: 66 / F Date of Service: 11/19/21 Loc: ED Accession Number: [id number] ?? Procedure: XR hip w pel if done RT 2V Ordering Provider: Tracy Avery D.O. PROCEDURE:? XR HIP W PEL IF DONE RT 2V ? INDICATIONS:? fall ? TECHNIQUE:? AP pelvis with lateral view(s) of the right hip(s).? ? COMPARISON:? [facility], CR, XR KNEE RT 3V, 11/19/2021, 9:43.? [facility], CR, XR PELVIS 1-2V, 11/08/2021, 9:18.? [facility], CR, XR HIP W PEL IF DONE RT 2V, 11/08/2021, 11:35. ? FINDINGS:? ? Bones:? No fractures or dislocations.? Pelvic ring appears intact.? No suspicious bony lesions.? ? Bilateral hip arthroplasty hardware is seen.? No findings of hardware failure or hardware loosening are seen. ? Age-appropriate lower lumbar spine degenerative changes are noted.? ? Soft tissues:? The visualized bowel gas pattern is normal.? No suspicious soft tissue calcifications.? Right lower quadrant postoperative clips are seen. ? ? IMPRESSION:? No acute fracture can be seen. ? Unremarkable bilateral hip arthroplasty hardware. ? Dictated by: Dutch Sherman M.D. on 11/19/2021 at 9:13 ? ? Approved by: Dutch Sherman M.D. on 11/19/2021 at 9:13?? Extremity x-ray #2: Radiologist's Impression: Kelsi Chase??66??F??1955 ? Allergy/Adv: morphine, mussels, latex, adhesive tape, iodine (More??) Close Knee X-Ray (Signed) Dutch Sherman - 11/19/21 Hip X-Ray (Signed) Dutch Sherman - 11/19/21 Hip X-Ray (Signed) Nitish Baig - 11/08/21 Pelvis X-Ray (Signed) Nitish Baig - 11/08/21 Outside EKG 10/10/21 Abdomen/Pelvis CT (Signed) Alexandria Nicholson - 09/08/21 Chest X-Ray (Signed) Alexandria Nicholson - 09/08/21 Chest/Abdomen/Pelvis CTA (Signed) Raman Mendoza - 03/26/21 Chest X-Ray (Signed) Sam Pacheco - 03/26/21 Telemetry Strips 03/26/21 Telemetry Strips 02/12/21 Lumbar Spine MRI (Signed) Lizbeth Jaime - 07/26/20 Knee X-Ray (Signed) Nitish Baig - 03/20/20 Outside EKG 03/03/20 Telemetry Strips 12/14/19 Abdomen/Pelvis CT (Signed) Young Laurent - 12/14/[address] (Signed) Dutch Sherman - 10/23/19 Chest X-Ray (Signed) Dutch Sherman - 10/23/19 Vascular Ultrasound (Signed) Raman Mendoza - 08/11/19 Knee X-Ray (Signed) Lizbeth Jaime - 07/25/[address] (Signed) Karen Hernandez - 07/25/19 Foot X-Ray (Signed) HernandezKaren epperson - 07/25/[address] (Signed) Karen Hernandez - 07/25/19 Ankle X-Ray (Signed) HernandezKaren epperson - 07/25/19 Chest X-Ray (Signed) Alexandria Nicholson - 05/25/19 Lumbar Spine X-Ray (Signed) Rush Centeno - 11/11/18 Lumbar Spine MRI (Signed) Dutch Sherman - 10/08/18 Outside EKG 06/03/18 Lumbar Spine MRI (Signed) Ez Thakkar - 11/05/17 Radiology - Historical 07/28/17 Launch?Image [address] [address] XRay Report Signed Patient: Kelsi Chase MR#: [id number] : 1955 Acct:[id number] Age/Sex: 66 / F Date of Service: 11/19/21 Loc: ED Accession Number: [id number] ?? Procedure: XR hip w pel if done RT 2V Ordering Provider: Tracy Avery D.O. PROCEDURE:? XR HIP W PEL IF DONE RT 2V ? INDICATIONS:? fall ? TECHNIQUE:? AP pelvis with lateral view(s) of the right hip(s).? ? COMPARISON:? [facility], CR, XR KNEE RT 3V, 11/19/2021, 9:43.? [facility], CR, XR PELVIS 1-2V, 11/08/2021, 9:18.? [facility], CR, XR HIP W PEL IF DONE RT 2V, 11/08/2021, 11:35. ? FINDINGS:? ? Bones:? No fractures or dislocations.? Pelvic ring appears intact.? No suspicious bony lesions.? ? Bilateral hip arthroplasty hardware is seen.? No findings of hardware failure or hardware loosening are seen. ? Age-appropriate lower lumbar spine degenerative changes are noted.? ? Soft tissues:? The visualized bowel gas pattern is normal.? No suspicious soft tissue calcifications.? Right lower quadrant postoperative clips are seen. ? ? IMPRESSION:? No acute fracture can be seen. ? Unremarkable bilateral hip arthroplasty hardware. ? Dictated by: Dtuch Sherman M.D. on 11/19/2021 at 9:13 ? ? Approved by: Dutch Sherman M.D. on 11/19/2021 at 9:13?? Discharge Plan Departure Patient Disposition: Left Without Being Seen Clinical Impression: Patient left before evaluation by physician
== END 2021-11-19 13:53 | disposition left against medical advice (07) ==
PROVIDERS: Emergency Provider Student in an Organized Health Care Education/Training Program; PCP Internal Medicine
DX: M25.561 Pain in right knee (principal); W19.XXXA Unspecified fall, initial encounter; Z96.641 Presence of right artificial hip joint
CPT/HCPCS: 73502; 73562; 99281

== ENCOUNTER 2022-01-19 15:47 | Emergency (ER) | payer OTHER, MEDICARE, SELFPAY ==
[2021-11-08 12:43] VITALS: BMI 35.9
[2022-01-19] VITALS (17 sets, daily range): BP systolic 110–168; BP diastolic 55–88; PULSE 50–105; RESP 18–92; TEMP 37.1; O2SAT 94–98; BMI 34.5
--- NOTE | 2022-01-19 15:57 | DI.RAD.S_ITS ---
PROCEDURE: XR CHEST 1V INDICATIONS: chest pain TECHNIQUE: One view of the chest was acquired. COMPARISON: [facility], CT, CT ANGIO CHEST ABDOMEN PELVIS, 03/26/2021, 15:27. [facility], CR, XR CHEST 1V, 09/08/2021, 14:05. FINDINGS: Surgical changes and devices: Neurostimulator noted overlying the spine partially captured. Surgical device noted overlying the inferior aspect the cardiac silhouette and upper abdomen. Overlying EKG wires. Lungs and pleura: Lungs are clear. No pleural effusions or pneumothorax. Mediastinum: Mediastinal contours appear normal. Heart size is normal. Moderate size hiatal hernia. Bones and chest wall: No suspicious bony lesions. Overlying soft tissues appear unremarkable. IMPRESSION: No evidence of an acute cardiopulmonary abnormality. Moderate size hiatal hernia. Dictated by: Harinder Oquendo D.O. on 01/19/2022 at 15:32 Approved by: Harinder Oquendo D.O. on 01/19/2022 at 15:34
[2022-01-19 16:12] LABS: INR 1.1 (0.9-1.3); Prothrombin Time 11.7 SECONDS (10.1-12.7)
[2022-01-19 16:15] LABS: PTT Partial Thromboplastin Tim 42 SECONDS (26.4-36.2)
[2022-01-19 16:17] LABS: Alanine Aminotransferase 10 IU/L (<35); Albumin 3.7 g/dL (3.5-5.0); Albumin Globulin Ratio 1.1 (1.0-2.8); Alkaline Phosphatase 97 U/L (38-126); Aspartate Aminotransferase 21 IU/L (14-36); BUN Creatinine Ratio 12.3 (6-22); Bilirubin Total 0.5 mg/dL (0.2-1.3); Blood Urea Nitrogen 9 mg/dL (7-17); Calcium 9.1 mg/dL (8.4-10.2); Carbon Dioxide 30 mmol/L (22-32); Chloride 105 mmol/L (98-107); Creatine Kinase 29 U/L (30-135); Estimated Glomerular Filt Rate > 60 mL/min (>60); Globulin 3.4 g/dL (1.7-4.1); Glucose 100 mg/dL (80-110); HEMOLYSIS < 15 (0-50); Lipase 41 U/L (23-300); Magnesium 1.9 mg/dL (1.6-2.3); Potassium 3.9 mmol/L (3.4-5.1); Sodium 139 mmol/L (137-145); Total Protein 7.1 g/dL (6.3-8.2)
[2022-01-19 16:26] LABS: Add Manual Diff / Slide Review NO; Basophils Absolute Auto 0 /uL (0-100); Basophils Percent Auto 0.6 % (0-2); Eosinophils Absolute Auto 200 /uL (0-450); Eosinophils Percent Auto 3.2 % (2-4); Hematocrit 36.8 % (36-46); Lymphocytes Absolute Auto 2100 /uL (1100-4500); Lymphocytes Percent Auto 29.6 % (25-40); Mean Corpuscular HGB Conc 32.7 % (30-36); Mean Corpuscular Hemoglobin 28.7 PG (26-34); Mean Corpuscular Volume 87.8 fL (80-100); Monocytes Absolute Auto 600 /uL (0-900); Neutrophils Absolute Auto 4200 /uL (1500-7000); Neutrophils Percent Auto 58.6 % (50-75); Platelet Count 322 X10^3/uL (150-400); Red Blood Cell Count 4.19 X10^6/uL (4.0-5.2); Red Cell Distribution Width 14.3 % (11.6-14.8); White Blood Cell Count 7.2 X10^3/uL (4.5-11.0)
[2022-01-19 16:28] LABS: Troponin I < 0.012 ng/mL (0.01-0.034)
--- NOTE | 2022-01-19 18:08 | ED_ITS ---
HPI - Nausea/Vomiting/Diarrhea General Chief complaint: Nausea/Vomiting/Diarrhea Stated complaint: Acid reflux, PAIN, nausea, vomiting Time Seen by Provider: 01/19/22 18:07 Source: patient Mode of arrival: Ambulatory History of Present Illness HPI Narrative: 66-year-old female former smoker with history of a known hiatal hernia presents with a chief complaint of a relatively sudden onset epigastric pain with radiation to her back that started last night after eating. She states it feels similar to her prior episodes of epigastric pain have been thought to be related to her hiatal hernia. The pain is worse when she eats, moves or vomits and radiates as stated. Improves with rest. She is not dizzy nor weak or lightheaded. She denies any exertional component or recent exercise intolerance. She has no chest pain or shortness of breath. She denies any lower extremity pain, swelling or redness. She had been seen previously for GI bleeding and was anticoagulated due to a prior pulmonary embolism. She has a history of a Jossie-en-Y gastric bypass as well as cholecystectomy. She states that she is in the process of referral to the [facility] for possible surgical repair of this known hiatal hernia Related Data Home Medications Medication Instructions Recorded Confirmed biotin 1 mg capsule 2,500 mg PO QDAY ##0 07/28/17 11/08/21 gabapentin 300 mg capsule 300 mg PO QD-BID PRN Nerve pain ##0 07/28/17 11/08/21 (Neurontin) oxybutynin chloride 5 mg tablet 5 mg PO DAILY ##0 07/28/17 11/08/21 trazodone 100 mg tablet 100 mg PO HS PRN Sleep ##0 07/28/17 11/01/21 losartan 50 mg tablet 50 mg PO BID 10/23/19 11/08/21 levothyroxine 200 mcg tablet 100 mcg PO DAILY 12/16/19 11/08/21 folic acid 800 mcg tablet 1 mg PO DAILY 03/13/20 11/08/21 hydroxyzine HCl 10 mg tablet 10 mg PO BEDTIME skin allergies 03/13/20 11/08/21 sertraline 100 mg tablet 100 mg PO DAILY 03/13/20 11/08/21 apixaban 2.5 mg tablet (Eliquis) 2.5 mg PO BID 11/01/21 11/08/21 cetirizine 10 mg tablet 10 mg PO BID 11/01/21 11/08/21 omeprazole 20 mg tablet,delayed 20 mg PO DAILY 11/01/21 11/08/21 release pantoprazole 40 mg tablet,delayed 40 mg PO BEDTIME 11/01/21 11/01/21 release Previous Rx's Medication Instructions Recorded metoclopramide HCl 10 mg tablet 10 mg PO QACHS #90 tabs 09/08/21 (Reglan) acetaminophen 500 mg capsule 500 mg PO Q4H PRN fever or pain 11/10/21 #90 caps docusate sodium 100 mg capsule 100 mg PO BID PRN Constipation 11/10/21 from narcotic pain meds #20 caps hydromorphone 2 mg tablet 2 mg PO Q3H PRN Pain, Severe 11/10/21 (7-10) #42 tabs hydroxyzine pamoate 25 mg capsule 25 mg PO Q4HR PRN Muscle 11/10/21 spasm/pain/nausea #60 caps sucralfate 1 gram tablet (Carafate) 1 g PO BID #30 tabs 01/19/22 Allergies Allergy/AdvReac Type Severity Reaction Status Date / Time morphine [MORPHINE] Allergy Severe Rash, N&V Verified 01/19/22 15:58 - IV med only mussels [MUSSELS] Allergy Severe N&V Verified 01/19/22 15:58 latex [LATEX] Allergy Intermediate RASH, Verified 01/19/22 15:58 ITCHY, BLISTERS adhesive tape Allergy Mild Blister Verified 01/19/22 15:58 iodine [IODINE] Allergy Mild RASH Verified 01/19/22 15:58 Review of Systems Review of Systems Narrative: GENERAL: [66] year old patient appears stated age. Well-developed patient, in obvious distress, rubbing her upper abdomen, clearly in pain HEAD: Atraumatic. Normocephalic. EYES: Pupils equal round and reactive. Extraocular motions intact. No scleral icterus. No injection or drainage. ENT: Nose without bleeding, purulent drainage. Throat without erythema, tonsillar hypertrophy or exudate. Airway patent. NECK: Trachea midline. Non tender CARDIOVASCULAR: Regular rate and rhythm without murmurs, gallops, or rubs. RESPIRATORY: Clear to auscultation. Breath sounds equal bilaterally. No wheezes, rales, or rhonchi. GASTROINTESTINAL: Abdomen soft, non-tender, nondistended. EXTREMITIES: No edema or joint tenderness. BACK: Nontender without deformity or crepitance. No flank tenderness. NEURO: AOx3. SKIN: No rash or erythema of visible areas Patient History Medical History Anxiety Chronic pain Chronic sinus bradycardia Depression DVT (deep venous thrombosis) Former smoker GERD (gastroesophageal reflux disease) GI bleed (2020) Hiatal hernia History of ETOH abuse Hospitalization or health care facility admission within last 6 months (12/14/19) HTN (hypertension) Hypoglycemia Hypothyroidism Insomnia Lactose intolerance No blood products SHANEKA (obstructive sleep apnea) Osteomyelitis Presence of neurostimulator PTSD (post-traumatic stress disorder) Pulmonary embolism (~1993) Surgical History History of arthroplasty of left knee (03/20/20) History of arthroscopy of left shoulder History of arthroscopy of right shoulder History of carpal tunnel release of both wrists History of colonoscopy History of esophagogastroduodenoscopy (EGD) History of lumpectomy of left breast History of lumpectomy of right breast History of total left hip arthroplasty (11/08/15) Hx of appendectomy Hx of cholecystectomy Hx of hernia repair Hx of laminectomy (11/11/18) Hx of tubal ligation S/P gastroplasty Family History Father CAD (coronary artery disease) Mother CAD (coronary artery disease) Social History household members: spouse Smoking Status: Former smoker alcohol intake: former Smoking Status: Former smoker alcohol intake frequency: holidays/special occasions only Substance Use Type: marijuana Exam Narrative Exam Narrative: GENERAL: [66] year old patient appears stated age. Well-developed patient, in mild distress. HEAD: Atraumatic. Normocephalic. EYES: Pupils equal round and reactive. Extraocular motions intact. No scleral icterus. No injection or drainage. ENT: Nose without bleeding, purulent drainage. Throat without erythema, tonsillar hypertrophy or exudate. Airway patent. NECK: Trachea midline. Non tender CARDIOVASCULAR: Regular rate and rhythm without murmurs, gallops, or rubs. RESPIRATORY: Clear to auscultation. Breath sounds equal bilaterally. No wheezes, rales, or rhonchi. GASTROINTESTINAL: Abdomen soft, non-tender, nondistended. EXTREMITIES: No edema or joint tenderness. BACK: Nontender without deformity or crepitance. No flank tenderness. NEURO: AOx3. SKIN: No rash or erythema of visible areas Initial Vital Signs Initial Vital Signs: Vital Signs Temperature 98.8 F 01/19/22 15:53 Pulse Rate 66 01/19/22 15:53 Respiratory Rate 18 01/19/22 15:53 Blood Pressure 168/67 H 01/19/22 15:53 Pulse Oximetry 96 01/19/22 15:53 Oxygen Delivery Method 01/19/22 15:53 Course Orders Ordered: ED Orders 01/19/22 18:16 D Dimer Stat 01/19/22 19:59 CT abdomen pelvis w con Stat CT angio chest PE protocol Stat Discontinued Medications Diphenhydramine HCl (Diphenhydramine 50 Mg/Ml Vial) 25 mg IV NOW ONE Stop: 01/19/22 18:25 Last Admin: 01/19/22 18:46 Dose: 25 mg Documented By: LUIS Hydromorphone HCl (Hydromorphone 0.5 Mg Inj) 0.5 mg IV NOW ONE Stop: 01/19/22 20:40 Last Admin: 01/19/22 20:43 Dose: 0.5 mg Documented By: NARCISA Sodium Chloride (Normal Saline 0.9%) 500 mls @ 1,000 mls/hr IV BOLUS ONE Stop: 01/19/22 18:50 Last Infusion: 01/19/22 20:02 Dose: 500 mls/hr Documented By: Admin: 01/19/22 18:46 Dose: 1,000 mls/hr Documented By: LUIS Lisinopril (Lisinopril 20 Mg Tablet) 20 mg PO NOW ONE Stop: 01/19/22 20:49 Last Admin: 01/19/22 21:15 Dose: Not Given Documented By: NARCISA Methylprednisolone (Methylprednisolone 125 Mg/2 Ml Vial) 125 mg IV NOW ONE Stop: 01/19/22 18:25 Last Admin: 01/19/22 18:46 Dose: 125 mg Documented By: LUIS Ondansetron HCl (Ondansetron 4 Mg/2 Ml Inj) 4 mg IV NOW ONE Stop: 01/19/22 18:22 Last Admin: 01/19/22 18:46 Dose: 4 mg Documented By: LUIS Pantoprazole Sodium (Pantoprazole 40 Mg Vial) 40 mg IV NOW ONE Stop: 01/19/22 18:22 Last Admin: 01/19/22 18:46 Dose: 40 mg Documented By: LUIS Sucralfate (Sucralfate 1 Gm/10 Ml Oral Susp) 1 gm PO NOW ONE Stop: 01/19/22 18:22 Last Admin: 01/19/22 18:46 Dose: 1 gm Documented By: LUIS Vital Signs Vital signs: Vital Signs - 8 hr 01/19/22 17:30 01/19/22 18:00 01/19/22 18:30 Pulse Rate 54 L 71 70 Respiratory Rate 18 92 H 27 H Blood Pressure Pulse Oximetry 98 94 96 01/19/22 18:50 01/19/22 18:50 01/19/22 19:00 Pulse Rate 71 68 Respiratory Rate 24 23 Blood Pressure 120/88 Pulse Oximetry 97 98 01/19/22 19:01 01/19/22 19:01 01/19/22 19:30 Pulse Rate 61 60 Respiratory Rate 24 25 H Blood Pressure 110/55 L Pulse Oximetry 97 95 01/19/22 19:31 01/19/22 19:31 01/19/22 20:00 Pulse Rate 57 L 52 L Respiratory Rate 20 21 Blood Pressure 141/64 H Pulse Oximetry 94 94 01/19/22 20:01 01/19/22 20:01 01/19/22 20:33 Pulse Rate 69 53 L Respiratory Rate 26 H 29 H Blood Pressure 116/55 L Pulse Oximetry 94 95 01/19/22 20:34 01/19/22 20:34 01/19/22 21:00 Pulse Rate 54 L Respiratory Rate 25 H Blood Pressure 125/60 134/63 Pulse Oximetry 97 01/19/22 21:00 Pulse Rate 50 L Respiratory Rate 20 Blood Pressure Pulse Oximetry 97 MDM - Nausea/Vomiting/Diarrhea Lab Data Result diagrams: 01/19/22 15:56 01/19/22 15:56 Labs: Lab Results 01/19/22 01/19/22 01/19/22 Range/Units 15:56 15:56 15:56 WBC 7.2 (4.5-11.0) X10^3/uL RBC 4.19 (4.0-5.2) X10^6/uL Hgb 12.0 (12.0-16.0) g/dL Hct 36.8 (36-46) % MCV 87.8 (80-100) fL MCH 28.7 (26-34) PG MCHC 32.7 (30-36) % RDW 14.3 (11.6-14.8) % Plt Count 322 (150-400) X10^3/uL Neut % (Auto) 58.6 (50-75) % Lymph % (Auto) 29.6 (25-40) % [place] % (Auto) 8.0 (3-14) % Eos % (Auto) 3.2 (2-4) % Baso % (Auto) 0.6 (0-2) % Neut # (Auto) 4200 (7424-1421) /uL Lymph # (Auto) 2100 (1773-7793) /uL [place] # (Auto) 600 (0-900) /uL Eos # (Auto) 200 (0-450) /uL Baso # (Auto) 0 (0-100) /uL PT 11.7 (10.1-12.7) SECONDS INR 1.1 (0.9-1.3) APTT 42 H (26.4-36.2) SECONDS D-Dimer (<230) ng/mL Sodium 139 (137-145) mmol/L Potassium 3.9 (3.4-5.1) mmol/L Chloride 105 (98-107) mmol/L Carbon Dioxide 30 (22-32) mmol/L BUN 9 (7-17) mg/dL Creatinine 0.73 (0.52-1.04) mg/dL Estimated GFR > 60 (>60) mL/min BUN/Creatinine Ratio 12.3 (6-22) Glucose 100 (80-110) mg/dL Calcium 9.1 (8.4-10.2) mg/dL Magnesium 1.9 (1.6-2.3) mg/dL Total Bilirubin 0.5 (0.2-1.3) mg/dL AST 21 (14-36) IU/L ALT 10 (<35) IU/L Alkaline Phosphatase 97 (38-126) U/L Total Creatine Kinase 29 L (30-135) U/L CK-MB (CK-2) TNP CK-MB (CK-2) Rel Index TNP Troponin I < 0.012 (0.01-0.034) ng/mL Total Protein 7.1 (6.3-8.2) g/dL Albumin 3.7 (3.5-5.0) g/dL Globulin 3.4 (1.7-4.1) g/dL Albumin/Globulin Ratio 1.1 (1.0-2.8) Lipase 41 (23-300) U/L 01/19/22 Range/Units 18:16 WBC (4.5-11.0) X10^3/uL RBC (4.0-5.2) X10^6/uL Hgb (12.0-16.0) g/dL Hct (36-46) % MCV (80-100) fL MCH (26-34) PG MCHC (30-36) % RDW (11.6-14.8) % Plt Count (150-400) X10^3/uL Neut % (Auto) (50-75) % Lymph % (Auto) (25-40) % [place] % (Auto) (3-14) % Eos % (Auto) (2-4) % Baso % (Auto) (0-2) % Neut # (Auto) (5936-7553) /uL Lymph # (Auto) (9710-3160) /uL [place] # (Auto) (0-900) /uL Eos # (Auto) (0-450) /uL Baso # (Auto) (0-100) /uL PT (10.1-12.7) SECONDS INR (0.9-1.3) APTT (26.4-36.2) SECONDS D-Dimer 992 H (<230) ng/mL Sodium (137-145) mmol/L Potassium (3.4-5.1) mmol/L Chloride (98-107) mmol/L Carbon Dioxide (22-32) mmol/L BUN (7-17) mg/dL Creatinine (0.52-1.04) mg/dL Estimated GFR (>60) mL/min BUN/Creatinine Ratio (6-22) Glucose (80-110) mg/dL Calcium (8.4-10.2) mg/dL Magnesium (1.6-2.3) mg/dL Total Bilirubin (0.2-1.3) mg/dL AST (14-36) IU/L ALT (<35) IU/L Alkaline Phosphatase (38-126) U/L Total Creatine Kinase (30-135) U/L CK-MB (CK-2) CK-MB (CK-2) Rel Index Troponin I (0.01-0.034) ng/mL Total Protein (6.3-8.2) g/dL Albumin (3.5-5.0) g/dL Globulin (1.7-4.1) g/dL Albumin/Globulin Ratio (1.0-2.8) Lipase (23-300) U/L Imaging Data Chest x-ray: Radiologist's Impression: [address] [address] XRay Report Signed Patient: Kelsi Chase MR#: [id number] : 1955 Acct:[id number] Age/Sex: 66 / F Date of Service: 01/19/22 Loc: ED Accession Number: [id number] ?? Procedure: XR chest 1V Ordering Provider: Naomi Maza D.O. PROCEDURE:? XR CHEST 1V ? INDICATIONS:? chest pain ? TECHNIQUE:? One view of the chest was acquired.? ? COMPARISON:? [facility], CT, CT ANGIO CHEST ABDOMEN PELVIS, 03/26/2021, 15:27.? [facility], CR, XR CHEST 1V, 09/08/2021, 14:05. ? FINDINGS:? ? Surgical changes and devices:? Neurostimulator noted overlying the spine partially captured.? Surgical device noted overlying the inferior aspect the cardiac silhouette and upper abdomen.? Overlying EKG wires.? ? Lungs and pleura:? Lungs are clear.? No pleural effusions or pneumothorax.? ? Mediastinum:? Mediastinal contours appear normal.? Heart size is normal.? Moderate size hiatal hernia. ? Bones and chest wall:? No suspicious bony lesions.? Overlying soft tissues appear unremarkable.? ? IMPRESSION:? ? No evidence of an acute cardiopulmonary abnormality.? Moderate size hiatal hernia. ? ? Dictated by: Harinder Oquendo D.O. on 01/19/2022 at 15:32 ? ? Approved by: Harinder Oquendo D.O. on 01/19/2022 at 15:34 ? CT scan - abdomen/pelvis: Radiologist's Impression: [place] [id number] [place] [id number] Scan ReportSigned Patient: Kelsi Chase#: [id number]: 6Acct:[id number]/Sex: 66 / FDate of Service: 01/19/22Loc: EDAccession Number: [id number] Procedure: CT angio chest PE protocol Ordering Provider: Vel Vargas D.O. PROCEDURE: CT ANGIO CHEST PE PROTOCOL INDICATIONS: chest pain, hx PE, critical dimer TECHNIQUE: After the administration of intravenous contrast, 2 mm thick sections acquired from the pulmonary apices to the posterior costophrenic angles. 3-dimensional maximum intensity projection (MIP) coronal and sagittal reformats were then acquired through the thorax. For radiation dose reduction, the following was used: automated exposure control, adjustment of mA and/or kV according to patient size. COMPARISON: [facility], CR, XR CHEST 1V, 01/19/2022, 16:10. FINDINGS: Image quality: Excellent. Pulmonary arteries: Pulmonary arteries are normal in size, and demonstrate no intraluminal filling defects to suggest central pulmonary embolism. Lungs and pleura: Lungs are clear. No pleural effusions or pneumothorax. Central and peripheral airways are patent. Mediastinum: Heart size is normal, without pericardial effusion. No mediastinal or hilar adenopathy. Thoracic aorta is normal in caliber and enhancement. Esophagus is normal in caliber, without hiatal hernia. Bones and chest wall: No suspicious bony lesions. Ribs and thoracic spine appear intact throughout. Thyroid gland appears normal where well seen. No axillary or supraclavicular adenopathy. Abdomen: Visualized upper abdominal solid organs appear normal in the early arterial phase of enhancement. IMPRESSION: No acute disease, no pulmonary embolus found. Source of chest pain is not identified. Dictated by: Trevor Chapman M.D. on 01/19/2022 at 20:48 Approved by: Trevor Chapman M.D. on 01/19/2022 at 20:50 ECG Data Interpretation: Close Chest CTA (Signed) Trevor Chapman - 01/19/22 Abdomen/Pelvis CT (Signed) Trevor Chapman - 01/19/22 Chest X-Ray (Signed) Harinder Oquendo - 01/19/22 Knee X-Ray (Signed) Lane,Dutch - 11/19/21 Hip X-Ray (Signed) Lane,Dutch - 11/19/21 Hip X-Ray (Signed) JovanniNitish - 11/08/21 Pelvis X-Ray (Signed) Nitish Baig - 11/08/21 Outside EKG 10/10/21 Abdomen/Pelvis CT (Signed) LynLouiealia - 09/08/21 Chest X-Ray (Signed) LynLouieu - 09/08/21 Chest/Abdomen/Pelvis CTA (Signed) Raman Mendoza - 03/26/21 Chest X-Ray (Signed) Sam Pacheco - 03/26/21 Telemetry Strips 03/26/21 Telemetry Strips 02/12/21 Lumbar Spine MRI (Signed) Lizbeth Jaime - 07/26/20 Knee X-Ray (Signed) Nitish Baig - 03/20/20 Outside EKG 03/03/20 Telemetry Strips 12/14/19 Abdomen/Pelvis CT (Signed) Young Laurent - 12/14/[address] (Signed) Lane,Dutch - 10/23/19 Chest X-Ray (Signed) [place],Dutch - 10/23/19 Vascular Ultrasound (Signed) Raman Mendoza - 08/11/19 Knee X-Ray (Signed) Lizbeth Jaime - 07/25/[address] (Signed) HernandezKaren epperson - 07/25/19 Foot X-Ray (Signed) HernandezLalitoKaren - 07/25/[address] (Signed) HernandezKaren - 07/25/19 Ankle X-Ray (Signed) HernandezLalitoKaren - 07/25/19 Chest X-Ray (Signed) Patricia Nicholsonmaria teresaalia - 05/25/19 Lumbar Spine X-Ray (Signed) Rush Centeno - 11/11/18 Lumbar Spine MRI (Signed) Lane,Dutch - 10/08/18 Outside EKG 06/03/18 Lumbar Spine MRI (Signed) Ez Thakkar - 11/05/17 Holter Monitor Report 11/09/15 Outside DI 10/27/15 Outside EKG 08/10/15 Outside EKG 08/10/15 Launch?Image [address] [address] [address] Scan Report Signed Patient: Kelsi Chase MR#: [id number] : 1955 Acct:[id number] Age/Sex: 66 / F Date of Service: 01/19/22 Loc: ED Accession Number: [id number] ?? Procedure: CT angio chest PE protocol Ordering Provider: Vel Vargas D.O. PROCEDURE:? CT ANGIO CHEST PE PROTOCOL ? INDICATIONS:? chest pain, hx PE, critical dimer ? TECHNIQUE:? After the administration of intravenous contrast, 2 mm thick sections acquired from the pulmonary apices to the posterior costophrenic angles.? 3-dimensional maximum intensity projection (MIP) coronal and sagittal reformats were then acquired through the thorax.? For radiation dose reduction, the following was used:? automated exposure control, adjustment of mA and/or kV according to patient size.? ? COMPARISON:? [facility], CR, XR CHEST 1V, 01/19/2022, 16:10. ? FINDINGS:? Image quality:? Excellent.? ? Pulmonary arteries:? Pulmonary arteries are normal in size, and demonstrate no intraluminal filling defects to suggest central pulmonary embolism.? ? Lungs and pleura:? Lungs are clear.? No pleural effusions or pneumothorax.? Central and peripheral airways are patent.? ? Mediastinum:? Heart size is normal, without pericardial effusion.? No mediastinal or hilar adenopathy.? Thoracic aorta is normal in caliber and enhancement.? Esophagus is normal in caliber, without hiatal hernia.? ? Bones and chest wall:? No suspicious bony lesions.? Ribs and thoracic spine appear intact throughout.? Thyroid gland appears normal where well seen.? No axillary or supraclavicular adenopathy.? ? Abdomen:? Visualized upper abdominal solid organs appear normal in the early arterial phase of enhancement.? ? IMPRESSION:? No acute disease, no pulmonary embolus found.? Source of chest pain is not identified. ? ? Dictated by: Trevor Chapman M.D. on 01/19/2022 at 20:48 ? ? Approved by: Trevor Chapman M.D. on 01/19/2022 at 20:50 ? MDM Narrative Medical decision making narrative: Multiple etiologies for patient's symptoms considered include, but not limited to: [Bowel obstruction versus kidney stone versus diverticulitis versus other Patient's symptoms improved over duration of stay with above-stated therapies. History, physical exam, labs, imaging, and response to therapies have been reassuring. Findings and discharge diagnosis discussed with patient/family followed by verbalization of understanding Return precautions discussed with patient/family whom verbalize understanding. Pain has been well controlled and patient is tolerating oral hydration. Discharge Plan Departure Patient Disposition: Home Clinical Impression: Abdominal pain, epigastric, Hernia, hiatal Instructions: DI for Epigastric Pain Activity Restrictions/Additional Instructions: *You have been diagnosed with [epigastric abdominal pain] * As we discussed your history and physical exam as well as labs and imaging are very reassuring. There is no evidence of any severe diagnoses that would require a specific or immediate intervention. *What to do: *Please continue to take your regular medications as directed. [x ] New medication prescriptions sent to your pharmacy: [[facility] ] *Please follow up with your primary care provider in 2-3 days, call for an appointment. Let them know you were seen in the Emergency Department and that we ask that you be seen in follow up. We will electronically transmit a record of today's note if your PCP is in our system *Please consider a clear liquid diet for the next 24-48 hours and then slowly advance to regular as tolerated. Also, try to avoid alcohol, nicotine, caffeine, spicy, acidic or fatty foods as this may worsen your symptoms *If you do not have a primary care provider please contact the [facility] Resource line at [phone]. They will ask some questions about your medical history and help get you set up with a doctor in the community. *Return to Emergency Department if you should have any new, worsening or concerning symptoms, such as [fever greater than 101 F, shaking chills, worsening pain, persistent vomiting or other bothersome symptoms] Prescriptions: New sucralfate [Carafate] 1 gram tablet 1 g PO BID Qty: 30 0RF No Action gabapentin [Neurontin] 300 MG capsule 300 mg PO QD-BID PRN (Reason: Nerve pain) Qty: 0 oxybutynin chloride 5 MG tablet 5 mg PO DAILY Qty: 0 trazodone 100 MG tablet 100 mg PO HS PRN (Reason: Sleep) Qty: 0 biotin 1 mg capsule 2,500 mg PO QDAY Qty: 0 levothyroxine 200 mcg tablet 100 mcg PO DAILY metoclopramide HCl [Reglan] 10 mg tablet 10 mg PO QACHS Qty: 90 3RF losartan 50 mg tablet 50 mg PO BID Label Comments: has been taking bid sertraline 100 mg Tablet 100 mg PO DAILY hydroxyzine HCl 10 mg Tablet 10 mg PO BEDTIME folic acid 800 mcg Tablet 1 mg PO DAILY cetirizine 10 mg Tablet 10 mg PO BID pantoprazole 40 mg Tablet,Delayed Release (Dr/Ec) 40 mg PO BEDTIME omeprazole 20 mg Tablet,Delayed Release (Dr/Ec) 20 mg PO DAILY Eliquis 2.5 mg Tablet 2.5 mg PO BID acetaminophen 500 mg capsule 500 mg PO Q4H MDD Max 3000 mg per day PRN (Reason: fever or pain) Qty: 90 0RF docusate sodium 100 mg Capsule 100 mg PO BID PRN (Reason: Constipation from narcotic pain meds) Qty: 20 0RF hydromorphone 2 mg Tablet 2 mg PO Q3H PRN (Reason: Pain, Severe (7-10)) Qty: 42 0RF hydroxyzine pamoate 25 mg Capsule 25 mg PO Q4HR PRN (Reason: Muscle spasm/pain/nausea) Qty: 60 0RF Referrals: Chandler Covarrubias MD [Primary Care Provider] - Visit Report Forms: Patient Portal/API
[2022-01-19] MEDS: ONDANSETRON 4 MG/2 ML INJ IV (18:46)
[2022-01-19] MEDS: PANTOPRAZOLE 40 MG VIAL IV (18:46)
[2022-01-19] MEDS: diphenhydrAMINE 50 MG/ML VIAL 25 MG IV (18:46)
[2022-01-19] MEDS: methylPREDNISolone 125 MG/2 ML VIAL IV (18:46)
[2022-01-19] MEDS: SODIUM CHLORIDE 0.9% 500 ML 1000 ML IV (18:46)
[2022-01-19] MEDS: SUCRALFATE 1 GM/10 ML ORAL SUSP PO (18:46)
[2022-01-19 19:31] LABS: D Dimer 992 ng/mL (<230)
--- NOTE | 2022-01-19 19:59 | DI.CT.S_ITS ---
PROCEDURE: CT ANGIO CHEST PE PROTOCOL INDICATIONS: chest pain, hx PE, critical dimer TECHNIQUE: After the administration of intravenous contrast, 2 mm thick sections acquired from the pulmonary apices to the posterior costophrenic angles. 3-dimensional maximum intensity projection (MIP) coronal and sagittal reformats were then acquired through the thorax. For radiation dose reduction, the following was used: automated exposure control, adjustment of mA and/or kV according to patient size. COMPARISON: [facility], CR, XR CHEST 1V, 01/19/2022, 16:10. FINDINGS: Image quality: Excellent. Pulmonary arteries: Pulmonary arteries are normal in size, and demonstrate no intraluminal filling defects to suggest central pulmonary embolism. Lungs and pleura: Lungs are clear. No pleural effusions or pneumothorax. Central and peripheral airways are patent. Mediastinum: Heart size is normal, without pericardial effusion. No mediastinal or hilar adenopathy. Thoracic aorta is normal in caliber and enhancement. Esophagus is normal in caliber, without hiatal hernia. Bones and chest wall: No suspicious bony lesions. Ribs and thoracic spine appear intact throughout. Thyroid gland appears normal where well seen. No axillary or supraclavicular adenopathy. Abdomen: Visualized upper abdominal solid organs appear normal in the early arterial phase of enhancement. IMPRESSION: No acute disease, no pulmonary embolus found. Source of chest pain is not identified. Dictated by: Trevor Chapman M.D. on 01/19/2022 at 20:48 Approved by: Trevor Chapman M.D. on 01/19/2022 at 20:50
--- NOTE | 2022-01-19 19:59 | DI.CT.S_ITS ---
PROCEDURE: CT ABDOMEN PELVIS W CON INDICATIONS: severe abd pain, hx gastric bypass TECHNIQUE: After the administration of intravenous contrast, axial sections acquired from the lung bases to the pubic symphysis. Coronal and sagittal reformats were performed. For radiation dose reduction, the following was used: automated exposure control, adjustment of mA and/or kV according to patient size. COMPARISON: [facility], CT, CT ABDOMEN PELVIS W CON, 09/08/2021, 17:59. [facility], CT, ABDOMEN/PELVIS WITH CONTRAST, 07/16/2014, 18:07. FINDINGS: Image quality: Excellent. Lung bases: Unremarkable. Heart: No significant findings. ABDOMEN: Liver: Unremarkable. Gallbladder: Previously resected Biliary ducts: Unremarkable. Pancreas: Unremarkable. Spleen: Unremarkable. Adrenal Glands: Unremarkable. Kidneys and Ureters: Unremarkable. Stomach and Bowel: Stomach, small bowel loops, and colon are unremarkable except for expected postoperative changes of gastric reduction surgery/gastric bypass procedure. No operative complication found. Peritoneum: No abnormal intraperitoneal fluid. No free air. Ventral Wall: No hernias. Abdominal Nodes: No retroperitoneal or mesenteric adenopathy by size criteria. Vessels: Aorta and inferior vena cava are normal in size. PELVIS: Pelvic Organs: Unremarkable. Bladder: Unremarkable. Pelvic Nodes: No enlarged lymph nodes. Miscellaneous: No hernias are seen. Bones: Unremarkable. Prior bilateral hip arthroplasty procedures, resulting in metal artifact across the lower 3rd of the pelvis reducing quality of visualization in this area of the lower pelvis. IMPRESSION: Postsurgical changes as discussed, no operative complication found. A definite source of new onset abdominal pain is not seen. Dictated by: Trevor Chapman M.D. on 01/19/2022 at 21:04 Approved by: Trevor Chapman M.D. on 01/19/2022 at 21:06
[2022-01-19] MEDS: HYDROMORPHONE 0.5 MG INJ IV (20:43)
--- NOTE | 2022-01-19 20:46 | PC.NURSE ---
pt complaints of pain to lower back. other additional symptoms resolved at this time. Medicated for pain
== END 2022-01-19 21:32 | disposition home or self-care (01) ==
PROVIDERS: Emergency Medicine; Emergency Provider Emergency Medicine; PCP Internal Medicine
DX: R10.13 Epigastric pain (principal); K44.9 Diaphragmatic hernia without obstruction or gangrene; R07.9 Chest pain, unspecified
CPT/HCPCS: 36415; 71045; 71275; 74177; 80053; 82550; 83690; 83735; 84484; 85025; 85379; 85610; 85730; 93005; 96361; 96374; 96375; 99284; C9113; J1170; J1200; J2405; J2930; Q9967

== ENCOUNTER → 2022-05-14 10:16 | Outpatient (CLI) | payer OTHER, MEDICARE, SELFPAY ==
[2021-11-08 12:43] VITALS: BMI 35.9
--- NOTE | 2022-05-14 | DI.US.S_ITS ---
PROCEDURE: US EXTREMITY NONVASC LOWER LT INDICATIONS: NODULE ON LEFT BUTTOCK TECHNIQUE: Real-time scanning was performed of the of the left buttock, with image documentation. COMPARISON: [facility] [place], CR, XR PELVIS WITH LATERAL HIP LEFT, 02/20/2022, 10:19. [facility], CT, CT ABDOMEN PELVIS W CON, 09/08/2021, 17:59. [facility], CT, CT ABDOMEN PELVIS W CON, 01/19/2022, 20:24. FINDINGS: Ultrasound was performed in the area of interest. A 0.8 x 0.9 x 0.6 cm hypoechoic subcutaneous nodule is seen in the area of palpable abnormality. On Doppler ultrasound, there is internal vascularity. A 2 x 3 x 2 mm hypoechoic subcutaneous nodule is noted medial to the palpable abnormality, also demonstrating internal vascularity. IMPRESSION: Small subcutaneous nodules are seen. Etiology is uncertain. If there is focal pain and enlargement, MRI with and without contrast is suggested for further evaluation. Dictated by: Daniel Nicholson M.D. on 05/14/2022 at 11:45 Approved by: Daniel Nicholson M.D. on 05/14/2022 at 12:04
== END ==
PROVIDERS: PCP Internal Medicine; Referring Provider Nurse Practitioner Family; Visit Provider Physician Assistant
DX: R22.2 Localized swelling, mass and lump, trunk (principal)
CPT/HCPCS: 76882

== ENCOUNTER 2022-09-09 17:44 | Emergency (ER) | payer OTHER, MEDICARE, SELFPAY ==
[2021-11-08 12:43] VITALS: BMI 35.9
[2022-09-09] VITALS (9 sets, daily range): BP systolic 136–154; BP diastolic 62–84; PULSE 54–72; RESP 16; TEMP 36.9; O2SAT 93–99; BMI 31.3
[2022-09-09 19:03] LABS: Adenovirus Not Detected (Not Detect); B. parapertussis Not Detected (Not Detecte); Bordetella pertussis Not Detected (Not Detecte); Chlamydophila pneumoniae Not Detected (Not Detect); Coronavirus 229E Not Detected (Not Detect); Coronavirus HKU1 Not Detected (Not Detect); Coronavirus NL 63 Not Detected (Not Detect); Coronavirus OC43 Not Detected (Not Detect); Human Metapneumovirus Not Detected (Not Detect); Human Rhinovirus/Enterovirus Not Detected (Not Detect); Influenza A Not Detected (Not Detect); Influenza B Not Detected (Not Detect); Mycoplasma pneumoniae Not Detected (Not Detect); Parainfluenza Virus 1 Not Detected (Not Detect); Parainfluenza Virus 2 Not Detected (Not Detect); Parainfluenza Virus 3 Not Detected (Not Detect); Parainfluenza Virus 4 Not Detected (Not Detect); Respiratory Syncytial Virus Not Detected (Not Detect); SARS- CoV-2 Not Detected (Not Detecte)
[2022-09-09 19:42] LABS: Add Manual Diff / Slide Review NO; Basophils Absolute Auto 0 /uL (0-100); Basophils Percent Auto 0.6 % (0-2); Eosinophils Absolute Auto 0 /uL (0-450); Eosinophils Percent Auto 0.6 % (2-4); Hematocrit 40.1 % (36-46); Hemoglobin 13.3 g/dL (12.0-16.0); Lymphocytes Absolute Auto 2000 /uL (1100-4500); Lymphocytes Percent Auto 31.6 % (25-40); Mean Corpuscular HGB Conc 33.3 % (30-36); Mean Corpuscular Hemoglobin 29.4 PG (26-34); Mean Corpuscular Volume 88.5 fL (80-100); Monocytes Absolute Auto 400 /uL (0-900); Neutrophils Absolute Auto 3700 /uL (1500-7000); Neutrophils Percent Auto 60.2 % (50-75); Platelet Count 294 X10^3/uL (150-400); Red Blood Cell Count 4.53 X10^6/uL (4.0-5.2); Red Cell Distribution Width 14.3 % (11.6-14.8); White Blood Cell Count 6.2 X10^3/uL (4.5-11.0)
[2022-09-09 19:44] LABS: Bacteria Urine Many (>30); Culture Indicated Urine Specimen Cultured; RBC Urine 0-1/HPF (0-5/HPF); Squamous Epithelial Cell Urine 5-10 /HPF (0-5/HPF); WBC Urine 5-10/HPF (0-5/HPF)
[2022-09-09 19:46] LABS: Alanine Aminotransferase 17 IU/L (<35); Albumin 3.6 g/dL (3.5-5.0); Albumin Globulin Ratio 1.2 (1.0-2.8); Alkaline Phosphatase 92 U/L (38-126); Aspartate Aminotransferase 30 IU/L (14-36); BUN Creatinine Ratio 10.4 (6-22); Bilirubin Total 0.4 mg/dL (0.2-1.3); Blood Urea Nitrogen 8 mg/dL (7-17); Calcium 9.2 mg/dL (8.4-10.2); Carbon Dioxide 33 mmol/L (22-32); Chloride 99 mmol/L (98-107); Estimated Glomerular Filt Rate > 60 mL/min (>60); Globulin 3.1 g/dL (1.7-4.1); Glucose 107 mg/dL (80-110); HEMOLYSIS < 15 (0-50); Lipase 49 U/L (23-300); Potassium 3.1 mmol/L (3.4-5.1); Sodium 136 mmol/L (137-145); Total Protein 6.7 g/dL (6.3-8.2)
[2022-09-09] MEDS: ONDANSETRON 4 MG/2 ML INJ IV (20:38)
--- NOTE | 2022-09-09 20:38 | ED.NAVMDI ---
HPI - Nausea/Vomiting/Diarrhea General Chief complaint: Nausea/Vomiting/Diarrhea Stated complaint: FEVER/VOMITING Time Seen by Provider: 09/09/22 20:27 Source: patient Mode of arrival: Ambulatory Limitations: no limitations History of Present Illness HPI Narrative: Patient is a 67-year-old female. Has had several days of intermittent fevers, productive cough, diarrhea, nausea. She states she just generally does not feel very well. Is on anticoagulation secondary to history of pulmonary embolisms. Has generalized abdominal pain but mostly located in the epigastric region. Related Data Home Medications Medication Instructions Recorded Confirmed biotin 1 mg capsule 2,500 mg PO QDAY ##0 07/28/17 11/08/21 gabapentin 300 mg capsule 300 mg PO QD-BID PRN Nerve pain ##0 07/28/17 11/08/21 (Neurontin) oxybutynin chloride 5 mg tablet 5 mg PO DAILY ##0 07/28/17 11/08/21 trazodone 100 mg tablet 100 mg PO HS PRN Sleep ##0 07/28/17 11/01/21 losartan 50 mg tablet 50 mg PO BID 10/23/19 11/08/21 levothyroxine 200 mcg tablet 100 mcg PO DAILY 12/16/19 11/08/21 folic acid 800 mcg tablet 1 mg PO DAILY 03/13/20 11/08/21 hydroxyzine HCl 10 mg tablet 10 mg PO BEDTIME skin allergies 03/13/20 11/08/21 sertraline 100 mg tablet 100 mg PO DAILY 03/13/20 11/08/21 apixaban 2.5 mg tablet (Eliquis) 2.5 mg PO BID 11/01/21 11/08/21 cetirizine 10 mg tablet 10 mg PO BID 11/01/21 11/08/21 omeprazole 20 mg tablet,delayed 20 mg PO DAILY 11/01/21 11/08/21 release pantoprazole 40 mg tablet,delayed 40 mg PO BEDTIME 11/01/21 11/01/21 release Previous Rx's Medication Instructions Recorded metoclopramide HCl 10 mg tablet 10 mg PO QACHS #90 tabs 09/08/21 (Reglan) acetaminophen 500 mg capsule 500 mg PO Q4H PRN fever or pain 11/10/21 #90 caps docusate sodium 100 mg capsule 100 mg PO BID PRN Constipation 11/10/21 from narcotic pain meds #20 caps hydromorphone 2 mg tablet 2 mg PO Q3H PRN Pain, Severe 11/10/21 (7-10) #42 tabs hydroxyzine pamoate 25 mg capsule 25 mg PO Q4HR PRN Muscle 11/10/21 spasm/pain/nausea #60 caps sucralfate 1 gram tablet (Carafate) 1 g PO BID #30 tabs 01/19/22 ondansetron 4 mg disintegrating 4 mg PO Q6H PRN nausea and 09/09/22 tablet vomiting #10 tabs Allergies Allergy/AdvReac Type Severity Reaction Status Date / Time morphine [MORPHINE] Allergy Severe Rash, N&V Verified 01/19/22 15:58 - IV med only mussels [MUSSELS] Allergy Severe N&V Verified 01/19/22 15:58 latex [LATEX] Allergy Intermediate RASH, Verified 01/19/22 15:58 ITCHY, BLISTERS adhesive tape Allergy Mild Blister Verified 01/19/22 15:58 iodine [IODINE] Allergy Mild RASH Verified 01/19/22 15:58 Review of Systems Review of Systems ROS Unobtainable: All systems reviewed & are unremarkable except as noted in HPI and below Patient History Medical History Anxiety Chronic pain Chronic sinus bradycardia Depression DVT (deep venous thrombosis) Former smoker GERD (gastroesophageal reflux disease) GI bleed (2020) Hiatal hernia History of ETOH abuse Hospitalization or health care facility admission within last 6 months (12/14/19) HTN (hypertension) Hypoglycemia Hypothyroidism Insomnia Lactose intolerance No blood products SHANEKA (obstructive sleep apnea) Osteomyelitis Presence of neurostimulator PTSD (post-traumatic stress disorder) Pulmonary embolism (~1993) Surgical History History of arthroplasty of left knee (03/20/20) History of arthroscopy of left shoulder History of arthroscopy of right shoulder History of carpal tunnel release of both wrists History of colonoscopy History of esophagogastroduodenoscopy (EGD) History of lumpectomy of left breast History of lumpectomy of right breast History of total left hip arthroplasty (11/08/15) Hx of appendectomy Hx of cholecystectomy Hx of hernia repair Hx of laminectomy (11/11/18) Hx of tubal ligation S/P gastroplasty Family History Father CAD (coronary artery disease) Mother CAD (coronary artery disease) Social History household members: spouse Smoking Status: Former smoker alcohol intake: former Smoking Status: Former smoker alcohol intake frequency: holidays/special occasions only Substance Use Type: marijuana Exam Initial Vital Signs Initial Vital Signs: Vital Signs Temperature 98.5 F 09/09/22 17:58 Pulse Rate 72 09/09/22 17:58 Respiratory Rate 16 09/09/22 17:58 Blood Pressure 143/84 H 09/09/22 17:58 Pulse Oximetry 99 09/09/22 17:58 Oxygen Delivery Method Room Air 09/09/22 17:58 Const General: cooperative, comfortable and No ill appearing HENMT Head: normal to inspection and normocephalic Resp Effort & Inspection: normal respiratory effort Auscultation: clear to auscultation bilaterally Cardio Rate: regular rate Rhythm: regular rhythm GI Inspection: normal to inspection Palpation: soft, No firm and No guarding Skin General: no rashes or lesions noted Neuro General: patient alert, patient awake, patient oriented x3 and moves all extremities Extrem General: capillary refill normal Course Orders Ordered: ED Orders 09/09/22 19:15 Complete Blood Count AUTO DIFF Stat Comprehensive Metabolic Panel Stat Lipase Stat 09/09/22 19:20 Urine Culture Stat Urine Microscopic Stat Discontinued Medications Acetaminophen (Acetaminophen 325 Mg Tablet) 650 mg PO NOW ONE Stop: 09/09/22 22:20 Last Admin: 09/09/22 22:23 Dose: 650 mg Documented By: LEATHA Sodium Chloride (Normal Saline 0.9%) 1,000 mls @ 1,000 mls/hr IV BOLUS ONE Stop: 09/09/22 21:37 Last Infusion: 09/09/22 21:52 Dose: 0 mls/hr Documented By: Admin: 09/09/22 20:45 Dose: 1,000 mls/hr Documented By: LEATHA Ondansetron HCl (Ondansetron 4 Mg Odt) 4 mg PO NOW PRN PRN Reason: Nausea And Vomiting Ondansetron HCl (Ondansetron 4 Mg/2 Ml Inj) 4 mg IV NOW PRN PRN Reason: Nausea And Vomiting Last Admin: 09/09/22 20:38 Dose: 4 mg Documented By: AMU Ondansetron HCl (Ondansetron 4 Mg Odt Prepack) 1 bottle MISC SEEINSTR ONE Stop: 09/09/22 22:50 Last Admin: 09/09/22 22:54 Dose: 1 bottle Documented By: RL Vital Signs Vital signs: Vital Signs - 8 hr 09/09/22 20:37 09/09/22 20:39 09/09/22 20:39 Pulse Rate 68 66 Blood Pressure 154/83 H Pulse Oximetry 98 97 09/09/22 21:00 09/09/22 21:01 09/09/22 21:01 Pulse Rate 55 L 54 L Blood Pressure 136/62 Pulse Oximetry 93 95 09/09/22 21:30 09/09/22 21:30 09/09/22 22:00 Pulse Rate 56 L Blood Pressure 136/63 136/65 Pulse Oximetry 94 09/09/22 22:00 09/09/22 22:22 09/09/22 22:30 Pulse Rate 62 59 L Blood Pressure 142/69 H Pulse Oximetry 95 95 MDM - Nausea/Vomiting/Diarrhea Lab Data Attestation: I reviewed the patient's lab results. 09/09/22 19:15 09/09/22 19:15 Labs: Lab Results 09/09/22 09/09/22 09/09/22 Range/Units 18:05 19:15 19:15 WBC 6.2 (4.5-11.0) X10^3/uL RBC 4.53 (4.0-5.2) X10^6/uL Hgb 13.3 (12.0-16.0) g/dL Hct 40.1 (36-46) % MCV 88.5 (80-100) fL MCH 29.4 (26-34) PG MCHC 33.3 (30-36) % RDW 14.3 (11.6-14.8) % Plt Count 294 (150-400) X10^3/uL Neut % (Auto) 60.2 (50-75) % Lymph % (Auto) 31.6 (25-40) % [place] % (Auto) 7.0 (3-14) % Eos % (Auto) 0.6 L (2-4) % Baso % (Auto) 0.6 (0-2) % Neut # (Auto) 3700 (4563-9946) /uL Lymph # (Auto) 2000 (8956-0996) /uL [place] # (Auto) 400 (0-900) /uL Eos # (Auto) 0 (0-450) /uL Baso # (Auto) 0 (0-100) /uL Sodium 136 L (137-145) mmol/L Potassium 3.1 L (3.4-5.1) mmol/L Chloride 99 (98-107) mmol/L Carbon Dioxide 33 H (22-32) mmol/L BUN 8 (7-17) mg/dL Creatinine 0.77 (0.52-1.04) mg/dL Estimated GFR > 60 (>60) mL/min BUN/Creatinine Ratio 10.4 (6-22) Glucose 107 (80-110) mg/dL Calcium 9.2 (8.4-10.2) mg/dL Total Bilirubin 0.4 (0.2-1.3) mg/dL AST 30 (14-36) IU/L ALT 17 (<35) IU/L Alkaline Phosphatase 92 (38-126) U/L Total Protein 6.7 (6.3-8.2) g/dL Albumin 3.6 (3.5-5.0) g/dL Globulin 3.1 (1.7-4.1) g/dL Albumin/Globulin Ratio 1.2 (1.0-2.8) Lipase 49 (23-300) U/L Urine RBC (0-5/HPF) Urine WBC (0-5/HPF) Ur Squamous Epith Cells (0-5/HPF) Urine Bacteria (None) Ur Culture Indicated? Chlamy pneumoniae PCR Not detected (Not Detect) Adenovirus (PCR) Not detected (Not Detect) B. pertussis DNA (PCR) Not detected (Not Detecte) B.parapertussis DNA PCR Not detected (Not Detecte) Coronavirus OC43 (PCR) Not detected (Not Detect) Coronavirus HKU1 (PCR) Not detected (Not Detect) Coronavirus 229E (PCR) Not detected (Not Detect) SARS-CoV-2 (PCR) Not detected (Not Detecte) Coronavirus NL63 (PCR) Not detected (Not Detect) Human Metapneumovir PCR Not detected (Not Detect) Influenza Type A (PCR) Not detected (Not Detect) Influenza Type B (PCR) Not detected (Not Detect) M. pneumoniae (PCR) Not detected (Not Detect) Parainfluenza 1 (PCR) Not detected (Not Detect) Parainfluenza 2 (PCR) Not detected (Not Detect) Parainfluenza 3 (PCR) Not detected (Not Detect) Parainfluenza 4 (PCR) Not detected (Not Detect) RSV (PCR) Not detected (Not Detect) Entero/Rhino (PCR) Not detected (Not Detect) 09/09/22 Range/Units 19:20 WBC (4.5-11.0) X10^3/uL RBC (4.0-5.2) X10^6/uL Hgb (12.0-16.0) g/dL Hct (36-46) % MCV (80-100) fL MCH (26-34) PG MCHC (30-36) % RDW (11.6-14.8) % Plt Count (150-400) X10^3/uL Neut % (Auto) (50-75) % Lymph % (Auto) (25-40) % [place] % (Auto) (3-14) % Eos % (Auto) (2-4) % Baso % (Auto) (0-2) % Neut # (Auto) (7828-5376) /uL Lymph # (Auto) (8022-5239) /uL [place] # (Auto) (0-900) /uL Eos # (Auto) (0-450) /uL Baso # (Auto) (0-100) /uL Sodium (137-145) mmol/L Potassium (3.4-5.1) mmol/L Chloride (98-107) mmol/L Carbon Dioxide (22-32) mmol/L BUN (7-17) mg/dL Creatinine (0.52-1.04) mg/dL Estimated GFR (>60) mL/min BUN/Creatinine Ratio (6-22) Glucose (80-110) mg/dL Calcium (8.4-10.2) mg/dL Total Bilirubin (0.2-1.3) mg/dL AST (14-36) IU/L ALT (<35) IU/L Alkaline Phosphatase (38-126) U/L Total Protein (6.3-8.2) g/dL Albumin (3.5-5.0) g/dL Globulin (1.7-4.1) g/dL Albumin/Globulin Ratio (1.0-2.8) Lipase (23-300) U/L Urine RBC 0-1/hpf (0-5/HPF) Urine WBC 5-10/hpf H (0-5/HPF) Ur Squamous Epith Cells 5-10 /hpf H (0-5/HPF) Urine Bacteria Many (>30) H (None) Ur Culture Indicated? Specimen cultured Chlamy pneumoniae PCR (Not Detect) Adenovirus (PCR) (Not Detect) B. pertussis DNA (PCR) (Not Detecte) B.parapertussis DNA PCR (Not Detecte) Coronavirus OC43 (PCR) (Not Detect) Coronavirus HKU1 (PCR) (Not Detect) Coronavirus 229E (PCR) (Not Detect) SARS-CoV-2 (PCR) (Not Detecte) Coronavirus NL63 (PCR) (Not Detect) Human Metapneumovir PCR (Not Detect) Influenza Type A (PCR) (Not Detect) Influenza Type B (PCR) (Not Detect) M. pneumoniae (PCR) (Not Detect) Parainfluenza 1 (PCR) (Not Detect) Parainfluenza 2 (PCR) (Not Detect) Parainfluenza 3 (PCR) (Not Detect) Parainfluenza 4 (PCR) (Not Detect) RSV (PCR) (Not Detect) Entero/Rhino (PCR) (Not Detect) Urine Dip Bedside Urine Glucose Negative Bedside Urine Bilirubin - Negative Bedside Urine Ketone - Negative Urine Specific [place] 1.010 Bedside Urine Occult Blood - Negative Bedside Urine pH 8 Bedside Urine Protein - Negative Bedside Urine Urobilinogen - Negative Bedside Urine Nitrite + Positive Bedside Urine Leukocytes - Negative Esterase MDM Narrative Medical decision making narrative: Patient is nontoxic appearing. Has tolerated oral intake here in the ER. Has a benign exam. Lungs are clear. Not hypoxic. Not tachypneic. Afebrile. No indication for antibiotics. Was sent home with a prescription for nausea medication. We discussed return precautions. She expressed understanding and agreement. Discharge Plan Departure Patient Disposition: Home Clinical Impression: Vomiting Instructions: DI for Vomiting -- Adult Activity Restrictions/Additional Instructions: Use the nausea medication as needed and be sure that you were increasing your fluid intake. You can advance your diet as tolerated. Return to the emergency department for any new or worsening symptoms. Prescriptions: New ondansetron 4 mg tablet,disintegrating 4 mg PO Q6H PRN (Reason: nausea and vomiting) Qty: 10 0RF No Action gabapentin [Neurontin] 300 MG capsule 300 mg PO QD-BID PRN (Reason: Nerve pain) Qty: 0 oxybutynin chloride 5 MG tablet 5 mg PO DAILY Qty: 0 trazodone 100 MG tablet 100 mg PO HS PRN (Reason: Sleep) Qty: 0 biotin 1 mg capsule 2,500 mg PO QDAY Qty: 0 levothyroxine 200 mcg tablet 100 mcg PO DAILY metoclopramide HCl [Reglan] 10 mg tablet 10 mg PO QACHS Qty: 90 3RF sucralfate [Carafate] 1 gram tablet 1 g PO BID Qty: 30 0RF losartan 50 mg tablet 50 mg PO BID Patient Comments: has been taking bid sertraline 100 mg Tablet 100 mg PO DAILY hydroxyzine HCl 10 mg Tablet 10 mg PO BEDTIME folic acid 800 mcg Tablet 1 mg PO DAILY cetirizine 10 mg Tablet 10 mg PO BID pantoprazole 40 mg Tablet,Delayed Release (Dr/Ec) 40 mg PO BEDTIME omeprazole 20 mg Tablet,Delayed Release (Dr/Ec) 20 mg PO DAILY Eliquis 2.5 mg Tablet 2.5 mg PO BID acetaminophen 500 mg capsule 500 mg PO Q4H MDD Max 3000 mg per day PRN (Reason: fever or pain) Qty: 90 0RF docusate sodium 100 mg Capsule 100 mg PO BID PRN (Reason: Constipation from narcotic pain meds) Qty: 20 0RF hydromorphone 2 mg Tablet 2 mg PO Q3H PRN (Reason: Pain, Severe (7-10)) Qty: 42 0RF hydroxyzine pamoate 25 mg Capsule 25 mg PO Q4HR PRN (Reason: Muscle spasm/pain/nausea) Qty: 60 0RF Referrals: Chandler Covarrubias MD [Primary Care Provider] - Stand Alone Forms: Patient Portal/API
[2022-09-09] MEDS: SODIUM CHLORIDE 0.9% 1,000 ML 1000 ML IV (20:45)
[2022-09-09] MEDS: ACETAMINOPHEN 325 MG TABLET 650 MG PO (22:23)
[2022-09-09] MEDS: ONDANSETRON 4 MG ODT PREPACK 1 BOTTLE MISC (22:54)
== END 2022-09-09 22:57 | disposition home or self-care (01) ==
PROVIDERS: Emergency Medicine; Emergency Provider Emergency Medicine; PCP Internal Medicine
DX: R11.10 Vomiting, unspecified (principal); N39.0 Urinary tract infection, site not specified; A49.8 Other bacterial infections of unspecified site; Z79.01 Long term (current) use of anticoagulants; Z79.899 Other long term (current) drug therapy; Z20.822 Contact with and (suspected) exposure to COVID-19
CPT/HCPCS: 36415; 80053; 81003; 81015; 83690; 85025; 87077; 87086; 87186; 87633; 96361; 96374; 99284; J2405

== ENCOUNTER 2023-04-12 21:42 | Emergency (ER) | payer OTHER, MEDICARE, SELFPAY ==
[2021-11-08 12:43] VITALS: BMI 35.9
[2023-04-12] VITALS (9 sets, daily range): BP systolic 160–193; BP diastolic 74–117; PULSE 56–70; RESP 18; TEMP 36.7; O2SAT 96–100; BMI 28.3
[2023-04-12 22:08] LABS: Add Manual Diff / Slide Review NO; Basophils Absolute Auto 100 /uL (0-100); Basophils Percent Auto 0.9 % (0-2); Eosinophils Absolute Auto 200 /uL (0-450); Eosinophils Percent Auto 2.9 % (2-4); Hematocrit 38.5 % (36-46); Hemoglobin 12.9 g/dL (12.0-16.0); Lymphocytes Absolute Auto 2600 /uL (1100-4500); Mean Corpuscular HGB Conc 33.5 % (30-36); Mean Corpuscular Hemoglobin 29.9 PG (26-34); Mean Corpuscular Volume 89.2 fL (80-100); Monocytes Absolute Auto 400 /uL (0-900); Monocytes Percent Auto 6.4 % (3-14); Neutrophils Absolute Auto 3000 /uL (1500-7000); Neutrophils Percent Auto 47.8 % (50-75); Platelet Count 331 X10^3/uL (150-400); Red Blood Cell Count 4.31 X10^6/uL (4.0-5.2); White Blood Cell Count 6.2 X10^3/uL (4.5-11.0)
--- NOTE | 2023-04-12 22:11 | ED.GENADULT ---
HPI - General Adult General Chief complaint: Abdominal Pain Stated complaint: left side/back pain x2 days Time Seen by Provider: 04/12/23 21:52 Source: patient Mode of arrival: Ambulatory History of Present Illness HPI narrative: 68-year-old female. History of gastric bypass. Also has had history of GI bleeds. Is on Eliquis secondary to pulmonary embolism. Is also on a PPI. Is here for evaluation of left upper abdominal discomfort. The radiates to her left side/CVA area. Has been going on for the past 2 days. No change with palpation. No change with breathing. No change with bowel movements or urinating. No change with eating. She is tried hydrocodone lidocaine patches without any improvement. Related Data Home Medications Medication Instructions Recorded Confirmed biotin 1 mg capsule 2,500 mg PO QDAY ##0 07/28/17 11/08/21 gabapentin 300 mg capsule 300 mg PO QD-BID PRN Nerve pain ##0 07/28/17 11/08/21 (Neurontin) oxybutynin chloride 5 mg tablet 5 mg PO DAILY ##0 07/28/17 11/08/21 trazodone 100 mg tablet 100 mg PO HS PRN Sleep ##0 07/28/17 11/01/21 losartan 50 mg tablet 50 mg PO BID 10/23/19 11/08/21 levothyroxine 200 mcg tablet 100 mcg PO DAILY 12/16/19 11/08/21 folic acid 800 mcg tablet 1 mg PO DAILY 03/13/20 11/08/21 hydroxyzine HCl 10 mg tablet 10 mg PO BEDTIME skin allergies 03/13/20 11/08/21 sertraline 100 mg tablet 100 mg PO DAILY 03/13/20 11/08/21 apixaban 2.5 mg tablet (Eliquis) 2.5 mg PO BID 11/01/21 11/08/21 cetirizine 10 mg tablet 10 mg PO BID 11/01/21 11/08/21 omeprazole 20 mg tablet,delayed 20 mg PO DAILY 11/01/21 11/08/21 release pantoprazole 40 mg tablet,delayed 40 mg PO BEDTIME 11/01/21 11/01/21 release Previous Rx's Medication Instructions Recorded metoclopramide HCl 10 mg tablet 10 mg PO QACHS #90 tabs 09/08/21 (Reglan) acetaminophen 500 mg capsule 500 mg PO Q4H PRN fever or pain 11/10/21 #90 caps docusate sodium 100 mg capsule 100 mg PO BID PRN Constipation 11/10/21 from narcotic pain meds #20 caps hydromorphone 2 mg tablet 2 mg PO Q3H PRN Pain, Severe 11/10/21 (7-10) #42 tabs hydroxyzine pamoate 25 mg capsule 25 mg PO Q4HR PRN Muscle 11/10/21 spasm/pain/nausea #60 caps sucralfate 1 gram tablet (Carafate) 1 g PO BID #30 tabs 01/19/22 ondansetron 4 mg disintegrating 4 mg PO Q6H PRN nausea and 09/09/22 tablet vomiting #10 tabs Allergies Allergy/AdvReac Type Severity Reaction Status Date / Time morphine [MORPHINE] Allergy Severe Rash, N&V Verified 01/19/22 15:58 - IV med only mussels [MUSSELS] Allergy Severe N&V Verified 01/19/22 15:58 latex [LATEX] Allergy Intermediate RASH, Verified 01/19/22 15:58 ITCHY, BLISTERS adhesive tape Allergy Mild Blister Verified 01/19/22 15:58 iodine [IODINE] Allergy Mild RASH Verified 01/19/22 15:58 Review of Systems Constitutional Constitutional: Reports system reviewed and no additional complaints, except as documented Cardiovascular Cardiovascular: Reports system reviewed and no additional complaints, except as documented Respiratory Respiratory: Reports system reviewed and no additional complaints, except as documented Gastrointestinal Gastrointestinal: Reports system reviewed and no additional complaints, except as documented Genitourinary Genitourinary: Reports system reviewed and no additional complaints, except as documented Integumentary/Breasts Skin/Breast: Reports system reviewed and no additional complaints, except as documented Hematologic/Lymphatic On Anticoagulants: No Patient History Medical History GI bleed (2020) Presence of neurostimulator No blood products DVT (deep venous thrombosis) Osteomyelitis Hospitalization or health care facility admission within last 6 months (12/14/19) Lactose intolerance PTSD (post-traumatic stress disorder) Anxiety Former smoker SHANEKA (obstructive sleep apnea) Insomnia GERD (gastroesophageal reflux disease) Depression Chronic pain History of ETOH abuse Hypoglycemia Hiatal hernia Hypothyroidism Pulmonary embolism (~1993) Chronic sinus bradycardia HTN (hypertension) Surgical History History of arthroplasty of left knee (03/20/20) History of arthroscopy of left shoulder History of arthroscopy of right shoulder History of carpal tunnel release of both wrists History of colonoscopy History of esophagogastroduodenoscopy (EGD) History of lumpectomy of left breast History of lumpectomy of right breast History of total left hip arthroplasty (11/08/15) Hx of appendectomy Hx of cholecystectomy Hx of hernia repair Hx of laminectomy (11/11/18) Hx of tubal ligation S/P gastroplasty Family History Father CAD (coronary artery disease) Mother CAD (coronary artery disease) Social History household members: spouse Smoking Status: Former smoker alcohol intake: former Smoking Status: Former smoker alcohol intake frequency: holidays/special occasions only Substance Use Type: marijuana Exam Initial Vital Signs Initial Vital Signs: Vital Signs Temperature 98.1 F 04/12/23 21:45 Pulse Rate 64 04/12/23 21:45 Respiratory Rate 18 04/12/23 21:45 Blood Pressure 187/91 H 04/12/23 21:45 Pulse Oximetry 98 04/12/23 21:45 Oxygen Delivery Method Room Air 04/12/23 21:45 Const General: cooperative, comfortable and No ill appearing HENMT Head: normal to inspection and normocephalic Resp Effort & Inspection: normal respiratory effort Auscultation: clear to auscultation bilaterally Cardio Rate: regular rate Rhythm: regular rhythm GI Inspection: normal to inspection and non-distended Palpation: tender Back/Spine/Pelvis Back: No CVA tenderness Skin General: no rashes or lesions noted Neuro General: patient alert, patient awake and moves all extremities Extrem General: normal to inspection and capillary refill normal Course Orders Ordered: ED Orders 04/12/23 21:57 Complete Blood Count AUTO DIFF Stat Comprehensive Metabolic Panel Stat Lipase Stat 04/12/23 22:12 CT abdomen pelvis w con Stat Discontinued Medications Hydrocodone Bitart/Acetaminophen (Hydrocodone/Acet 5/325 Tablet) 1 tab PO NOW ONE Stop: 04/13/23 00:58 Last Admin: 04/13/23 01:02 Dose: 1 tab Documented By: CHITO Diphenhydramine HCl (Diphenhydramine 50 Mg/Ml Vial) 25 mg IV NOW ONE Stop: 04/12/23 22:13 Last Admin: 04/12/23 22:21 Dose: 25 mg Documented By: ROB Hydromorphone HCl (Hydromorphone 0.5 Mg Inj) 0.5 mg IV NOW ONE Stop: 04/12/23 22:13 Last Admin: 04/12/23 22:22 Dose: 0.5 mg Documented By: ROB Methylprednisolone (Methylprednisolone 125 Mg/2 Ml Vial) 125 mg IV NOW ONE Stop: 04/12/23 22:15 Last Admin: 04/12/23 22:21 Dose: 125 mg Documented By: ROB Ondansetron HCl (Ondansetron 4 Mg/2 Ml Inj) 4 mg IV NOW ONE Stop: 04/12/23 22:13 Last Admin: 04/12/23 22:22 Dose: 4 mg Documented By: ROB Vital Signs Vital signs: Vital Signs - 8 hr 04/12/23 21:45 04/12/23 21:57 04/12/23 21:57 Temperature 98.1 F Pulse Rate 64 65 Respiratory Rate 18 Blood Pressure 187/91 H 193/92 H Pulse Oximetry 98 98 Oxygen Delivery Method Room Air 04/12/23 22:00 04/12/23 22:01 04/12/23 22:01 Temperature Pulse Rate 64 61 Respiratory Rate Blood Pressure 168/74 H Pulse Oximetry 98 97 Oxygen Delivery Method 04/12/23 22:30 04/12/23 22:31 04/12/23 22:31 Temperature Pulse Rate 70 66 Respiratory Rate Blood Pressure 160/85 H Pulse Oximetry 100 100 Oxygen Delivery Method 04/12/23 23:00 04/12/23 23:00 04/12/23 23:30 Temperature Pulse Rate 56 L 58 L Respiratory Rate Blood Pressure 176/81 H Pulse Oximetry 96 98 Oxygen Delivery Method 04/12/23 23:31 04/12/23 23:31 04/13/23 00:00 Temperature Pulse Rate 59 L 57 L Respiratory Rate Blood Pressure 167/117 H Pulse Oximetry 99 94 Oxygen Delivery Method 04/13/23 00:30 04/13/23 01:00 04/13/23 01:14 Temperature Pulse Rate 59 L 58 L 56 L Respiratory Rate Blood Pressure Pulse Oximetry 97 95 96 Oxygen Delivery Method Room Air Room Air 04/13/23 01:14 Temperature Pulse Rate Respiratory Rate Blood Pressure 157/81 H Pulse Oximetry Oxygen Delivery Method Medical Decision Making Lab Data Lab results reviewed: Yes I reviewed the patient's lab results. 04/12/23 21:57 04/12/23 21:57 Labs: Lab Results 04/12/23 Range/Units 21:57 WBC 6.2 (4.5-11.0) X10^3/uL RBC 4.31 (4.0-5.2) X10^6/uL Hgb 12.9 (12.0-16.0) g/dL Hct 38.5 (36-46) % MCV 89.2 (80-100) fL MCH 29.9 (26-34) PG MCHC 33.5 (30-36) % RDW 13.0 (11.6-14.8) % Plt Count 331 (150-400) X10^3/uL Neut % (Auto) 47.8 L (50-75) % Lymph % (Auto) 42.0 H (25-40) % Hendricks % (Auto) 6.4 (3-14) % Eos % (Auto) 2.9 (2-4) % Baso % (Auto) 0.9 (0-2) % Neut # (Auto) 3000 (3474-4506) /uL Lymph # (Auto) 2600 (0876-9420) /uL Hendricks # (Auto) 400 (0-900) /uL Eos # (Auto) 200 (0-450) /uL Baso # (Auto) 100 (0-100) /uL Sodium 134 L (137-145) mmol/L Potassium 3.5 (3.4-5.1) mmol/L Chloride 97 L (98-107) mmol/L Carbon Dioxide 32 (22-32) mmol/L BUN 12 (7-17) mg/dL Creatinine 0.79 (0.52-1.04) mg/dL Estimated GFR > 60 (>60) mL/min BUN/Creatinine Ratio 15.2 (6-22) Glucose 88 (80-110) mg/dL Calcium 9.5 (8.4-10.2) mg/dL Total Bilirubin 0.3 (0.2-1.3) mg/dL AST 29 (14-36) IU/L ALT 16 (<35) IU/L Alkaline Phosphatase 74 (38-126) U/L Total Protein 6.7 (6.3-8.2) g/dL Albumin 3.7 (3.5-5.0) g/dL Globulin 3.0 (1.7-4.1) g/dL Albumin/Globulin Ratio 1.2 (1.0-2.8) Lipase 65 (23-300) U/L Urine Dip Bedside Urine Glucose Negative Bedside Urine Bilirubin - Negative Bedside Urine Ketone - Negative Urine Specific [place] 1.010 Bedside Urine Occult Blood - Negative Bedside Urine pH 6.5 Bedside Urine Protein - Negative Bedside Urine Urobilinogen - Negative Bedside Urine Nitrite - Negative Bedside Urine Leukocytes - Negative Esterase Point of care testing: Urine Dip Bedside Urine Glucose Negative Bedside Urine Bilirubin - Negative Bedside Urine Ketone - Negative Urine Specific [place] 1.010 Bedside Urine Occult Blood - Negative Bedside Urine pH 6.5 Bedside Urine Protein - Negative Bedside Urine Urobilinogen - Negative Bedside Urine Nitrite - Negative Bedside Urine Leukocytes - Negative Esterase Imaging Data CT scan - abdomen/pelvis: Radiologist's Impression: PROCEDURE: CT ABDOMEN PELVIS W CON INDICATIONS: History of gastric bypass with abdominal pain TECHNIQUE: After the administration of oral and intravenous contrast, axial sections were acquired from the lung bases to the pubic symphysis. Coronal and sagittal reformats were performed. For radiation dose reduction, the following was used: automated exposure control, adjustment of mA and/or kV according to patient size. COMPARISON:[facility], CT, CT ABDOMEN PELVIS W [facility], 01/19/2022, 20:24. [facility], CT, CT ABDOMEN PELVIS W [facility], 09/08/2021, 17:59. FINDINGS: Image quality: Excellent. Lung bases: Unremarkable. Note is made of a small hiatal hernia. Heart: No significant findings. ABDOMEN: Liver: Unremarkable. Gallbladder: Previously resected Biliary ducts: Unremarkable. Pancreas: Unremarkable. Spleen: Unremarkable. Adrenal Glands: Unremarkable. Kidneys and Ureters: Unremarkable. Stomach and Bowel: Stomach, small bowel loops, and colon are unremarkable. Postsurgical changes of prior gastric bypass procedure. No operative complication found. Peritoneum: No abnormal intraperitoneal fluid. No free air. Ventral Wall: No hernia. Abdominal Nodes: No retroperitoneal or mesenteric adenopathy by size criteria. Vessels: Aorta and inferior vena cava are normal in size. PELVIS: Pelvic Organs: Unremarkable. Bladder: Unremarkable. Pelvic Nodes: No enlarged lymph nodes. Miscellaneous: No inguinal hernias are seen. Surgical CT clips at the right lower quadrant consistent with prior appendectomy. Bones: Unremarkable. IMPRESSION: Prior cholecystectomy, appendectomy, gastric bypass procedure but no acute disease. MDM Narrative Medical decision making narrative: Labs unremarkable. Urinalysis unremarkable. CT scan shows no signs of kidney stones, hernia, bowel obstruction. Patient is not having any indication of a GI bleed. No dark-colored stool. No vomiting. No fevers. No skin changes. We did discuss the possibility of an ulcer. Patient is currently on a PPI. No indication for admission to the hospital. No indication for emergent surgical consultation. Will discharge patient home to continue to take all of her medications. Advised that she contact her primary doctor for follow-up and also advised that she discuss indications for follow-up with GI she may need an upper endoscopy. She was given return precautions. She expressed understanding. Discharge Plan Departure Patient Disposition: Home Clinical Impression: Abdominal pain Instructions: DI for Abdominal Pain-Adult Activity Restrictions/Additional Instructions: Recommend that you continue to take all of your medications as directed to include your pantoprazole. Also recommend you contact your primary doctor on Friday for follow-up. You can also contact the GI doctor of the number provided below for a follow-up as well. Return to the emergency department for new or worsening symptoms. Prescriptions: No Action gabapentin [Neurontin] 300 MG capsule 300 mg PO QD-BID PRN (Reason: Nerve pain) Qty: 0 oxybutynin chloride 5 MG tablet 5 mg PO DAILY Qty: 0 trazodone 100 MG tablet 100 mg PO HS PRN (Reason: Sleep) Qty: 0 biotin 1 mg capsule 2,500 mg PO QDAY Qty: 0 levothyroxine 200 mcg tablet 100 mcg PO DAILY metoclopramide HCl [Reglan] 10 mg tablet 10 mg PO QACHS Qty: 90 3RF sucralfate [Carafate] 1 gram tablet 1 g PO BID Qty: 30 0RF losartan 50 mg tablet 50 mg PO BID Patient Comments: has been taking bid sertraline 100 mg Tablet 100 mg PO DAILY hydroxyzine HCl 10 mg Tablet 10 mg PO BEDTIME folic acid 800 mcg Tablet 1 mg PO DAILY cetirizine 10 mg Tablet 10 mg PO BID pantoprazole 40 mg Tablet,Delayed Release (/Ec) 40 mg PO BEDTIME omeprazole 20 mg Tablet,Delayed Release (Dr/Ec) 20 mg PO DAILY Eliquis 2.5 mg Tablet 2.5 mg PO BID acetaminophen 500 mg capsule 500 mg PO Q4H MDD Max 3000 mg per day PRN (Reason: fever or pain) Qty: 90 0RF docusate sodium 100 mg Capsule 100 mg PO BID PRN (Reason: Constipation from narcotic pain meds) Qty: 20 0RF hydromorphone 2 mg Tablet 2 mg PO Q3H PRN (Reason: Pain, Severe (7-10)) Qty: 42 0RF hydroxyzine pamoate 25 mg Capsule 25 mg PO Q4HR PRN (Reason: Muscle spasm/pain/nausea) Qty: 60 0RF ondansetron 4 mg tablet,disintegrating 4 mg PO Q6H PRN (Reason: nausea and vomiting) Qty: 10 0RF Referrals: Chandler Covarrubias MD [Primary Care Provider] - Kristopher Blackmon MD [Physician] - Stand Alone Forms: Patient Portal/API
[2023-04-12 22:15] LABS: Alanine Aminotransferase 16 IU/L (<35); Albumin 3.7 g/dL (3.5-5.0); Albumin Globulin Ratio 1.2 (1.0-2.8); Alkaline Phosphatase 74 U/L (38-126); Aspartate Aminotransferase 29 IU/L (14-36); BUN Creatinine Ratio 15.2 (6-22); Bilirubin Total 0.3 mg/dL (0.2-1.3); Blood Urea Nitrogen 12 mg/dL (7-17); Calcium 9.5 mg/dL (8.4-10.2); Carbon Dioxide 32 mmol/L (22-32); Chloride 97 mmol/L (98-107); Estimated Glomerular Filt Rate > 60 mL/min (>60); Glucose 88 mg/dL (80-110); HEMOLYSIS 22 (0-50); Lipase 65 U/L (23-300); Potassium 3.5 mmol/L (3.4-5.1); Sodium 134 mmol/L (137-145); Total Protein 6.7 g/dL (6.3-8.2)
[2023-04-12] MEDS: diphenhydrAMINE 50 MG/ML VIAL 25 MG IV (22:21)
[2023-04-12] MEDS: methylPREDNISolone 125 MG/2 ML VIAL IV (22:21)
[2023-04-12] MEDS: HYDROMORPHONE 0.5 MG INJ IV (22:22)
[2023-04-12] MEDS: ONDANSETRON 4 MG/2 ML INJ IV (22:22)
--- NOTE | 2023-04-12 23:30 | PC.NURSE ---
pt continues attempt to finish drinking contrast, pt states no relief with pain med given, she has been taking the pain medication for her back at home without any relief, pt states she understands we are trying to help her with the pain, she stated that is why she knows something is wrong
[2023-04-13] VITALS: PULSE 57; O2SAT 94
[2023-04-13 00:30] VITALS: PULSE 59; O2SAT 97
[2023-04-13 01:00] VITALS: PULSE 58; O2SAT 95
[2023-04-13] MEDS: HYDROCODONE/ACET 5/325 TABLET 1 TAB PO (01:02)
[2023-04-13 01:14] VITALS: BP 157/81; PULSE 56; O2SAT 96
== END 2023-04-13 01:35 | disposition home or self-care (01) ==
PROVIDERS: Emergency Provider Emergency Medicine; PCP Internal Medicine
DX: R10.12 Left upper quadrant pain (principal)
CPT/HCPCS: 36415; 74177; 80053; 81003; 83690; 85025; 96374; 96375; 99284; J1170; J1200; J2405; J2930; Q9967

== ENCOUNTER 2023-08-20 17:27 | Emergency (ER) | payer MEDICARE, OTHER, SELFPAY ==
[2021-11-08 12:43] VITALS: BMI 35.9
[2023-08-20] VITALS (14 sets, daily range): BP systolic 85–131; BP diastolic 50–88; PULSE 58–76; RESP 16–18; TEMP 37.6; O2SAT 91–97; BMI 27.1
[2023-08-20 18:01] LABS: Bacteria Urine Occasional (0-1); RBC Urine 0-1/HPF (0-5/HPF); Squamous Epithelial Cell Urine 1-5 /HPF (0-5/HPF); Urine Volume 10mL (spun); WBC Urine 0-1/HPF (0-5/HPF)
[2023-08-20 18:02] LABS: Culture Indicated Urine Cult Not Indicated
[2023-08-20] MEDS: ONDANSETRON 4 MG/2 ML INJ IV (18:05)
--- NOTE | 2023-08-20 18:18 | ED_ITS ---
HPI - URI/Sore Throat General Chief Complaint: Upper Respiratory Symptoms Stated Complaint: 103 temp/headache T-2/dehydration/ Time Seen by Provider: 08/20/23 17:55 Source: patient Mode of arrival: Wheelchair History of Present Illness HPI Narrative: 68-year-old female presents by private vehicle from home for 2-3 days of fever, nausea, decreased appetite, nonproductive cough, generalized weakness. Today patient had a severe headache and decided to present for evaluation. States that she normally does not get severe headaches and this is unusual for her. Denies numbness, weakness, vision changes. No known sick contacts. Related Data Home Medications Medication Instructions Recorded Confirmed biotin 1 mg capsule 2,500 mg PO QDAY ##0 07/28/17 11/08/21 gabapentin 300 mg capsule 300 mg PO QD-BID PRN Nerve pain ##0 07/28/17 11/08/21 (Neurontin) oxybutynin chloride 5 mg tablet 5 mg PO DAILY ##0 07/28/17 11/08/21 trazodone 100 mg tablet 100 mg PO HS PRN Sleep ##0 07/28/17 11/01/21 losartan 50 mg tablet 50 mg PO BID 10/23/19 11/08/21 levothyroxine 200 mcg tablet 100 mcg PO DAILY 12/16/19 11/08/21 folic acid 800 mcg tablet 1 mg PO DAILY 03/13/20 11/08/21 hydroxyzine HCl 10 mg tablet 10 mg PO BEDTIME skin allergies 03/13/20 11/08/21 sertraline 100 mg tablet 100 mg PO DAILY 03/13/20 11/08/21 apixaban 2.5 mg tablet (Eliquis) 2.5 mg PO BID 11/01/21 11/08/21 cetirizine 10 mg tablet 10 mg PO BID 11/01/21 11/08/21 omeprazole 20 mg tablet,delayed 20 mg PO DAILY 11/01/21 11/08/21 release pantoprazole 40 mg tablet,delayed 40 mg PO BEDTIME 11/01/21 11/01/21 release Previous Rx's Medication Instructions Recorded metoclopramide HCl 10 mg tablet 10 mg PO QACHS #90 tabs 09/08/21 (Reglan) acetaminophen 500 mg capsule 500 mg PO Q4H PRN fever or pain 11/10/21 #90 caps docusate sodium 100 mg capsule 100 mg PO BID PRN Constipation 11/10/21 from narcotic pain meds #20 caps hydromorphone 2 mg tablet 2 mg PO Q3H PRN Pain, Severe 11/10/21 (7-10) #42 tabs hydroxyzine pamoate 25 mg capsule 25 mg PO Q4HR PRN Muscle 11/10/21 spasm/pain/nausea #60 caps sucralfate 1 gram tablet (Carafate) 1 g PO BID #30 tabs 01/19/22 ondansetron 4 mg disintegrating 4 mg PO Q6H PRN nausea and 09/09/22 tablet vomiting #10 tabs azithromycin 250 mg tablet See Rx Instructions PO .COMPLEX #6 08/20/23 (Zithromax Z-Luis) tabs Allergies Allergy/AdvReac Type Severity Reaction Status Date / Time morphine [MORPHINE] Allergy Severe Rash, N&V Verified 01/19/22 15:58 - IV med only mussels [MUSSELS] Allergy Severe N&V Verified 01/19/22 15:58 latex [LATEX] Allergy Intermediate RASH, Verified 01/19/22 15:58 ITCHY, BLISTERS adhesive tape Allergy Mild Blister Verified 01/19/22 15:58 iodine [IODINE] Allergy Mild RASH Verified 01/19/22 15:58 Review of Systems Review of Systems Narrative: Negative except as noted above Patient History Medical History GI bleed (2020) Presence of neurostimulator No blood products DVT (deep venous thrombosis) Osteomyelitis Hospitalization or health care facility admission within last 6 months (12/14/19) Lactose intolerance PTSD (post-traumatic stress disorder) Anxiety Former smoker SHANEKA (obstructive sleep apnea) Insomnia GERD (gastroesophageal reflux disease) Depression Chronic pain History of ETOH abuse Hypoglycemia Hiatal hernia Hypothyroidism Pulmonary embolism (~1993) Chronic sinus bradycardia HTN (hypertension) Surgical History History of esophagogastroduodenoscopy (EGD) History of arthroplasty of left knee (03/20/20) History of lumpectomy of right breast History of lumpectomy of left breast Hx of tubal ligation History of arthroscopy of right shoulder History of arthroscopy of left shoulder History of carpal tunnel release of both wrists Hx of laminectomy (11/11/18) S/P gastroplasty History of colonoscopy Hx of cholecystectomy Hx of appendectomy Hx of hernia repair History of total left hip arthroplasty (11/08/15) Family History Father CAD (coronary artery disease) Mother CAD (coronary artery disease) Social History household members: spouse Smoking Status: Former smoker alcohol intake: former Smoking Status: Former smoker alcohol intake frequency: holidays/special occasions only Substance Use Type: does not use Exam Initial Vital Signs Initial Vital Signs: Vital Signs Temperature 99.6 F 08/20/23 17:33 Pulse Rate 73 08/20/23 17:33 Respiratory Rate 18 08/20/23 17:33 Blood Pressure 108/70 08/20/23 17:33 Pulse Oximetry 95 08/20/23 17:33 Oxygen Delivery Method Room Air 08/20/23 17:33 Const: Eyes closed, under blanket, uncomfortable but nontoxic in appearance Cardiac: regular rate, regular rhythm RESP: unlabored, clear bilaterally, no wheezing GI: Atraumatic, soft, nontender MSK: Atraumatic, full range of motion, pulses equal Skin: Warm, Dry, intact, no rashes Neuro: AO x3, CN II-XII grossly intact, moves all extremities Course Orders Ordered: Discontinued Medications Acetaminophen (Acetaminophen 325 Mg Tablet) 975 mg PO NOW ONE Stop: 08/20/23 18:09 Last Admin: 08/20/23 18:22 Dose: 975 mg Documented By: LARRY Azithromycin (Azithromycin 250 Mg Tablet) 500 mg PO NOW ONE Stop: 08/20/23 20:39 Last Admin: 08/20/23 20:44 Dose: 500 mg Documented By: LARRY Diphenhydramine HCl (Diphenhydramine 50 Mg/Ml Vial) 50 mg IV NOW ONE Stop: 08/20/23 18:17 Last Admin: 08/20/23 18:23 Dose: 50 mg Documented By: LARRY Sodium Chloride (Normal Saline 0.9%) 1,000 mls @ 1,000 mls/hr IV BOLUS ONE Stop: 08/20/23 19:07 Last Infusion: 08/20/23 20:12 Dose: Infused Documented By: Admin: 08/20/23 18:26 Dose: 1,000 mls/hr Documented By: LARRY Ketorolac Tromethamine (Ketorolac 30 Mg/Ml Vial) 15 mg IV NOW ONE Stop: 08/20/23 18:09 Last Admin: 08/20/23 18:25 Dose: 15 mg Documented By: LARRY Metoclopramide HCl (Metoclopramide 10 Mg/2 Ml Inj) 10 mg IV NOW ONE Stop: 08/20/23 18:17 Last Admin: 08/20/23 18:26 Dose: 10 mg Documented By: LARRY Ondansetron HCl (Ondansetron 4 Mg/2 Ml Inj) 4 mg IV NOW PRN PRN Reason: Nausea And Vomiting Last Admin: 08/20/23 18:05 Dose: 4 mg Documented By: LARRY Ondansetron HCl (Ondansetron 4 Mg Odt) 4 mg SL NOW PRN PRN Reason: Nausea And Vomiting Vital Signs Vital signs: Vital Signs - 8 hr 08/20/23 17:33 08/20/23 17:46 08/20/23 17:47 Temperature 99.6 F Pulse Rate 73 69 Respiratory Rate 18 Blood Pressure 108/70 105/60 Pulse Oximetry 95 94 Oxygen Delivery Method Room Air Room Air 08/20/23 18:00 08/20/23 18:01 08/20/23 18:01 Temperature Pulse Rate 76 69 Respiratory Rate Blood Pressure 121/50 L Pulse Oximetry 95 94 Oxygen Delivery Method 08/20/23 18:30 08/20/23 18:30 08/20/23 18:49 Temperature Pulse Rate 58 L 66 Respiratory Rate Blood Pressure 131/88 Pulse Oximetry 97 93 Oxygen Delivery Method 08/20/23 18:49 08/20/23 19:00 08/20/23 19:00 Temperature Pulse Rate 67 Respiratory Rate Blood Pressure 90/55 L 97/53 L Pulse Oximetry 94 Oxygen Delivery Method 08/20/23 19:30 08/20/23 19:30 08/20/23 19:49 Temperature Pulse Rate 71 65 Respiratory Rate Blood Pressure 99/53 L Pulse Oximetry 91 94 Oxygen Delivery Method 08/20/23 19:49 Temperature Pulse Rate Respiratory Rate 18 Blood Pressure 103/58 L Pulse Oximetry Oxygen Delivery Method MDM - URI/Sore Throat Differential Diagnosis Differential diagnosis: Likely upper respiratory infection, otitis media and sinusitis Lab Data 08/20/23 17:54 08/20/23 17:54 Labs: Lab Results 08/20/23 08/20/23 08/20/23 Range/Units 17:41 17:47 17:54 WBC 12.4 H (4.5-11.0) X10^3/uL RBC 4.32 (4.0-5.2) X10^6/uL Hgb 12.7 (12.0-16.0) g/dL Hct 38.7 (36-46) % MCV 89.7 (80-100) fL MCH 29.3 (26-34) PG MCHC 32.7 (30-36) % RDW 13.7 (11.6-14.8) % Plt Count 225 (150-400) X10^3/uL Neut % (Auto) 85.8 H (50-75) % Lymph % (Auto) 9.1 L (25-40) % [place] % (Auto) 4.9 (3-14) % Eos % (Auto) 0.0 L (2-4) % Baso % (Auto) 0.2 (0-2) % Neut # (Auto) 79960 H (0182-9582) /uL Lymph # (Auto) 1100 (7211-9155) /uL [place] # (Auto) 600 (0-900) /uL Eos # (Auto) 0 (0-450) /uL Baso # (Auto) 0 (0-100) /uL Sodium 140 (137-145) mmol/L Potassium 3.3 L (3.4-5.1) mmol/L Chloride 102 (98-107) mmol/L Carbon Dioxide 32 (22-32) mmol/L BUN 15 (7-17) mg/dL Creatinine 0.83 (0.52-1.04) mg/dL Estimated GFR > 60 (>60) mL/min BUN/Creatinine Ratio 18.1 (6-22) Glucose 119 H (80-110) mg/dL Calcium 9.4 (8.4-10.2) mg/dL Total Bilirubin 0.8 (0.2-1.3) mg/dL AST 27 (14-36) IU/L ALT 15 (<35) IU/L Alkaline Phosphatase 59 (38-126) U/L Troponin I (0.01-0.034) ng/mL NT-Pro-B Natriuret Pep (<125) pg/mL Total Protein 6.5 (6.3-8.2) g/dL Albumin 3.6 (3.5-5.0) g/dL Globulin 2.9 (1.7-4.1) g/dL Albumin/Globulin Ratio 1.2 (1.0-2.8) Lipase 24 (23-300) U/L Urine RBC 0-1/hpf (0-5/HPF) Urine WBC 0-1/hpf (0-5/HPF) Ur Squamous Epith Cells 1-5 /hpf (0-5/HPF) Urine Bacteria Occasional (0-1) (None) Ur Culture Indicated? Cult not indicated Vol Urine Centrifuged 10ml (spun) SARS-CoV-2 (PCR) Negative (Negative) Influenza A (RT-PCR) Flu a negative (NEGATIVE) Influenza B (RT-PCR) Flu b negative (NEGATIVE) RSV (PCR) Negative (Negative) 08/20/23 Range/Units 17:55 WBC (4.5-11.0) X10^3/uL RBC (4.0-5.2) X10^6/uL Hgb (12.0-16.0) g/dL Hct (36-46) % MCV (80-100) fL MCH (26-34) PG MCHC (30-36) % RDW (11.6-14.8) % Plt Count (150-400) X10^3/uL Neut % (Auto) (50-75) % Lymph % (Auto) (25-40) % [place] % (Auto) (3-14) % Eos % (Auto) (2-4) % Baso % (Auto) (0-2) % Neut # (Auto) (7264-9515) /uL Lymph # (Auto) (2160-1986) /uL [place] # (Auto) (0-900) /uL Eos # (Auto) (0-450) /uL Baso # (Auto) (0-100) /uL Sodium (137-145) mmol/L Potassium (3.4-5.1) mmol/L Chloride (98-107) mmol/L Carbon Dioxide (22-32) mmol/L BUN (7-17) mg/dL Creatinine (0.52-1.04) mg/dL Estimated GFR (>60) mL/min BUN/Creatinine Ratio (6-22) Glucose (80-110) mg/dL Calcium (8.4-10.2) mg/dL Total Bilirubin (0.2-1.3) mg/dL AST (14-36) IU/L ALT (<35) IU/L Alkaline Phosphatase (38-126) U/L Troponin I < 0.012 (0.01-0.034) ng/mL NT-Pro-B Natriuret Pep 390 H (<125) pg/mL Total Protein (6.3-8.2) g/dL Albumin (3.5-5.0) g/dL Globulin (1.7-4.1) g/dL Albumin/Globulin Ratio (1.0-2.8) Lipase (23-300) U/L Urine RBC (0-5/HPF) Urine WBC (0-5/HPF) Ur Squamous Epith Cells (0-5/HPF) Urine Bacteria (None) Ur Culture Indicated? Vol Urine Centrifuged SARS-CoV-2 (PCR) (Negative) Influenza A (RT-PCR) (NEGATIVE) Influenza B (RT-PCR) (NEGATIVE) RSV (PCR) (Negative) Urine Dip Bedside Urine Glucose Negative Bedside Urine Bilirubin - Negative Bedside Urine Ketone - Negative Urine Specific [place] 1.015 Bedside Urine Occult Blood - Negative Bedside Urine pH 6.0 Bedside Urine Protein - Negative Bedside Urine Urobilinogen - Negative Bedside Urine Nitrite - Negative Bedside Urine Leukocytes +/- 15 Esterase Imaging Data Chest x-ray: Radiologist's Impression: PROCEDURE: XR CHEST 1V INDICATIONS: fever, cough TECHNIQUE: One view of the chest was acquired. COMPARISON: [facility], , XR CHEST 1V, 01/19/2022, 16:10. FINDINGS: Surgical changes and devices: None. Lungs and pleura: Mild appearance of increased pulmonary vascularity. Mediastinum: Mediastinal contours appear normal. Heart size is enlarged. Bones and chest wall: No suspicious bony lesions. Overlying soft tissues appear unremarkable. IMPRESSION: Increased vascularity suggestive of edema. Dictated by: Karen Hernandez M.D. on 08/20/2023 at 19:07 Approved by: Karen Hernandez M.D. on 08/20/2023 at 19:07 CT scan - head: Radiologist's Impression: PROCEDURE: CT HEAD/BRAIN WO CON INDICATIONS: HEADACHE, NEW PATTERN TECHNIQUE: Noncontrast 4.5 mm thick angled axial sections acquired from the foramen magnum to the vertex, with coronal and sagittal reformats. For radiation dose reduction, the following was used: automated exposure control, adjustment of mA and/or kV according to patient size. COMPARISON: [facility], CT, CT HEAD/BRAIN WO CON, 10/23/2019, 12:10. FINDINGS: Image quality: Diagnostic. CSF spaces: Basal cisterns are patent. No extra-axial fluid collections. Ventricles are normal in size and shape. Brain: No midline shift. No intracranial masses or hemorrhage. Mistry-white matter interface is normal. Skull and face: Calvarium and visualized facial bones are intact, without suspicious lesions. Sinuses: Visualized sinuses and mastoids are clear. IMPRESSION: No acute intracranial pathology. Dictated by: Karen Hernandez M.D. on 08/20/2023 at 19:06 Approved by: Karen Hernandez M.D. on 08/20/2023 at 19:07 MDM Narrative Medical decision making narrative: Patient with numerous symptoms concerning for possible viral syndrome vs upper respiratory infection. Patient reporting abnormal headache, however neurologically intact without deficits. Lungs clear to auscultation bilaterally. Will order medications for headache, nausea, pain Laboratory work shows WBC count 12.4 with neutrophil predominance. Chest x-ray shows increased vascularity suggestive of edema. Patient does not appear to be grossly volume overloaded and denies history of congestive heart failure. Will order troponin and BNP to the guide management, however at this time I have low suspicion for true volume overload. CT of the brain negative for acute findings. Patient reports feeling much better after receiving pain and nausea medications, currently eating crackers at bedside. Troponin undetectable, mild elevation of BNP, however again patient has no edema, orthopnea, other symptoms consistent with CHF. Flu, COVID, RSV negative. Based on patient's symptoms, mild leukocytosis, and chest x-ray findings concern for possible atypical pneumonia and will treat as such. Since pharmacies are closed at this time initial dose of antibiotic given in the emergency department. Patient informed of all lab and imaging findings as well as presumptive diagnosis. Recommended plenty of fluids as well as Tylenol for any recurrent symptoms. Recommended close PCP follow up. Discharge Plan Departure Patient Disposition: Home Clinical Impression: Atypical pneumonia, Headache Instructions: DI for Headache, DI for Atypical Pneumonia Activity Restrictions/Additional Instructions: Your labs and x-ray imaging today indicate that you may have an atypical lung infection. Your 1st dose of antibiotics was given here and you have been prescribed a Z-Luis for the continuation of your treatment. Follow up with your primary care physician. Take Tylenol as needed for pain or fever. Please return if you do not notice an improvement in your symptoms despite taking your antibiotics. Prescriptions: New azithromycin [Zithromax Z-Luis] 250 mg tablet See Rx Instructions .ROUTE .COMPLEX Qty: 6 0RF Rx Instructions: For 250 mg dose pack: take 500 mg today (day 1), then 250 mg for 4 days (days 2-5) No Action gabapentin [Neurontin] 300 MG capsule 300 mg PO QD-BID PRN (Reason: Nerve pain) Qty: 0 oxybutynin chloride 5 MG tablet 5 mg PO DAILY Qty: 0 trazodone 100 MG tablet 100 mg PO HS PRN (Reason: Sleep) Qty: 0 biotin 1 mg capsule 2,500 mg PO QDAY Qty: 0 levothyroxine 200 mcg tablet 100 mcg PO DAILY metoclopramide HCl [Reglan] 10 mg tablet 10 mg PO QACHS Qty: 90 3RF sucralfate [Carafate] 1 gram tablet 1 g PO BID Qty: 30 0RF losartan 50 mg tablet 50 mg PO BID Patient Comments: has been taking bid sertraline 100 mg Tablet 100 mg PO DAILY hydroxyzine HCl 10 mg Tablet 10 mg PO BEDTIME folic acid 800 mcg Tablet 1 mg PO DAILY cetirizine 10 mg Tablet 10 mg PO BID pantoprazole 40 mg Tablet,Delayed Release (Dr/Ec) 40 mg PO BEDTIME omeprazole 20 mg Tablet,Delayed Release (Dr/Ec) 20 mg PO DAILY Eliquis 2.5 mg Tablet 2.5 mg PO BID acetaminophen 500 mg capsule 500 mg PO Q4H MDD Max 3000 mg per day PRN (Reason: fever or pain) Qty: 90 0RF docusate sodium 100 mg Capsule 100 mg PO BID PRN (Reason: Constipation from narcotic pain meds) Qty: 20 0RF hydromorphone 2 mg Tablet 2 mg PO Q3H PRN (Reason: Pain, Severe (7-10)) Qty: 42 0RF hydroxyzine pamoate 25 mg Capsule 25 mg PO Q4HR PRN (Reason: Muscle spasm/pain/nausea) Qty: 60 0RF ondansetron 4 mg tablet,disintegrating 4 mg PO Q6H PRN (Reason: nausea and vomiting) Qty: 10 0RF Referrals: Chandler Covarrubias MD [Primary Care Provider] - Stand Alone Forms: Patient Portal/API
[2023-08-20] MEDS: ACETAMINOPHEN 325 MG TABLET 975 MG PO (18:22)
[2023-08-20] MEDS: diphenhydrAMINE 50 MG/ML VIAL IV (18:23)
[2023-08-20] MEDS: KETOROLAC 30 MG/ML VIAL 15 MG IV (18:25)
[2023-08-20] MEDS: SODIUM CHLORIDE 0.9% 1,000 ML 1000 ML IV (18:26)
[2023-08-20] MEDS: METOCLOPRAMIDE 10 MG/2 ML INJ IV (18:26)
[2023-08-20 18:47] LABS: Influenza A - CEPHEID Flu A NEGATIVE (NEGATIVE); Influenza B - CEPHEID Flu B NEGATIVE (NEGATIVE); Respiratory Syncytial Virus Negative (Negative)
[2023-08-20 18:48] LABS: COVID-19 CEPHEID 4-PLEX PCR Negative (Negative)
[2023-08-20 18:49] LABS: Add Manual Diff / Slide Review NO; Basophils Absolute Auto 0 /uL (0-100); Basophils Percent Auto 0.2 % (0-2); Eosinophils Absolute Auto 0 /uL (0-450); Hematocrit 38.7 % (36-46); Hemoglobin 12.7 g/dL (12.0-16.0); Lymphocytes Absolute Auto 1100 /uL (1100-4500); Lymphocytes Percent Auto 9.1 % (25-40); Mean Corpuscular HGB Conc 32.7 % (30-36); Mean Corpuscular Hemoglobin 29.3 PG (26-34); Mean Corpuscular Volume 89.7 fL (80-100); Monocytes Absolute Auto 600 /uL (0-900); Monocytes Percent Auto 4.9 % (3-14); Neutrophils Absolute Auto 10700 /uL (1500-7000); Neutrophils Percent Auto 85.8 % (50-75); Platelet Count 225 X10^3/uL (150-400); Red Blood Cell Count 4.32 X10^6/uL (4.0-5.2); Red Cell Distribution Width 13.7 % (11.6-14.8); White Blood Cell Count 12.4 X10^3/uL (4.5-11.0)
[2023-08-20 19:06] LABS: Alanine Aminotransferase 15 IU/L (<35); Albumin 3.6 g/dL (3.5-5.0); Albumin Globulin Ratio 1.2 (1.0-2.8); Alkaline Phosphatase 59 U/L (38-126); Aspartate Aminotransferase 27 IU/L (14-36); BUN Creatinine Ratio 18.1 (6-22); Bilirubin Total 0.8 mg/dL (0.2-1.3); Blood Urea Nitrogen 15 mg/dL (7-17); Calcium 9.4 mg/dL (8.4-10.2); Carbon Dioxide 32 mmol/L (22-32); Chloride 102 mmol/L (98-107); Estimated Glomerular Filt Rate > 60 mL/min (>60); Globulin 2.9 g/dL (1.7-4.1); Glucose 119 mg/dL (80-110); HEMOLYSIS < 15 (0-50); Lipase 24 U/L (23-300); Potassium 3.3 mmol/L (3.4-5.1); Sodium 140 mmol/L (137-145); Total Protein 6.5 g/dL (6.3-8.2)
[2023-08-20 19:52] LABS: NT-proBNP (BNP-Adult 18+) 390 pg/mL (<125); Troponin I < 0.012 ng/mL (0.01-0.034)
[2023-08-20] MEDS: AZITHROMYCIN 250 MG TABLET 500 MG PO (20:44)
== END 2023-08-20 20:58 | disposition home or self-care (01) ==
PROVIDERS: Emergency Medicine; Emergency Provider Emergency Medicine; PCP Internal Medicine
DX: J18.9 Pneumonia, unspecified organism (principal); R51.9 Headache, unspecified; Z20.822 Contact with and (suspected) exposure to COVID-19
CPT/HCPCS: 0241U; 36415; 70450; 71045; 80053; 81003; 81015; 83690; 83880; 84484; 85025; 87086; 96361; 96374; 96375; 99284; J1200; J1885; J2405; J2765

== ENCOUNTER 2023-11-18 10:48 | Emergency (ER) | payer MEDICARE, OTHER, SELFPAY ==
[2021-11-08 12:43] VITALS: BMI 35.9
[2023-11-18] VITALS (13 sets, daily range): BP systolic 109–159; BP diastolic 60–101; PULSE 31–66; RESP 13–37; TEMP 36.4; O2SAT 83–100; BMI 26.9
--- NOTE | 2023-11-18 11:04 | DI.CT.S_ITS ---
PROCEDURE: CT HEAD/BRAIN WO CON INDICATIONS: syncope, hit wall with head TECHNIQUE: Noncontrast 4.5 mm thick angled axial sections acquired from the foramen magnum to the vertex, with coronal and sagittal reformats. For radiation dose reduction, the following was used: automated exposure control, adjustment of mA and/or kV according to patient size. COMPARISON: [facility], CT, CT CERVICAL SPINE WO CON, 11/18/2023, 11:15. [facility], CT, CT HEAD/BRAIN WO CON, 08/20/2023, 18:40. FINDINGS: Image quality: There is artifact associated with the metallic dental work through the skull base. Artifact from the metallic hardware is reduced by metal reconstruction algorithm. CSF spaces: Basal cisterns are patent. No extra-axial fluid collections. The ventricles are symmetric in size and shape. Brain: No intracranial bleeds or masses. There is cerebral volume loss for age, with resultant ventricular and sulcal prominence. There are periventricular and deep white matter chronic small vessel ischemic changes. There is intracranial internal carotid artery atherosclerosis. Skull and face: Calvarium and visualized facial bones appear intact, without suspicious lesions. Sinuses: Visualized sinuses and mastoids are clear. IMPRESSION: No acute intracranial hemorrhage is seen. No acute intracranial pathology. Dictated by: Dutch Sherman M.D. on 11/18/2023 at 10:53 Approved by: Dutch Sherman M.D. on 11/18/2023 at 10:54
--- NOTE | 2023-11-18 11:04 | DI.CT.S_ITS ---
PROCEDURE: CT CERVICAL SPINE WO CON INDICATIONS: syncope, hit wall with head TECHNIQUE: Noncontrast 3 mm thick sections acquired from the skull base to the T4 level. Sagittal and coronal reformats were then constructed. For radiation dose reduction, the following was used: automated exposure control, adjustment of mA and/or kV according to patient size. COMPARISON: [facility], CT, CT CERVICAL SPINE WO CON, 07/25/2019, 21:35. [facility], CT, CT HEAD/BRAIN WO CON, 11/18/2023, 11:15. [facility], CT, CT CERVICAL SPINE WITHOUT CONTRAST, 10/15/2023, 13:29. FINDINGS: Image quality: This examination is somewhat limited by quantum mottle artifact. Bones: No fractures or dislocations. Visualized superior ribs are intact. Soft tissues: Prevertebral soft tissues are normal in thickness. No paravertebral hematomas. No apical pneumothoraces. Atherosclerotic calcification is noted. IMPRESSION: Negative for cervical spine fracture. Dictated by: Dutch Sherman M.D. on 11/18/2023 at 10:54 Approved by: Dutch Sherman M.D. on 11/18/2023 at 10:56
--- NOTE | 2023-11-18 11:05 | DI.RAD.S_ITS ---
PROCEDURE: XR CHEST 1V INDICATIONS: hit head on thinners TECHNIQUE: One view of the chest was acquired. COMPARISON: [facility], CR, XR CHEST 1V, 08/20/2023, 18:22. FINDINGS: Surgical changes and devices: Spine neurostimulator lead. Surgical clips at the GE junction. Lungs and pleura: Lungs are clear. No pleural effusions or pneumothorax. Mediastinum: Mediastinal contours appear normal. Heart size is normal. Bones and chest wall: No suspicious bony lesions. Overlying soft tissues appear unremarkable. IMPRESSION: No acute cardiopulmonary abnormality is seen. Dictated by: Lizbeth Jaime MD, PhD on 11/18/2023 at 11:20 Approved by: Lizbeth Jaime MD, PhD on 11/18/2023 at 11:20
--- NOTE | 2023-11-18 11:07 | DI.RAD.S_ITS ---
PROCEDURE: XR TIBIA FUBULA RT 2V INDICATIONS: syncope with injuries TECHNIQUE: 2 views of the tibia and fibula were acquired. COMPARISON: None. FINDINGS: Bones: No fractures or dislocations. No suspicious bony lesions. Soft tissues: No suspicious soft tissue calcifications or masses. IMPRESSION: No acute bony abnormality. Dictated by: Lizbeth Jaime MD, PhD on 11/18/2023 at 11:31 Approved by: Lizbeth Jaime MD, PhD on 11/18/2023 at 11:32
--- NOTE | 2023-11-18 11:08 | DI.RAD.S_ITS ---
PROCEDURE: XR FOOT RT 2V INDICATIONS: syncope with injuries TECHNIQUE: 3 views of the foot were acquired. COMPARISON: [facility], CR, XR FOOT 3 VIEWS WEIGHT BEARING RIGHT, 07/14/2023, 9:10. [facility], CR, XR FOOT 3 VIEWS WEIGHT BEARING LEFT, 07/14/2023, 9:11. FINDINGS: Bones: No cortical step-off in the distal aspect of the 5th metatarsal.. No suspicious bony lesions. Calcaneal bone spurs. Mild midfoot osteoarthritis. Soft tissues: No tibiotalar joint effusion. Achilles tendon appears normal. IMPRESSION: Possible 5th metatarsal fracture. Please correlate for point tenderness. Dictated by: Lizbeth Jaime MD, PhD on 11/18/2023 at 11:32 Approved by: Lizbeth Jaime MD, PhD on 11/18/2023 at 11:33
[2023-11-18 11:35] LABS: Add Manual Diff / Slide Review NO; Basophils Absolute Auto 0 /uL (0-100); Basophils Percent Auto 0.9 % (0-2); Eosinophils Absolute Auto 0 /uL (0-450); Eosinophils Percent Auto 1.3 % (2-4); Hematocrit 36.3 % (36-46); Hemoglobin 11.9 g/dL (12.0-16.0); Lymphocytes Absolute Auto 1400 /uL (1100-4500); Lymphocytes Percent Auto 35.9 % (25-40); Mean Corpuscular HGB Conc 32.8 % (30-36); Mean Corpuscular Hemoglobin 29.5 PG (26-34); Mean Corpuscular Volume 90.1 fL (80-100); Monocytes Absolute Auto 400 /uL (0-900); Neutrophils Absolute Auto 2100 /uL (1500-7000); Neutrophils Percent Auto 52.9 % (50-75); Platelet Count 232 X10^3/uL (150-400); Red Blood Cell Count 4.02 X10^6/uL (4.0-5.2); Red Cell Distribution Width 13.5 % (11.6-14.8)
[2023-11-18 11:40] LABS: INR 1.2 (0.9-1.3); Prothrombin Time 13.4 SECONDS (9.4-12.5)
[2023-11-18 11:43] LABS: PTT Partial Thromboplastin Tim 46 SECONDS (25.1-36.5)
[2023-11-18 11:51] LABS: Alanine Aminotransferase 12 IU/L (<35); Albumin 3.8 g/dL (3.5-5.0); Albumin Globulin Ratio 1.6 (1.0-2.8); Alkaline Phosphatase 65 U/L (38-126); Aspartate Aminotransferase 25 IU/L (14-36); BUN Creatinine Ratio 17.3 (6-22); Bilirubin Total 0.6 mg/dL (0.2-1.3); Blood Urea Nitrogen 14 mg/dL (7-17); Calcium 8.8 mg/dL (8.4-10.2); Carbon Dioxide 32 mmol/L (22-32); Chloride 102 mmol/L (98-107); Estimated Glomerular Filt Rate > 60 mL/min (>60); Ethanol (ETOH) < 10 mg/dL; Globulin 2.4 g/dL (1.7-4.1); Glucose 99 mg/dL (80-110); HEMOLYSIS < 15 (0-50); Lipase 65 U/L (23-300); Potassium 3.6 mmol/L (3.4-5.1); Sodium 138 mmol/L (137-145); Total Protein 6.2 g/dL (6.3-8.2)
--- NOTE | 2023-11-18 11:51 | ED_ITS ---
HPI - Fall General Chief Complaint: Trauma Stated Complaint: Syncope on blood thinners Time Seen by Provider: 11/18/23 11:38 Source: EMS Mode of arrival: EMS History of Present Illness HPI Narrative: Patient is a 68-year-old female history pulmonary embolism on Eliquis presenting today after syncopal episode. She reports that she was knocking on her grandson's door task what he wanted for breakfast when she fell hitting her head. EMS reports that there is a hole in the wall. She was unable to get up due to severe right foot and right knee pain. She really does not have any sort of pain she was feeling well earlier. No chest pain or palpitations. She has not had any fever. No abdominal pain or hip pain. She is chronic ongoing back pain for which she takes 2 [place] Related Data Home Medications Medication Instructions Recorded Confirmed biotin 1 mg capsule 2,500 mg PO QDAY ##0 07/28/17 11/08/21 gabapentin 300 mg capsule 300 mg PO QD-BID PRN Nerve pain ##0 07/28/17 11/08/21 (Neurontin) oxybutynin chloride 5 mg tablet 5 mg PO DAILY ##0 07/28/17 11/08/21 trazodone 100 mg tablet 100 mg PO HS PRN Sleep ##0 07/28/17 11/01/21 losartan 50 mg tablet 50 mg PO BID 10/23/19 11/08/21 levothyroxine 200 mcg tablet 100 mcg PO DAILY 12/16/19 11/08/21 folic acid 800 mcg tablet 1 mg PO DAILY 03/13/20 11/08/21 hydroxyzine HCl 10 mg tablet 10 mg PO BEDTIME skin allergies 03/13/20 11/08/21 sertraline 100 mg tablet 100 mg PO DAILY 03/13/20 11/08/21 apixaban 2.5 mg tablet (Eliquis) 2.5 mg PO BID 11/01/21 11/08/21 cetirizine 10 mg tablet 10 mg PO BID 11/01/21 11/08/21 omeprazole 20 mg tablet,delayed 20 mg PO DAILY 11/01/21 11/08/21 release pantoprazole 40 mg tablet,delayed 40 mg PO BEDTIME 11/01/21 11/01/21 release Previous Rx's Medication Instructions Recorded metoclopramide HCl 10 mg tablet 10 mg PO QAS #90 tabs 09/08/21 (Reglan) acetaminophen 500 mg capsule 500 mg PO Q4H PRN fever or pain 11/10/21 #90 caps docusate sodium 100 mg capsule 100 mg PO BID PRN Constipation 11/10/21 from narcotic pain meds #20 caps hydromorphone 2 mg tablet 2 mg PO Q3H PRN Pain, Severe 11/10/21 (7-10) #42 tabs hydroxyzine pamoate 25 mg capsule 25 mg PO Q4HR PRN Muscle 11/10/21 spasm/pain/nausea #60 caps sucralfate 1 gram tablet (Carafate) 1 g PO BID #30 tabs 01/19/22 ondansetron 4 mg disintegrating 4 mg PO Q6H PRN nausea and 09/09/22 tablet vomiting #10 tabs azithromycin 250 mg tablet See Rx Instructions PO .COMPLEX #6 08/20/23 (Zithromax Z-Luis) tabs Allergies Allergy/AdvReac Type Severity Reaction Status Date / Time morphine [MORPHINE] Allergy Severe Rash, N&V Verified 01/19/22 15:58 - IV med only mussels [MUSSELS] Allergy Severe N&V Verified 01/19/22 15:58 latex [LATEX] Allergy Intermediate RASH, Verified 01/19/22 15:58 ITCHY, BLISTERS adhesive tape Allergy Mild Blister Verified 01/19/22 15:58 iodine [IODINE] Allergy Mild RASH Verified 01/19/22 15:58 Patient History Medical History GI bleed (2020) Presence of neurostimulator No blood products DVT (deep venous thrombosis) Osteomyelitis Hospitalization or health care facility admission within last 6 months (12/14/19) Lactose intolerance PTSD (post-traumatic stress disorder) Anxiety Former smoker SHANEKA (obstructive sleep apnea) Insomnia GERD (gastroesophageal reflux disease) Depression Chronic pain History of ETOH abuse Hypoglycemia Hiatal hernia Hypothyroidism Pulmonary embolism (~1993) Chronic sinus bradycardia HTN (hypertension) Surgical History History of esophagogastroduodenoscopy (EGD) History of arthroplasty of left knee (03/20/20) History of lumpectomy of right breast History of lumpectomy of left breast Hx of tubal ligation History of arthroscopy of right shoulder History of arthroscopy of left shoulder History of carpal tunnel release of both wrists Hx of laminectomy (11/11/18) S/P gastroplasty History of colonoscopy Hx of cholecystectomy Hx of appendectomy Hx of hernia repair History of total left hip arthroplasty (11/08/15) Family History Father CAD (coronary artery disease) Mother CAD (coronary artery disease) Social History household members: spouse Smoking Status: Former smoker alcohol intake: former Smoking Status: Former smoker alcohol intake frequency: holidays/special occasions only Substance Use Type: does not use Exam Initial Vital Signs Initial Vital Signs: Vital Signs Pulse Rate 59 L 11/18/23 10:52 Pulse Oximetry 98 11/18/23 10:52 GENERAL: Alert 68-year-old female HEENT: Head atraumatic, no depressions crepitations abrasions or lacerations EOMI, pupils reactive, face symmetric, moist mucous membranes NECK: In C-collar mild vertebral tenderness no guarding or rebound CARDIOVASCULAR: Regular rate and rhythm without murmurs, rubs or gallops. RESPIRATORY: Breath sounds equal bilaterally, no wheezes rales or rhonchi. ABDOMEN: Soft, nontender. Normoactive bowel sounds all 4 quadrants. No guarding or rebound. EXTREMITIES: Normal range of motion, no clubbing or edema. Neurovascularly intact pelvis and hips are stable Right lower extremity she is able to bend and flex knee distal pedal pulses intact tender laterally no gross bony deformity NEUROLOGICAL: Alert and oriented x4.Normal gait and speech. Cranial nerves II through XII grossly intact. SKIN: Warm, dry, no laceration, no petechiae, no rashes or lesions. Course Orders Ordered: ED Orders 11/18/23 11:00 Complete Blood Count AUTO DIFF Stat Comprehensive Metabolic Panel Stat Ethanol (ETOH) Stat Lactate (Lactic Acid) Stat Lipase Stat PTT Partial Thromboplastin Seth Stat Prothrombin Time INR Stat Troponin & CK Cardiac Panel Stat 11/18/23 11:04 CT cervical spine wo con Stat CT head/brain wo con Stat 11/18/23 11:05 XR chest 1V Stat EKG-12 Lead Stat 11/18/23 11:07 XR tibia fibula RT 2V Stat 11/18/23 11:08 XR foot RT 2V Stat 11/18/23 11:59 XR knee RT 3V Stat Discontinued Medications Hydrocodone Bitart/Acetaminophen (Hydrocodone/Acet 10/325 Tablet) 1 tab PO NOW ONE Stop: 11/18/23 11:58 Last Admin: 11/18/23 12:11 Dose: 1 tab Documented By: LEATHA Sodium Chloride (Normal Saline 0.9%) 1,000 mls @ 1,000 mls/hr IV BOLUS ONE Stop: 11/18/23 13:25 Last Infusion: 11/18/23 14:33 Dose: Infused Documented By: Admin: 11/18/23 12:58 Dose: 1,000 mls/hr Documented By: LEATHA Vital Signs Vital signs: Vital Signs - 8 hr 11/18/23 10:52 11/18/23 10:53 11/18/23 10:53 Temperature Pulse Rate 59 L 54 L Respiratory Rate Blood Pressure 149/101 H Pulse Oximetry 98 98 Oxygen Delivery Method 11/18/23 11:00 11/18/23 11:00 11/18/23 11:00 Temperature 97.6 F Pulse Rate 53 L 50 L Respiratory Rate 18 22 Blood Pressure 149/101 H 140/89 Pulse Oximetry 99 98 Oxygen Delivery Method Room Air 11/18/23 11:11 11/18/23 11:17 11/18/23 11:17 Temperature Pulse Rate 52 L 66 Respiratory Rate 16 13 Blood Pressure 145/69 H Pulse Oximetry Oxygen Delivery Method 11/18/23 11:33 11/18/23 11:35 11/18/23 11:35 Temperature Pulse Rate 31 L 52 L Respiratory Rate 25 H Blood Pressure 138/67 Pulse Oximetry 83 L 100 Oxygen Delivery Method 11/18/23 12:00 11/18/23 12:00 11/18/23 12:30 Temperature Pulse Rate 49 L 66 Respiratory Rate 37 H 32 H Blood Pressure 159/74 H Pulse Oximetry 100 93 Oxygen Delivery Method 11/18/23 12:31 11/18/23 12:31 11/18/23 13:00 Temperature Pulse Rate 58 L Respiratory Rate 29 H Blood Pressure 127/60 109/77 Pulse Oximetry 99 Oxygen Delivery Method 11/18/23 13:00 11/18/23 13:30 11/18/23 13:30 Temperature Pulse Rate 53 L 46 L Respiratory Rate 31 H 23 Blood Pressure 133/63 Pulse Oximetry 99 100 Oxygen Delivery Method 11/18/23 14:00 11/18/23 14:00 Temperature Pulse Rate 45 L Respiratory Rate 26 H Blood Pressure 127/60 Pulse Oximetry 99 Oxygen Delivery Method [facility] - Fall Lab Data 11/18/23 11:00 11/18/23 11:00 Labs: Lab Results 11/18/23 Range/Units 11:00 WBC 4.0 L (4.5-11.0) X10^3/uL RBC 4.02 (4.0-5.2) X10^6/uL Hgb 11.9 L (12.0-16.0) g/dL Hct 36.3 (36-46) % MCV 90.1 (80-100) fL MCH 29.5 (26-34) PG MCHC 32.8 (30-36) % RDW 13.5 (11.6-14.8) % Plt Count 232 (150-400) X10^3/uL Neut % (Auto) 52.9 (50-75) % Lymph % (Auto) 35.9 (25-40) % [place] % (Auto) 9.0 (3-14) % Eos % (Auto) 1.3 L (2-4) % Baso % (Auto) 0.9 (0-2) % Neut # (Auto) 2100 (7562-8380) /uL Lymph # (Auto) 1400 (3330-8738) /uL [place] # (Auto) 400 (0-900) /uL Eos # (Auto) 0 (0-450) /uL Baso # (Auto) 0 (0-100) /uL PT 13.4 H (9.4-12.5) SECONDS INR 1.2 (0.9-1.3) APTT 46 H (25.1-36.5) SECONDS Sodium 138 (137-145) mmol/L Potassium 3.6 (3.4-5.1) mmol/L Chloride 102 (98-107) mmol/L Carbon Dioxide 32 (22-32) mmol/L BUN 14 (7-17) mg/dL Creatinine 0.81 (0.52-1.04) mg/dL Estimated GFR > 60 (>60) mL/min BUN/Creatinine Ratio 17.3 (6-22) Glucose 99 (80-110) mg/dL Lactate 1.0 (0.7-2.1) mmol/L Calcium 8.8 (8.4-10.2) mg/dL Total Bilirubin 0.6 (0.2-1.3) mg/dL AST 25 (14-36) IU/L ALT 12 (<35) IU/L Alkaline Phosphatase 65 (38-126) U/L Total Creatine Kinase 47 (30-135) U/L Troponin I < 0.012 (0.01-0.034) ng/mL Total Protein 6.2 L (6.3-8.2) g/dL Albumin 3.8 (3.5-5.0) g/dL Globulin 2.4 (1.7-4.1) g/dL Albumin/Globulin Ratio 1.6 (1.0-2.8) Lipase 65 (23-300) U/L Ethyl Alcohol < 10 ( - 10) mg/dL Imaging Data CT scan - head: Radiologist's Impression: PROCEDURE: CT HEAD/BRAIN WO CON INDICATIONS: syncope, hit wall with head TECHNIQUE: Noncontrast 4.5 mm thick angled axial sections acquired from the foramen magnum to the vertex, with coronal and sagittal reformats. For radiation dose reduction, the following was used: automated exposure control, adjustment of mA and/or kV according to patient size. COMPARISON: [facility], CT, CT CERVICAL SPINE WO CON, 11/18/2023, 11:15. [facility], CT, CT HEAD/BRAIN WO CON, 08/20/2023, 18:40. FINDINGS: Image quality: There is artifact associated with the metallic dental work through the skull base. Artifact from the metallic hardware is reduced by metal reconstruction algorithm. CSF spaces: Basal cisterns are patent. No extra-axial fluid collections. The ventricles are symmetric in size and shape. Brain: No intracranial bleeds or masses. There is cerebral volume loss for age, with resultant ventricular and sulcal prominence. There are periventricular and deep white matter chronic small vessel ischemic changes. There is intracranial internal carotid artery atherosclerosis. Skull and face: Calvarium and visualized facial bones appear intact, without suspicious lesions. Sinuses: Visualized sinuses and mastoids are clear. IMPRESSION: No acute intracranial hemorrhage is seen. No acute intracranial pathology. Dictated by: Dutch Sherman M.D. on 11/18/2023 at 10:53 Chest x-ray: Radiologist's Impression: PROCEDURE: XR CHEST 1V INDICATIONS: chest pain TECHNIQUE: One view of the chest was acquired. COMPARISON: None. FINDINGS: Surgical changes and devices: None. Lungs and pleura: Lungs are clear. No pleural effusions or pneumothorax. Mediastinum: Mediastinal contours appear normal. Heart size is normal. Bones and chest wall: No suspicious bony lesions. Overlying soft tissues appear unremarkable. IMPRESSION: No acute cardiopulmonary abnormality is seen. Dictated by: Lizbeth Jaime MD, PhD on 11/18/2023 at 11:20 CT - cervical spine: Radiologist's Impression: PROCEDURE: CT CERVICAL SPINE WO CON INDICATIONS: syncope, hit wall with head TECHNIQUE: Noncontrast 3 mm thick sections acquired from the skull base to the T4 level. Sagittal and coronal reformats were then constructed. For radiation dose reduction, the following was used: automated exposure control, adjustment of mA and/or kV according to patient size. COMPARISON: [facility], CT, CT CERVICAL SPINE WO CON, 07/25/2019, 21:35. [facility], CT, CT HEAD/BRAIN WO CON, 11/18/2023, 11:15. [facility], CT, CT CERVICAL SPINE WITHOUT CONTRAST, 10/15/2023, 13:29. FINDINGS: Image quality: This examination is somewhat limited by quantum mottle artifact. Bones: No fractures or dislocations. Visualized superior ribs are intact. Soft tissues: Prevertebral soft tissues are normal in thickness. No paravertebral hematomas. No apical pneumothoraces. Atherosclerotic calcification is noted. IMPRESSION: Negative for cervical spine fracture. Dictated by: Dutch Sherman M.D. on 11/18/2023 at 10:54 ECG Data Attestation: I personally reviewed and interpreted this ECG as follows: Prior ECG tracings: available for review Interpretation: Low voltage normal sinus rhythm rate 49 PA interval 222 QRS [address] changes no T-wave inversions first-degree AV block new from previous EKGs in 2021 [facility] Narrative Medical decision making narrative: Patient is 68-year-old female who presents today after syncopal episode. She did not really have any sort of warning signs she overall is feeling well. Injury noted on right tungsten tender laterally Blood work has been reviewed WBC 4.0 hemoglobin 11.9 hematocrit 36.3, platelets 232, sodium 138, potassium 3.6, chloride 102, carbon dioxide 32, BUN 14, creatinine 0.8 bilirubin 0.6, AST 25, ALT 12, alk-phos 65, troponin negative lipase 65 Imaging has all been reviewed no acute intracranial process no cervical, all extremity x-rays have also been reviewed possible right 5th metatarsal fracture noted. EKG reviewed Patient reports that she was having some dizziness which might be why she fell. There is no evidence of cardiac arrhythmia on the monitor while she is in the ED. She received a L of IV fluid. She did ambulate with a orthopedic shoe and walker without any significant difficulty. No obvious sign of reason why she fell. It seems like she has some mild dizziness not significant for posterior CVA or benign paroxysmal positional vertigo. It quickly resolved with a L of fluid she ambulated well. She received a slightly lower dose of her normal pain medication. At this time no indication for admission she ambulates with a walker recommend follow-up with orthopedic in regards to her foot. Discharge Plan Departure Patient Disposition: Home Clinical Impression: Closed fracture of fifth metatarsal bone of right foot, Syncope Instructions: DI for Syncope in Adults (Fainting), DI for Toe Fracture Activity Restrictions/Additional Instructions: *You have been diagnosed with fainting episode, 5th toe fracture *What to do: At this time wear orthopedic shoe use walker. I recommend that you follow-up with orthopedics. Drink plenty of fluids you do not pass out *Continue to take medications as directed Continue your pain medication as previously prescribed *Follow up with your primary care provider in 2-3 days or call [phone] *Return to ER if you should have increasing pain, passing out chest pain or fall or any new, worsening or concerning symptoms Prescriptions: No Action gabapentin [Neurontin] 300 MG capsule 300 mg PO QD-BID PRN (Reason: Nerve pain) Qty: 0 oxybutynin chloride 5 MG tablet 5 mg PO DAILY Qty: 0 trazodone 100 MG tablet 100 mg PO HS PRN (Reason: Sleep) Qty: 0 biotin 1 mg capsule 2,500 mg PO QDAY Qty: 0 levothyroxine 200 mcg tablet 100 mcg PO DAILY metoclopramide HCl [Reglan] 10 mg tablet 10 mg PO QACHS Qty: 90 3RF sucralfate [Carafate] 1 gram tablet 1 g PO BID Qty: 30 0RF azithromycin [Zithromax Z-Luis] 250 mg tablet See Rx Instructions .ROUTE .COMPLEX Qty: 6 0RF Rx Instructions: For 250 mg dose pack: take 500 mg today (day 1), then 250 mg for 4 days (days 2-5) losartan 50 mg tablet 50 mg PO BID Patient Comments: has been taking bid sertraline 100 mg Tablet 100 mg PO DAILY hydroxyzine HCl 10 mg Tablet 10 mg PO BEDTIME folic acid 800 mcg Tablet 1 mg PO DAILY cetirizine 10 mg Tablet 10 mg PO BID pantoprazole 40 mg Tablet,Delayed Release (Dr/Ec) 40 mg PO BEDTIME omeprazole 20 mg Tablet,Delayed Release (Dr/Ec) 20 mg PO DAILY Eliquis 2.5 mg Tablet 2.5 mg PO BID acetaminophen 500 mg capsule 500 mg PO Q4H MDD Max 3000 mg per day PRN (Reason: fever or pain) Qty: 90 0RF docusate sodium 100 mg Capsule 100 mg PO BID PRN (Reason: Constipation from narcotic pain meds) Qty: 20 0RF hydromorphone 2 mg Tablet 2 mg PO Q3H PRN (Reason: Pain, Severe (7-10)) Qty: 42 0RF hydroxyzine pamoate 25 mg Capsule 25 mg PO Q4HR PRN (Reason: Muscle spasm/pain/nausea) Qty: 60 0RF ondansetron 4 mg tablet,disintegrating 4 mg PO Q6H PRN (Reason: nausea and vomiting) Qty: 10 0RF Referrals: [facility] [Provider Group] Chandler Covarrubias MD [Primary Care Provider] - Stand Alone Forms: Patient Portal/API
--- NOTE | 2023-11-18 11:59 | DI.RAD.S_ITS ---
PROCEDURE: XR KNEE RT 3V INDICATIONS: pain TECHNIQUE: 3 views of the knee were acquired. COMPARISON: [facility], CR, XR KNEE RT 3V, 11/19/2021, 9:43. FINDINGS: Bones: No fractures or dislocations. No suspicious bony lesions. Tricompartmental osteoarthritis. Soft tissues: No joint effusion. No suspicious soft tissue calcifications. IMPRESSION: No acute bony abnormality or significant effusion. Dictated by: Lizbeth Jaime MD, PhD on 11/18/2023 at 12:27 Approved by: Lizbeth Jaime MD, PhD on 11/18/2023 at 12:28
[2023-11-18] MEDS: HYDROCODONE/ACET 10/325 TABLET 1 TAB PO (12:11)
[2023-11-18 12:17] LABS: Creatine Kinase 47 U/L (30-135)
[2023-11-18 12:30] LABS: Troponin I < 0.012 ng/mL (0.01-0.034)
[2023-11-18] MEDS: SODIUM CHLORIDE 0.9% 1,000 ML 1000 ML IV (12:58)
--- NOTE | 2023-11-18 14:35 | PC.NURSE ---
Patient ambulated with walker, uses one at home when needed. Provider aware.
== END 2023-11-18 14:50 | disposition home or self-care (01) ==
PROVIDERS: Emergency Medicine; Emergency Provider Emergency Medicine; PCP Internal Medicine
DX: S92.351A Displaced fracture of fifth metatarsal bone, right foot, initial encounter for closed fracture (principal); S09.90XA Unspecified injury of head, initial encounter; M79.671 Pain in right foot; M25.561 Pain in right knee; R07.9 Chest pain, unspecified; I44.0 Atrioventricular block, first degree; Z79.899 Other long term (current) drug therapy; Z79.01 Long term (current) use of anticoagulants; R55 Syncope and collapse
CPT/HCPCS: 36415; 70450; 71045; 72125; 73562; 73590; 73620; 80053; 80320; 82550; 83605; 83690; 84484; 85025; 85610; 85730; 93005; 96360; 96361; 99285

== ENCOUNTER → 2024-02-10 10:42 | Outpatient (CLI) | payer MEDICARE, OTHER, SELFPAY ==
[2021-11-08 12:43] VITALS: BMI 35.9
--- NOTE | 2024-02-10 10:44 | DI.MRI.S_ITS ---
PROCEDURE: MR SHOULDER LT WO CON INDICATIONS: PAIN IN LEFT SHOULDER TECHNIQUE: Noncontrast oblique coronal T2 fast spin echo with fat saturation, oblique sagittal T1 spin echo and T2 fast spin echo with fat saturation, axial T1 spin echo and T2 fast spin echo with fat saturation through the shoulder. COMPARISON: [facility] [place], CR, XR SHOULDER 2+ VIEWS LEFT, 01/21/2024, 9:41. FINDINGS: Image quality: Excellent. Rotator cuff: Low-grade articular and bursal surface partial thickness tear involving distal supraspinatus at its insertion on the humeral head is seen extending to musculotendinous junction. Distal infraspinatus and subscapularis tendinosis is seen. No full-thickness rotator cuff tendon rupture. Sagittal images demonstrate no significant rotator cuff muscle atrophy. Bones and bursae: No bone marrow contusions or fractures. [id number] acromioclavicular joint osteoarthritic changes are seen with joint space narrowing and downward osteophyte formation depressing the musculotendinous junction of supraspinatus. Moderate glenohumeral joint osteoarthritic changes also noted. Type 1 acromion, without an os acromiale. Small amount of joint effusion and subacromial subdeltoid bursal fluid is seen, no loose bodies. Capsule and soft tissues: There is extensive fraying of posterior and inferior labrum with T2 hyperintense signal suggestive of posterior inferior labral tear. The long head of the biceps tendon demonstrates normal location and morphology. The rotator interval appears normal, without fibrosis. The coracohumeral ligament is normal in thickness. IMPRESSION: 1. Low-grade articular and bursal surface partial thickness tear involving distal supraspinatus extending to musculotendinous junction. Distal infraspinatus and subscapularis tendinosis. No full-thickness rotator cuff tendon rupture. No muscle atrophy. 2. [id number] acromioclavicular joint osteoarthritis and moderate glenohumeral joint osteoarthritis. No fracture or dislocation. Small amount of joint effusion and subacromial subdeltoid bursal fluid, no loose bodies. 3. Suggestion of extensive posterior and inferior left glenoid labral tear. Dictated by: Nitish Baig M.D. on 02/10/2024 at 14:56 Approved by: Nitish Baig M.D. on 02/10/2024 at 15:02
== END ==
LOC: MRI 10:43
PROVIDERS: PCP Internal Medicine; Referring Provider Orthopaedic Surgery; Visit Provider Orthopaedic Surgery
DX: M75.112 Incomplete rotator cuff tear or rupture of left shoulder, not specified as traumatic (principal); M19.012 Primary osteoarthritis, left shoulder; M25.412 Effusion, left shoulder; M25.512 Pain in left shoulder
CPT/HCPCS: 73221

== ENCOUNTER 2024-04-04 10:10 | Emergency (ER) | payer MEDICARE, OTHER, SELFPAY ==
[2021-11-08 12:43] VITALS: BMI 35.9
[2024-04-04] VITALS (7 sets, daily range): BP systolic 164–184; BP diastolic 74–89; PULSE 46–60; RESP 16–24; TEMP 36.7; O2SAT 96–99; BMI 26.4
--- NOTE | 2024-04-04 10:25 | EKG_ITS ---
[place] [id number] [place] [id number] Test Date: 2024-04-04 Pat Name: Kelsi Chase Department: 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
--- NOTE | 2024-04-04 10:25 | DI.RAD.S_ITS ---
PROCEDURE: XR CHEST 1V INDICATIONS: chest pain TECHNIQUE: One view of the chest was acquired. COMPARISON: [facility], CR, XR CHEST 1V, 11/18/2023, 11:02. FINDINGS: Surgical changes and devices: Epidural stimulator lead noted unchanged. Atherosclerotic vascular calcification noted in the aortic arch. Lungs and pleura: Lungs are clear. No pleural effusions or pneumothorax. Mediastinum: Mediastinal contours appear normal. Heart size is normal. Bones and chest wall: No suspicious bony lesions. Overlying soft tissues appear unremarkable. IMPRESSION: No acute cardiopulmonary abnormality is seen. Approved by: Bhargav Heredia M.D. on 04/04/2024 at 10:28
[2024-04-04 10:57] LABS: Add Manual Diff / Slide Review NO; Basophils Absolute Auto 0 /uL (0-100); Basophils Percent Auto 0.5 % (0-2); Eosinophils Absolute Auto 100 /uL (0-450); Eosinophils Percent Auto 1.3 % (2-4); Hematocrit 38.8 % (36-46); Hemoglobin 12.8 g/dL (12.0-16.0); Lymphocytes Absolute Auto 1700 /uL (1100-4500); Lymphocytes Percent Auto 32.5 % (25-40); Mean Corpuscular HGB Conc 33.1 % (30-36); Mean Corpuscular Hemoglobin 29.7 PG (26-34); Mean Corpuscular Volume 89.7 fL (80-100); Monocytes Absolute Auto 400 /uL (0-900); Neutrophils Absolute Auto 3100 /uL (1500-7000); Neutrophils Percent Auto 58.7 % (50-75); Platelet Count 268 X10^3/uL (150-400); Red Blood Cell Count 4.33 X10^6/uL (4.0-5.2); Red Cell Distribution Width 14.2 % (11.6-14.8); White Blood Cell Count 5.3 X10^3/uL (4.5-11.0)
[2024-04-04 11:06] LABS: INR 1.1 (0.9-1.3); Prothrombin Time 13.1 SECONDS (9.4-12.5)
[2024-04-04 11:08] LABS: PTT Partial Thromboplastin Tim 52 SECONDS (25.1-36.5)
[2024-04-04 11:11] LABS: Alanine Aminotransferase 12 IU/L (<35); Albumin 3.8 g/dL (3.5-5.0); Albumin Globulin Ratio 1.5 (1.0-2.8); Alkaline Phosphatase 55 U/L (38-126); Aspartate Aminotransferase 26 IU/L (14-36); BUN Creatinine Ratio 12.2 (6-22); Bilirubin Total 0.5 mg/dL (0.2-1.3); Blood Urea Nitrogen 10 mg/dL (7-17); Calcium 8.9 mg/dL (8.4-10.2); Carbon Dioxide 29 mmol/L (22-32); Chloride 98 mmol/L (98-107); Creatine Kinase 51 U/L (30-135); Estimated Glomerular Filt Rate > 60 mL/min (>60); Globulin 2.5 g/dL (1.7-4.1); Glucose 100 mg/dL (80-110); HEMOLYSIS < 15 (0-50); Lipase 62 U/L (23-300); Magnesium 1.8 mg/dL (1.6-2.3); Potassium 3.5 mmol/L (3.4-5.1); Sodium 132 mmol/L (137-145); Total Protein 6.3 g/dL (6.3-8.2)
[2024-04-04 11:22] LABS: NT-proBNP (BNP-Adult 18+) 240 pg/mL (<125); Troponin I < 0.012 ng/mL (0.01-0.034)
--- NOTE | 2024-04-04 11:39 | ED.CHESTPAIN ---
HPI - Chest Pain General Chief Complaint: Chest Pain Stated Complaint: Pleurisy Time Seen by Provider: 04/04/24 10:28 History of Present Illness HPI narrative: Patient 69-year-old female history of pulmonary embolism on Eliquis presents today with left shoulder pain. It has been ongoing for the last 5 days. 2 days prior she lifted some bricks. She do not does not think she lifted many of them. However her left shoulder and back hurt every time she breathes moves or coughs. She was seen by her primary care provider who gave her tizanidine. She reports that that is not helping her all. She was trying to do some laundry but it hurts too bad. She has been taking Tylenol without any sort of relief. Can not take NSAIDs secondary to Eliquis. No numbness or tingling down her arm. No real chest pain. Pain is definitely reproducible to palpation. Related Data Home Medications Medication Instructions Recorded Confirmed biotin 1 mg capsule 2,500 mg PO QDAY ##0 07/28/17 11/08/21 gabapentin 300 mg capsule 300 mg PO QD-BID PRN Nerve pain ##0 07/28/17 11/08/21 (Neurontin) oxybutynin chloride 5 mg tablet 5 mg PO DAILY ##0 07/28/17 11/08/21 trazodone 100 mg tablet 100 mg PO HS PRN Sleep ##0 07/28/17 11/01/21 losartan 50 mg tablet 50 mg PO BID 10/23/19 11/08/21 levothyroxine 200 mcg tablet 100 mcg PO DAILY 12/16/19 11/08/21 folic acid 800 mcg tablet 1 mg PO DAILY 03/13/20 11/08/21 hydroxyzine HCl 10 mg tablet 10 mg PO BEDTIME skin allergies 03/13/20 11/08/21 sertraline 100 mg tablet 100 mg PO DAILY 03/13/20 11/08/21 apixaban 2.5 mg tablet (Eliquis) 2.5 mg PO BID 11/01/21 11/08/21 cetirizine 10 mg tablet 10 mg PO BID 11/01/21 11/08/21 omeprazole 20 mg tablet,delayed 20 mg PO DAILY 11/01/21 11/08/21 release pantoprazole 40 mg tablet,delayed 40 mg PO BEDTIME 11/01/21 11/01/21 release Previous Rx's Medication Instructions Recorded metoclopramide HCl 10 mg tablet 10 mg PO QACHS #90 tabs 09/08/21 (Reglan) acetaminophen 500 mg capsule 500 mg PO Q4H PRN fever or pain 11/10/21 #90 caps docusate sodium 100 mg capsule 100 mg PO BID PRN Constipation 11/10/21 from narcotic pain meds #20 caps hydromorphone 2 mg tablet 2 mg PO Q3H PRN Pain, Severe 11/10/21 (7-10) #42 tabs hydroxyzine pamoate 25 mg capsule 25 mg PO Q4HR PRN Muscle 11/10/21 spasm/pain/nausea #60 caps sucralfate 1 gram tablet (Carafate) 1 g PO BID #30 tabs 01/19/22 ondansetron 4 mg disintegrating 4 mg PO Q6H PRN nausea and 09/09/22 tablet vomiting #10 tabs azithromycin 250 mg tablet See Rx Instructions PO .COMPLEX #6 08/20/23 (Zithromax Z-Luis) tabs hydrocodone 5 mg-acetaminophen 325 1 tab PO Q6H PRN pain #10 tabs 04/04/24 mg tablet methocarbamol 750 mg tablet 1,500 mg (2 x 750 mg) PO Q12HR #20 04/04/24 tabs Allergies Allergy/AdvReac Type Severity Reaction Status Date / Time morphine [MORPHINE] Allergy Severe Rash, N&V Verified 01/19/22 15:58 - IV med only mussels [MUSSELS] Allergy Severe N&V Verified 01/19/22 15:58 latex [LATEX] Allergy Intermediate RASH, Verified 01/19/22 15:58 ITCHY, BLISTERS adhesive tape Allergy Mild Blister Verified 01/19/22 15:58 iodine [IODINE] Allergy Mild RASH Verified 01/19/22 15:58 Patient History Medical History GI bleed (2020) Presence of neurostimulator No blood products DVT (deep venous thrombosis) Osteomyelitis Hospitalization or health care facility admission within last 6 months (12/14/19) Lactose intolerance PTSD (post-traumatic stress disorder) Anxiety Former smoker SHANEKA (obstructive sleep apnea) Insomnia GERD (gastroesophageal reflux disease) Depression Chronic pain History of ETOH abuse Hypoglycemia Hiatal hernia Hypothyroidism Pulmonary embolism (~1993) Chronic sinus bradycardia HTN (hypertension) Surgical History History of esophagogastroduodenoscopy (EGD) History of arthroplasty of left knee (03/20/20) History of lumpectomy of right breast History of lumpectomy of left breast Hx of tubal ligation History of arthroscopy of right shoulder History of arthroscopy of left shoulder History of carpal tunnel release of both wrists Hx of laminectomy (11/11/18) S/P gastroplasty History of colonoscopy Hx of cholecystectomy Hx of appendectomy Hx of hernia repair History of total left hip arthroplasty (11/08/15) Family History Father CAD (coronary artery disease) Mother CAD (coronary artery disease) Social History household members: spouse Smoking Status: Former smoker alcohol intake: former Smoking Status: Former smoker alcohol intake frequency: holidays/special occasions only Substance Use Type: does not use Exam Initial Vital Signs Initial Vital Signs: Vital Signs Temperature 98.1 F 04/04/24 10:20 Pulse Rate 60 04/04/24 10:20 Respiratory Rate 16 04/04/24 10:20 Blood Pressure 164/74 H 04/04/24 10:20 Pulse Oximetry 99 04/04/24 10:20 Oxygen Delivery Method Room Air 04/04/24 10:20 GENERAL: Alert 61-year-old female appears older than stated age and in [no acute] distress. HEENT: Head atraumatic,EOMI, pupils reactive, face symmetric, [moist] mucous membranes CARDIOVASCULAR: Regular rate and rhythm without murmurs, rubs or gallops. RESPIRATORY: Breath sounds equal bilaterally, no wheezes rales or rhonchi. ABDOMEN: Soft, nontender. Normoactive bowel sounds all 4 quadrants. No guarding or rebound. BACK: Left scapular area medially is tender to touch muscle spasm felt pain is reproducible to palpation. EXTREMITIES: Normal range of motion, no clubbing or edema. Neurovascularly intact NEUROLOGICAL: Alert and oriented x4.Normal gait and speech. Cranial nerves II through XII grossly intact. SKIN: Warm, dry, no laceration, no petechiae, no rashes or lesions. Course Orders Ordered: ED Orders 04/04/24 10:25 XR chest 1V Stat EKG-12 Lead Stat 04/04/24 10:47 Complete Blood Count AUTO DIFF Stat Comprehensive Metabolic Panel Stat Lipase Stat Magnesium Stat NT-proBNP (BNP-Adult 18+) Stat PTT Partial Thromboplastin Seth Stat Prothrombin Time INR Stat Troponin & CK Cardiac Panel Stat Discontinued Medications Hydromorphone HCl (Hydromorphone 1 Mg Inj) 0.5 mg IV NOW ONE Stop: 04/04/24 11:57 Last Admin: 04/04/24 12:06 Dose: 0.5 mg Documented By: LEATHA Vital Signs Vital signs: Vital Signs - 8 hr 04/04/24 10:20 04/04/24 10:30 04/04/24 10:32 Temperature 98.1 F Pulse Rate 60 55 L Respiratory Rate 16 19 Blood Pressure 164/74 H 172/82 H Pulse Oximetry 99 96 Oxygen Delivery Method Room Air 04/04/24 10:32 04/04/24 11:00 04/04/24 11:00 Temperature Pulse Rate 55 L 48 L Respiratory Rate 24 18 Blood Pressure 174/85 H Pulse Oximetry 98 97 Oxygen Delivery Method Room Air 04/04/24 11:30 04/04/24 11:30 04/04/24 12:00 Temperature Pulse Rate 46 L Respiratory Rate 19 24 Blood Pressure 173/89 H Pulse Oximetry 98 98 Oxygen Delivery Method 04/04/24 12:01 04/04/24 12:01 Temperature Pulse Rate 46 L Respiratory Rate 20 Blood Pressure 184/74 H Pulse Oximetry 98 Oxygen Delivery Method MDM - Chest Pain Lab Data 04/04/24 10:47 04/04/24 10:47 Labs: Lab Results 04/04/24 Range/Units 10:47 WBC 5.3 (4.5-11.0) X10^3/uL RBC 4.33 (4.0-5.2) X10^6/uL Hgb 12.8 (12.0-16.0) g/dL Hct 38.8 (36-46) % MCV 89.7 (80-100) fL MCH 29.7 (26-34) PG MCHC 33.1 (30-36) % RDW 14.2 (11.6-14.8) % Plt Count 268 (150-400) X10^3/uL Neut % (Auto) 58.7 (50-75) % Lymph % (Auto) 32.5 (25-40) % [place] % (Auto) 7.0 (3-14) % Eos % (Auto) 1.3 L (2-4) % Baso % (Auto) 0.5 (0-2) % Neut # (Auto) 3100 (6103-9048) /uL Lymph # (Auto) 1700 (0721-9497) /uL [place] # (Auto) 400 (0-900) /uL Eos # (Auto) 100 (0-450) /uL Baso # (Auto) 0 (0-100) /uL PT 13.1 H (9.4-12.5) SECONDS INR 1.1 (0.9-1.3) APTT 52 H (25.1-36.5) SECONDS Sodium 132 L (137-145) mmol/L Potassium 3.5 (3.4-5.1) mmol/L Chloride 98 (98-107) mmol/L Carbon Dioxide 29 (22-32) mmol/L BUN 10 (7-17) mg/dL Creatinine 0.82 (0.52-1.04) mg/dL Estimated GFR > 60 (>60) mL/min BUN/Creatinine Ratio 12.2 (6-22) Glucose 100 (80-110) mg/dL Calcium 8.9 (8.4-10.2) mg/dL Magnesium 1.8 (1.6-2.3) mg/dL Total Bilirubin 0.5 (0.2-1.3) mg/dL AST 26 (14-36) IU/L ALT 12 (<35) IU/L Alkaline Phosphatase 55 (38-126) U/L Total Creatine Kinase 51 (30-135) U/L Troponin I < 0.012 (0.01-0.034) ng/mL NT-Pro-B Natriuret Pep 240 H (<125) pg/mL Total Protein 6.3 (6.3-8.2) g/dL Albumin 3.8 (3.5-5.0) g/dL Globulin 2.5 (1.7-4.1) g/dL Albumin/Globulin Ratio 1.5 (1.0-2.8) Lipase 62 (23-300) U/L Imaging Data Chest x-ray: Radiologist's Impression: PROCEDURE: XR CHEST 1V INDICATIONS: chest pain TECHNIQUE: One view of the chest was acquired. COMPARISON: [facility], CR, XR CHEST 1V, 11/18/2023, 11:02. FINDINGS: Surgical changes and devices: Epidural stimulator lead noted unchanged. Atherosclerotic vascular calcification noted in the aortic arch. Lungs and pleura: Lungs are clear. No pleural effusions or pneumothorax. Mediastinum: Mediastinal contours appear normal. Heart size is normal. Bones and chest wall: No suspicious bony lesions. Overlying soft tissues appear unremarkable. IMPRESSION: No acute cardiopulmonary abnormality is seen. Approved by: Bhargav Heredia M.D. on 04/04/2024 at 10:28 ECG Data Attestation: I personally reviewed and interpreted this ECG as follows: Prior ECG tracings: available for review Interpretation: Normal sinus rhythm rate 48 NE interval 216 QRS 74 QTC 351 low voltage no obvious ST changes similar to prior MDM Narrative Medical decision making narrative: MDM CC: Left shoulder pain Complicating co-morbidities: Pulmonary embolism on [facility] Medical records reviewed: Previous visits Differential considered: Muscle spasm, coronary artery disease, pulmonary embolism, dissection Exam documented above, pertinent findings include: Patient lying on left side in position of comfort. Back area is palpated she has an obvious spasm pain is definitely reproducible with palpation. Attempted some light massage and trigger points. He says it was spasming little bit more but maybe started helping. Lab Test results independently reviewed as above. Pertinent findings: CBC no leukocytosis or anemia CMP electrolytes stable sodium 132 creatinine 0.8 Troponin negative BNP 240 Liver enzymes bilirubin within normal limits Independently reviewed EKG as above low voltage no ischemia mildly bradycardic Imaging studies independently reviewed: No acute cardiopulmonary process Consultations: None Treatments: Dilaudid Discussion: 61-year-old female presenting today with left-sided back pain. She was musculoskeletal in nature it is very reproducible and she lifted bricks 2 days prior. She reports that [employer] usually works for her. She tried tizanidine and Tylenol at home along with lidocaine patches without any sort of relief. She is allergic to morphine but given Dilaudid here. I attempted some light massaging here for which she received some mild relief Low concern for acute coronary syndrome blood work is overall reassuring EKG non concerning. Discharge Plan Departure Patient Disposition: Home Clinical Impression: Muscle spasm Instructions: DI for Muscle Spasm Activity Restrictions/Additional Instructions: *You have been diagnosed with muscle spasm *What to do: At this time movement is your friend. Try a little resistance do not lift anything too heavy walk move your arm into mild discomfort. No strenuous pain or heavy lifting. *Continue to take medications as directed [place] 1 tablet every 6 hours if needed for [id number] pain Stopped taking tizanidine Methocarbamol 750-1500 mg every 8 hours if needed for muscle spasm Lidocaine patch every 12 hours then remove Try [id number] arnica cream or CBD cream as well *Follow up with your primary care provider in 2-3 days or call [phone] *Return to ER if you should have increasing pain numbness tingling weakness [or] any new, worsening or concerning symptoms CONTROLLED SUBSTANCE DISCHARGE (Narcotoic/benzodiazepine/Flexeril/Phenergan) 1. You have been prescribed narcotic medications, it does have acetaminophen/Tylenol/paracetamol in it, DO NOT TAKE MORE THAN 4,00mg in 24 hours of Tylenol. TRAMADOL DOES NOT CONTAIN TYLENOL 2. Please understand that we cannot provide further refills of narcotics, benzodiazepines or controlled substances through the ED and her pain management will need to be through your provider. 3. While on these medications you cannot drive or operate heavy machinery. 4. You cannot sign legal documents or perform any duties such as this. 5. As long as you're taking opiate pain medications he should also be taking a stool softener such as Colace, Dulcolax, MiraLAX or prune juice, to help avoid constipation. Prescriptions: New hydrocodone-acetaminophen 5-325 mg tablet 1 tab PO Q6H PRN (Reason: pain) Qty: 10 0RF methocarbamol 750 mg tablet 1,500 mg PO Q12HR Qty: 20 0RF No Action gabapentin [Neurontin] 300 MG capsule 300 mg PO QD-BID PRN (Reason: Nerve pain) Qty: 0 oxybutynin chloride 5 MG tablet 5 mg PO DAILY Qty: 0 trazodone 100 MG tablet 100 mg PO HS PRN (Reason: Sleep) Qty: 0 biotin 1 mg capsule 2,500 mg PO QDAY Qty: 0 levothyroxine 200 mcg tablet 100 mcg PO DAILY metoclopramide HCl [Reglan] 10 mg tablet 10 mg PO QACHS Qty: 90 3RF sucralfate [Carafate] 1 gram tablet 1 g PO BID Qty: 30 0RF azithromycin [Zithromax Z-Luis] 250 mg tablet See Rx Instructions .ROUTE .COMPLEX Qty: 6 0RF Rx Instructions: For 250 mg dose pack: take 500 mg today (day 1), then 250 mg for 4 days (days 2-5) losartan 50 mg tablet 50 mg PO BID Patient Comments: has been taking bid sertraline 100 mg Tablet 100 mg PO DAILY hydroxyzine HCl 10 mg Tablet 10 mg PO BEDTIME folic acid 800 mcg Tablet 1 mg PO DAILY cetirizine 10 mg Tablet 10 mg PO BID pantoprazole 40 mg Tablet,Delayed Release (Dr/Ec) 40 mg PO BEDTIME omeprazole 20 mg Tablet,Delayed Release (Dr/Ec) 20 mg PO DAILY Eliquis 2.5 mg Tablet 2.5 mg PO BID acetaminophen 500 mg capsule 500 mg PO Q4H MDD Max 3000 mg per day PRN (Reason: fever or pain) Qty: 90 0RF docusate sodium 100 mg Capsule 100 mg PO BID PRN (Reason: Constipation from narcotic pain meds) Qty: 20 0RF hydromorphone 2 mg Tablet 2 mg PO Q3H PRN (Reason: Pain, Severe (7-10)) Qty: 42 0RF hydroxyzine pamoate 25 mg Capsule 25 mg PO Q4HR PRN (Reason: Muscle spasm/pain/nausea) Qty: 60 0RF ondansetron 4 mg tablet,disintegrating 4 mg PO Q6H PRN (Reason: nausea and vomiting) Qty: 10 0RF Referrals: Chandler Covarrubias MD [Primary Care Provider] - Stand Alone Forms: Patient Portal/API
[2024-04-04] MEDS: HYDROMORPHONE 1 MG INJ 0.5 MG IV (12:06)
== END 2024-04-04 12:25 | disposition home or self-care (01) ==
PROVIDERS: Emergency Provider Emergency Medicine; PCP Internal Medicine
DX: M62.830 Muscle spasm of back (principal); R07.9 Chest pain, unspecified; R42 Dizziness and giddiness; R00.1 Bradycardia, unspecified; I44.0 Atrioventricular block, first degree; Z79.01 Long term (current) use of anticoagulants; Z86.711 Personal history of pulmonary embolism
CPT/HCPCS: 36415; 71045; 80053; 82550; 83690; 83735; 83880; 84484; 85025; 85610; 85730; 93005; 96374; 99284; J1171

== ENCOUNTER 2024-11-13 12:04 | Emergency (ER) | payer MEDICARE, OTHER, SELFPAY ==
[2021-11-08 12:43] VITALS: BMI 35.9
[2024-11-13 12:17] VITALS: BP 96/51; PULSE 58; RESP 16; TEMP 36.4; O2SAT 100; BMI 24.0
--- NOTE | 2024-11-13 13:51 | DI.US.S_ITS ---
PROCEDURE: US PERIPH VENOUS UP EXTREM LT INDICATIONS: Soft tissues welling, post surgery. Please evaluate for thrombosis TECHNIQUE: Real-time imaging, as well as color and pulse Doppler interrogation, was performed of the upper extremity deep veins from the inferior neck to the antecubital fossa. COMPARISON: None. FINDINGS: The internal jugular vein, visualized portions of the subclavian vein, axillary, and brachial veins are free of intraluminal thrombus. Where physically possible, the veins are normally compressible. Color and pulse Doppler demonstrate normal intraluminal flow, with expected phasicity and pulsatility. Additional scanning of the cephalic and basilic veins of the superficial system demonstrates normal compressibility, without thrombus. At the site of the postoperative scar, there is a nonvascular fluid collection seen that measures 5.7 x 2.1 x 2.4 cm. IMPRESSION: No findings of upper extremity deep venous thrombosis can be seen. Likely postoperative seroma seen at the site of the surgical scar. Dictated by: Dutch Sherman M.D. on 11/13/2024 at 14:16 Approved by: Dutch Sherman M.D. on 11/13/2024 at 14:17
--- NOTE | 2024-11-13 15:03 | ED_ITS ---
HPI - Skin/Abscess/Foreign Bdy General Chief complaint: Skin/Abscess/Foreign Body Stated complaint: possible bloodclot in Lt arm, skin removal post op Time Seen by Provider: 11/13/24 12:36 Source: patient Mode of arrival: Ambulatory History of Present Illness HPI narrative: 69-year-old female here today for a possible blood clot in her left arm. Patient had bilateral brachioplasty at with Dr. Gregorio 3 weeks ago. States that everything seemed to be healing more or less okay but then she noticed her left arm around the incision was feeling itchy and sore yesterday and this morning when she woke up it was firm to the touch and swollen. No drainage. 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 States she is very concerned about a DVT in her arm. No fevers or chills. States that her right arm seems to be healing well with no issues. She denies any numbness or tingling in the extremity. She denies any chest pain or shortness of breath. Related Data Home Medications Medication Instructions Recorded Confirmed biotin 1 mg capsule 2,500 mg PO QDAY ##0 07/28/17 11/08/21 gabapentin 300 mg capsule 300 mg PO QD-BID PRN Nerve pain ##0 07/28/17 11/08/21 (Neurontin) oxybutynin chloride 5 mg tablet 5 mg PO DAILY ##0 07/28/17 11/08/21 trazodone 100 mg tablet 100 mg PO HS PRN Sleep ##0 07/28/17 11/01/21 losartan 50 mg tablet 50 mg PO BID 10/23/19 11/08/21 levothyroxine 200 mcg tablet 100 mcg PO DAILY 12/16/19 11/08/21 folic acid 800 mcg tablet 1 mg PO DAILY 03/13/20 11/08/21 hydroxyzine HCl 10 mg tablet 10 mg PO BEDTIME skin allergies 03/13/20 11/08/21 sertraline 100 mg tablet 100 mg PO DAILY 03/13/20 11/08/21 apixaban 2.5 mg tablet (Eliquis) 2.5 mg PO BID 11/01/21 11/08/21 cetirizine 10 mg tablet 10 mg PO BID 11/01/21 11/08/21 omeprazole 20 mg tablet,delayed 20 mg PO DAILY 11/01/21 11/08/21 release pantoprazole 40 mg tablet,delayed 40 mg PO BEDTIME 11/01/21 11/01/21 release Previous Rx's Medication Instructions Recorded metoclopramide HCl 10 mg tablet 10 mg PO QACHS #90 tabs 09/08/21 (Reglan) acetaminophen 500 mg capsule 500 mg PO Q4H PRN fever or pain 11/10/21 #90 caps docusate sodium 100 mg capsule 100 mg PO BID PRN Constipation 11/10/21 from narcotic pain meds #20 caps hydromorphone 2 mg tablet 2 mg PO Q3H PRN Pain, Severe 11/10/21 (7-10) #42 tabs hydroxyzine pamoate 25 mg capsule 25 mg PO Q4HR PRN Muscle 11/10/21 spasm/pain/nausea #60 caps sucralfate 1 gram tablet (Carafate) 1 g PO BID #30 tabs 01/19/22 ondansetron 4 mg disintegrating 4 mg PO Q6H PRN nausea and 09/09/22 tablet vomiting #10 tabs azithromycin 250 mg tablet See Rx Instructions PO .COMPLEX #6 08/20/23 (Zithromax Z-Luis) tabs hydrocodone 5 mg-acetaminophen 325 1 tab PO Q6H PRN pain #10 tabs 04/04/24 mg tablet methocarbamol 750 mg tablet 1,500 mg (2 x 750 mg) PO Q12HR #20 04/04/24 tabs cephalexin 500 mg capsule 500 mg PO Q8H 10 days #30 caps 11/13/24 Allergies Allergy/AdvReac Type Severity Reaction Status Date / Time morphine [MORPHINE] AdvReac Severe Rash, N&V Verified 11/13/24 12:17 - IV med only mussels [MUSSELS] AdvReac Severe N&V Verified 11/13/24 12:17 latex [LATEX] AdvReac Intermediate RASH, Verified 11/13/24 12:17 ITCHY, BLISTERS adhesive tape AdvReac Mild Blister Verified 11/13/24 12:17 iodine [IODINE] AdvReac Mild RASH Verified 11/13/24 12:17 Review of Systems Review of Systems ROS Unobtainable: All systems reviewed & are unremarkable except as noted in HPI and below Patient History Medical History GI bleed (2020) Presence of neurostimulator No blood products DVT (deep venous thrombosis) Osteomyelitis Hospitalization or health care facility admission within last 6 months (12/14/19) Lactose intolerance PTSD (post-traumatic stress disorder) Anxiety Former smoker SHANEKA (obstructive sleep apnea) Insomnia GERD (gastroesophageal reflux disease) Depression Chronic pain History of ETOH abuse Hypoglycemia Hiatal hernia Hypothyroidism Pulmonary embolism (~1993) Chronic sinus bradycardia HTN (hypertension) Surgical History History of esophagogastroduodenoscopy (EGD) History of arthroplasty of left knee (03/20/20) History of lumpectomy of right breast History of lumpectomy of left breast Hx of tubal ligation History of arthroscopy of right shoulder History of arthroscopy of left shoulder History of carpal tunnel release of both wrists Hx of laminectomy (11/11/18) S/P gastroplasty History of colonoscopy Hx of cholecystectomy Hx of appendectomy Hx of hernia repair History of total left hip arthroplasty (11/08/15) Family History Father CAD (coronary artery disease) Mother CAD (coronary artery disease) Social History household members: spouse Smoking Status: Former smoker alcohol intake: former Smoking Status: Former smoker alcohol intake frequency: holidays/special occasions only Exam Narrative Exam Narrative: GENERAL: [ 69] year old patient appears stated age. Well-developed patient, in no acute distress. HEAD: Atraumatic. Normocephalic. EYES: Pupils equal round and reactive. Extraocular motions intact. No scleral icterus. No injection or drainage. ENT: Nose without bleeding, purulent drainage. Throat without erythema, tonsillar hypertrophy or exudate. Airway patent. NECK: Trachea midline. Non tender CARDIOVASCULAR: Regular rate and rhythm without murmurs, gallops, or rubs. RESPIRATORY: Clear to auscultation. Breath sounds equal bilaterally. No wheezes, rales, or rhonchi. EXTREMITIES: left upper arm with large incision extending from the axilla to the elbow. The incision itself is well healed with no open areas or oozing or drainage. The incision itself is actually completely healed but there is a firm erythematous swelling with warmth to palpation on the upper 3rd of the incision. Slight tenderness present. Normal radial pulses. The right arm incision is completely healed with no issues. NEURO: AOx3. SKIN: No rash or erythema of visible areas Initial Vital Signs Initial Vital Signs: Vital Signs Temperature 97.5 F L 11/13/24 12:17 Pulse Rate 58 L 11/13/24 12:17 Respiratory Rate 16 11/13/24 12:17 Blood Pressure 96/51 L 11/13/24 12:17 Pulse Oximetry 100 11/13/24 12:17 Oxygen Delivery Method Room Air 11/13/24 12:17 Course Orders Ordered: ED Orders 11/13/24 13:51 US perip venous up extrem lt Stat Vital Signs Vital signs: Vital Signs - 8 hr 11/13/24 12:17 Temperature 97.5 F L Pulse Rate 58 L Respiratory Rate 16 Blood Pressure 96/51 L Pulse Oximetry 100 Oxygen Delivery Method Room Air MDM - Skin/Abscess/Foreign Bdy Imaging Data US: Radiologist's Impression: [address] [address] Ultrasound Report Signed Patient: Kelsi Chase MR#: [id number] : 1955 Acct:[id number] Age/Sex: 69 / F Date of Service: 11/13/24 Loc: ED Accession Number: [id number] Procedure: US perip venous up extrem lt Ordering Provider: Angie Child PA-C PROCEDURE: US PERIP VENOUS UP EXTREM LT INDICATIONS: Soft tissues welling, post surgery. Please evaluate for thrombosis TECHNIQUE: Real-time imaging, as well as color and pulse Doppler interrogation, was performed of the upper extremity deep veins from the inferior neck to the antecubital fossa. COMPARISON: None. FINDINGS: The internal jugular vein, visualized portions of the subclavian vein, axillary, and brachial veins are free of intraluminal thrombus. Where physically possible, the veins are normally compressible. Color and pulse Doppler demonstrate normal intraluminal flow, with expected phasicity and pulsatility. Additional scanning of the cephalic and basilic veins of the superficial system demonstrates normal compressibility, without thrombus. At the site of the postoperative scar, there is a nonvascular fluid collection seen that measures 5.7 x 2.1 x 2.4 cm. IMPRESSION: No findings of upper extremity deep venous thrombosis can be seen. Likely postoperative seroma seen at the site of the surgical scar. Dictated by: Dutch Sherman M.D. on 11/13/2024 at 14:16 Approved by: Dutch Sherman M.D. on 11/13/2024 at 14:17 [facility] Narrative Medical decision making narrative: Differential includes but not limited to DVT of the upper extremity, cellulitis, seroma, superficial thrombophlebitis patient is 3 weeks postop from bilateral brachioplasty. Woke up this morning with firm tender red and warm swelling of the left upper arm incision. On exam there is warmth, erythema, tenderness of the top 3rd of the upper arm incision. With her history of DVT and PE this warrants further investigation with an ultrasound, Although this seems much more superficial than a DVT. On ultrasound there is no findings of DVT and there is a nonvascular fluid collection in the area of concern which is likely a postop seroma. However cellulitis can not be completely excluded at this time so I am putting the patient on cephalexin. She has already sent a message to her surgeon at and we will plan to follow up with him as soon as possible. We discussed the self- limiting nature of most seromas but that sometimes they need additional treatment such as a drain. Encouraged her to apply warm compresses several times daily and keep her upper extremity elevated. We discussed return precautions such as high fevers, worsening swelling and pain, etc.. Discharge Plan Departure Patient Disposition: Home Clinical Impression: Seroma after procedure Instructions: DI for Cellulitis -- Adult Activity Restrictions/Additional Instructions: Thank you for choosing us to care for you today. Your ultrasound shows that you do not have a blood clot in your arm. This is likely a seroma which is a fluid collection that commonly occurs after an operation. These typically resolve on their own with time. Warm compresses can help with the discomfort Prescriptions: New cephalexin 500 mg capsule 500 mg PO Q8H 10 Days Qty: 30 0RF No Action gabapentin [Neurontin] 300 MG capsule 300 mg PO QD-BID PRN (Reason: Nerve pain) Qty: 0 oxybutynin chloride 5 MG tablet 5 mg PO DAILY Qty: 0 trazodone 100 MG tablet 100 mg PO HS PRN (Reason: Sleep) Qty: 0 biotin 1 mg capsule 2,500 mg PO QDAY Qty: 0 levothyroxine 200 mcg tablet 100 mcg PO DAILY metoclopramide HCl [Reglan] 10 mg tablet 10 mg PO QACHS Qty: 90 3RF sucralfate [Carafate] 1 gram tablet 1 g PO BID Qty: 30 0RF azithromycin [Zithromax Z-Luis] 250 mg tablet See Rx Instructions .ROUTE .COMPLEX Qty: 6 0RF Rx Instructions: For 250 mg dose pack: take 500 mg today (day 1), then 250 mg for 4 days (days 2-5) losartan 50 mg tablet 50 mg PO BID Patient Comments: has been taking bid sertraline 100 mg Tablet 100 mg PO DAILY hydroxyzine HCl 10 mg Tablet 10 mg PO BEDTIME folic acid 800 mcg Tablet 1 mg PO DAILY cetirizine 10 mg Tablet 10 mg PO BID pantoprazole 40 mg Tablet,Delayed Release (Dr/Ec) 40 mg PO BEDTIME omeprazole 20 mg Tablet,Delayed Release (Dr/Ec) 20 mg PO DAILY Eliquis 2.5 mg Tablet 2.5 mg PO BID acetaminophen 500 mg capsule 500 mg PO Q4H MDD Max 3000 mg per day PRN (Reason: fever or pain) Qty: 90 0RF docusate sodium 100 mg Capsule 100 mg PO BID PRN (Reason: Constipation from narcotic pain meds) Qty: 20 0RF hydromorphone 2 mg Tablet 2 mg PO Q3H PRN (Reason: Pain, Severe (7-10)) Qty: 42 0RF hydroxyzine pamoate 25 mg Capsule 25 mg PO Q4HR PRN (Reason: Muscle spasm/pain/nausea) Qty: 60 0RF ondansetron 4 mg tablet,disintegrating 4 mg PO Q6H PRN (Reason: nausea and vomiting) Qty: 10 0RF hydrocodone-acetaminophen 5-325 mg tablet 1 tab PO Q6H PRN (Reason: pain) Qty: 10 0RF methocarbamol 750 mg tablet 1,500 mg PO Q12HR Qty: 20 0RF Referrals: Chandler Covarrubias MD [Primary Care Provider] - Stand Alone Forms: Patient Portal/API/Survey
== END 2024-11-13 15:38 | disposition home or self-care (01) ==
PROVIDERS: Emergency Provider Physician Assistant; PCP Internal Medicine
DX: L76.34 Postprocedural seroma of skin and subcutaneous tissue following other procedure (principal)
CPT/HCPCS: 93971; 99281; 99283

== ENCOUNTER 2024-11-22 16:16 | Emergency (ER) | payer MEDICARE, OTHER, SELFPAY ==
[2021-11-08 12:43] VITALS: BMI 35.9
[2024-11-22] VITALS (9 sets, daily range): BP systolic 118–204; BP diastolic 80–99; PULSE 72–88; RESP 16–20; TEMP 36.9; O2SAT 94–96; BMI 22.3
--- NOTE | 2024-11-22 21:44 | PC.NURSE ---
Pt reports starting new medication, sulfamethoxazole/trimethoprim 800/160 since Friday for an infection of a surgical site on her left arm. Starting last night patient began having difficulty finding words, speech that is choppy and pressured, shakiness and twitching in both arms, especially when grab for an item. Asked if any changes in balance and she reports I'm always off balance.
[2024-11-22 22:07] LABS: Add Manual Diff / Slide Review NO; Basophils Absolute Auto 0 /uL (0-100); Basophils Percent Auto 0.6 % (0-2); Eosinophils Absolute Auto 100 /uL (0-450); Eosinophils Percent Auto 2.6 % (2-4); Hematocrit 31.9 % (36-46); Hemoglobin 10.8 g/dL (12.0-16.0); Lymphocytes Absolute Auto 2500 /uL (1100-4500); Lymphocytes Percent Auto 43.5 % (25-40); Mean Corpuscular Hemoglobin 30.9 PG (26-34); Mean Corpuscular Volume 90.8 fL (80-100); Monocytes Absolute Auto 600 /uL (0-900); Monocytes Percent Auto 11.1 % (3-14); Neutrophils Absolute Auto 2400 /uL (1500-7000); Neutrophils Percent Auto 42.2 % (50-75); Platelet Count 260 X10^3/uL (150-400); Red Blood Cell Count 3.51 X10^6/uL (4.0-5.2); Red Cell Distribution Width 13.9 % (11.6-14.8); White Blood Cell Count 5.8 X10^3/uL (4.5-11.0)
[2024-11-22 22:17] LABS: Lactate (Lactic Acid) 0.7 mmol/L (0.7-2.1)
[2024-11-22 22:18] LABS: Alanine Aminotransferase 10 IU/L (<35); Albumin 3.3 g/dL (3.5-5.0); Albumin Globulin Ratio 1.3 (1.0-2.8); Alkaline Phosphatase 72 U/L (38-126); Aspartate Aminotransferase 27 IU/L (14-36); BUN Creatinine Ratio 13.5 (6-22); Bilirubin Total 0.3 mg/dL (0.2-1.3); Blood Urea Nitrogen 15 mg/dL (7-17); Carbon Dioxide 26 mmol/L (22-32); Chloride 101 mmol/L (98-107); Estimated Glomerular Filt Rate 54 mL/min (>60); Globulin 2.6 g/dL (1.7-4.1); Glucose 89 mg/dL (70-99); HEMOLYSIS < 15 (0-50); Potassium 3.9 mmol/L (3.4-5.1); Sodium 132 mmol/L (137-145); Total Protein 5.9 g/dL (6.3-8.2)
[2024-11-22 22:48] LABS: Ethanol (ETOH) < 10 mg/dL (<10)
--- NOTE | 2024-11-22 23:37 | PC.NURSE ---
Pt ambulatory to restroom without difficulty or assistance
--- NOTE | 2024-11-22 23:49 | ED.NEUROSD ---
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 She has taken cephalexin in the past with not problem, 1st time taking Bactrim antibiotic. She will be seeing her plastic surgeon on Friday. Today she felt like she could not get her words out. No history of stroke or TIA known in the past. She is concerned that this was a Bactrim effect and stopped taking the Bactrim. No focal numbness or weakness. No unilateral face arm or leg tingling. No unilateral face arm or leg weakness. On Anticoagulants: Yes (eliquis) Related Data Home Medications ?Medication ?Instructions ?Recorded ?Confirmed biotin 1 mg capsule 2,500 mg PO QDAY ##0 07/28/17 11/08/21 gabapentin 300 mg capsule 300 mg PO QD-BID PRN Nerve pain ##0 07/28/17 11/08/21 (Neurontin) oxybutynin chloride 5 mg tablet 5 mg PO DAILY ##0 07/28/17 11/08/21 trazodone 100 mg tablet 100 mg PO HS PRN Sleep ##0 07/28/17 11/01/21 losartan 50 mg tablet 50 mg PO BID 10/23/19 11/08/21 levothyroxine 200 mcg tablet 100 mcg PO DAILY 12/16/19 11/08/21 folic acid 800 mcg tablet 1 mg PO DAILY 03/13/20 11/08/21 hydroxyzine HCl 10 mg tablet 10 mg PO BEDTIME skin allergies 03/13/20 11/08/21 sertraline 100 mg tablet 100 mg PO DAILY 03/13/20 11/08/21 apixaban 2.5 mg tablet (Eliquis) 2.5 mg PO BID 11/01/21 11/08/21 cetirizine 10 mg tablet 10 mg PO BID 11/01/21 11/08/21 omeprazole 20 mg tablet,delayed 20 mg PO DAILY 11/01/21 11/08/21 release pantoprazole 40 mg tablet,delayed 40 mg PO BEDTIME 11/01/21 11/01/21 release Previous Rx's ?Medication ?Instructions ?Recorded metoclopramide HCl 10 mg tablet 10 mg PO QACHS #90 tabs 09/08/21 (Reglan) acetaminophen 500 mg capsule 500 mg PO Q4H PRN fever or pain 11/10/21 #90 caps docusate sodium 100 mg capsule 100 mg PO BID PRN Constipation 11/10/21 from narcotic pain meds #20 caps hydromorphone 2 mg tablet 2 mg PO Q3H PRN Pain, Severe 11/10/21 (7-10) #42 tabs hydroxyzine pamoate 25 mg capsule 25 mg PO Q4HR PRN Muscle 11/10/21 spasm/pain/nausea #60 caps sucralfate 1 gram tablet (Carafate) 1 g PO BID #30 tabs 01/19/22 ondansetron 4 mg disintegrating 4 mg PO Q6H PRN nausea and 09/09/22 tablet vomiting #10 tabs azithromycin 250 mg tablet See Rx Instructions PO .COMPLEX #6 08/20/23 (Zithromax Z-Luis) tabs hydrocodone 5 mg-acetaminophen 325 1 tab PO Q6H PRN pain #10 tabs 04/04/24 mg tablet methocarbamol 750 mg tablet 1,500 mg (2 x 750 mg) PO Q12HR #20 04/04/24 tabs cephalexin 500 mg capsule 500 mg PO Q8H 10 days #30 caps 11/13/24 doxycycline hyclate 100 mg tablet 100 mg PO BID #14 tabs 11/23/24 Allergies Allergy/AdvReac Type Severity Reaction Status Date / Time morphine (MORPHINE) AdvReac Severe Rash, N&V Verified 11/13/24 12:17 - IV med only mussels (MUSSELS) AdvReac Severe N&V Verified 11/13/24 12:17 latex (LATEX) AdvReac Intermediate RASH, Verified 11/13/24 12:17 ITCHY, BLISTERS adhesive tape AdvReac Mild Blister Verified 11/13/24 12:17 iodine (IODINE) AdvReac Mild RASH Verified 11/13/24 12:17 Review of Systems Hematologic/Lymphatic On Anticoagulants: Yes (eliquis) Patient History Medical History GI bleed (2020) Presence of neurostimulator No blood products DVT (deep venous thrombosis) Osteomyelitis Hospitalization or health care facility admission within last 6 months (12/14/19) Lactose intolerance PTSD (post-traumatic stress disorder) Anxiety Former smoker SHANEKA (obstructive sleep apnea) Insomnia GERD (gastroesophageal reflux disease) Depression Chronic pain History of ETOH abuse Hypoglycemia Hiatal hernia Hypothyroidism Pulmonary embolism (~1993) Chronic sinus bradycardia HTN (hypertension) Surgical History History of esophagogastroduodenoscopy (EGD) History of arthroplasty of left knee (03/20/20) History of lumpectomy of right breast History of lumpectomy of left breast Hx of tubal ligation History of arthroscopy of right shoulder History of arthroscopy of left shoulder History of carpal tunnel release of both wrists Hx of laminectomy (11/11/18) S/P gastroplasty History of colonoscopy Hx of cholecystectomy Hx of appendectomy Hx of hernia repair History of total left hip arthroplasty (11/08/15) Family History Father CAD (coronary artery disease) Mother CAD (coronary artery disease) Social History household members: spouse Smoking Status: Never smoker alcohol intake: former Smoking Status: Never smoker alcohol intake frequency: holidays/special occasions only Exam Narrative Exam Narrative: GENERAL: Well-developed patient, in mild distress. HEAD: Atraumatic. Normocephalic. EYES: Pupils equal round and reactive. Extraocular motions intact. No scleral icterus. No injection or drainage. ENT: Nose without bleeding, purulent drainage. Throat without erythema, tonsillar hypertrophy or exudate. Airway patent. NECK: Trachea midline. Non tender CARDIOVASCULAR: Regular rate and rhythm without murmurs, gallops, or rubs. RESPIRATORY: Clear to auscultation. Breath sounds equal bilaterally. No wheezes, rales, or rhonchi. GASTROINTESTINAL: Abdomen soft, non-tender, nondistended. EXTREMITIES: No edema or joint tenderness. BACK: Nontender without deformity or crepitance. No flank tenderness. NEURO: AOx3. Clear speech. Cranial nerves normal as tested. Motor 5/5 bilateral upper extremities and bilateral lower extremities. [id number] testing bilateral normal. Intact sensation light touch face arm or leg bilaterally. SKIN: No rash or erythema of visible areas Initial Vital Signs Initial Vital Signs: Vital Signs Temperature 98.4 F 11/22/24 16:23 Pulse Rate 88 11/22/24 16:23 Respiratory Rate 20 11/22/24 16:23 Blood Pressure 118/80 11/22/24 16:23 Pulse Oximetry 94 11/22/24 16:23 Oxygen Delivery Method Room Air 11/22/24 16:23 Course Orders Ordered: ED Orders 11/22/24 21:55 CBC Auto Diff [Complete Blood Count AUTO DIFF] Stat CMP [Comprehensive Metabolic Panel] Stat Ethanol (ETOH) Stat Lactate (Lactic Acid) Stat Discontinued Medications Doxycycline Hyclate (Doxycycline Hyclate 100 Mg Tablet) 100 mg PO NOW ONE Stop: 11/23/24 00:56 Last Admin: 11/23/24 01:05 Dose: 100 mg Documented By: JACK Vital Signs Vital signs: Vital Signs - 8 hr 11/22/24 21:01 11/22/24 21:02 11/22/24 21:02 Pulse Rate 81 Respiratory Rate Blood Pressure 204/99 H Pulse Oximetry 95 96 Oxygen Delivery Method 11/22/24 21:30 11/22/24 21:30 11/22/24 22:00 Pulse Rate 72 76 Respiratory Rate 19 Blood Pressure 157/82 H Pulse Oximetry 95 95 Oxygen Delivery Method Room Air 11/22/24 22:00 11/22/24 22:30 11/22/24 22:30 Pulse Rate 73 Respiratory Rate Blood Pressure 162/88 H 174/81 H Pulse Oximetry 95 Oxygen Delivery Method 11/22/24 23:00 11/22/24 23:00 11/22/24 23:30 Pulse Rate 74 Respiratory Rate Blood Pressure 166/85 H 173/87 H Pulse Oximetry 94 Oxygen Delivery Method 11/22/24 23:30 11/22/24 23:42 11/22/24 23:42 Pulse Rate 75 79 Respiratory Rate 16 Blood Pressure 174/83 H Pulse Oximetry 94 95 Oxygen Delivery Method Room Air 11/23/24 00:00 11/23/24 00:00 11/23/24 00:30 Pulse Rate 71 74 Respiratory Rate 18 16 Blood Pressure 163/81 H Pulse Oximetry 94 94 Oxygen Delivery Method Room Air 11/23/24 00:30 11/23/24 01:00 11/23/24 01:06 Pulse Rate 76 71 Respiratory Rate Blood Pressure 166/83 H Pulse Oximetry 94 94 Oxygen Delivery Method 11/23/24 01:06 11/23/24 01:11 11/23/24 01:11 Pulse Rate 81 Respiratory Rate 20 Blood Pressure 161/84 H 157/78 H Pulse Oximetry 95 Oxygen Delivery Method Room Air MDM - Neuro Symptoms/Deficit Lab Data 11/22/24 21:55 11/22/24 21:55 Labs: Lab Results 11/22/24 Range/Units 21:55 WBC 5.8 (4.5-11.0) X10^3/uL RBC 3.51 L (4.0-5.2) X10^6/uL Hgb 10.8 L (12.0-16.0) g/dL Hct 31.9 L (36-46) % MCV 90.8 (80-100) fL MCH 30.9 (26-34) PG MCHC 34.0 (30-36) % RDW 13.9 (11.6-14.8) % Plt Count 260 (150-400) X10^3/uL Neut % (Auto) 42.2 L (50-75) % Lymph % (Auto) 43.5 H (25-40) % Ritchie % (Auto) 11.1 (3-14) % Eos % (Auto) 2.6 (2-4) % Baso % (Auto) 0.6 (0-2) % Neut # (Auto) 2400 (5405-1650) /uL Lymph # (Auto) 2500 (2626-3710) /uL Ritchie # (Auto) 600 (0-900) /uL Eos # (Auto) 100 (0-450) /uL Baso # (Auto) 0 (0-100) /uL Sodium 132 L (137-145) mmol/L Potassium 3.9 (3.4-5.1) mmol/L Chloride 101 (98-107) mmol/L Carbon Dioxide 26 (22-32) mmol/L BUN 15 (7-17) mg/dL Creatinine 1.11 H (0.52-1.04) mg/dL Estimated GFR 54 L (>60) mL/min BUN/Creatinine Ratio 13.5 (6-22) Glucose 89 (70-99) mg/dL Lactate 0.7 (0.7-2.1) mmol/L Calcium 9.0 (8.4-10.2) mg/dL Total Bilirubin 0.3 (0.2-1.3) mg/dL AST 27 (14-36) IU/L ALT 10 (<35) IU/L Alkaline Phosphatase 72 (38-126) U/L Total Protein 5.9 L (6.3-8.2) g/dL Albumin 3.3 L (3.5-5.0) g/dL Globulin 2.6 (1.7-4.1) g/dL Albumin/Globulin Ratio 1.3 (1.0-2.8) Ethyl Alcohol < 10 (<10) mg/dL MDM Narrative Medical decision making narrative: 69-year-old female with inability to find her words earlier this evening, could consider stroke, symptoms seemed to be better. Patient seems concerned that it might be due to recent addition of Bactrim new antibiotic, for postoperative plastic surgery left arm infection, she has taken cephalexin before without problems. She is discontinuing the Bactrim and we would like a replacement antibiotic. She feels better from her previous resolved difficulty finding words. She also takes considerable opiate medication for chronic back pain, 20 mg of hydrocodone 4 times daily. We discussed stroke workup, that might include CT head, CT angiogram head and neck vessels, and other testing, she declines this for now, she feels better. She would like to have replacement of her Bactrim antibiotic. Oral doxycycline dose given, take oral doxycycline twice daily, 7 day prescription sent. Follow up with Plastic surgery as planned this Friday. Consider reduction in chronic opiate medication dose to 10 mg 4 times daily (decreased from 20 mg 4 times daily), if over medication from opiates related to her difficulty finding words. She is willing to try this. Discharged home. Return precautions discussed. Follow up with the Plastic surgery this Friday advised. Discharge Plan Departure Patient Disposition: Home Clinical Impression: Speech problem, Postoperative wound infection, Chronic prescription opiate use Activity Restrictions/Additional Instructions: Transient difficulty finding her words earlier today. Consider stroke or transient ischemic attack, discussed CT head imaging, discussed CT angiogram head and neck imaging, declined these imaging studies for now. You take very high dose opiate medication for chronic low back pain at 20 mg hydrocodone 4 times daily. Consider taking reduced dose 10 mg hydrocodone 4 times daily. You also have had bilateral upper extremity plastic surgery, skin excess excision to both upper arms, left arm postoperative infection. You had been taking prescriptions for cephalexin and oral Bactrim antibiotics. You had been on cephalexin in the past without problems, new experience with Bactrim. Unclear if your speech issue has any relationship with Bactrim, however you decided to stop this antibiotic. We will replace with doxycycline for now, 1st dose in the emergency department, prescription sent to your pharmacy. Follow up with your plastic surgeon on Friday as planned. Further workup of any speech impediment and problems as an outpatient for now. Return to this/nearest emergency department for any change worsening symptoms or any concerns prior. Prescriptions: New doxycycline hyclate 100 mg tablet 100 mg PO BID Qty: 14 0RF No Action gabapentin [Neurontin] 300 MG capsule 300 mg PO QD-BID PRN (Reason: Nerve pain) Qty: 0 oxybutynin chloride 5 MG tablet 5 mg PO DAILY Qty: 0 trazodone 100 MG tablet 100 mg PO HS PRN (Reason: Sleep) Qty: 0 biotin 1 mg capsule 2,500 mg PO QDAY Qty: 0 levothyroxine 200 mcg tablet 100 mcg PO DAILY metoclopramide HCl [Reglan] 10 mg tablet 10 mg PO QACHS Qty: 90 3RF sucralfate [Carafate] 1 gram tablet 1 g PO BID Qty: 30 0RF azithromycin [Zithromax Z-Luis] 250 mg tablet See Rx Instructions .ROUTE .COMPLEX Qty: 6 0RF Rx Instructions: For 250 mg dose pack: take 500 mg today (day 1), then 250 mg for 4 days (days 2-5) cephalexin 500 mg capsule 500 mg PO Q8H 10 Days Qty: 30 0RF losartan 50 mg tablet 50 mg PO BID Patient Comments: has been taking bid sertraline 100 mg Tablet 100 mg PO DAILY hydroxyzine HCl 10 mg Tablet 10 mg PO BEDTIME folic acid 800 mcg Tablet 1 mg PO DAILY cetirizine 10 mg Tablet 10 mg PO BID pantoprazole 40 mg Tablet,Delayed Release (Dr/Ec) 40 mg PO BEDTIME omeprazole 20 mg Tablet,Delayed Release (Dr/Ec) 20 mg PO DAILY Eliquis 2.5 mg Tablet 2.5 mg PO BID acetaminophen 500 mg capsule 500 mg PO Q4H MDD Max 3000 mg per day PRN (Reason: fever or pain) Qty: 90 0RF docusate sodium 100 mg Capsule 100 mg PO BID PRN (Reason: Constipation from narcotic pain meds) Qty: 20 0RF hydromorphone 2 mg Tablet 2 mg PO Q3H PRN (Reason: Pain, Severe (7-10)) Qty: 42 0RF hydroxyzine pamoate 25 mg Capsule 25 mg PO Q4HR PRN (Reason: Muscle spasm/pain/nausea) Qty: 60 0RF ondansetron 4 mg tablet,disintegrating 4 mg PO Q6H PRN (Reason: nausea and vomiting) Qty: 10 0RF hydrocodone-acetaminophen 5-325 mg tablet 1 tab PO Q6H PRN (Reason: pain) Qty: 10 0RF methocarbamol 750 mg tablet 1,500 mg PO Q12HR Qty: 20 0RF Referrals: Chandler Covarrubias MD [Primary Care Provider, Internal Medicine] Stand Alone Forms: Patient Portal/API
[2024-11-23] VITALS: BP 163/81; PULSE 71; RESP 18; O2SAT 94
[2024-11-23 00:30] VITALS: BP 166/83; PULSE 74; RESP 16; O2SAT 94
[2024-11-23 01:00] VITALS: PULSE 76; O2SAT 94
[2024-11-23] MEDS: DOXYCYCLINE HYCLATE 100 MG TABLET PO (01:05)
[2024-11-23 01:06] VITALS: BP 161/84; PULSE 71; O2SAT 94
[2024-11-23 01:11] VITALS: BP 157/78; PULSE 81; RESP 20; O2SAT 95
== END 2024-11-23 01:19 | disposition home or self-care (01) ==
PROVIDERS: Emergency Provider Emergency Medicine; PCP Internal Medicine
DX: R47.9 Unspecified speech disturbances (principal); T81.49XA Infection following a procedure, other surgical site, initial encounter; F11.90 Opioid use, unspecified, uncomplicated
CPT/HCPCS: 80053; 80320; 83605; 85025; 99284